=== PATIENT | male | born 1965 | race Caucasian/White ===

== ENCOUNTER 2020-05-19 15:27 | Emergency (ER) | payer OTHER, SELFPAY ==
[2020-05-19] VITALS (7 sets, daily range): BP systolic 128–150; BP diastolic 70–82; PULSE 92–100; RESP 16; TEMP 36.4–37; O2SAT 96–98; BMI 38.7
--- NOTE | 2020-05-19 16:37 | XR_ITS ---
EXAMINATION: XR HIP, LEFT CLINICAL INFORMATION: Fall, hip pain. COMPARISON: Lumbar spine radiographs 05/19/2020 TECHNIQUE: AP view pelvis is performed along with AP and frog-lateral projections left hip. FINDINGS: There is no fracture or dislocation. Left hip shows no focal joint narrowing or erosive change. There is small benign triangular calcification adjacent to superior aspect greater trochanter which may be related to calcific tendinosis at tendon insertion. The bony pelvis shows no fracture. The SI joints and pubis show no diastases. There are degenerative changes again noted lumbar spine. XR/XR hip LT min 2V IMPRESSION: 1. No fracture or dislocation. 2. Degenerative changes lumbar spine. 3. Probable calcific tendinosis adjacent to superior aspect greater trochanter.
--- NOTE | 2020-05-19 16:37 | XR_ITS ---
EXAMINATION: XR LUMBOSACRAL SPINE CLINICAL INFORMATION: Fall. Pain. COMPARISON: Lumbar spine 08/27/2009 TECHNIQUE: Three views of the lumbosacral spine. FINDINGS: Lumbar vertebrae have normal height and alignment. No fracture or bone destruction. Grade 1 anterolisthesis of L5 on S1 unchanged since prior study of 2009. There are large bridging osteophytes of the lower thoracic and lumbar spine.. Lumbar disc heights are normal. There is moderate facet joint arthrosis at the lumbosacral junction. The degenerative change of the spine have progressed significantly since prior exam of 08/27/2009. The bridging spurs have significantly enlarged since prior exam. Mild degenerative change of the inferior sacroiliac joints bilaterally. No bony ankylosis of the sacroiliac joints. There are vascular calcifications of the aorta and iliac arteries. Distal aorta measures 2.8 cm AP dimension. XR/XR lumbar spine 2-3V IMPRESSION: 1. No acute abnormality. 2. Degenerative spondylosis of lumbar spine. This has progressed since prior study of 2009.
--- NOTE | 2020-05-19 16:37 | ECG_ITS ---
Test Reason : ABD Blood Pressure : / mmHG Vent. Rate : 089 BPM Atrial Rate : 089 BPM P-R Int : 184 ms QRS Dur : 090 ms QT Int : 352 ms P-R-T Axes : 071 076 120 degrees QTc Int : 428 ms Normal sinus rhythm Nonspecific T wave abnormality Abnormal ECG When compared with ECG of 18-NOV-2019 14:34, Nonspecific T wave abnormality, worse in Lateral leads Referred By: Samaria Og Electronically Signed By:Rogerio Simmons
--- NOTE | 2020-05-19 16:38 | CT_ITS ---
EXAMINATION: CT HEAD WITHOUT CONTRAST CLINICAL INFORMATION: Positive loss of consciousness. On Coumadin COMPARISON: None TECHNIQUE: Contiguous axial imaging was performed from the skull base to vertex without intravenous administration of contrast. This CT examination was performed using dose optimization techniques as appropriate, variously including the following: *Automated exposure control *Adjustment of mA and/or kV according to patient size (this includes techniques or standardized protocols for targeted exams where dose is matched to indication/reason for exam; i.e. extremities or head) *Use of iterative reconstruction technique DLP: 847 mGy-cm FINDINGS: No intracranial hemorrhage. No mass effect or midline shift. Singer-white differentiation is maintained without evidence of acute large vessel territory ischemia. Patchy periventricular and subcortical white matter hypodensity is seen. There is more focal low density in the left centrum semiovale with CSF density low density in the left nathan radiata. Ventricles and sulci are symmetric and concordant in size consistent with age-appropriate diffuse parenchymal volume loss. No evidence of acute hydrocephalus. Globes and orbits are normal. No acute sinusitis. Skull intact. CT/CT head/brain wo con IMPRESSION: No acute intracranial hemorrhage. Age-indeterminate but likely subacute to remote ischemic changes involving the left centrum semiovale and nathan radiata. Consider MRI if there is clinical concern for acute ischemia.
--- NOTE | 2020-05-19 16:39 | ED.GENADULT ---
HPI - General Adult General Chief complaint: General Medical Stated complaint: Back pain/fall Time Seen by Provider: 05/19/20 16:21 Source: patient Mode of arrival: ambulatory Limitations: no limitations History of Present Illness HPI narrative: Patient comes emergency room complaining of lumbar pain and left hip pain. Patient states 2 days ago he passed out and fell. Patient states 2 days ago he had a dental procedure, he is on Coumadin, states he had significant bleeding from the gums. When patient got home after the dental procedure, he tried getting out of bed and passed out. Patient does not know how long he was on the floor, he was able to get up by himself. Next day, patient states that he was complaining of lumbar and left hip pain. Patient had 1 more episode of dizziness. Patient states he got up from his bed, walking to his bathroom, started feeling very dizzy, he was able to sit in the bathroom, stayed there for about an hour recovering. Patient denies any chest pain or shortness of breath. Patient came today mainly complaining of the back pain, no further dizziness. MD complaint: Syncope, fall, back pain Related Data Home Medications Medication Instructions Recorded Confirmed insulin glargine 100 unit/mL (3 10 unit SUBCUT QPM 04/12/20 mL) subcutaneous pen losartan 25 mg tablet 25 mg PO DAILY 04/12/20 pantoprazole 40 mg tablet,delayed 40 mg PO DAILY 04/12/20 release rosuvastatin 20 mg tablet 20 mg PO DAILY 04/12/20 tamsulosin 0.4 mg capsule 0.4 mg PO DAILY 04/12/20 Previous Rx's Medication Instructions Recorded furosemide 40 mg tablet 40 mg PO DAILY #90 tab 02/12/20 dulaglutide 1.5 mg/0.5 mL 1.5 mg SUBCUT QWEEK 90 Days #6.5 ml 04/12/20 subcutaneous pen injector glipizide 10 mg tablet 10 mg PO DAILY 90 Days #90 tab 04/12/20 metformin 1,000 mg tablet 1,000 mg PO BID 90 Days #180 tab 04/12/20 metoprolol tartrate 50 mg tablet 50 mg PO BID 90 Days #180 tab 04/12/20 montelukast 10 mg tablet 10 mg PO DAILY 90 Days #90 tab 04/12/20 warfarin 2 mg tablet 2 mg PO .COMPLEX #270 tab 04/13/20 tramadol 50 mg PO BID PRN #14 tab 05/19/20 Allergies Allergy/AdvReac Type Severity Reaction Status Date / Time No Known Allergies Allergy Unverified 01/08/20 17:28 [No Known Allergies*] atorvastatin AdvReac Unknown Verified 11/18/19 00:00 Review of Systems Review of Systems: Constitutional : No Weight loss, No Fever, No Chills, No Night Sweats, No Fatigue, No Malaise ENT/Mouth : No Hearing loss, No Ear Pain, No Nasal Congestion, No Sinus Pain, No Hoarseness, No sore throat, No Rhinorrhea, No Swallowing Difficulty, recovering from dental surgery, several teeth extraction Eyes: No Eye Pain, No Swelling, No Redness, No Foreign Body, No Discharge, No Vision Changes Cardiovascular : No Chest Pain, No SOB, No Dyspnea on Exertion, No Orthopnea, No Edema, No Palpitations Respiratory : No Cough, No Sputum, No Wheezing, No Smoke Exposure, No Dyspnea Gastrointestinal : No Nausea, No Vomiting, No Diarrhea, No Constipation, No abdominal Pain, No Hematochezia, No Melena Genitourinary : no irregular bleeding, No Dysuria, No Urinary Frequency, No Hematuria, No Urinary Incontinence, No Urgency, No Flank Pain, No Urinary Flow Changes, No Hesitancy Musculoskeletal : No joint pain, No Myalgias, No Joint Swelling, complaining of left hip pain Skin : No Skin Lesions, No rash Neuro : No Weakness, No Numbness, No Paresthesias, No Loss of Consciousness, No Dizziness, No Headache Psych : No Anxiety/Panic, No Depression, No SI/HI/AH/VH, No Social Issues, Heme/Lymph: No Bruising, No Bleeding,No Lymphadenopathy Endocrine : No Polyuria, No Polydipsia, No Temperature Intolerance [facility] Past Medical History Medical History (Updated 05/19/20 @ 19:06 by Samaria Og MD) Asthma Diabetes High cholesterol HTN (hypertension) Sleep apnea Surgical History (Updated 05/19/20 @ 16:28 by Meg Constantino) Mechanical heart valve present Social History Social History Smoked in Last 30 Days: No Use of substances other than those prescribed or required for medical reasons: No Advance Directives: No Advance Directives Information Provided: Yes Physical Exam Vital Signs: Vital Signs: Last Vital Signs Temp 97.5 F 05/19/20 17:33 Pulse 100 05/19/20 17:33 Resp 16 05/19/20 17:33 BP 128/74 05/19/20 17:33 Pulse Ox 96 05/19/20 17:33 Body Mass Index 38.7 Course Course Course Narrative: I discussed with the patient that his head CT showed a possible old CVA. Patient states he did have an NC in 2017 when he had a heart attack. I discussed with the patient his troponin was slightly elevated, we should go ahead and repeated in 3 hours from the time it was drawn. Patient states that he does not want to wait. Patient's orthostatics were negative, x-rays negative for fracture. I discussed with the patient that he would be leaving AMA, patient agrees, I discussed with the patient the risks of leaving against AMA, including , patient verbally understands and agrees leave AMA Medical Decision Making Lab Data Result diagrams: 05/19/20 17:40 05/19/20 17:40 Labs: Lab Results 05/19/20 05/19/20 05/19/20 Range/Units 17:40 17:40 17:40 WBC 9.5 (4.8-10.8) X10*3/uL RBC 4.46 L (4.60-5.80) X10*6/uL Hgb 11.9 L (14.0-18.0) g/dl Hct 38.1 L (42-52) % MCV 85.4 (80-98) fL MCH 26.7 L (27.0-33.0) pg MCHC 31.2 (31.0-36.0) g/dl RDW 13.9 (11.0-16.0) % Plt Count 249 (160-400) X10*3/uL MPV 11.2 (9.4-12.4) fL Immature Gran % (Auto) 0.4 (0.0-0.4) % Neut % (Auto) 55.7 (45-73) % Lymph % (Auto) 33.2 (20-40) % Burt % (Auto) 8.8 (2-11) % Eos % (Auto) 1.6 (0-4) % Baso % (Auto) 0.3 (0-2) % Lymph # (Auto) 3.1 (1.2-4.9) X10*3/uL Burt # (Auto) 0.8 (0.1-1.2) X10*3/uL Eos # (Auto) 0.2 (0.0-0.4) X10*3/uL Baso # (Auto) 0.0 (0.0-0.2) X10*3/uL Abs Immat Gran (auto) 0.04 H (0.00-0.03) X10*3/uL Absolute Neuts (auto) 5.3 (2.0-8.3) X10*3/uL Absolute Nucleated RBC 0.000 (0.0-0.012) X10*3/uL Nucleated RBC % (auto) 0.0 (0.0-0.2) /100WBC PT (10.8-13.0) SEC INR (0.9-1.1) Sodium 141 (135-145) mmol/L Potassium 4.1 (3.3-5.1) mmol/l Chloride 106 (96-108) mmol/L Carbon Dioxide 25 (22-29) mmol/L Anion Gap 14 (12-20) BUN 21 H (9-16) mg/dL Creatinine 0.78 (0.5-1.4) mg/dL Estim Creat Clear Calc 122.3 Estimated GFR > 60 Random Glucose 108 (60-115) mg/dL Calcium 9.1 (8.4-10.2) mg/dL Troponin I High Sens 6.7 (<3.5-35.0) ng/L 05/19/20 Range/Units 17:41 WBC (4.8-10.8) X10*3/uL RBC (4.60-5.80) X10*6/uL Hgb (14.0-18.0) g/dl Hct (42-52) % MCV (80-98) fL MCH (27.0-33.0) pg MCHC (31.0-36.0) g/dl RDW (11.0-16.0) % Plt Count (160-400) X10*3/uL MPV (9.4-12.4) fL Immature Gran % (Auto) (0.0-0.4) % Neut % (Auto) (45-73) % Lymph % (Auto) (20-40) % Burt % (Auto) (2-11) % Eos % (Auto) (0-4) % Baso % (Auto) (0-2) % Lymph # (Auto) (1.2-4.9) X10*3/uL Burt # (Auto) (0.1-1.2) X10*3/uL Eos # (Auto) (0.0-0.4) X10*3/uL Baso # (Auto) (0.0-0.2) X10*3/uL Abs Immat Gran (auto) (0.00-0.03) X10*3/uL Absolute Neuts (auto) (2.0-8.3) X10*3/uL Absolute Nucleated RBC (0.0-0.012) X10*3/uL Nucleated RBC % (auto) (0.0-0.2) /100WBC PT 39.0 H (10.8-13.0) SEC INR 3.2 H (0.9-1.1) Sodium (135-145) mmol/L Potassium (3.3-5.1) mmol/l Chloride (96-108) mmol/L Carbon Dioxide (22-29) mmol/L Anion Gap (12-20) BUN (9-16) mg/dL Creatinine (0.5-1.4) mg/dL Estim Creat Clear Calc Estimated GFR Random Glucose (60-115) mg/dL Calcium (8.4-10.2) mg/dL Troponin I High Sens (<3.5-35.0) ng/L Imaging Data Head CT: Radiologist's impression: No intracranial hemorrhage. No mass effect or midline shift. Singer-white differentiation is maintained without evidence of acute large vessel territory ischemia. Patchy periventricular and subcortical white matter hypodensity is seen. There is more focal low density in the left centrum semiovale with CSF density low density in the left nathan radiata. Ventricles and sulci are symmetric and concordant in size consistent with age-appropriate diffuse parenchymal volume loss. No evidence of acute hydrocephalus. Globes and orbits are normal. No acute sinusitis. Skull intact. CT/CT head/brain wo con IMPRESSION: No acute intracranial hemorrhage. Age-indeterminate but likely subacute to remote ischemic changes involving the left centrum semiovale and nathan radiata. Consider MRI if there is clinical concern for acute ischemia. Lumbar x-ray: Radiologist's impression: Lumbar vertebrae have normal height and alignment. No fracture or bone destruction. Grade 1 anterolisthesis of L5 on S1 unchanged since prior study of 2009. There are large bridging osteophytes of the lower thoracic and lumbar spine.. Lumbar disc heights are normal. There is moderate facet joint arthrosis at the lumbosacral junction. The degenerative change of the spine have progressed significantly since prior exam of 08/27/2009. The bridging spurs have significantly enlarged since prior exam. Mild degenerative change of the inferior sacroiliac joints bilaterally. No bony ankylosis of the sacroiliac joints. There are vascular calcifications of the aorta and iliac arteries. Distal aorta measures 2.8 cm AP dimension. XR/XR lumbar spine 2-3V IMPRESSION: 1. No acute abnormality. 2. Degenerative spondylosis of lumbar spine. This has progressed since prior study of 2009. Hip x-ray: Radiologist's impression: There is no fracture or dislocation. Left hip shows no focal joint narrowing or erosive change. There is small benign triangular calcification adjacent to superior aspect greater trochanter which may be related to calcific tendinosis at tendon insertion. The bony pelvis shows no fracture. The SI joints and pubis show no diastases. There are degenerative changes again noted lumbar spine. XR/XR hip LT min 2V IMPRESSION: 1. No fracture or dislocation. 2. Degenerative changes lumbar spine. 3. Probable calcific tendinosis adjacent to superior aspect greater trochanter. Discharge Plan Discharge Clinical Impression: Elevated troponin Back pain Qualifiers: Back pain location: low back pain Chronicity: acute Back pain laterality: unspecified Sciatica presence: without sciatica Qualified Code(s): M54.5 - Low back pain Acute hip pain Qualifiers: Laterality: unspecified laterality Qualified Code(s): M25.559 - Pain in unspecified hip Patient Disposition: Left Against Medical Advice Instructions: Acute Low Back Pain (ED) Prescriptions: New tramadol 50 mg tablet 50 mg PO BID PRN (Reason: pain) Qty: 14 RF: 0 No Action furosemide 40 mg tablet 40 mg PO DAILY Qty: 90 RF: 2 tamsulosin 0.4 mg capsule 0.4 mg PO DAILY RF: 0 pantoprazole 40 mg tablet,delayed release (DR/EC) 40 mg PO DAILY RF: 0 Basaglar ToddPen U-100 Insulin 100 unit/mL (3 mL) insulin pen 10 unit subcut QPM RF: 0 losartan 25 mg tablet 25 mg PO DAILY RF: 0 rosuvastatin 20 mg tablet 20 mg PO DAILY RF: 0 glipizide 10 mg tablet 10 mg PO DAILY 90 Days Qty: 90 RF: 1 metformin 1,000 mg tablet 1,000 mg PO BID 90 Days Qty: 180 RF: 1 Trulicity 1.5 mg/0.5 mL pen injector 1.5 mg subcut QWEEK 90 Days Qty: 6.5 RF: 1 metoprolol tartrate 50 mg tablet 50 mg PO BID 90 Days Qty: 180 RF: 1 montelukast [Singulair] 10 mg tablet 10 mg PO DAILY 90 Days Qty: 90 RF: 1 warfarin 2 mg tablet 2 mg PO .COMPLEX Qty: 270 RF: 0
--- NOTE | 2020-05-19 17:05 | PC.NURSE ---
report to shawn, rn and pt moved to ed bed [address] scan
[2020-05-19 17:46] LABS: MANUAL DIFF FLAG NO
[2020-05-19 17:55] LABS: Basophils Percent Auto 0.3 % (0-2); Eosinophils Absolute Auto 0.2 X10*3/uL (0.0-0.4); Eosinophils Percent Auto 1.6 % (0-4); Hematocrit 38.1 % (42-52); Hemoglobin 11.9 g/dl (14.0-18.0); Imm Gran Abs Auto 0.04 X10*3/uL (0.00-0.03); Imm Gran Pct Auto 0.4 % (0.0-0.4); Lymphocytes Absolute Auto 3.1 X10*3/uL (1.2-4.9); Lymphocytes Percent Auto 33.2 % (20-40); Mean Corpuscular HGB Conc 31.2 g/dl (31.0-36.0); Mean Corpuscular Hemoglobin 26.7 pg (27.0-33.0); Mean Corpuscular Volume 85.4 fL (80-98); Mean Platelet Volume 11.2 fL (9.4-12.4); Monocytes Absolute Auto 0.8 X10*3/uL (0.1-1.2); Monocytes Percent Auto 8.8 % (2-11); Neutrophils Absolute Auto 5.3 X10*3/uL (2.0-8.3); Neutrophils Percent Auto 55.7 % (45-73); Platelet Count 249 X10*3/uL (160-400); Red Blood Count 4.46 X10*6/uL (4.60-5.80); Red Cell Distribution Width 13.9 % (11.0-16.0); White Blood Count 9.5 X10*3/uL (4.8-10.8)
[2020-05-19 18:03] LABS: INTERNATIONAL NORM RATIO 3.2 (0.9-1.1)
[2020-05-19 18:15] LABS: Anion Gap 14 (12-20); Blood Urea Nitrogen 21 mg/dL (9-16); Calcium 9.1 mg/dL (8.4-10.2); Carbon Dioxide 25 mmol/L (22-29); Chloride 106 mmol/L (96-108); Creatinine Clr Calc Pharmacy 122.3; Estimated Glomerular Filt Rate > 60; Glucose Random 108 mg/dL (60-115); Potassium 4.1 mmol/l (3.3-5.1); Sodium 141 mmol/L (135-145)
[2020-05-19 18:19] LABS: Troponin-I High Sensitivity 6.7 ng/L (<3.5-35.0)
--- NOTE | 2020-05-19 19:19 | PC.NURSE ---
PT AGREEABLE TO WAITING FOR 2ND TROP & RESULTS VS. LEAVING AMA AWARE
[2020-05-19 21:14] LABS: Troponin-I High Sensitivity 7.8 ng/L (<3.5-35.0)
== END 2020-05-19 21:54 | disposition home or self-care (01) ==
PROVIDERS: Emergency Provider Emergency Medicine
DX: R55 Syncope and collapse (principal); M54.5 Low back pain; M25.552 Pain in left hip; M25.551 Pain in right hip; R79.89 Other specified abnormal findings of blood chemistry; Z79.899 Other long term (current) drug therapy
CPT/HCPCS: 36415; 70450; 72100; 73502; 80048; 84484; 85025; 85610; 93005; 99284

== ENCOUNTER 2020-06-28 05:59 | Outpatient (REF) | payer OTHER, SELFPAY ==
[2020-06-28 07:14] LABS: Hematocrit 36.7 % (42-52); Hemoglobin 10.7 g/dl (14.0-18.0); Mean Corpuscular HGB Conc 29.2 g/dl (31.0-36.0); Mean Corpuscular Hemoglobin 23.6 pg (27.0-33.0); Mean Corpuscular Volume 80.8 fL (80-98); Platelet Count 361 X10*3/uL (160-400); Red Blood Count 4.54 X10*6/uL (4.60-5.80); Red Cell Distribution Width 14.6 % (11.0-16.0); White Blood Count 7.8 X10*3/uL (4.8-10.8)
[2020-06-28 07:34] LABS: Alanine Aminotransferase 21 U/L (0-40); Albumin Level 4.5 g/dL (3.5-5.0); Alkaline Phosphatase 84 U/L (39-117); Aspartate Amino Transferase 19 U/L (5-37); Bilirubin Total 0.4 mg/dL (0.0-1.0); Blood Urea Nitrogen 18 mg/dL (9-16); Cholesterol 136 mg/dL; Estimated Glomerular Filt Rate > 60; Glucose Fasting 135 mg/dL (60-99); HDL Cholesterol 38 mg/dL; LDL Cholesterol Calculated 77 mg/dl; Triglycerides 105 mg/dL
[2020-06-28 07:42] LABS: Anion Gap 13 (12-20); Carbon Dioxide 27 mmol/L (22-29); Chloride 106 mmol/L (96-108); Potassium 4.4 mmol/L (3.3-5.1); Sodium 142 mmol/L (135-145)
[2020-06-28 07:47] LABS: Estimated Average Glucose 131 mg/dL; Hemoglobin A1c % 6.2 %
[2020-06-28 07:52] LABS: Prostate Specific Antigen Scr 0.96 ng/mL (<0.05-4.0); TSH reflex Free T4 0.77 uIU/mL (0.32-4.0)
[2020-06-28 08:12] LABS: Creatinine Urine 295.16 mg/dL; Microalbum/Creatinine Ratio Ur 59.2 ug/mg cr
== END 2020-06-28 06:00 | disposition home or self-care (01) ==
LOC: HO.LAB 05:59
PROVIDERS: PCP Physician Assistant; Visit Provider Physician Assistant
DX: I10 Essential (primary) hypertension (principal); E11.9 Type 2 diabetes mellitus without complications; Z12.5 Encounter for screening for malignant neoplasm of prostate
CPT/HCPCS: 36415; 80053; 80061; 82043; 83036; 84153; 84443; 85027

== ENCOUNTER 2020-07-15 07:32 | Outpatient (REF) | payer OTHER, SELFPAY | END 2020-07-15 07:33 | disposition home or self-care (01) | LOC: HO.LAB 07:32 | PROVIDERS: Visit Provider Internal Medicine | DX: Z20.822 Contact with and (suspected) exposure to COVID-19 (principal) | CPT/HCPCS: 36415; C9803; U0003; U0005 ==

== ENCOUNTER → 2020-09-02 16:00 | Outpatient (BNVA) | payer OTHER, SELFPAY | PROVIDERS: Referring Provider Physician Assistant; Visit Provider Nurse Practitioner Family ==

== ENCOUNTER 2020-12-28 06:35 | Day surgery (SDC) | payer OTHER, SELFPAY ==
[2020-12-21 14:20] VITALS: BMI 39.2
--- NOTE | 2020-12-24 10:44 | HO.ANESPROP2 ---
Documented by User: Maria Victoria Camejo NP 12/24/20 11:55 HPI - Anesthesia Eval Consult details Narrative: 55yo M for Colonoscopy Cardiac cleared Coumadin s/p AVR - to Lovenox bridge per cardiac note PMFSH Active Problems Active Problems: All Active Problems (Updated 12/21/20 @ 14:17 by Kely Ricketts RN) CAD (coronary artery disease) (Acute) DMII (diabetes mellitus, type 2) (Acute) Asthma (Acute) HLD (hyperlipidemia) (Acute) Obese (Acute) Tubular adenoma of colon (Acute) Past Medical History Medical History (Updated 12/21/20 @ 14:17 by Kely Ricketts RN) Arrhythmia Asthma BPH (benign prostatic hyperplasia) Chronic renal insufficiency Coagulopathy CVA (cerebral vascular accident) Diabetes High cholesterol History of COVID-19 HTN (hypertension) Sleep apnea Surgical History Surgical History (Updated 12/21/20 @ 14:17 by Kely Ricketts RN) H/O colonoscopy H/O tooth extraction Mechanical heart valve present Social History Social History Alcohol intake: never Patient Tobacco Use Status: Former Tobacco user Use of substances other than those prescribed or required for medical reasons: No Have you been hit, kicked, punched, or otherwise hurt by someone within the past year? If so, by whom?: No Are you DNR?: No Advance Directives Information Provided: No Meds Allergies Allergy/AdvReac Type Severity Reaction Status Date / Time atorvastatin AdvReac Unknown Unknown Verified 09/02/20 16:18 Home Medications Medication Instructions Recorded Confirmed Last Taken Type insulin glargine 100 unit/mL (3 10 unit SUBCUT QPM 04/12/20 12/21/20 Unknown History mL) subcutaneous pen (Basaglar KwikPen U-100 Insulin) warfarin 3 mg tablet mg PO 07/05/20 07/05/20 Unknown History Exam Exam Date and Time: December 24, 2020 1044 Height,Weight and Vital Signs: Height 5 ft 6.5 in Weight 112.037 kg Pertinent Lab Results Pertinent Lab Results: Laboratory Tests 06/28/20 06/28/20 06:10 06:10 WBC 7.8 Hgb 10.7 L Hct 36.7 L Plt Count 361 D Sodium 142 Potassium 4.4 Chloride 106 Carbon Dioxide 27 BUN 18 H Creatinine 0.77 Narrative Narrative: EKG 09/2020 NSR No changes from 04/2020 ECHO 06/2018 (next scheduled on 01/04/21) LV size is normal. Mod to severe conc LVH. LV systolic function is normal. LVEF 55-60%. No obvious WMA. LV filling pressures are indeterminate. LA is severely dilated. Lipomatous hypertrophy of interatrial septum Mechanical valve in aortic position. Gradient is normal for this valve type. No significant aortic regurg Mild MAC. Mitral valve appears mildly calcified. MV opening is normal. Trivial mitral regurg Assessment and Plan Assessment Anesthesia Assessment: Chart Reviewed Documented by User: Casey Calvo MD 12/28/20 07:07 [facility] Past Medical History Medical History (Updated 12/21/20 @ 14:17 by Kely Ricketts RN) Arrhythmia Asthma BPH (benign prostatic hyperplasia) Chronic renal insufficiency Coagulopathy CVA (cerebral vascular accident) Diabetes High cholesterol History of COVID-19 HTN (hypertension) Sleep apnea Surgical History Surgical History (Updated 12/21/20 @ 14:17 by Kely Ricketts RN) H/O colonoscopy H/O tooth extraction Mechanical heart valve present Social History Social History Alcohol intake: never Patient Tobacco Use Status: Former Tobacco user Use of substances other than those prescribed or required for medical reasons: No Have you been hit, kicked, punched, or otherwise hurt by someone within the past year? If so, by whom?: No Are you DNR?: No Advance Directives Information Provided: No Meds Allergies Allergy/AdvReac Type Severity Reaction Status Date / Time atorvastatin AdvReac Unknown Unknown Verified 09/02/20 16:18 Home Medications Medication Instructions Recorded Confirmed Last Taken Type insulin glargine 100 unit/mL (3 10 unit SUBCUT QPM 04/12/20 12/21/20 Unknown History mL) subcutaneous pen (Basaglar KwikPen U-100 Insulin) warfarin 3 mg tablet mg PO 07/05/20 07/05/20 Unknown History Exam Airway Mallampati Class: III TM Dist: >3cm Neck ROM: Full Partial: Lower
[2020-12-28 06:45] LABS: Glucose, Whole Blood 89 mg/dL (60-115)
[2020-12-28 06:54] VITALS: BP 133/85; PULSE 72; RESP 18; TEMP 36.1; O2SAT 97
[2020-12-28 07:11] VITALS: BMI 38.1
[2020-12-28] MEDS: Lactated Ringers 1,000 ML 50 ML IVCONT (07:12)
--- NOTE | 2020-12-28 07:19 | MHC.SHP ---
Pre-Procedural Eval Section A Date of Service: 12/28/20 The patient is an INPATIENT: No The History & Physical has been completed within 30 days and I have reviewed it.: No Section B Chief Complaint: Screening Details of Present Illness: Colon Cancer screening, history of colon polyps Relevant Family History (Specify if Yes): No Relevant Social History: Tobacco Use (Former smoker) Present Medications: see Short Stay Collaborative assessment Medical History: Significant History (Asthma Diabetes High cholesterol HTN (hypertension) Sleep apnea) History of Previous Operations: Relevant previous surgery/procedure and date(s) (H/O tooth extraction Mechanical heart valve present) Allergies: Allergies Allergy/AdvReac Type Severity Reaction Status Date / Time atorvastatin AdvReac Unknown Unknown Verified 09/02/20 16:18 Review of Systems Sugical H&P ROS: Negative: Constitution, Cardiovascular, Respiratory and Gastrointestinal Exam Surgical H&P Exam: Normal: Heart, Normal: Lungs, Normal: Extremities and Normal: Abdomen Plan Diagnosis/Plan: Unchanged I have reviewed the history and physical and performed a pertinent physical examination on my patient. No changes have occurred unless specified.
[2020-12-28 07:20] LABS: INTERNATIONAL NORM RATIO 1.3 (0.9-1.1); Prothrombin Time 14.7 SEC (9.9-13.0)
--- NOTE | 2020-12-28 07:44 | P.OP_ITS ---
Operative Note Operative Note Date of Service: 12/28/20 Narrative: Pre-op diagnosis:?Colon cancer screening, history of colon polyps Post-op diagnosis:?other (Colon polyps, diverticulosis, hemorrhoids) Procedure:? COLONOSCOPY TILL CECUM WITH SNARE POLYPECTOMY Consent: Indications for the procedure and potential complications of bleeding, perforation, reaction to medications and missed diagnosis were discussed with the patient and informed consent was obtained. Instrument: Olympus PCF H 190 L variable stiffness pediatric colonoscope Monitoring: Vital signs and clinical assessment, intermittent blood pressure monitoring, continuous EKG monitoring, Pulse oximetry and Carbon Dioxide monitoring were done throughout the procedure. Colon withdrawl time was 23 minutes. Procedure: The patient was placed in the left lateral decubitis position and pre-procedure medications were administered. After a digital rectal examination of the ano-rectum, the video colonoscope was inserted into the rectum and advanced through the colon to the cecum. The colonoscope was slowly withdrawn in a retrograde panoramic fashion and the colon mucosa was carefully examined including a retroflexed view of the rectum. Findings and interventions are described below. Procedure Difficulty: Without difficulty Findings: Terminal Ileum: Not evaluated Cecum:? Normal Ascending Colon:? Scattered diverticulosis throughout the colon. Transverse Colon:? A 9-10 mm sessile polyp removed with a cold snare Descending Colon:? Scattered moderate diverticulosis Sigmoid Colon:? Five 8-12 mm sessile polyps removed with cold snare. Moderate diverticulosis Rectum:? Normal Ano-rectum:? Moderate internal hemorrhoids Colon preparation:? Good after some irrigation Impression and Post Procedure Diagnosis: Colonoscopy Findings: Six small to medium sized polyps removed Scattered moderate diverticulosis throughout the colon. Moderate hemorrhoids on retroflexed exam. Plan: Await pathology results Patient has an appointment on 01/11/21 in the [facility] with Shaye Noe FNP- [facility]. Repeat Colonoscopy interval based on path results - in 3 years if polyps are adenomatous and 5 years if polyps are hyperplastic due to a hx of colon polyps. Above findings were reviewed with the patient and colon polyps and diverticulosis? handouts were given in the discharge area Surgeon:?Drew Capellan MD Anesthesia:?MAC (Carmen Matthews CRNA) Was an Drafter Electronic used for this Procedure?:?Yes Drafter Electronic:?Carrol Pat Estimated blood loss (mL):?0 Pathology:?other ( A. transverse colon polyp? B. sigmoid colon polyps) Condition:?stable Disposition:?PACU
[2020-12-28 08:26] VITALS: BP 106/59; PULSE 69; RESP 16; TEMP 36.7; O2SAT 98
[2020-12-28 08:41] VITALS: BP 103/58; PULSE 70; RESP 16; TEMP 36.7; O2SAT 95
== END 2020-12-28 09:29 | disposition home or self-care (01) ==
PROVIDERS: Nurse Practitioner; PCP Physician Assistant; Visit Provider Internal Medicine Gastroenterology
PROC: 0DJD8ZZ Inspection of Lower Intestinal Tract, Via Natural or Artificial Opening Endoscopic (ICD-10-PCS; CPT 45378; principal; 2020-12-28 07:30)
DX: Z12.11 Encounter for screening for malignant neoplasm of colon (principal); D12.3 Benign neoplasm of transverse colon; D12.5 Benign neoplasm of sigmoid colon; K57.30 Diverticulosis of large intestine without perforation or abscess without bleeding; K64.8 Other hemorrhoids; Z86.010 Personal history of colon polyps; E11.9 Type 2 diabetes mellitus without complications; I10 Essential (primary) hypertension
CPT/HCPCS: 45385; 36415; 82947; 85610; 88305; J2370

== ENCOUNTER 2021-01-06 06:05 | Outpatient (REF) | payer OTHER, SELFPAY ==
[2021-01-06 11:23] LABS: Hematocrit 34.8 % (42-52); Hemoglobin 9.8 g/dl (14.0-18.0); Mean Corpuscular HGB Conc 28.2 g/dl (31.0-36.0); Mean Corpuscular Hemoglobin 20.3 pg (27.0-33.0); Mean Platelet Volume 11.3 fL (9.4-12.4); Platelet Count 288 X10*3/uL (160-400); Red Blood Count 4.83 X10*6/uL (4.60-5.80); Red Cell Distribution Width 19.2 % (11.0-16.0); White Blood Count 6.8 X10*3/uL (4.8-10.8)
[2021-01-06 11:38] LABS: Estimated Average Glucose 137 mg/dL; Hemoglobin A1c % 6.4 %
[2021-01-06 11:54] LABS: Alanine Aminotransferase 34 U/L (0-40); Alkaline Phosphatase 73 U/L (39-117); Anion Gap 13 (12-20); Aspartate Amino Transferase 23 U/L (5-37); Bilirubin Total 0.5 mg/dL (0.0-1.0); Blood Urea Nitrogen 11 mg/dL (9-16); Calcium 8.4 mg/dL (8.4-10.2); Carbon Dioxide 26 mmol/L (22-29); Chloride 107 mmol/L (96-108); Cholesterol 126 mg/dL; Estimated Glomerular Filt Rate > 60; Glucose Fasting 123 mg/dL (60-99); HDL Cholesterol 41 mg/dL; LDL Cholesterol Calculated 66 mg/dl; Potassium 4.5 mmol/L (3.3-5.1); Sodium 141 mmol/L (135-145); Total Protein 6.3 g/dL (6.5-8.0); Triglycerides 95 mg/dL
[2021-01-06 12:04] LABS: TSH reflex Free T4 1.31 uIU/mL (0.32-4.0)
== END 2021-01-06 06:06 | disposition home or self-care (01) ==
LOC: HO.HMGCLDS 06:05
PROVIDERS: PCP Physician Assistant; Visit Provider Physician Assistant
DX: I10 Essential (primary) hypertension (principal); E78.2 Mixed hyperlipidemia; E11.9 Type 2 diabetes mellitus without complications; Z79.4 Long term (current) use of insulin
CPT/HCPCS: 36415; 80053; 80061; 83036; 84443; 85027

== ENCOUNTER 2021-08-15 05:59 | Outpatient (REF) | payer OTHER, SELFPAY ==
[2021-08-15 12:00] LABS: Estimated Average Glucose 157 mg/dL; Hemoglobin A1c % 7.1 %
[2021-08-15 12:05] LABS: Hematocrit 40.3 % (42.0-52.0); Hemoglobin 11.2 g/dl (14.0-18.0); Mean Corpuscular HGB Conc 27.8 g/dl (31.0-36.0); Mean Corpuscular Hemoglobin 19.8 pg (27.0-33.0); Mean Corpuscular Volume 71.3 fL (80.0-98.0); Mean Platelet Volume 11.1 fL (9.4-12.4); Platelet Count 278 X10*3/uL (160-400); Red Blood Count 5.65 X10*6/uL (4.60-5.80); Red Cell Distribution Width 18.6 % (11.0-16.0); White Blood Count 6.9 X10*3/uL (4.8-10.8)
[2021-08-15 12:30] LABS: Alanine Aminotransferase 21 U/L (0-40); Albumin Level 4.4 g/dL (3.5-5.0); Alkaline Phosphatase 80 U/L (39-117); Anion Gap 11 (12-20); Aspartate Amino Transferase 22 U/L (5-37); Bilirubin Total 0.6 mg/dL (0.0-1.0); Blood Urea Nitrogen 14 mg/dL (9-16); Calcium 9.1 mg/dL (8.4-10.2); Carbon Dioxide 29 mmol/L (22-29); Chloride 104 mmol/L (96-108); Cholesterol 136 mg/dL; Estimated Glomerular Filt Rate > 60; Glucose Fasting 130 mg/dL (60-99); HDL Cholesterol 39 mg/dL; LDL Cholesterol Calculated 81 mg/dl; Potassium 4.3 mmol/L (3.3-5.1); Sodium 140 mmol/L (135-145); Total Protein 7.2 g/dL (6.5-8.0); Triglycerides 81 mg/dL
[2021-08-15 12:33] LABS: TSH reflex Free T4 1.01 uIU/mL (0.32-4.0)
[2021-08-15 12:37] LABS: Creatinine Urine 202.05 mg/dL; Microalbum/Creatinine Ratio Ur 50.4 ug/mg cr
== END 2021-08-15 06:00 | disposition home or self-care (01) ==
LOC: HO.HMGCLDS 05:59
PROVIDERS: Visit Provider Physician Assistant
DX: I25.10 Atherosclerotic heart disease of native coronary artery without angina pectoris (principal); E11.9 Type 2 diabetes mellitus without complications; E78.2 Mixed hyperlipidemia; E66.09 Other obesity due to excess calories; Z68.39 Body mass index [BMI] 39.0-39.9, adult; Z79.4 Long term (current) use of insulin
CPT/HCPCS: 36415; 80053; 80061; 82043; 83036; 84443; 85027

== ENCOUNTER → 2021-09-14 20:31 | Outpatient (REF) | payer OTHER, SELFPAY | LOC: HO.SL 20:31 | PROVIDERS: PCP Physician Assistant; Visit Provider Physician Assistant | DX: G47.33 Obstructive sleep apnea (adult) (pediatric) (principal) | CPT/HCPCS: 95810 ==

== ENCOUNTER → 2021-09-27 20:02 | Outpatient (REF) | payer OTHER, SELFPAY | LOC: HO.SL 20:02 | PROVIDERS: Visit Provider Physician Assistant | DX: G47.33 Obstructive sleep apnea (adult) (pediatric) (principal) | CPT/HCPCS: 95811 ==

== ENCOUNTER 2022-02-19 13:25 | Emergency (ER) | payer OTHER, SELFPAY ==
--- NOTE | ~2022-02-19 | XR_ITS ---
EXAMINATION: XR ELBOW, RIGHT CLINICAL INFORMATION: Right elbow swelling, redness COMPARISON: None TECHNIQUE: AP, lateral, and oblique views of the right elbow. FINDINGS: Osseous alignment is anatomic. No acute fracture is seen. There is prominent olecranon spurring with overlying dorsal soft tissue swelling. Mild spurring noted at the coronoid process of the ulna. No significant elbow effusion. XR/XR elbow RT 2V IMPRESSION: Prominent olecranon spurring with overlying soft tissue swelling, suspicious for olecranon bursitis.
[2022-02-19 13:44] VITALS: BP 136/70; PULSE 85; RESP 16; TEMP 36.6; O2SAT 97; BMI 39.5
--- NOTE | 2022-02-19 16:57 | ED.EXTPRO ---
HPI - Extremity Problem General Chief complaint: Extremity Problem Stated complaint: R elbow pain, swollen Time Seen by Provider: 02/19/22 16:53 Source: patient Mode of arrival: ambulatory Limitations: no limitations History of Present Illness HPI Narrative: Patient is a 56 year male who presents emergency department for evaluation of right elbow swelling. He states that he woke this morning and found it suddenly swollen, red, and painful. Denies any trauma or injury to the elbow. Denies fevers, chills, has full range of motion to the elbow, no numbness or tingling to the extremity. He does report history of diabetes. Related Data Home Medications Medication Instructions Recorded Confirmed warfarin 3 mg tablet mg PO 07/05/20 08/17/21 Previous Rx's Medication Instructions Recorded Advair Diskus 250 mcg-50 mcg/dose 1 inh inhalation BID #180 ea 02/02/21 powder for inhalation (fluticasone propion-salmeterol) miscellaneous medical supply #1 ea 08/17/21 (Blood Pressure Cuff) furosemide 40 mg tablet 40 mg PO DAILY #90 tabs 09/12/21 losartan 25 mg tablet 25 mg PO DAILY #90 tabs 09/12/21 pantoprazole 40 mg tablet,delayed 40 mg PO DAILY #90 tabs 09/12/21 release pen needle, diabetic 29 gauge x 1 ea miscellaneous DAILY #90 caps 09/12/21 1/2 (BD Ultra-Fine Original Pen Needle) tamsulosin 0.4 mg capsule 0.4 mg PO DAILY #90 caps 09/12/21 insulin glargine 100 unit/mL (3 35 unit (0.35 mL) subcut BEDTIME 09/20/21 mL) subcutaneous pen (Basaglar #45 mL KwikPen U-100 Insulin) albuterol sulfate 90 mcg/actuation 2 puff inhalation Q4-6H PRN 09/27/21 aerosol inhaler (ProAir HFA) shortness of breath or wheezing 90 days #3 ea CPAP #1 ea 09/29/21 sildenafil 100 mg tablet 100 mg PO DAILY 30 days #30 tabs 09/29/21 aspirin 81 mg chewable tablet 1 tab PO DAILY #90 tabs 11/02/21 dulaglutide 1.5 mg/0.5 mL 1.5 mg (0.5 mL) subcut QWEEK 90 11/02/21 subcutaneous pen injector days #6.5 mL (Trulicity) metformin 1,000 mg tablet 1,000 mg PO BID 90 days #180 tabs 12/12/21 metoprolol tartrate 50 mg tablet 50 mg PO BID #180 tabs 12/12/21 rosuvastatin 20 mg tablet 20 mg PO DAILY #90 tabs 12/12/21 cephalexin 500 mg capsule 500 mg PO QID 7 days #28 caps 02/19/22 Allergies Allergy/AdvReac Type Severity Reaction Status Date / Time atorvastatin AdvReac Unknown Unknown Verified 10/13/21 16:59 Review of Systems Review of Systems: Musculoskeletal: Right elbow redness, swelling, warmth Yes all other systems are reviewed and are negative PMFSH Past Medical History Attestation statement: The following information was validated with the patient. Source: old records reviewed Medical History Arrhythmia Asthma BPH (benign prostatic hyperplasia) Chronic renal insufficiency Coagulopathy CVA (cerebral vascular accident) Diabetes High cholesterol History of COVID-19 HTN (hypertension) Sleep apnea Surgical History H/O colonoscopy H/O tooth extraction Mechanical heart valve present Social History Social History Housing: House Alcohol intake: never Patient Tobacco Use Status: Former Tobacco user e-Cigarette/Vaping Use: Never Used Second Hand Smoke Exposure: No Advance Directives: No Advance Directives Information Provided: No service: No Current occupational status: employed Cognitive needs: No Hearing needs: No Vision needs: Yes Physical Exam Vital Signs: Vital Signs: Last Vital Signs Temp 97.8 F 02/19/22 13:44 Pulse 85 02/19/22 13:44 Resp 16 02/19/22 13:44 BP 136/70 02/19/22 13:44 Pulse Ox 97 02/19/22 13:44 O2 Del Method 02/19/22 13:44 BMI result Body Mass Index 39.5 Appearance: Alert.?Oriented to person, place and time. No acute distress.?Normal affect. Neck: Normal inspection.? Neck supple.?? CVS: Heart sounds normal. Normal heart rate and rhythm.? Pulses normal.?? Respiratory: No respiratory distress.? Lung sounds clear to auscultation bilaterally?? Abdomen: Soft and non-tender. Normoactive bowel sounds. Skin: Skin warm and dry.? Normal skin color.? Extremities: No lower extremity edema.? Right elbow olecranon bursitis, erythema, warmth Neuro: Moves all extremities spontaneously. Sensation intact bilaterally. . No focal neuro deficits. Ambulates with normal steady gait. Course Course Course Narrative: Patient is a 56-year-old male with a past medical history of atrial fibrillation on Coumadin, BPH, CVA, diabetes, hyperlipidemia, hypertension, sleep apnea. Patient presents emergency department for reported non-traumatic olecranon bursitis, XR reveals no acute fracture dislocation. It is mildly erythematous, feels warm to the touch but no warmer than the rest of the arm. Vital signs are normal afebrile without tachycardia. Neurovascularly intact distally. Full range of motion to the right elbow. Patient is on Coumadin, would defer joint aspiration at this time so as to prevent hematoma. Will cover course of oral antibiotics, Dino bandage for compression, outpatient follow-up with PCP/Orthopedics. Reviewed worrisome signs and symptoms to return back to the emergency department for. All questions were answered, patient was discharged home in stable condition. Discharge Plan Discharge Clinical Impression: Olecranon bursitis of right elbow Patient Disposition: Home, Self-Care Instructions: Elbow Bursitis (ED) Additional Instructions: As we discussed, avoid usage of [id number] NSAIDs as these put to at greater risk for bleeding when taken in combination with your Coumadin. You have been given a course of antibiotics, please complete this entire course. Be sure to rest, avoid prolonged pressure on the elbow, apply ice for 10-15 minutes 3-4 times daily, Dino bandage for compression, elevate your arm when possible above the level of your chest. Please contact your primary care provider and arrange for a follow-up visit within the next week, additionally may follow-up with Orthopedics for persistent pain or swelling. Return to emergency department with any new or worsening symptoms or concerns. If you develop fever, increasing redness, swelling, decreased range of motion to elbow you should have this re-evaluated. Prescriptions: New cephalexin 500 mg capsule 500 mg PO QID 7 Days Qty: 28 0RF No Action fluticasone propion-salmeterol [Advair Diskus] 250-50 mcg/dose blister with device 1 inh inhalation BID Qty: 180 3RF pen needle, diabetic [BD Ultra-Fine Orig Pen Needle] 29 gauge x 1/2 needle 1 ea miscellaneous DAILY Qty: 90 3RF furosemide 40 mg tablet 40 mg PO DAILY Qty: 90 2RF losartan 25 mg tablet 25 mg PO DAILY Qty: 90 2RF tamsulosin 0.4 mg capsule 0.4 mg PO DAILY Qty: 90 2RF pantoprazole 40 mg tablet,delayed release (DR/EC) 40 mg PO DAILY Qty: 90 2RF Basaglar KwikPen U-100 Insulin 100 unit/mL (3 mL) insulin pen 35 unit subcut BEDTIME Qty: 45 3RF albuterol sulfate [ProAir HFA] 90 mcg/actuation HFA aerosol inhaler 2 puff inhalation Q4-6H PRN (Reason: shortness of breath or wheezing) 90 Days Qty: 3 3RF sildenafil 100 mg tablet 100 mg PO DAILY 30 Days Qty: 30 1RF (DME) CPAP Device See Rx Instructions .Route Qty: 1 0RF Rx Instructions: As directed aspirin 81 mg tablet,chewable 1 tab PO DAILY Qty: 90 2RF Trulicity 1.5 mg/0.5 mL pen injector 1.5 mg subcut QWEEK 90 Days Qty: 6.5 2RF metoprolol tartrate 50 mg tablet 50 mg PO BID Qty: 180 2RF metformin 1,000 mg tablet 1,000 mg PO BID 90 Days Qty: 180 2RF rosuvastatin 20 mg tablet 20 mg PO DAILY Qty: 90 2RF warfarin 3 mg tablet PO (DME) Blood Pressure Cuff Misc See Rx Instructions .ROUTE .MEDSUPPLY Qty: 1 0RF Rx Instructions: As directed Referrals: Ayaz Sewell PA-C [Primary Care Provider] - Mc Olsen PA-C [Physician [employer]] -
== END 2022-02-19 18:33 | disposition home or self-care (01) ==
PROVIDERS: Emergency Provider Emergency Medicine; PCP Physician Assistant
DX: M70.21 Olecranon bursitis, right elbow (principal); Y93.9 Activity, unspecified; E11.9 Type 2 diabetes mellitus without complications; I10 Essential (primary) hypertension; E78.00 Pure hypercholesterolemia, unspecified; I48.91 Unspecified atrial fibrillation; Z79.01 Long term (current) use of anticoagulants; Z79.899 Other long term (current) drug therapy; Z79.02 Long term (current) use of antithrombotics/antiplatelets; Z79.84 Long term (current) use of oral hypoglycemic drugs
CPT/HCPCS: 73070; 99282; 99284

== ENCOUNTER 2022-03-13 06:05 | Outpatient (REF) | payer OTHER, SELFPAY ==
[2022-03-13 11:52] LABS: Hematocrit 41.8 % (42.0-52.0); Hemoglobin 11.7 g/dl (14.0-18.0); Mean Corpuscular Hemoglobin 20.5 pg (27.0-33.0); Mean Corpuscular Volume 73.2 fL (80.0-98.0); Mean Platelet Volume 12.7 fL (9.4-12.4); Platelet Count 300 X10*3/uL (160-400); Red Blood Count 5.71 X10*6/uL (4.60-5.80); Red Cell Distribution Width 18.6 % (11.0-16.0); White Blood Count 9.9 X10*3/uL (4.8-10.8)
[2022-03-13 12:28] LABS: Estimated Average Glucose 258 mg/dL; Hemoglobin A1c % 10.6 %
[2022-03-13 12:37] LABS: Alanine Aminotransferase 44 U/L (0-40); Albumin Level 4.3 g/dL (3.5-5.0); Alkaline Phosphatase 118 U/L (39-117); Anion Gap 17 (12-20); Aspartate Amino Transferase 21 U/L (5-37); Bilirubin Total 0.3 mg/dL (0.0-1.0); Blood Urea Nitrogen 15 mg/dL (9-16); Carbon Dioxide 25 mmol/L (22-29); Chloride 100 mmol/L (96-108); Cholesterol 180 mg/dL; Estimated Glomerular Filt Rate > 60; HDL Cholesterol 43 mg/dL; LDL Cholesterol Calculated 84 mg/dl; Potassium 5.2 mmol/L (3.3-5.1); Prostate Specific Antigen Scr 0.92 ng/mL (<0.05-4.0); Sodium 137 mmol/L (135-145); TSH reflex Free T4 0.54 uIU/mL (0.32-4.0); Total Protein 7.3 g/dL (6.5-8.0); Triglycerides 268 mg/dL
[2022-03-13 13:23] LABS: Glucose Fasting 373 mg/dL (60-99)
== END 2022-03-13 06:06 | disposition home or self-care (01) ==
LOC: HO.HMGCLDS 06:05
PROVIDERS: PCP Physician Assistant; Visit Provider Physician Assistant
DX: Z12.5 Encounter for screening for malignant neoplasm of prostate (principal); I25.10 Atherosclerotic heart disease of native coronary artery without angina pectoris; E11.9 Type 2 diabetes mellitus without complications; Z79.4 Long term (current) use of insulin
CPT/HCPCS: 36415; 80053; 80061; 83036; 84153; 84443; 85027

== ENCOUNTER 2022-08-09 14:21 | Emergency (ER) | payer OTHER, SELFPAY ==
--- NOTE | ~2022-08-09 | CT_ITS ---
EXAMINATION: CT HEAD WITHOUT CONTRAST CLINICAL INFORMATION: Dizziness for weeks, rule out intracranial abnormality. COMPARISON: 05/19/[address] scan. TECHNIQUE: Contiguous axial imaging was performed from the skull base to vertex without intravenous administration of contrast. Coronal and sagittal reformatted images were obtained. This CT examination was performed using dose optimization techniques as appropriate, variously including the following: *Automated exposure control *Adjustment of mA and/or kV according to patient size (this includes techniques or standardized protocols for targeted exams where dose is matched to indication/reason for exam; i.e. extremities or head) *Use of iterative reconstruction technique DLP: 804 mGy-cm FINDINGS: There is mild widening of the cortical sulci and associated ventriculomegaly. Mild periventricular microvascular changes. The lateral ventricles are symmetrical. The third and fourth ventricles are in their normal midline position. The basilar and prepontine cisterns are unremarkable. There is no acute intra or extracerebral abnormality. There is no mass effect or midline shift. Sections through the bony calvarium are unremarkable. The orbits are intact. The paranasal sinuses are clear. The mastoid air cells are clear. CT/CT head/brain wo IV con IMPRESSION: No acute intracranial pathology.
--- NOTE | ~2022-08-09 | XR_ITS ---
EXAMINATION: XR CHEST CLINICAL INFORMATION: Dizziness COMPARISON: None available. TECHNIQUE: 2 views of the chest were obtained. FINDINGS: Lungs are well expanded. Minimal linear opacity of scar or discoid atelectasis at the left lateral base. No lung mass, consolidation or pleural effusion. Cardiac silhouette is normal in size. Sternotomy wires and sternal plates are intact. Annuloplasty of aortic valve. Pulmonary vascular pattern is normal. No acute osseous abnormality. XR/XR chest 2V IMPRESSION: No acute pulmonary disease.
[2022-08-09 14:33] VITALS: BP 139/76; PULSE 79; RESP 18; TEMP 36.9; O2SAT 97; BMI 38.7
--- NOTE | 2022-08-09 14:51 | ED_ITS ---
HPI - General Adult General Chief complaint: General Medical Stated complaint: not feeling well? Related Data Previous Rx's Medication Instructions Recorded miscellaneous medical supply #1 ea 08/17/21 (Blood Pressure Cuff) CPAP #1 ea 09/29/21 sildenafil 100 mg tablet 100 mg PO DAILY 30 days #30 tabs 09/29/21 dulaglutide 1.5 mg/0.5 mL 1.5 mg (0.5 mL) subcut QWEEK 90 11/02/21 subcutaneous pen injector days #6.5 mL (Trulicity) metformin 1,000 mg tablet 1,000 mg PO BID 90 days #180 tabs 12/12/21 rosuvastatin 20 mg tablet 20 mg PO DAILY #90 tabs 12/12/21 fluticasone propionate 115 2 puff inhalation BID 90 days #3 02/23/22 mcg-salmeterol 21 mcg/actuation multiple units HFA inhaler (Advair HFA) prednisone 20 mg tablet 20 mg PO DAILY 5 days #5 tabs 03/04/22 pen needle, diabetic 29 gauge x 1 ea miscellaneous DAILY #90 caps 03/07/22 1/2 (BD Ultra-Fine Original Pen Needle) albuterol sulfate 90 mcg/actuation 2 puff inhalation Q4-6H PRN 03/13/22 aerosol inhaler (ProAir HFA) shortness of breath or wheezing 90 days #3 ea insulin glargine 100 unit/mL (3 35 unit (0.35 mL) subcut BEDTIME 03/29/22 mL) subcutaneous pen (Basaglar #45 mL KwikPen U-100 Insulin) metoprolol tartrate 50 mg tablet 50 mg PO BID #180 tabs 03/29/22 warfarin 2 mg tablet 2 mg PO DAILY 90 days #90 tabs 04/03/22 warfarin 3 mg tablet 3 mg PO DAILY 90 days #90 tabs 04/03/22 aspirin 81 mg chewable tablet 1 tab PO DAILY #90 tabs 04/29/22 cephalexin 500 mg capsule 500 mg PO QID 7 days #28 caps 05/01/22 losartan 25 mg tablet 25 mg PO DAILY #90 tabs 05/24/22 pantoprazole 40 mg tablet,delayed 40 mg PO DAILY #90 tabs 05/24/22 release tamsulosin 0.4 mg capsule 0.4 mg PO DAILY #90 caps 05/24/22 furosemide 40 mg tablet 40 mg PO DAILY #90 tabs 06/16/22 tramadol 50 mg tablet 50 mg PO BID PRN pain 4 days #8 07/13/22 tabs Allergies Allergy/AdvReac Type Severity Reaction Status Date / Time atorvastatin AdvReac Unknown Unknown Verified 08/09/22 14:36 [facility] Past Medical History Medical History Arrhythmia Asthma BPH (benign prostatic hyperplasia) Chronic renal insufficiency Coagulopathy CVA (cerebral vascular accident) Diabetes High cholesterol History of COVID-19 HTN (hypertension) Sleep apnea Surgical History H/O colonoscopy H/O tooth extraction Mechanical heart valve present Social History Social History Housing: House Alcohol intake: never Patient Tobacco Use Status: Former Tobacco user e-Cigarette/Vaping Use: Never Used Second Hand Smoke Exposure: No service: No Current occupational status: employed Cognitive needs: No Hearing needs: No Vision needs: Yes Physical Exam ED Vital Signs: Vital Signs - 24 hr 08/09/22 14:33 Temperature 98.5 F Pulse Rate 79 Respiratory Rate 18 Blood Pressure 139/76 Pulse Oximetry 97 Oxygen Delivery Method Room Air BMI result Body Mass Index 38.7 Course Course Course Narrative: This is a rapid medical exam. Defer additional HPI, ROS, PE to prior provider. This is a 57-year-old male with history of chronic renal insufficiency, CVA, diabetes, high cholesterol, hypertension, sleep apnea, BPH, asthma, aortic valve replacement on Coumadin who presents to the ER with thing lightheaded, dizzy, off balance for the last 3-4 weeks. Will need labs, EKG, CT head VSS Discharge Plan Discharge Prescriptions: No Action sildenafil 100 mg tablet 100 mg PO DAILY 30 Days Qty: 30 1RF (DME) CPAP Device See Rx Instructions .Route Qty: 1 0RF Rx Instructions: As directed Trulicity 1.5 mg/0.5 mL pen injector 1.5 mg subcut QWEEK 90 Days Qty: 6.5 2RF metformin 1,000 mg tablet 1,000 mg PO BID 90 Days Qty: 180 2RF rosuvastatin 20 mg tablet 20 mg PO DAILY Qty: 90 2RF prednisone 20 mg tablet 20 mg PO DAILY 5 Days Qty: 5 0RF pen needle, diabetic [BD Ultra-Fine Orig Pen Needle] 29 gauge x 1/2 needle 1 ea miscellaneous DAILY Qty: 90 3RF albuterol sulfate [ProAir HFA] 90 mcg/actuation HFA aerosol inhaler 2 puff inhalation Q4-6H PRN (Reason: shortness of breath or wheezing) 90 Days Qty: 3 3RF metoprolol tartrate 50 mg tablet 50 mg PO BID Qty: 180 2RF insulin glargine [Basaglar KwikPen U-100 Insulin] 100 unit/mL (3 mL) insulin pen 35 unit subcut BEDTIME Qty: 45 6RF warfarin 3 mg tablet 3 mg PO DAILY 90 Days Qty: 90 3RF warfarin 2 mg tablet 2 mg PO DAILY 90 Days Qty: 90 3RF aspirin 81 mg tablet,chewable 1 tab PO DAILY Qty: 90 2RF cephalexin 500 mg capsule 500 mg PO QID 7 Days Qty: 28 0RF losartan 25 mg tablet 25 mg PO DAILY Qty: 90 0RF pantoprazole 40 mg tablet,delayed release (DR/EC) 40 mg PO DAILY Qty: 90 0RF tamsulosin 0.4 mg capsule 0.4 mg PO DAILY Qty: 90 0RF furosemide 40 mg tablet 40 mg PO DAILY Qty: 90 2RF tramadol 50 mg tablet 50 mg PO BID PRN (Reason: pain) 4 Days Qty: 8 0RF (DME) Blood Pressure Cuff Misc See Rx Instructions .ROUTE .MEDSUPPLY Qty: 1 0RF Rx Instructions: As directed Advair HFA 115-21 mcg/actuation HFA aerosol inhaler 2 puff inhalation BID 90 Days Qty: 3 2RF
--- NOTE | 2022-08-09 14:52 | ECG_ITS ---
Test Reason : DIZZY Blood Pressure : / mmHG Vent. Rate : 079 BPM Atrial Rate : 079 BPM P-R Int : 150 ms QRS Dur : 080 ms QT Int : 384 ms P-R-T Axes : 040 074 065 degrees QTc Int : 441 ms Artifact in tracing Normal sinus rhythm Low voltage QRS Septal infarct , age undetermined Abnormal ECG When compared with ECG of 19-MAY-2020 17:23, No significant changes seen Referred By: Leela Austin Electronically Signed By:GALEN BRYAN
[2022-08-09 15:19] LABS: MANUAL DIFF FLAG NO
[2022-08-09 15:22] LABS: Basophils Percent Auto 0.4 % (0-2); Eosinophils Absolute Auto 0.1 X10*3/uL (0.0-0.4); Eosinophils Percent Auto 1.2 % (0-4); Hemoglobin 11.2 g/dl (14.0-18.0); Imm Gran Abs Auto 0.02 X10*3/uL (0.00-0.03); Imm Gran Pct Auto 0.3 % (0.0-0.4); Lymphocytes Absolute Auto 2.1 X10*3/uL (1.2-4.9); Lymphocytes Percent Auto 30.8 % (20-40); Mean Corpuscular HGB Conc 28.7 g/dl (31.0-36.0); Mean Corpuscular Hemoglobin 20.3 pg (27.0-33.0); Mean Corpuscular Volume 70.5 fL (80.0-98.0); Mean Platelet Volume 10.7 fL (9.4-12.4); Monocytes Absolute Auto 0.4 X10*3/uL (0.1-1.2); Monocytes Percent Auto 6.1 % (2-11); Neutrophils Absolute Auto 4.2 x10*3/uL (2.0-8.3); Neutrophils Percent Auto 61.2 % (45-73); Platelet Count 291 X10*3/uL (160-400); Red Blood Count 5.53 X10*6/uL (4.60-5.80); Red Cell Distribution Width 17.8 % (11.0-16.0); White Blood Count 6.9 X10*3/uL (4.8-10.8)
[2022-08-09 15:26] LABS: INTERNATIONAL NORM RATIO 2.4 (0.9-1.1); Prothrombin Time 28.7 SEC (10.0-13.1)
[2022-08-09 15:33] VITALS: BP 146/77; PULSE 76
[2022-08-09 15:34] VITALS: BP 126/69; PULSE 84
[2022-08-09 15:35] VITALS: BP 126/69; PULSE 86
[2022-08-09 15:38] LABS: COVID-19 Test Negative (Negative); IDNOW Serial# 08D9AD1C
[2022-08-09 15:41] LABS: Alanine Aminotransferase 36 U/L (0-40); Albumin Level 4.5 g/dL (3.5-5.0); Alkaline Phosphatase 70 U/L (39-117); Anion Gap 15 (12-20); Aspartate Amino Transferase 20 U/L (5-37); Bilirubin Direct 0.1 mg/dL (0.0-0.5); Bilirubin Total 0.4 mg/dL (0.0-1.0); Blood Urea Nitrogen 16 mg/dL (9-16); Calcium 9.1 mg/dL (8.4-10.2); Carbon Dioxide 25 mmol/L (22-29); Chloride 105 mmol/L (96-108); Creatinine Clr Calc Pharmacy 95.8; Estimated Glomerular Filt Rate > 60; Glucose Random 228 mg/dL (60-115); Magnesium 1.7 mg/dL (1.6-2.6); Potassium 4.1 mmol/L (3.3-5.1); Sodium 141 mmol/L (135-145)
[2022-08-09 15:42] LABS: Troponin-I High Sensitivity 3.2 ng/L (<3.5-35.0)
[2022-08-09 16:39] VITALS: BP 117/68; PULSE 75; RESP 16; O2SAT 94
[2022-08-09 16:47] LABS: Appearance Urine Clear; Color Urine Yellow; Glucose Urine UA >=1000 mg/dL (Negative); Leukocyte Esterase Urine Trace (Negative); Nitrite Urine Negative (Negative); Specific Gravity - Urine 1.025 (1.005-1.025); UMIC TRIGGER UACC YES; Urine Blood Negative (Negative); Urine Ketones Trace mg/dL (Negative); Urine Protein 100 (2+) mg/dL (Neg-Trace)
[2022-08-09 16:50] LABS: Bacteria Urine None Seen (None Seen); Hyaline Casts Urine 0-2 /LPF (0-2); RBC Urine 0-2 /HPF (0-2); WBC Urine 0-5 /HPF (0-5)
--- NOTE | 2022-08-09 17:36 | ED.GENADULT ---
HPI - General Adult General Chief complaint: General Medical Stated complaint: not feeling well? Time Seen by Provider: 08/09/22 15:29 History of Present Illness HPI narrative: Patient is a 57-year-old male presents today with having some dizziness. The dizziness is a lightheadedness. It has been ongoing for approximately 2 and half weeks. Patient denies any chest pain. There is no diaphoresis. There was no specific triggers. No coughing or congestion or upper respiratory symptoms. No diaphoresis no chest pain. He does have a history diabetes. History of high blood pressure high cholesterol. Status post aortic valve replacement. History of abdominal aortic aneurysm. Patient denies any focal weakness. Denies any bloody stool. Denies any nausea. Symptoms not made worse with specific movement. No spinning sensation. Patient claims that when he walks he is not quite right. Patient denies any chest pain. Patient denies any new medication. Been compliant with his Coumadin. He denies any near syncope or syncope. Did not notice any blood in the stool. Related Data Previous Rx's Medication Instructions Recorded miscellaneous medical supply #1 ea 08/17/21 (Blood Pressure Cuff) CPAP #1 ea 09/29/21 sildenafil 100 mg tablet 100 mg PO DAILY 30 days #30 tabs 09/29/21 dulaglutide 1.5 mg/0.5 mL 1.5 mg (0.5 mL) subcut QWEEK 90 11/02/21 subcutaneous pen injector days #6.5 mL (Trulicity) metformin 1,000 mg tablet 1,000 mg PO BID 90 days #180 tabs 12/12/21 rosuvastatin 20 mg tablet 20 mg PO DAILY #90 tabs 12/12/21 fluticasone propionate 115 2 puff inhalation BID 90 days #3 02/23/22 mcg-salmeterol 21 mcg/actuation multiple units HFA inhaler (Advair HFA) prednisone 20 mg tablet 20 mg PO DAILY 5 days #5 tabs 03/04/22 pen needle, diabetic 29 gauge x 1 ea miscellaneous DAILY #90 caps 03/07/22 1/2 (BD Ultra-Fine Original Pen Needle) albuterol sulfate 90 mcg/actuation 2 puff inhalation Q4-6H PRN 03/13/22 aerosol inhaler (ProAir HFA) shortness of breath or wheezing 90 days #3 ea insulin glargine 100 unit/mL (3 35 unit (0.35 mL) subcut BEDTIME 03/29/22 mL) subcutaneous pen (Basaglar #45 mL KwikPen U-100 Insulin) metoprolol tartrate 50 mg tablet 50 mg PO BID #180 tabs 03/29/22 warfarin 2 mg tablet 2 mg PO DAILY 90 days #90 tabs 04/03/22 warfarin 3 mg tablet 3 mg PO DAILY 90 days #90 tabs 04/03/22 aspirin 81 mg chewable tablet 1 tab PO DAILY #90 tabs 04/29/22 cephalexin 500 mg capsule 500 mg PO QID 7 days #28 caps 05/01/22 losartan 25 mg tablet 25 mg PO DAILY #90 tabs 05/24/22 pantoprazole 40 mg tablet,delayed 40 mg PO DAILY #90 tabs 05/24/22 release tamsulosin 0.4 mg capsule 0.4 mg PO DAILY #90 caps 05/24/22 furosemide 40 mg tablet 40 mg PO DAILY #90 tabs 06/16/22 tramadol 50 mg tablet 50 mg PO BID PRN pain 4 days #8 07/13/22 tabs Allergies Allergy/AdvReac Type Severity Reaction Status Date / Time atorvastatin AdvReac Unknown Unknown Verified 08/09/22 14:36 Review of Systems Review of Systems: Positive dizziness Yes all other systems are reviewed and are negative PMFSH Past Medical History Attestation statement: The following information was validated with the patient. Medical History Arrhythmia Asthma BPH (benign prostatic hyperplasia) Chronic renal insufficiency Coagulopathy CVA (cerebral vascular accident) Diabetes High cholesterol History of COVID-19 HTN (hypertension) Sleep apnea Surgical History H/O colonoscopy H/O tooth extraction Mechanical heart valve present Social History Social History Housing: House Alcohol intake: never Patient Tobacco Use Status: Former Tobacco user e-Cigarette/Vaping Use: Never Used Second Hand Smoke Exposure: No Advance Directives: No Advance Directives Information Provided: No service: No Current occupational status: employed Cognitive needs: No Hearing needs: No Vision needs: Yes Physical Exam ED Vital Signs: Vital Signs - 24 hr 08/09/22 14:33 08/09/22 15:33 08/09/22 15:34 Temperature 98.5 F Pulse Rate 79 76 84 Respiratory Rate 18 Blood Pressure 139/76 146/77 H 126/69 Pulse Oximetry 97 Oxygen Delivery Method Room Air 08/09/22 15:35 08/09/22 16:39 Temperature Pulse Rate 86 75 Respiratory Rate 16 Blood Pressure 126/69 117/68 Pulse Oximetry 94 Oxygen Delivery Method Room Air BMI result Body Mass Index 38.7 Medical Decision Making Medical Decision Making [facility] Narrative: Patient well appearing no acute distress. Neurologically intact. Interpretation patient's EKG was grossly negative for any acute evidence of bleed. No mass. No fracture. Patient's INR is 2.4 almost therapeutic given patient has mechanical valve. Patient's hemoglobin is baseline. Kidney functions normal my interpretation of patient's EKG showed a sinus rhythm heart rate is 70 NE QRS QT within normal limits is nonspecific T-wave flattening noted diffusely. Patient in no distress. Ambulated well. Symptoms been ongoing for 2 and half weeks. The patient's CT scan of the head was grossly negative. Will have patient follow-up on an outpatient basis. Differential Diagnosis Differential Diagnoses: The differential diagnosis associated with the presentation includes CVA, intracranial bleed, mass lb, electrolyte disturbance, arrhythmia, anemia, hyperglycemia Admission/Observation Consideration of admission/observation: Escalation of care including admission/observation considered Lab Data [facility] Lab Attestation statement: I reviewed the patient's lab results. 08/09/22 15:14 08/09/22 15:14 Labs: Lab Results 08/09/22 08/09/22 08/09/22 Range/Units 15:14 15:14 15:14 WBC 6.9 (4.8-10.8) X10*3/uL RBC 5.53 (4.60-5.80) X10*6/uL Hgb 11.2 L (14.0-18.0) g/dl Hct 39.0 L (42.0-52.0) % MCV 70.5 L (80.0-98.0) fL MCH 20.3 L (27.0-33.0) pg MCHC 28.7 L (31.0-36.0) g/dl RDW 17.8 H (11.0-16.0) % Plt Count 291 (160-400) X10*3/uL MPV 10.7 (9.4-12.4) fL Immature Gran % (Auto) 0.3 (0.0-0.4) % Neut % (Auto) 61.2 (45-73) % Lymph % (Auto) 30.8 (20-40) % [place] % (Auto) 6.1 (2-11) % Eos % (Auto) 1.2 (0-4) % Baso % (Auto) 0.4 (0-2) % Lymph # (Auto) 2.1 (1.2-4.9) X10*3/uL [place] # (Auto) 0.4 (0.1-1.2) X10*3/uL Eos # (Auto) 0.1 (0.0-0.4) X10*3/uL Baso # (Auto) 0.0 (0.0-0.2) X10*3/uL Abs Immat Gran (auto) 0.02 (0.00-0.03) X10*3/uL Absolute Neuts (auto) 4.2 (2.0-8.3) x10*3/uL Absolute Nucleated RBC 0.000 (0.0-0.012) X10*3/uL Nucleated RBC % (auto) 0.0 (0.0-0.2) /100WBC PT (10.0-13.1) SEC INR (0.9-1.1) Sodium 141 (135-145) mmol/L Potassium 4.1 D (3.3-5.1) mmol/L Chloride 105 (96-108) mmol/L Carbon Dioxide 25 (22-29) mmol/L Anion Gap 15 (12-20) BUN 16 (9-16) mg/dL Creatinine 0.96 (0.5-1.4) mg/dL Estim Creat Clear Calc 95.8 Estimated GFR > 60 Random Glucose 228 H (60-115) mg/dL Calcium 9.1 D (8.4-10.2) mg/dL Magnesium 1.7 (1.6-2.6) mg/dL Total Bilirubin 0.4 (0.0-1.0) mg/dL Direct Bilirubin 0.1 (0.0-0.5) mg/dL AST 20 (5-37) U/L ALT 36 (0-40) U/L Alkaline Phosphatase 70 (39-117) U/L Troponin I High Sens 3.2 (<3.5-35.0) ng/L Total Protein 7.0 (6.5-8.0) g/dL Albumin 4.5 (3.5-5.0) g/dL Urine Color Urine Appearance Urine pH (5.0-9.0) Ur Specific Sparks (1.005-1.025) Urine Protein (Neg-Trace) mg/dL Urine Glucose (UA) (Negative) mg/dL Urine Ketones (Negative) mg/dL Urine Blood (Negative) Urine Nitrite (Negative) Ur Leukocyte Esterase (Negative) Urine RBC (0-2) /HPF Urine WBC (0-5) /HPF Ur Squamous Epith Cells (0-2) /HPF Urine Bacteria (None Seen) Hyaline Casts (0-2) /LPF COVID-19 ([facility]) (Negative) COVID-19 Clin Com 08/09/22 08/09/22 08/09/22 Range/Units 15:14 15:14 16:27 WBC (4.8-10.8) X10*3/uL RBC (4.60-5.80) X10*6/uL Hgb (14.0-18.0) g/dl Hct (42.0-52.0) % MCV (80.0-98.0) fL MCH (27.0-33.0) pg MCHC (31.0-36.0) g/dl RDW (11.0-16.0) % Plt Count (160-400) X10*3/uL MPV (9.4-12.4) fL Immature Gran % (Auto) (0.0-0.4) % Neut % (Auto) (45-73) % Lymph % (Auto) (20-40) % [place] % (Auto) (2-11) % Eos % (Auto) (0-4) % Baso % (Auto) (0-2) % Lymph # (Auto) (1.2-4.9) X10*3/uL [place] # (Auto) (0.1-1.2) X10*3/uL Eos # (Auto) (0.0-0.4) X10*3/uL Baso # (Auto) (0.0-0.2) X10*3/uL Abs Immat Gran (auto) (0.00-0.03) X10*3/uL Absolute Neuts (auto) (2.0-8.3) x10*3/uL Absolute Nucleated RBC (0.0-0.012) X10*3/uL Nucleated RBC % (auto) (0.0-0.2) /100WBC PT 28.7 H (10.0-13.1) SEC INR 2.4 H (0.9-1.1) Sodium (135-145) mmol/L Potassium (3.3-5.1) mmol/L Chloride (96-108) mmol/L Carbon Dioxide (22-29) mmol/L Anion Gap (12-20) BUN (9-16) mg/dL Creatinine (0.5-1.4) mg/dL Estim Creat Clear Calc Estimated GFR Random Glucose (60-115) mg/dL Calcium (8.4-10.2) mg/dL Magnesium (1.6-2.6) mg/dL Total Bilirubin (0.0-1.0) mg/dL Direct Bilirubin (0.0-0.5) mg/dL AST (5-37) U/L ALT (0-40) U/L Alkaline Phosphatase (39-117) U/L Troponin I High Sens (<3.5-35.0) ng/L Total Protein (6.5-8.0) g/dL Albumin (3.5-5.0) g/dL Urine Color Yellow Urine Appearance Clear Urine pH 5.0 (5.0-9.0) Ur Specific Sparks 1.025 (1.005-1.025) Urine Protein 100 (2+) H (Neg-Trace) mg/dL Urine Glucose (UA) >=1000 H (Negative) mg/dL Urine Ketones Trace (Negative) mg/dL Urine Blood Negative (Negative) Urine Nitrite Negative (Negative) Ur Leukocyte Esterase Trace H (Negative) Urine RBC 0-2 (0-2) /HPF Urine WBC 0-5 (0-5) /HPF Ur Squamous Epith Cells 6-10 (0-2) /HPF Urine Bacteria None Seen (None Seen) Hyaline Casts 0-2 (0-2) /LPF COVID-19 ([facility]) Negative (Negative) COVID-19 Clin Com See Note Independent Interpretation I performed an independent interpretation of an: EKG Interpretation: For interpretation patient's EKG showed a sinus pattern heart rate is 80 NE QRS QT within normal limits nonspecific diffuse T-wave flattening noted. It is not changed from previous. Radiology Impression Discussion of test interpretation with radiology: I have reviewed the radiologist's reading. External Record Review External record reviewed: Inpatient record Chronic Conditions Patient?s care impacted by: Diabetes and Hypertension Discharge Plan Discharge Clinical Impression: Dizziness Patient Disposition: Home, Self-Care Instructions: Dizziness (ED) Prescriptions: No Action sildenafil 100 mg tablet 100 mg PO DAILY 30 Days Qty: 30 1RF (DME) CPAP Device See Rx Instructions .Route Qty: 1 0RF Rx Instructions: As directed Trulicity 1.5 mg/0.5 mL pen injector 1.5 mg subcut QWEEK 90 Days Qty: 6.5 2RF metformin 1,000 mg tablet 1,000 mg PO BID 90 Days Qty: 180 2RF rosuvastatin 20 mg tablet 20 mg PO DAILY Qty: 90 2RF prednisone 20 mg tablet 20 mg PO DAILY 5 Days Qty: 5 0RF pen needle, diabetic [BD Ultra-Fine Orig Pen Needle] 29 gauge x 1/2 needle 1 ea miscellaneous DAILY Qty: 90 3RF albuterol sulfate [ProAir HFA] 90 mcg/actuation HFA aerosol inhaler 2 puff inhalation Q4-6H PRN (Reason: shortness of breath or wheezing) 90 Days Qty: 3 3RF metoprolol tartrate 50 mg tablet 50 mg PO BID Qty: 180 2RF insulin glargine [Basaglar KwikPen U-100 Insulin] 100 unit/mL (3 mL) insulin pen 35 unit subcut BEDTIME Qty: 45 6RF warfarin 3 mg tablet 3 mg PO DAILY 90 Days Qty: 90 3RF warfarin 2 mg tablet 2 mg PO DAILY 90 Days Qty: 90 3RF aspirin 81 mg tablet,chewable 1 tab PO DAILY Qty: 90 2RF cephalexin 500 mg capsule 500 mg PO QID 7 Days Qty: 28 0RF losartan 25 mg tablet 25 mg PO DAILY Qty: 90 0RF pantoprazole 40 mg tablet,delayed release (DR/EC) 40 mg PO DAILY Qty: 90 0RF tamsulosin 0.4 mg capsule 0.4 mg PO DAILY Qty: 90 0RF furosemide 40 mg tablet 40 mg PO DAILY Qty: 90 2RF tramadol 50 mg tablet 50 mg PO BID PRN (Reason: pain) 4 Days Qty: 8 0RF (DME) Blood Pressure Cuff Misc See Rx Instructions .ROUTE .MEDSUPPLY Qty: 1 0RF Rx Instructions: As directed Advair HFA 115-21 mcg/actuation HFA aerosol inhaler 2 puff inhalation BID 90 Days Qty: 3 2RF Referrals: Ayaz Sewell PA-C [Primary Care Provider] -
== END 2022-08-09 18:27 | disposition home or self-care (01) ==
PROVIDERS: Nurse Practitioner Family; Emergency Provider Emergency Medicine Emergency Medical Services; PCP Physician Assistant
DX: R42 Dizziness and giddiness (principal); R51.9 Headache, unspecified; R94.31 Abnormal electrocardiogram [ECG] [EKG]; Z20.822 Contact with and (suspected) exposure to COVID-19; Z20.828 Contact with and (suspected) exposure to other viral communicable diseases; Z79.01 Long term (current) use of anticoagulants; Z87.891 Personal history of nicotine dependence; Z79.899 Other long term (current) drug therapy
CPT/HCPCS: 36415; 70450; 71046; 80048; 80076; 81001; 83735; 84484; 85025; 85610; 87635; 93005; 99284

== ENCOUNTER 2022-09-02 08:26 | Outpatient (REF) | payer OTHER, SELFPAY ==
[2022-09-02 10:33] LABS: Hematocrit 38.6 % (42.0-52.0); Hemoglobin 10.8 g/dl (14.0-18.0); Mean Corpuscular Hemoglobin 20.5 pg (27.0-33.0); Mean Corpuscular Volume 73.1 fL (80.0-98.0); Mean Platelet Volume 11.2 fL (9.4-12.4); NRBC Pct Auto 0.2 /100WBC (0.0-0.2); Platelet Count 292 X10*3/uL (160-400); Red Blood Count 5.28 X10*6/uL (4.60-5.80); Red Cell Distribution Width 19.6 % (11.0-16.0); White Blood Count 9.3 X10*3/uL (4.8-10.8)
[2022-09-02 10:40] LABS: Appearance Urine Clear; Color Urine Yellow; Glucose Urine UA >=1000 mg/dL (Negative); Leukocyte Esterase Urine Negative (Negative); Nitrite Urine Negative (Negative); Specific Gravity - Urine >= 1.030 (1.005-1.025); UMIC TRIGGER UACC YES; Urine Blood Negative (Negative); Urine Ketones Trace mg/dL (Negative); Urine Protein 100 (2+) mg/dL (Neg-Trace)
[2022-09-02 11:09] LABS: Bacteria Urine None Seen (None Seen); Hyaline Casts Urine 0-2 /LPF (0-2); RBC Urine 0-2 /HPF (0-2); WBC Urine 0-5 /HPF (0-5)
[2022-09-02 11:31] LABS: Alanine Aminotransferase 34 U/L (0-40); Alkaline Phosphatase 97 U/L (39-117); Anion Gap 12 (12-20); Aspartate Amino Transferase 19 U/L (5-37); Bilirubin Total 0.3 mg/dL (0.0-1.0); Blood Urea Nitrogen 11 mg/dL (9-16); Calcium 9.3 mg/dL (8.4-10.2); Carbon Dioxide 28 mmol/L (22-29); Chloride 105 mmol/L (96-108); Cholesterol 125 mg/dL; Estimated Glomerular Filt Rate > 60; Glucose Fasting 328 mg/dL (60-99); HDL Cholesterol 32 mg/dL; Iron 29 mcg/dL (45-160); LDL Cholesterol Calculated 53 mg/dl; Percent Iron Saturation 8 % (15-50); Potassium 4.4 mmol/L (3.3-5.1); Sodium 141 mmol/L (135-145); Total Iron Binding Capacity 365 mcg/dL (228-428); Total Protein 6.4 g/dL (6.5-8.0); Triglycerides 201 mg/dL; Unsaturated Iron Binding 336 ug/dL
[2022-09-02 11:38] LABS: TSH reflex Free T4 0.91 uIU/mL (0.32-4.0)
== END 2022-09-02 08:27 | disposition home or self-care (01) ==
LOC: HO.LAB 08:26
PROVIDERS: PCP Physician Assistant; Visit Provider Physician Assistant
DX: E66.09 Other obesity due to excess calories (principal); Z68.39 Body mass index [BMI] 39.0-39.9, adult; D50.9 Iron deficiency anemia, unspecified; I10 Essential (primary) hypertension
CPT/HCPCS: 36415; 80053; 80061; 81001; 83540; 84443; 85027

== ENCOUNTER 2022-09-04 18:00 | Emergency (ER) | payer OTHER, SELFPAY ==
--- NOTE | ~2022-09-04 | XR_ITS ---
EXAMINATION: XR SHOULDER, LEFT CLINICAL INFORMATION: Injury and pain COMPARISON: None available. TECHNIQUE: 5 views of the left shoulder. FINDINGS: Humeral head is well-seated within the glenoid fossa. Degenerative changes are seen with mild osteophyte formation. Hypertrophic degenerative changes in the acromioclavicular joint. I do not appreciate any acute fracture or dislocation. No bony destructive lesions or periosteal reaction. Visualized left ribs and left upper chest grossly unremarkable. Patient status post sternotomy XR/XR shoulder LT min 2V IMPRESSION: Degenerative changes but I do not appreciate any acute fracture or dislocation
--- NOTE | 2022-09-04 18:13 | ED.GENADULT ---
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 Denies numbness and tingling. No previous issues with left shoulder. No blunt trauma. Related Data Previous Rx's Medication Instructions Recorded CPAP #1 ea 09/29/21 sildenafil 100 mg tablet 100 mg PO DAILY 30 days #30 tabs 09/29/21 rosuvastatin 20 mg tablet 20 mg PO DAILY #90 tabs 12/12/21 fluticasone propionate 115 2 puff inhalation BID 90 days #3 02/23/22 mcg-salmeterol 21 mcg/actuation multiple units HFA inhaler (Advair HFA) pen needle, diabetic 29 gauge x 1 ea miscellaneous DAILY #90 caps 03/07/22 1/2 (BD Ultra-Fine Original Pen Needle) albuterol sulfate 90 mcg/actuation 2 puff inhalation Q4-6H PRN 03/13/22 aerosol inhaler (ProAir HFA) shortness of breath or wheezing 90 days #3 ea metoprolol tartrate 50 mg tablet 50 mg PO BID #180 tabs 03/29/22 warfarin 2 mg tablet 2 mg PO DAILY 90 days #90 tabs 04/03/22 warfarin 3 mg tablet 3 mg PO DAILY 90 days #90 tabs 04/03/22 furosemide 40 mg tablet 40 mg PO DAILY #90 tabs 06/16/22 tramadol 50 mg tablet 50 mg PO BID PRN pain 4 days #8 07/13/22 tabs dulaglutide 1.5 mg/0.5 mL 1.5 mg (0.5 mL) subcut QWEEK 90 08/21/22 subcutaneous pen injector days #6.5 mL (Trulicity) aspirin 81 mg chewable tablet 1 tab PO DAILY #90 tabs 08/22/22 losartan 25 mg tablet 25 mg PO DAILY #90 tabs 08/22/22 metformin 1,000 mg tablet 1,000 mg PO BID 90 days #180 tabs 08/22/22 pantoprazole 40 mg tablet,delayed 40 mg PO DAILY #90 tabs 08/22/22 release tamsulosin 0.4 mg capsule 0.4 mg PO DAILY #90 caps 08/22/22 insulin glargine 100 unit/mL (3 40 unit (0.4 mL) subcut BEDTIME 90 08/23/22 mL) subcutaneous pen (agl days #45 mL KwikPen U-100 Insulin) bupropion HCl 150 mg 24 hr tablet, 150 mg PO QAM 90 days #90 tabs 08/24/22 extended release (Wellbutrin XL) ferrous sulfate 325 mg (65 mg 325 mg PO BID 90 days #180 tabs 08/24/22 iron) tablet betamethasone dipropionate 0.05 % 1 appl topical DAILY 30 days #45 08/29/22 topical cream grams acetaminophen 325 mg capsule 650 mg PO Q6H PRN pain #20 caps 09/04/22 (Tylenol) Allergies Allergy/AdvReac Type Severity Reaction Status Date / Time atorvastatin AdvReac Unknown Unknown Verified 09/04/22 18:13 Review of Systems Review of Systems: Constitutional : No Weight loss, No Fever, No Chills, No Fatigue, No Malaise ENT/Mouth : No sore throat, No Rhinorrhea Eyes: No Eye Pain, No Swelling, No Redness Cardiovascular : No Chest Pain, No SOB, No Dyspnea on Exertion, No Orthopnea, No Edema, No Palpitations Respiratory : No Cough, No Sputum, No Wheezing Gastrointestinal : No Nausea, No Vomiting, No Diarrhea, No Constipation, No abdominal Pain, No Hematochezia, No Melena Genitourinary : No Dysuria, No Urinary Frequency, No Hematuria, Musculoskeletal : + joint pain, No Myalgias, No Joint Swelling Skin : No Skin Lesions, No rash Neuro : No Weakness, No Numbness, No Dizziness, No Headache Psych : No Anxiety/Panic, No Depression All other systems reviewed and are negative Yes all other systems are reviewed and are negative [facility] Past Medical History Attestation statement: The following information was validated with the patient. Source: old records reviewed and nursing notes reviewed Medical History Arrhythmia Asthma BPH (benign prostatic hyperplasia) Chronic renal insufficiency Coagulopathy CVA (cerebral vascular accident) Diabetes High cholesterol History of COVID-19 HTN (hypertension) Sleep apnea Surgical History H/O colonoscopy H/O tooth extraction Mechanical heart valve present Social History Social History Housing: House Alcohol intake: never Patient Tobacco Use Status: Former Tobacco user e-Cigarette/Vaping Use: Never Used Second Hand Smoke Exposure: No service: No Current occupational status: employed Cognitive needs: No Hearing needs: No Vision needs: Yes Physical Exam ED Vital Signs: Vital Signs - 24 hr 09/04/22 18:14 Temperature 98.1 F Pulse Rate 78 Respiratory Rate 16 Blood Pressure 144/81 H Pulse Oximetry 96 Oxygen Delivery Method Room Air BMI result Body Mass Index 37.3 vss Appearance: Alert.? Oriented X3.? No acute distress.? Head: Normocephalic, atraumatic, no step-offs or deformities Eyes: Pupils equal, round and reactive to light.? CVS: Normal heart rate and rhythm.? Pulses normal.? Respiratory: No respiratory distress.? Breath sounds normal.? Abdomen: Soft and nontender.? Skin: Skin warm and dry.? Normal skin color.? Normal skin turgor.? Extremities: 5/5 strength to bilateral upper and lower extremities 2+ radial pulses equal bilateral, normal capillary refill less than 2 seconds to bilateral upper extremity digits, patient has full range of motion to right shoulder, left shoulder with limited range of motion secondary to pain, patient unable to do overhead range of motion. No wrist drop. Normal sensation to bilateral upper extremities distally. Neuro: Oriented X 3.? No motor deficit.? No sensory deficit. CN 2-12 intact Course Course Course Narrative: This is a rapid medical exam. Deferred additional HPI, ROS, PE to primary provider. 57 yo male with history of TAVR on coumadin, anemia, asthma, HTN, HLD, DM, GERD, right hand dominant here with complaints of left shoulder pain which occurred at work today while plugging a fork lift in (felt a pop). Will check x-rays. VSS Reevaluation(s) Reevaluation #1: X-ray with degenerative changes of left shoulder no fractures or dislocations. Will discharge home on Tylenol place patient in a sling. Educated on proper use of sling. Will give him ortho follow-up. As well as the were connection is this was a work related injury. Educated patient on diagnosis and treatment plan, answered all question, patient verbalizes understanding. At this time patient will be discharged home, advised to return with new or worsening symptoms. Educated on worrisome signs and symptoms and when to return. At this time I feel comfortable discharge home. Time: 19:17 Medical Decision Making Medical Decision Making MDM Narrative: 57-year-old male presents with atraumatic left shoulder pain, he tells me this happened after plugging in a forklift at work. Physical exam significant for 5/5 strength to bilateral upper and lower extremities 2+ radial pulses equal bilateral, normal capillary refill less than 2 seconds to bilateral upper extremity digits, patient has full range of motion to right shoulder, left shoulder with limited range of motion secondary to pain, patient unable to do overhead range of motion. No wrist drop. Normal sensation to bilateral upper extremities distally. Possible dislocation that went back into place. Also concern for ligament or tendon injury such as rotator cuff injury. Unlikely fracture, threatened limb, no signs of neurovascular compromise. Plan imaging Differential Diagnosis Differential Diagnoses: The differential diagnosis associated with the presentation includes Possible dislocation that went back into place. Also concern for ligament or tendon injury such as rotator cuff injury. Unlikely fracture, threatened limb, no signs of neurovascular compromise. Admission/Observation Consideration of admission/observation: Escalation of care including admission/observation considered Independent Interpretation I performed an independent interpretation of an: Plain X-Ray (XR/XR shoulder LT min 2V IMPRESSION: Degenerative changes but I do not appreciate any acute fracture or dislocation) Radiology Impression Discussion of test interpretation with radiology: I have reviewed the radiologist's reading. Core Measures AMI core measures followed: Yes Measure exclusions: not indicated Critical Care Time Critical Care Time Critical Care Time: No Discharge Plan Discharge Clinical Impression: Acute pain of left shoulder, Work related injury Patient Disposition: Home, Self-Care Instructions: Shoulder Pain (ED) Additional Instructions: Take your medications as prescribed. If you were prescribed antibiotics today, it is important that you take your medication to their entirety, do not skip any doses, do not finish them early. Follow-up with your primary care provider this week. Follow-up with orthopedics and the work connection. Return to the emergency department with new or worsening symptoms. Such as fevers, chills, chest pain, shortness of breath, nausea, vomiting, dizziness, headache, vision changes, lethargy, numbness and tingling In case of emergency call 911 XR/XR shoulder LT min 2V IMPRESSION: Degenerative changes but I do not appreciate any acute fracture or dislocation Prescriptions: New acetaminophen [Tylenol] 325 mg capsule 650 mg PO Q6H PRN (Reason: pain) Qty: 20 0RF No Action sildenafil 100 mg tablet 100 mg PO DAILY 30 Days Qty: 30 1RF (DME) CPAP Device See Rx Instructions .Route Qty: 1 0RF Rx Instructions: As directed rosuvastatin 20 mg tablet 20 mg PO DAILY Qty: 90 2RF pen needle, diabetic [BD Ultra-Fine Orig Pen Needle] 29 gauge x 1/2 needle 1 ea miscellaneous DAILY Qty: 90 3RF albuterol sulfate [ProAir HFA] 90 mcg/actuation HFA aerosol inhaler 2 puff inhalation Q4-6H PRN (Reason: shortness of breath or wheezing) 90 Days Qty: 3 3RF metoprolol tartrate 50 mg tablet 50 mg PO BID Qty: 180 2RF warfarin 3 mg tablet 3 mg PO DAILY 90 Days Qty: 90 3RF warfarin 2 mg tablet 2 mg PO DAILY 90 Days Qty: 90 3RF furosemide 40 mg tablet 40 mg PO DAILY Qty: 90 2RF tramadol 50 mg tablet 50 mg PO BID PRN (Reason: pain) 4 Days Qty: 8 0RF Trulicity 1.5 mg/0.5 mL pen injector 1.5 mg subcut QWEEK 90 Days Qty: 6.5 2RF aspirin 81 mg tablet,chewable 1 tab PO DAILY Qty: 90 2RF losartan 25 mg tablet 25 mg PO DAILY Qty: 90 2RF metformin 1,000 mg tablet 1,000 mg PO BID 90 Days Qty: 180 2RF pantoprazole 40 mg tablet,delayed release (DR/EC) 40 mg PO DAILY Qty: 90 2RF tamsulosin 0.4 mg capsule 0.4 mg PO DAILY Qty: 90 3RF ferrous sulfate 325 mg (65 mg iron) tablet 325 mg PO BID 90 Days Qty: 180 1RF bupropion HCl [Wellbutrin XL] 150 mg tablet extended release 24 hr 150 mg PO QAM 90 Days Qty: 90 1RF betamethasone dipropionate 0.05 % cream 1 appl topical DAILY 30 Days Qty: 45 0RF Advair HFA 115-21 mcg/actuation HFA aerosol inhaler 2 puff inhalation BID 90 Days Qty: 3 2RF insulin glargine [Basaglar KwikPen U-100 Insulin] 100 unit/mL (3 mL) insulin pen 40 unit subcut BEDTIME 90 Days Qty: 45 2RF Referrals: [facility] [place] [facility] [Provider Group] - 1 week Ayaz Sewell PA-C [Primary Care Provider] - 2 days Stand Alone Forms: Work/School Release
[2022-09-04 18:14] VITALS: BP 144/81; PULSE 78; RESP 16; TEMP 36.7; O2SAT 96; BMI 37.3
[2022-09-04] MEDS: Acetaminophen 325 MG TABLET 975 MG PO (19:32)
== END 2022-09-04 19:41 | disposition home or self-care (01) ==
PROVIDERS: Emergency Provider Emergency Medicine; PCP Physician Assistant
DX: S49.92XA Unspecified injury of left shoulder and upper arm, initial encounter (principal); M25.512 Pain in left shoulder; Y33.XXXA Other specified events, undetermined intent, initial encounter; Y93.9 Activity, unspecified; Y92.9 Unspecified place or not applicable; Y99.0 Civilian activity done for income or pay; Z79.899 Other long term (current) drug therapy; Z87.891 Personal history of nicotine dependence
CPT/HCPCS: 73030; 99283; 99284

== ENCOUNTER → 2022-09-06 09:35 | Outpatient (BNVA) | payer OTHER, SELFPAY | PROVIDERS: PCP Physician Assistant; Visit Provider Physician Assistant | DX: S46.912A Strain of unspecified muscle, fascia and tendon at shoulder and upper arm level, left arm, initial encounter (principal); X50.9XXA Other and unspecified overexertion or strenuous movements or postures, initial encounter | CPT/HCPCS: 99202 ==

== ENCOUNTER → 2022-09-28 12:15 | Outpatient (BNVA) | payer OTHER, SELFPAY | PROVIDERS: PCP Physician Assistant; Visit Provider Physician Assistant | DX: M19.012 Primary osteoarthritis, left shoulder (principal); M75.82 Other shoulder lesions, left shoulder | CPT/HCPCS: 99202 ==

== ENCOUNTER 2022-12-12 15:07 | Outpatient (AMB) | payer OTHER, SELFPAY ==
--- NOTE | 2022-12-12 15:19 | MHC.OFFVIS ---
Intake Intake Visit Reasons: OV - Left Shoulder Intake Note: Alejandro is a 57 year old right hand dominant male who presents today for an WC evaluation of left shoulder pain. Patient reports still having ongoing aching pain with occasional throbbing. Patient describes his pain as sharp in nature. He did injure his left shoulder several months ago while working. He felt a ?pop? 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 He has done physical therapy which aggravated his pain. He has also had injections in the past which gave him minimal relief. He has tried Tylenol and anti-inflammatory medicines which gave him no relief. The patient reports weakness when lifting his left hand above shoulder height. Allergies atorvastatin Adverse Reaction (Unknown, Verified 12/12/22 15:19) Unknown Medication List - Last Reconciled 12/13/22 by Yousif Florez MD acetaminophen (Tylenol) 650 mg (2 x 325 mg) PO Q6H PRN albuterol sulfate 90 mcg/actuation (ProAir HFA) 2 puffs inhalation Q4-6H PRN 90 days aspirin 1 tab PO DAILY betamethasone dipropionate 0.05% 1 appl topical DAILY 30 days bupropion HCl (Wellbutrin XL) 150 mg PO QAM 90 days CPAP As directed dulaglutide (Trulicity) 1.5 mg (0.5 mL) subcut QWEEK 90 days ferrous sulfate 325 mg PO BID 90 days fluticasone propion-salmeterol 115-21 mcg/actuation (Advair HFA) 2 puffs inhalation BID 90 days furosemide 40 mg PO DAILY insulin aspart U-100 (Novolog PenFill U-100 Insulin aspart) 3 units (0.03 mL) subcut TID 30 days insulin aspart U-100 (Novolog FlexPen U-100 Insulin aspart) subcut insulin glargine (Basaglar KwikPen U-100 Insulin) 40 units (0.4 mL) subcut BEDTIME 90 days losartan 25 mg PO DAILY metformin 1,000 mg PO BID 90 days metoprolol tartrate 50 mg PO BID pantoprazole 40 mg PO DAILY pen needle, diabetic (BD Ultra-Fine Original Pen Needle) 1 ea miscellaneous DAILY pen needle, diabetic (BD Ultra-Fine Kassandra Pen Needle) As directed rosuvastatin 20 mg PO DAILY sildenafil 100 mg PO DAILY 30 days tamsulosin 0.4 mg PO DAILY warfarin 2 mg PO DAILY 90 days warfarin 3 mg PO DAILY 90 days COUNT INCLUDES THE [facility] Medical History Arrhythmia Asthma BPH (benign prostatic hyperplasia) Chronic renal insufficiency Coagulopathy CVA (cerebral vascular accident) Diabetes High cholesterol History of COVID-19 HTN (hypertension) Sleep apnea Surgical History H/O colonoscopy H/O tooth extraction Mechanical heart valve present Social History Housing: House Alcohol intake: never Patient Tobacco Use Status: Former Tobacco user e-Cigarette/Vaping Use: Never Used Second Hand Smoke Exposure: No service: No Current occupational status: employed Cognitive needs: No Hearing needs: No Vision needs: Yes Physical Exam Const Other: Well-nourished well-developed very friendly male awake alert and oriented x3 in no acute distress Extrem Other: Bilateral upper extremity examination shows good capillary refill, no skin lesions noted, normal sensation light touch Left shoulder examination shows decreased active motion almost full passive range of motion when compared to his right shoulder, 4/5 strength with supraspinatus testing, positive impingement signs, tenderness over his acromioclavicular joint, no instability Results Reviewed Results Reviewed: X-rays of the patient's left shoulder show severe acromioclavicular joint narrowing plica type 2 acromion, no acute bony abnormalities Assessment & Plan Assessment & Plan (1) Rotator cuff insufficiency of left shoulder: Code(s): M25.312 - Other instability, left shoulder Plan Mr. Hilario presents with progressively worsening left shoulder pain and weakness is most likely due to a full-thickness rotator cuff tear. Thus, I will send the patient for an MRI of his left shoulder for further evaluation. I will see him back once the MRI is completed to discuss the findings and treatment options. He will contact me prior to that time should his symptoms worsen in any way. Feel free to call me at any time should questions regarding his orthopedic management arise. Thank you very much for asking me to see this very friendly gentleman. I spent 22 minutes in reviewing the patient's records and imaging studies, seeing the patient and documenting in the medical record. Orders: Orders MR shoulder LT wo con Today M25.312 - Other instability, left shoulder Coding Level of Care Code New Pt Level 2 (65206) Diagnoses Rotator cuff insufficiency of left shoulder M25.312
== END 2022-12-12 15:31 | disposition home or self-care (01) ==
PROVIDERS: PCP Physician Assistant; Visit Provider Orthopaedic Surgery
DX: M25.312 Other instability, left shoulder (principal)
CPT/HCPCS: 99202

== ENCOUNTER → 2022-12-12 15:07 | Outpatient (BNVA) | payer OTHER, SELFPAY | PROVIDERS: PCP Physician Assistant; Visit Provider Orthopaedic Surgery | DX: M25.312 Other instability, left shoulder (principal) | CPT/HCPCS: 99202 ==

== ENCOUNTER 2022-12-22 06:06 | Outpatient (REF) | payer OTHER, SELFPAY ==
[2022-12-22 12:08] LABS: Anion Gap 17 (12-20); Blood Urea Nitrogen 16 mg/dL (9-16); Calcium 10.1 mg/dL (8.4-10.2); Carbon Dioxide 25 mmol/L (22-29); Chloride 103 mmol/L (96-108); Estimated Glomerular Filt Rate > 60; Glucose Random 221 mg/dL (60-115); Potassium 4.4 mmol/L (3.3-5.1); Sodium 141 mmol/L (135-145)
== END 2022-12-22 06:07 | disposition home or self-care (01) ==
LOC: HO.HMGCLDS 06:06
PROVIDERS: PCP Physician Assistant; Visit Provider Internal Medicine
DX: I72.3 Aneurysm of iliac artery (principal)
CPT/HCPCS: 36415; 80048

== ENCOUNTER 2023-01-09 07:47 | Outpatient (REF) | payer OTHER, SELFPAY ==
--- NOTE | ~2023-01-09 | MR_ITS ---
EXAMINATION: MRI SHOULDER WITHOUT CONTRAST, LEFT CLINICAL INFORMATION: Instability left shoulder. Decreased range of motion, pain. Decreased strength. COMPARISON: None available. TECHNIQUE: MRI of the left shoulder was performed on a high-field 1.5 Johanne MRI scanner. FINDINGS: ROTATOR CUFF: Supraspinatus and infraspinatus: There is a large complete insertional full-thickness tear of both tendons. The tear is retracted back to level of the glenoid resulting in a tendon gap measuring up to 5 cm transverse and 4 cm AP. There is [id number] atrophy and fatty infiltration of the supraspinatus and severe atrophy and fatty infiltration of the infraspinatus muscle. Teres minor: Intact. Subscapularis: There is a full-thickness near-complete tear of the subscapularis tendon. The upper two-thirds portion of the tendons are torn and retracted back to level of the glenoid resulting in a tendon gap measuring 3.2 cm transverse. The caudal most fibers are intact inserting below the level of lesser tuberosity. No atrophy or fatty infiltration of the muscle. BICEPS TENDON: There is medial subluxation of the biceps tendon compatible with a tear of the transverse humeral ligament and subscapularis tendon. There is heterogeneous increased signal within the biceps tendon just proximal to the level of the bicipital groove compatible with tendinosis and/or intrasubstance partial tearing. No transverse defect or tendon retraction. CORACOACROMIAL ARCH: Mild concavity of the undersurface the acromion with a small subacromial spur. There is moderate to severe hypertrophic osteoarthritis of acromioclavicular joint. BURSA: Increased fluid in subacromial subdeltoid bursa consistent with full-thickness rotator cuff tear. LABRUM/CAPSULE: There is a 5 mm paralabral cyst abutting the posterior superior labrum. No definitive tear visualized. Remaining portions of the labrum intact. GLENOHUMERAL JOINT: There are small marginal osteophytes along the inferior aspect of the joint. There is cartilage thinning along the medial inferior aspect of the humeral head. There is some cartilage loss along the superior lateral apex of the humeral head. Overall at least mild arthrosis of the glenohumeral joint. There is a joint effusion and synovitis. There are no loose bodies. MR/MR shoulder LT wo con IMPRESSION: Large complete insertional tear of the supraspinatus and infraspinatus tendons with associated [id number] atrophy and fatty infiltration of the supraspinatus and severe atrophy and fatty infiltration of the infraspinatus muscle. Full-thickness and near complete tear of the subscapularis tendon. No atrophy or fatty infiltration of the muscle. Medial subluxation of the biceps tendon compatible with a tear of the transverse humeral ligament and subscapularis tendon. Tendinosis and/or partial tearing of the biceps tendon. 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 Mild arthrosis of the glenohumeral joint with joint effusion and synovitis. Paralabral cyst abutting the posterior superior labrum. Findings suspicious for an MRI occult nondisplaced labral tear.
== END 2023-01-09 07:48 | disposition home or self-care (01) ==
LOC: HO.MRI 07:47
PROVIDERS: PCP Physician Assistant; Visit Provider Orthopaedic Surgery
DX: M25.312 Other instability, left shoulder (principal)
CPT/HCPCS: 73221

== ENCOUNTER 2023-01-25 14:57 | Outpatient (AMB) | payer OTHER, SELFPAY ==
--- NOTE | 2023-01-25 15:02 | MHC.OFFVIS ---
Intake Vital Signs 01/25/23 15:08 Height 5 ft 7 in Weight 238 lb BMI 37.3 Intake Visit Reasons: OV-Left shoulder injection Intake Note: Alejandro is a 57 year old right hand dominant male who presents with complaints of left shoulder pain and weakness. The patient describes his pain as sharp in nature. He did injure his left shoulder several months ago while working. He felt a ?pop? 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 He has done physical therapy which aggravated his pain. He has not had a cortisone injection. He has tried Tylenol and anti-inflammatory medicines which gave him no relief. The patient reports weakness when lifting his left hand above shoulder height. Allergies atorvastatin Adverse Reaction (Unknown, Verified 01/25/23 15:04) Unknown Medication List - Last Reconciled 01/25/23 by Yousif Florez MD acetaminophen (Tylenol) 650 mg (2 x 325 mg) PO Q6H PRN albuterol sulfate 90 mcg/actuation (ProAir HFA) 2 puffs inhalation Q4-6H PRN 90 days aspirin 1 tab PO DAILY betamethasone dipropionate 0.05% 1 appl topical DAILY 30 days bupropion HCl (Wellbutrin XL) 150 mg PO QAM 90 days CPAP As directed dulaglutide (Trulicity) 1.5 mg (0.5 mL) subcut QWEEK 90 days ferrous sulfate 325 mg PO BID 90 days fluticasone propion-salmeterol 115-21 mcg/actuation (Advair HFA) 2 puffs inhalation BID 90 days furosemide 40 mg PO DAILY insulin aspart U-100 (Novolog PenFill U-100 Insulin aspart) 3 units (0.03 mL) subcut TID 30 days insulin aspart U-100 (Novolog FlexPen U-100 Insulin aspart) subcut insulin glargine (Basaglar KwikPen U-100 Insulin) 40 units (0.4 mL) subcut BEDTIME 90 days losartan 25 mg PO DAILY metformin 1,000 mg PO BID 90 days metoprolol tartrate 50 mg PO BID pantoprazole 40 mg PO DAILY pen needle, diabetic (BD Ultra-Fine Original Pen Needle) 1 ea miscellaneous DAILY pen needle, diabetic (BD Ultra-Fine [place] Pen Needle) As directed rosuvastatin 20 mg PO DAILY sildenafil 100 mg PO DAILY 30 days tamsulosin 0.4 mg PO DAILY warfarin 2 mg PO DAILY 90 days warfarin 3 mg PO DAILY 90 days [facility] Medical History Arrhythmia Asthma BPH (benign prostatic hyperplasia) Chronic renal insufficiency Coagulopathy CVA (cerebral vascular accident) Diabetes High cholesterol History of COVID-19 HTN (hypertension) Sleep apnea Surgical History H/O colonoscopy H/O tooth extraction Mechanical heart valve present Social History Housing: House Alcohol intake: never Patient Tobacco Use Status: Former Tobacco user e-Cigarette/Vaping Use: Never Used Second Hand Smoke Exposure: No service: No Current occupational status: employed Cognitive needs: No Hearing needs: No Vision needs: Yes Physical Exam Vital Signs: BMI result Body Mass Index 37.3 Const Other: Well-nourished well-developed very friendly male awake alert and oriented x3 in no acute distress Extrem Other: Bilateral upper extremity examination shows good capillary refill, no skin lesions noted, normal sensation light touch Left shoulder examination shows full passive range of motion but slightly decreased active range of motion when compared to his right shoulder, 3/5 strength with supraspinatus testing, positive impingement signs, no instability Office Procedures Joint Injection/Drain Joint Injection/Drain Primary Site: left shoulder Prep: site was prepped using aseptic technique Injected: 40 mg of, Kenalog and 1% plain lidocaine Procedure: The patient tolerated the procedure well Coding 02772 - Large joint Procedure code (CPT) selection complete Results Reviewed Results Reviewed: 01/25/23 15:01 Lidocaine HCl 2 % MPF [Xylocaine 2 % MPF] 5 ml .ROUTE .STK-MED ONE Triamcinolone Acetonide [Kenalog-40] 40 mg .ROUTE .STK-MED ONE MRI of the patient's left shoulder shows a large rotator cuff tear with retraction just lateral to the glenoid edge Assessment & Plan Assessment & Plan (1) Rotator cuff insufficiency of left shoulder: Code(s): M25.312 - Other instability, left shoulder Plan: Mr. Hilario presents with left shoulder pain and weakness due to a large rotator cuff tear. I had a lengthy discussion with the patient regarding the treatment options. Based on the size and retraction of his tear I am not sure that the tear is reparable at this point. The patient may need a reverse total shoulder arthroplasty if he fails continued non operative treatments. The risks and benefits of a left shoulder cortisone injection were discussed at length with the patient. The patient wished to proceed. He tolerated the injection well. He will continue with his range of motion exercises to prevent stiffness. He will contact me prior to his follow-up appointment in 3 months should his symptoms worsen in any way. Feel free to call me at any time should questions regarding her management arise. I spent 22 minutes in reviewing the patient's records and imaging studies, seeing the patient and documenting in the medical record. Orders: Orders AMB Joint Injection/Aspiration Today M25.312 - Other instability, left shoulder Coding Level of Care Code Est Pt Level 2 (68304) Diagnoses Rotator cuff insufficiency of left shoulder M25.312 CPT Codes Coding - 79316 Large joint: 19149 - Large joint ([id number])
[2023-01-25 15:08] VITALS: BMI 37.3
== END 2023-01-25 15:15 | disposition home or self-care (01) ==
PROVIDERS: PCP Physician Assistant; Visit Provider Orthopaedic Surgery
DX: M25.312 Other instability, left shoulder (principal)
CPT/HCPCS: 20610; 99213

== ENCOUNTER → 2023-01-25 14:57 | Outpatient (BNVA) | payer OTHER, SELFPAY | PROVIDERS: PCP Physician Assistant; Visit Provider Orthopaedic Surgery | DX: M25.312 Other instability, left shoulder (principal) | CPT/HCPCS: 20610; 99212; J3301 ==

== ENCOUNTER 2023-02-17 06:36 | Outpatient (REF) | payer OTHER, SELFPAY ==
[2023-02-17 11:18] LABS: Hematocrit 45.7 % (42.0-52.0); Hemoglobin 14.7 g/dl (14.0-18.0); Mean Corpuscular HGB Conc 32.2 g/dl (31.0-36.0); Mean Corpuscular Volume 90.1 fL (80.0-98.0); Mean Platelet Volume 11.4 fL (9.4-12.4); Platelet Count 223 X10*3/uL (160-400); Red Blood Count 5.07 X10*6/uL (4.60-5.80); Red Cell Distribution Width 13.7 % (11.0-16.0)
[2023-02-17 11:36] LABS: Alanine Aminotransferase 25 U/L (0-40); Albumin Level 4.2 g/dL (3.5-5.0); Alkaline Phosphatase 78 U/L (39-117); Anion Gap 14 (12-20); Aspartate Amino Transferase 19 U/L (5-37); Bilirubin Total 0.4 mg/dL (0.0-1.0); Blood Urea Nitrogen 16 mg/dL (9-16); Carbon Dioxide 27 mmol/L (22-29); Chloride 105 mmol/L (96-108); Cholesterol 143 mg/dL (<200); Estimated Glomerular Filt Rate > 60; Glucose Fasting 163 mg/dL (60-99); HDL Cholesterol 39 mg/dL (>40); LDL Cholesterol Calculated 81 mg/dL (<100); Potassium 4.3 mmol/L (3.3-5.1); Sodium 142 mmol/L (135-145); Total Protein 7.2 g/dL (6.5-8.0); Triglycerides 118 mg/dL (<150)
[2023-02-17 11:50] LABS: Prostate Specific Antigen Scr 0.78 ng/mL (<0.05-4.0)
[2023-02-17 11:51] LABS: Creatinine Urine 207.07 mg/dL
[2023-02-17 12:02] LABS: Microalbum/Creatinine Ratio Ur 294.1 ug/mg cr (<30)
== END 2023-02-17 06:37 | disposition home or self-care (01) ==
LOC: HO.HMGCLDS 06:36
PROVIDERS: PCP Physician Assistant; Visit Provider Physician Assistant
DX: Z12.5 Encounter for screening for malignant neoplasm of prostate (principal); I25.10 Atherosclerotic heart disease of native coronary artery without angina pectoris; I10 Essential (primary) hypertension
CPT/HCPCS: 36415; 80053; 80061; 82043; 82570; 84153; 85027

== ENCOUNTER 2023-02-27 15:21 | Outpatient (AMB) | payer OTHER, SELFPAY ==
[2023-02-27 15:55] VITALS: BP 160/84; PULSE 68; O2SAT 97; BMI 36.2
--- NOTE | 2023-02-27 15:55 | A.OFFPC_ITS ---
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 Required: No Accompanied by: Self / Same As Patient Allergies atorvastatin Adverse Reaction (Unknown, Verified 02/27/23 16:23) Unknown Medication List - Last Reconciled 02/27/23 by Ayaz Sewell PA-C acetaminophen (Tylenol) 650 mg (2 x 325 mg) PO Q6H PRN albuterol sulfate 90 mcg/actuation (ProAir HFA) 2 puffs inhalation Q4-6H PRN 90 days aspirin 1 tab PO DAILY betamethasone dipropionate 0.05% 1 appl topical DAILY 30 days bupropion HCl (Wellbutrin XL) 150 mg PO QAM 90 days CPAP As directed dulaglutide (Trulicity) 1.5 mg (0.5 mL) subcut QWEEK 90 days ferrous sulfate 325 mg PO BID 90 days fluticasone propion-salmeterol 115-21 mcg/actuation (Advair HFA) 2 puffs inhalation BID 90 days furosemide 40 mg PO DAILY insulin aspart U-100 (Novolog PenFill U-100 Insulin aspart) 3 units (0.03 mL) subcut TID 30 days insulin aspart U-100 (Novolog FlexPen U-100 Insulin aspart) subcut insulin glargine (Basaglar KwikPen U-100 Insulin) 40 units (0.4 mL) subcut BEDTIME 90 days losartan 25 mg PO DAILY metformin 1,000 mg PO BID 90 days metoprolol tartrate 50 mg PO BID pantoprazole 40 mg PO DAILY pen needle, diabetic (BD Ultra-Fine Original Pen Needle) 1 ea miscellaneous DAILY pen needle, diabetic (BD Ultra-Fine [place]andra Pen Needle) As directed rosuvastatin 20 mg PO DAILY sildenafil 100 mg PO DAILY 30 days tamsulosin 0.4 mg PO DAILY warfarin 2 mg PO DAILY 90 days warfarin 3 mg PO DAILY 90 days Tobacco use date assessed: 08/23/22 Dental Screening Dental Screen Date: 02/27/23 Did you have a dental visit in the last 12 months?: Yes Did you have a dental problem in the last 6 months where you did not have access to dental care?: No Was dental information given to patient?: Patient has dentist HPI PE HPI Details PAteint is a 57 y/o M here today for a routine annual physical.? Patient has a past medical history of CVA, aortic valve replacement,h/o aortic dissection, diabetes, obesity, coronary artery disease, hypertension. .. Major depressive disorder: Has been suffering with more depression as of late due to family issues. He reports his daughter has left his house to live back in [place] without him noting. He has no contact with his granddaughter this is causing him more depression. Has been started on Wellbutrin which originally was helpful for his depression though due to this new event caused him more depression. He is now being set up with a mental health therapist. He is applying for [place] for a 12 week continue his sleeve due to his mental health. Left shoulder rotator cuff tear: Recent MRI shoulder showing--> Large complete insertional tear of the supraspinatus and infraspinatus tendons with associated [id number] atrophy and fatty infiltration of the supraspinatus and severe atrophy and fatty infiltration of the infraspinatus muscle. Full-thickness and near complete tear of the subscapularis tendon. No atrophy or fatty infiltration of the muscle He is anticipating surgery in April of 2023. Microcytic anemia: Has been started on iron supplementation in CBC has improved. ? .. ? CAD: Is followed by cardiology at [facility] (PV cards) , denies any chest pains palpitations or shortness of breath. Most recent lipid panel showing excellent control of his total cholesterol and LDL. .. ..HTN: Blood pressure elevated today in office , does not check at home.? He is otherwise asymptomatic. Recent microalbumin very elevated likely due to uncontrolled hypertension. PLAN: Will increase his dose of losartan ? . ? Aortic valve replacement: Is currently on Coumadin with therapeutic INRs between 2.5 and 3.5.? Denies any overt signs of bleeding. ? .. ? DMII:? He reports he has not been monitoring his blood sugars at home. A1c much improved at 7.5 today. He does report some polyuria as of late.. Most recent fasting blood sugar elevated, urine showing glucosuria ? He has not been following a diabetic diet.? He denies any changes in his diet. Has lost weight since last office visit. PLAN: Will increase his Lantus to 45 units. ? ? Colonoscopy done in 2020, tubular adenomas polyps found repeat 3-5 years Vaccines: Up-to-date with COVID vaccine, need Tdap , up-to-date with pneumonia vaccine, needs flu. [facility] Medical History Coagulopathy Arrhythmia BPH (benign prostatic hyperplasia) Chronic renal insufficiency CVA (cerebral vascular accident) History of COVID-19 Sleep apnea Asthma Diabetes High cholesterol HTN (hypertension) Surgical History H/O colonoscopy H/O tooth extraction Mechanical heart valve present Social History Housing: House Alcohol intake: never Patient Tobacco Use Status: Former Tobacco user e-Cigarette/Vaping Use: Never Used Second Hand Smoke Exposure: No service: No Current occupational status: employed Cognitive needs: No Hearing needs: No Vision needs: Yes Questionnaire PHQ-9 Over the last 2 weeks, how often have you been bothered by any of the following problems? 1. Little interest or pleasure in doing things: nearly every day 2. Feeling down, depressed, or hopeless: nearly every day 3. Trouble falling or staying asleep, or sleeping too much: nearly every day 4. Feeling tired or having little energy: nearly every day 5. Poor appetite or overeating: several days 6. Feeling bad about yourself - or that you are a failure or have let yourself or your family down: nearly every day 7. Trouble concentrating on things, such as reading the newspaper or watching television: more than half the days 8. Moving or speaking so slowly that other people could have noticed. Or the opposite - being so fidgety or restless that you have been moving around a lot more than usual: nearly every day 9. Thoughts that you would be better off or of hurting yourself in some way: nearly every day Total score: 24 Depression Screening Interpretation: Positive Depression Screening Follow-up: Existing condition and In treatment Depression Screening Done: Yes 51744 - PHQ-9 Billing: Yes Source: Developed by DrsTonia Damon Kurt Kroenke and colleagues, with an educational sultana from [employer]. Thrive Questionnaire Date Thrive assessed: 08/23/22 LAINA-7 AMB Questionnaire LAINA-7 Date LAINA - 7 assessed: 02/27/23 Feeling nervous, anxious, or on edge: 3 = Nearly every day Not being able to stop or control worryin = Nearly every day Worrying too much about different things: 3 = Nearly every day Trouble relaxin = Nearly every day Being so restless that it is hard to sit still: 2 = More than half the days Becoming easily annoyed or irritable: 3 = Nearly every day Feeling afraid as if something awful might happen: 3 = Nearly every day Total LAINA-7 score (0-4 normal; 5-9 mild; 10-14 moderate; 15-21 severe): 20 Source: Developed by Drs. Jg Mims, Tonia Zapata, Colt Calero and colleagues, with an educational sultana from [employer]. LAINA-7 Assessment Billing LAINA-7 Assessment Tool: LAINA-7 Assessment 42294 Review of Systems Const Denies body aches, Denies chills, Denies excessive sweating, Denies fatigue, Denies fever(s) and Denies headache(s) Eyes Denies blurry vision ENT Denies dysphagia, Denies vertigo, Denies dizziness, Denies headache(s), Denies hearing loss and Denies tinnitus Card Denies chest pain, Denies chest pain with activity, Denies syncope, Denies irregular heart rhythm and Denies dyspnea Resp Denies chest congestion, Denies cough, Denies hemoptysis, Denies dyspnea and Denies wheezing GI Denies abdominal pain, Denies melena, Denies hematochezia, Denies coffee ground emesis, Denies dysphagia, Denies diarrhea, Denies nausea and Denies vomiting Denies difficulty urinating, Denies dysuria, Denies urinary frequency, Denies urinary hesitancy and Denies urinary urgency Musc Denies arthralgias, Denies limited range of motion, Denies muscle cramps and Denies muscle weakness Skin/Breast Denies rash and Denies skin ulcer Neuro Denies Abnormal speech present, Denies confusion, Denies vertigo, Denies dizziness, Denies syncope, Denies headache(s), Denies memory loss and Denies seizure-like activity Psych Reports anxiety, Denies confusion, Reports depression, Reports irritability, Reports anhedonia, Denies memory loss, Denies panic attacks and Denies paranoia Endo Denies excessive sweating, Denies fatigue, Denies flushing, Denies polydipsia and Denies polyuria Aller/Immun Denies wheezing Physical exam (Primary Care) Vital Signs: Last Vital Signs Pulse 68 02/27/23 15:55 BP 160/84 H 02/27/23 15:55 Pulse Ox 97 02/27/23 15:55 Oxygen Delivery Method Room Air 02/27/23 15:55 BMI result Body Mass Index 36.2 BMI Assessment/Plan discussion: High Tobacco/Smoking Status: Tobacco use Status Tobacco use date assessed 08/23/22 02/27/23 16:02 Patient Tobacco Use Status Former Tobacco user 02/27/23 16:02 e-Cigarette/Vaping Use Never Used 02/27/23 16:02 PHQ-9: PHQ-9 Score PHQ-9: Total score 24 02/27/23 16:17 Depression Screening Interpretation: Positive Depression Screening Follow-up: Existing condition and In treatment Thrive Assessment: Date of Thrive Assessment Date Thrive assessed 08/23/22 02/27/23 16:02 Const Other: Obese General: cooperative, comfortable, no acute distress, alert and awake; No confusion Orientation/consciousness: oriented to person, oriented to place, patient oriented x3 and No confusion HENMT Head: Yes normocephalic Ears: external ears normal and TM's normal bilaterally Face and sinus: No sinus tenderness Mouth: Normal oral and palatal mucosa present and tongue normal Teeth and gingiva: dentition normal and gingiva normal Throat: Yes posterior oropharynx normal, Yes tonsils normal and Yes uvula midline Eyes Conjunctivae: conjunctivae normal Sclerae: sclerae normal Pupils: Equal, round and reactive pupils present EOM: EOMs intact bilaterally Direct Ophthalmoscopy: No no photophobia Neck Neck: Yes no lymphadenopathy, No tender and Yes no JVD Thyroid: Thyroid normal Carotids: no bruits Chest Chest palpation & inspection: no tenderness Resp Effort & Inspection: normal respiratory effort, no audible wheezes, not labored and no stridor Auscultation: no crackles, no rales, no rhonchi and no wheezes Cardio Jugular venous distension: no JVD Rate: regular rate, not bradycardic and not tachycardic Rhythm: regular rhythm Bruits: no carotid bruits Peripheral pulses: Peripheral pulses 2+ throughout GI Inspection: Yes normal to inspection, No abdominal wall ecchymosis and No visible herniation Palpation (GI): Soft to palpation, nontender, no guarding, not rigid and No hepatosplenomegaly present Auscultation: normoactive bowel sounds General: Yes no CVA tenderness Back/Spine/Pelvis Back: no CVA tenderness and No back tenderness Cervical Spine: cervical ROM normal Thoracic/Lumbar Spine: thoracic and lumbar spine normal to inspection, straight leg raise negative bilaterally, No thoraco-lumbar ROM limited and No lumbar spinal tenderness Skin Lesions: no lesions Rashes: no rashes Wounds: no wounds Neuro General: oriented to person, oriented to place, patient oriented x3, CN's II-XI intact bilaterally and No confusion Cranial nerves: Yes Equal, round and reactive pupils present and Yes Normal accommodation reflex present Cognition (Neuro): normal cognition Speech: No Abnormal speech present Gait exam (Neuro): Normal gait present Motor exam (neuro): 5/5 motor strength present throughout Extrem Right upper extremity: full ROM; no cyanosis Left upper extremity: full ROM; no cyanosis Right lower extremity: no edema Left lower extremity: no edema Psych Appearance: grossly normal Mental Status: mental status grossly normal Affect: normal affect Attitude: cooperative Thought process: Normal thought process present Assessment and Plan Assessment & Plan (1) Annual physical exam: Code(s): Z00.00 - Encounter for general adult medical examination without abnormal findings (2) CAD (coronary artery disease): Code(s): I25.10 - Atherosclerotic heart disease of [place] coronary artery without angina pectoris Qualifiers: Associated angina: without angina Coronary Disease-Associated Artery/Lesion type: [place] artery [place] vs. transplanted heart: [place] heart Qualified Code(s): I25.10 - Atherosclerotic heart disease of [place] coronary artery without angina pectoris Plan: Patient continues to follow cardiology, most recent lipid panel acceptable. He will continue statin therapy and anti-platelet therapy as per sql report writer. Goal LDL to be optimally below 70 (3) GERD (gastroesophageal reflux disease): Code(s): K21.9 - Gastro-esophageal reflux disease without esophagitis Qualifiers: Esophagitis presence: without esophagitis Qualified Code(s): K21.9 - Gastro-esophageal reflux disease without esophagitis (4) HTN (hypertension): Code(s): I10 - Essential (primary) hypertension Qualifiers: Hypertension type: primary hypertension Qualified Code(s): I10 - Essential (primary) hypertension Plan: Patient's blood pressure elevated today in office. Reports he is somewhat upset about his family issues and this is the reason his blood pressure is elevated. Does not monitors blood pressure at home. Will increase his losartan dose to 50 mg. Will continue his current dose of antihypertensive medication with goal blood pressure to be below 140/90 (5) DMII (diabetes mellitus, type 2): Code(s): E11.9 - Type 2 diabetes mellitus without complications Qualifiers: Diabetes mellitus complication status: without complication Diabetes mellitus detention insulin use: with supervisor intermediates use Qualified Code(s): E11.9 - Type 2 diabetes mellitus without complications; Z79.4 - MCFP (current) use of insulin Plan: Patient's type 2 diabetes suboptimally controlled with A1c today is 7.5 from 9.1. Will increase his insulin dose to 45 units. Advised on diabetic diet. Goal A1c to be below 7.0. (6) MDD (major depressive disorder), recurrent episode, moderate: Code(s): F33.1 - Major depressive disorder, recurrent, moderate Plan: Patient's PHQ-9 score positive for moderate-severe depression , has been started on Wellbutrin was has been helpful though recent events in his personal life caused him to be more depressed. He is establishing care with a mental health therapist this week. He is taking a 12 week continues leave on [facility] from work to help home with his mental health. (7) Anemia: Code(s): D64.9 - Anemia, unspecified Qualifiers: Anemia type: iron deficiency Iron deficiency anemia type: unspecified iron deficiency Qualified Code(s): D50.9 - Iron deficiency anemia, unspecified Plan: has resolved since starting iron supplementation. (8) S/P AVR (aortic valve replacement): Code(s): Z95.2 - Presence of prosthetic heart valve Plan: Continues to follow cardiology, continues on anticoagulation without any overt signs of bleeding. INRs have been stable between 2.5 and 3.5 (9) Obese: Comment: Patient has been grossly obese he is on weight reduction program, and he claims that he has lost significant weight in the last few months. Code(s): E66.9 - Obesity, unspecified Qualifiers: Obesity type: due to excess calories Obesity classification: adult class 2 (BMI 35 - 39.9) Serious obesity comorbidity presence: without serious comorbidity Body mass index: BMI 39.0-39.9 Qualified Code(s): E66.09 - Other obesity due to excess calories; Z68.39 - Body mass index [BMI] 39.0-39.9, adult Plan: Patient does understand his BMI remains above 30. Has lost weight since last office visit due to better eating habits. He will continue to work on being more physically active and adapt to better eating habits to reduce his weight. Orders: Orders TDaP Immunization 02/27/23 Z23 - Encounter for immunization Comprehensive [place]. 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 Complete Blood Count no Diff 6 Months E78.2 - Mixed hyperlipidemia Microalbumin, Random (w Creat) 6 Months I10 - Essential (primary) hypertension Lipid Panel 6 Months E78.2 - Mixed hyperlipidemia Medications: New Boostrix Tdap (diphth,pertus(acell),tetanus) 0.5 mL IM ONCE 0.5 mL 0RF NS Z23 - Encounter for immunization Changed From insulin aspart U-100 (Novolog PenFill U-100 Insulin aspart) 3 units (0.03 mL) subcut TID 30 days 15 mL 1RF E11.9 - Type 2 diabetes mellitus without complications, 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 To insulin aspart U-100 (Novolog PenFill U-100 Insulin aspart) 6 units (0.06 mL) subcut TID 30 days 15 mL 1RF E11.9 - Type 2 diabetes mellitus without complications, 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 transplanted heart: [place] heart Gastroesophageal reflux disease without esophagitis K21.9 Esophagitis presence: without esophagitis Primary hypertension I10 Hypertension type: primary hypertension Type 2 diabetes mellitus without complication, with long-term current use of insulin E11.9; Z79.4 Diabetes mellitus complication status: without complication Diabetes mellitus detention insulin use: with detention use MDD (major depressive disorder), recurrent episode, moderate F33.1 Iron deficiency anemia, unspecified iron deficiency anemia type D50.9 Anemia type: iron deficiency Iron deficiency anemia type: unspecified iron deficiency S/P AVR (aortic valve replacement) Z95.2 Class 2 obesity due to excess calories without serious comorbidity with body mass index (BMI) of 39.0 to 39.9 in adult E66.09; Z68.39 Obesity type: due to excess calories Obesity classification: adult class 2 (BMI 35 - 39.9) Serious obesity comorbidity presence: without serious comorbidity Body mass index: BMI 39.0-39.9 Additional Codes LAINA-7 Assessment Billing - LAINA-7 Assessment Tool: LAINA-7 Assessment [id number] ([id number])
== END 2023-02-27 17:04 | disposition home or self-care (01) ==
PROVIDERS: Visit Provider Physician Assistant
DX: Z00.00 Encounter for general adult medical examination without abnormal findings (principal); E11.9 Type 2 diabetes mellitus without complications; Z79.4 Long term (current) use of insulin; F33.1 Major depressive disorder, recurrent, moderate; Z23 Encounter for immunization; I25.10 Atherosclerotic heart disease of native coronary artery without angina pectoris; K21.9 Gastro-esophageal reflux disease without esophagitis; I10 Essential (primary) hypertension; D50.9 Iron deficiency anemia, unspecified; Z95.2 Presence of prosthetic heart valve; E66.09 Other obesity due to excess calories; Z68.39 Body mass index [BMI] 39.0-39.9, adult
CPT/HCPCS: 90471; 90472; 90686; 90715; 96127; 99396

== ENCOUNTER 2023-05-02 11:29 | Outpatient (AMB) | payer OTHER, SELFPAY ==
--- NOTE | 2023-05-02 11:31 | MHC.OFFVIS ---
Intake Vital Signs 05/02/23 11:32 Height 5 ft 7 in Weight 231 lb BMI 36.2 Intake Visit Reasons: OV-Left shoulder last injection 01/25/23 Intake Note: Alejandro is a 57 year old make who presents for a follow up Left shoulder injection 01/25/2023. Patient reports that the injection helped. His left shoulder pain has returned. He has done physical therapy exercises which aggravated his pain. He has also tried Tylenol and anti-inflammatory medicines which gave him minimal relief. He wishes to hold off on left shoulder surgery for long as possible. Allergies atorvastatin Adverse Reaction (Unknown, Verified 05/02/23 11:37) Unknown Medication List - Last Reconciled 05/02/23 by Yousif Florez MD acetaminophen (Tylenol) 650 mg (2 x 325 mg) PO Q6H PRN albuterol sulfate 90 mcg/actuation (ProAir HFA) 2 puffs inhalation Q4-6H PRN 90 days aspirin 1 tab PO DAILY betamethasone dipropionate 0.05% 1 appl topical DAILY 30 days bupropion HCl (Wellbutrin XL) 150 mg PO QAM 90 days CPAP As directed dulaglutide (Trulicity) 1.5 mg (0.5 mL) subcut QWEEK 90 days ferrous sulfate 325 mg PO BID 90 days fluticasone propion-salmeterol 115-21 mcg/actuation (Advair HFA) 2 puffs inhalation BID 90 days furosemide 40 mg PO DAILY insulin aspart U-100 (Novolog PenFill U-100 Insulin aspart) 6 units (0.06 mL) subcut TID 30 days insulin aspart U-100 (Novolog FlexPen U-100 Insulin aspart) subcut insulin glargine (Basaglar KwikPen U-100 Insulin) 40 units (0.4 mL) subcut BEDTIME 90 days losartan 50 mg (2 x 25 mg) PO DAILY metformin 1,000 mg PO BID 90 days metoprolol tartrate 50 mg PO BID pantoprazole 40 mg PO DAILY pen needle, diabetic (BD Ultra-Fine Original Pen Needle) 1 ea miscellaneous DAILY pen needle, diabetic (BD Ultra-Fine Kassandra Pen Needle) As directed rosuvastatin 20 mg PO DAILY sildenafil 100 mg PO DAILY 30 days tamsulosin 0.4 mg PO DAILY warfarin 2 mg PO DAILY 90 days warfarin 3 mg PO DAILY 90 days [facility] Medical History Coagulopathy Arrhythmia BPH (benign prostatic hyperplasia) Chronic renal insufficiency CVA (cerebral vascular accident) History of COVID-19 Sleep apnea Asthma Diabetes High cholesterol HTN (hypertension) Surgical History H/O colonoscopy H/O tooth extraction Mechanical heart valve present Social History Housing: House Alcohol intake: never Patient Tobacco Use Status: Former Tobacco user e-Cigarette/Vaping Use: Never Used Second Hand Smoke Exposure: No service: No Current occupational status: employed Cognitive needs: No Hearing needs: No Vision needs: Yes Physical Exam Vital Signs: BMI result Body Mass Index 36.2 Const Other: Well-nourished well-developed very friendly male awake alert and oriented x3 in no acute distress Extrem Other: Bilateral upper extremity examination shows good capillary refill, no skin lesions noted, normal sensation light touch Left shoulder examination shows slightly decreased range of motion when compared to his right shoulder, 3/5 strength with supraspinatus testing, positive impingement signs, no instability Office Procedures Joint Injection/Drain Joint Injection/Drain Primary Site: left shoulder Prep: site was prepped using aseptic technique Injected: 40 mg of, DepoMedrol and 1% plain lidocaine Procedure: The patient tolerated the procedure well Coding 23071 - Large joint Procedure code (CPT) selection complete Assessment & Plan Assessment & Plan (1) Rotator cuff insufficiency of left shoulder: Code(s): M25.312 - Other instability, left shoulder Plan Mr. Hilario presents with left shoulder pain and weakness due to a large chronic rotator cuff tear as well as impingement syndrome. I had a lengthy discussion with the patient regarding the treatment options. He wishes to hold off on surgery for as long as possible. I agree with this plan. The risks and benefits of a left shoulder cortisone injection were discussed at length with the patient. Patient wished to proceed. He tolerated the injection well. He will continue with his activity modifications. He will follow up with me on an as-needed basis should his symptoms not plateau at an unacceptable level over the next few months. Feel free to call me at any time should questions regarding his orthopedic management arise. I spent 22 minutes in reviewing the patient's records and imaging studies, seeing the patient and documenting in the medical record. Orders: Orders AMB Joint Injection/Aspiration Today M25.312 - Other instability, left shoulder Coding Level of Care Code Est Pt Level 2 (06851) Diagnoses Rotator cuff insufficiency of left shoulder M25.312 CPT Codes Coding - 56644 Large joint: 87889 - Large joint ([id number])
[2023-05-02 11:32] VITALS: BMI 36.2
== END 2023-05-02 11:54 | disposition home or self-care (01) ==
PROVIDERS: PCP Physician Assistant; Visit Provider Orthopaedic Surgery
DX: M25.312 Other instability, left shoulder (principal); Z04.2 Encounter for examination and observation following work accident
CPT/HCPCS: 20610

== ENCOUNTER → 2023-05-02 11:29 | Outpatient (BNVA) | payer OTHER, SELFPAY | PROVIDERS: PCP Physician Assistant; Visit Provider Orthopaedic Surgery | DX: M25.312 Other instability, left shoulder (principal) | CPT/HCPCS: 20610; J1020 ==

== ENCOUNTER 2023-05-20 13:24 | Emergency (ER) | payer OTHER, SELFPAY ==
--- NOTE | ~2023-05-20 | CT_ITS ---
EXAMINATION: CT HEAD WITHOUT CONTRAST CLINICAL INFORMATION: Dizziness and hypertension. COMPARISON: CT brain dated 08/09/2022. TECHNIQUE: Contiguous axial imaging was performed from the skull base to vertex without intravenous administration of contrast. This CT examination was performed using dose optimization techniques as appropriate, variously including the following: *Automated exposure control *Adjustment of mA and/or kV according to patient size (this includes techniques or standardized protocols for targeted exams where dose is matched to indication/reason for exam; i.e. extremities or head) *Use of iterative reconstruction technique DLP: 940 mGy-cm FINDINGS: There is no acute intracranial hemorrhage. In the right parietal region, there is interim low attenuation change, with an obscured rick-white matter junction. There is mild adjacent sulcal widening, supporting an element of chronicity. No mass effect or midline shift is seen. There is moderately severe patchy low attenuation change in the periventricular white matter spaces. The ventricles are normal in size. No extra-axial fluid collections are identified. The calvarium and scalp soft tissues are normal. The middle ear cavity and mastoid air cells are clear. The visualized paranasal sinuses are clear. CT/CT head/brain wo IV con IMPRESSION: 1. There is interim appearance of an infarction, likely subacute to chronic, in the right parieto-occipital region. This could be more fully evaluated with MRI, if clinically indicated. 2. There is moderately severe patchy low attenuation change in the periventricular white matter spaces, commonly associated with chronic microangiopathy.
[2023-05-20 13:26] VITALS: BP 204/89; PULSE 63; RESP 20; TEMP 35.9; O2SAT 97; BMI 36.8
--- NOTE | 2023-05-20 13:29 | ECG_ITS ---
Test Reason : DIZZINESS Blood Pressure : / mmHG Vent. Rate : 064 BPM Atrial Rate : 064 BPM P-R Int : 172 ms QRS Dur : 092 ms QT Int : 416 ms P-R-T Axes : 000 049 051 degrees QTc Int : 429 ms Normal sinus rhythm Normal ECG When compared with ECG of 09-AUG-2022 15:08, QT has shortened Referred By: Sonny Rosales Electronically Signed By:LYLY HENDERSON MD
--- NOTE | 2023-05-20 13:30 | ED_ITS ---
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 No change in medications. Not related to position changes, this is present all the time. He tried to go back to work after being out due to depression but he couldn't work. He does note his symptoms started after COVID booster complaint: dizziness/fog Onset (ago): month(s) (3) Location: head Radiation: non-radiation Severity: moderate Relieving factors: none Exacerbating factors: none Associated symptoms: other (brain fog) Treatments prior to arrival: none Related Data Home Medications Medication Instructions Recorded Confirmed insulin aspart U-100 100 unit/mL subcut 09/28/22 05/02/23 (3 mL) subcutaneous pen (Novolog FlexPen U-100 Insulin aspart) Previous Rx's Medication Instructions Recorded CPAP #1 ea 09/29/21 sildenafil 100 mg tablet 100 mg PO DAILY 30 days #30 tabs 09/29/21 pen needle, diabetic 29 gauge x 1 ea miscellaneous DAILY #90 caps 03/07/22 1/2 (BD Ultra-Fine Original Pen Needle) albuterol sulfate 90 mcg/actuation 2 puff inhalation Q4-6H PRN 03/13/22 aerosol inhaler (ProAir HFA) shortness of breath or wheezing 90 days #3 ea furosemide 40 mg tablet 40 mg PO DAILY #90 tabs 06/16/22 dulaglutide 1.5 mg/0.5 mL 1.5 mg (0.5 mL) subcut QWEEK 90 08/21/22 subcutaneous pen injector days #6.5 mL (Trulicity) aspirin 81 mg chewable tablet 1 tab PO DAILY #90 tabs 08/22/22 metformin 1,000 mg tablet 1,000 mg PO BID 90 days #180 tabs 08/22/22 pantoprazole 40 mg tablet,delayed 40 mg PO DAILY #90 tabs 08/22/22 release tamsulosin 0.4 mg capsule 0.4 mg PO DAILY #90 caps 08/22/22 insulin glargine 100 unit/mL (3 40 unit (0.4 mL) subcut BEDTIME 90 08/23/22 mL) subcutaneous pen (Basaglar days #45 mL KwikPen U-100 Insulin) bupropion HCl 150 mg 24 hr tablet, 150 mg PO QAM 90 days #90 tabs 08/24/22 extended release (Wellbutrin XL) betamethasone dipropionate 0.05 % 1 appl topical DAILY 30 days #45 08/29/22 topical cream grams acetaminophen 325 mg capsule 650 mg (2 x 325 mg) PO Q6H PRN 09/04/22 (Tylenol) pain #20 caps pen needle, diabetic 32 gauge x #50 ea 09/05/22 (BD Ultra-Fine Kassandra Pen Needle) fluticasone propionate 115 2 puff inhalation BID 90 days #3 09/27/22 mcg-salmeterol 21 mcg/actuation multiple units HFA inhaler (Advair HFA) metoprolol tartrate 50 mg tablet 50 mg PO BID #180 tabs 11/10/22 rosuvastatin 20 mg tablet 20 mg PO DAILY #90 tabs 11/21/22 warfarin 2 mg tablet 2 mg PO DAILY 90 days #90 tabs 01/26/23 warfarin 3 mg tablet 3 mg PO DAILY 90 days #90 tabs 01/26/23 insulin aspart U-100 100 unit/mL 6 unit (0.06 mL) subcut TID 30 02/27/23 subcutaneous cartridge (Novolog #15 mL PenFill U-100 Insulin aspart) losartan 25 mg tablet 50 mg (2 x 25 mg) PO DAILY #90 tabs 02/27/23 ferrous sulfate 325 mg (65 mg 325 mg PO BID 90 days #180 tabs 02/28/23 iron) tablet rosuvastatin 40 mg tablet 40 mg PO DAILY #30 tabs 05/20/23 Allergies Allergy/AdvReac Type Severity Reaction Status Date / Time atorvastatin AdvReac Unknown Unknown Verified 05/20/23 13:29 Review of Systems 2 Review of Systems: Constitutional : No Fever, No Chills, No Fatigue ENT/Mouth : No sore throat, No Rhinorrhea Eyes: No Eye Pain, No Swelling, No Redness Cardiovascular : No Chest Pain, No SOB, No Dyspnea on Exertion Respiratory : No Cough, No Sputum Gastrointestinal : No Nausea, No Vomiting, No Diarrhea, No abdominal Pain Genitourinary : No Dysuria, No Urinary Frequency, No Hematuria, Musculoskeletal : No joint pain, No Myalgias, No Joint Swelling Skin : No Skin Lesions, No rash Neuro : No Weakness, No Numbness, pos Dizziness, no Headache Psych : No Anxiety/Panic, No Depression Heme/Lymph: No Bruising, No Bleeding,No Lymphadenopathy Endocrine : No Polyuria, No Polydipsia All other systems reviewed and are negative [facility] Past Medical History Attestation statement: The following information was validated with the patient. Source: old records reviewed Medical History Coagulopathy Arrhythmia BPH (benign prostatic hyperplasia) Chronic renal insufficiency CVA (cerebral vascular accident) History of COVID-19 Sleep apnea Asthma Diabetes High cholesterol HTN (hypertension) Surgical History H/O colonoscopy H/O tooth extraction Mechanical heart valve present Social History Social History Housing: House Alcohol intake: never Patient Tobacco Use Status: Former Tobacco user Smoked in Last 30 Days: No e-Cigarette/Vaping Use: Never Used Second Hand Smoke Exposure: No Use of substances other than those prescribed or required for medical reasons: No Advance Directives: No Advance Directives Information Provided: No service: No Current occupational status: employed Cognitive needs: No Hearing needs: No Vision needs: Yes Physical Exam ED Vital Signs: Vital Signs - 24 hr 05/20/23 13:26 05/20/23 14:00 05/20/23 16:15 Temperature 96.6 F L 97.5 F Pulse Rate 63 65 Respiratory Rate 20 16 16 Blood Pressure 204/89 H 172/63 H Pulse Oximetry 97 Oxygen Delivery Method Room Air Room Air BMI result Body Mass Index 36.8 Appearance: Alert. Oriented X3. No acute distress. Eyes: Pupils equal, round and reactive to light. ENT: Pharynx normal. TMs normal bilaterally Neck: Normal inspection. Neck supple. CVS: Normal heart rate and rhythm. Pulses normal. Respiratory: No respiratory distress. Breath sounds normal. Abdomen: Soft and nontender. Skin: Skin warm and dry. Normal skin color. Normal skin turgor. Extremities: No lower extremity edema. No calf ttp Neuro: Oriented X 3. No motor deficit. No sensory deficit. CN212 intact no drift no ataxia Course Course Course Narrative: RME: 57 yold male with pmh of DM and HTN presents to the ED for dizziness for the past 4 months. Feels like he is swaying. no head trauma or stroke symptoms. Neuro exam intact. NIH 0. labs ordered, EkG, and head CT ordered. Reevaluation(s) Reevaluation #1: notified emergency response coordinator they will follow up in AM Medical Decision Making Medical Decision Making MDM Narrative: 57 yo male with PMH of GERD, anemia, MDD, asthma, HTN, s/p mechanical AVR on coumadin, HERNÁN, prior stroke during AVR repair with residual difficulty writing, HLD, DM here with 3 months of dizziness but has normal neuro exam at this time. Will obtain basic labs, EKG, CT head given possible stroke and 3 months of symptoms, he also notes brain fog. He is already on coumadin - at this time it is has been 3 months and he is anticoagulated so he could follow up with Neurology as outpatient pending workup Differential Diagnosis Differential Diagnoses: The differential diagnosis associated with the presentation includes stroke, anemia, dehydration Admission/Observation Consideration of admission/observation: Escalation of care including admission/observation considered 3+ months of symptoms can see PCP and Neurology therapeutic INR and already on aspirin, no concern for falls here up and out of bed without issue will increase statin to 40mg daily message sent to our emergency response coordinator PCP can follow up no acute interventions 3+ months of symptoms. Lab Data [facility] Lab Attestation statement: I reviewed the patient's lab results. 05/20/23 14:34 05/20/23 14:34 Labs: Lab Results 05/20/23 Range/Units 14:34 WBC 7.1 (4.8-10.8) X10*3/uL RBC 5.47 (4.60-5.80) X10*6/uL Hgb 15.4 (14.0-18.0) g/dl Hct 46.6 (42.0-52.0) % MCV 85.2 (80.0-98.0) fL MCH 28.2 (27.0-33.0) pg MCHC 33.0 (31.0-36.0) g/dl RDW 12.8 (11.0-16.0) % Plt Count 172 (160-400) X10*3/uL MPV 11.6 (9.4-12.4) fL Immature Gran % (Auto) 0.4 (0.0-0.4) % Neut % (Auto) 60.9 (45-73) % Lymph % (Auto) 28.3 (20-40) % [place] % (Auto) 8.3 (2-11) % Eos % (Auto) 1.8 (0-4) % Baso % (Auto) 0.3 (0-2) % Lymph # (Auto) 2.0 (1.2-4.9) X10*3/uL [place] # (Auto) 0.6 (0.1-1.2) X10*3/uL Eos # (Auto) 0.1 (0.0-0.4) X10*3/uL Baso # (Auto) 0.0 (0.0-0.2) X10*3/uL Abs Immat Gran (auto) 0.03 (0.00-0.03) X10*3/uL Absolute Neuts (auto) 4.4 (2.0-8.3) x10*3/uL Absolute Nucleated RBC 0.000 (0.0-0.012) X10*3/uL Nucleated RBC % (auto) 0.0 (0.0-0.2) /100WBC PT 32.5 H (11.1-13.3) SEC INR 2.7 H (0.9-1.1) APTT 46.1 H (26.0-36.4) SEC Sodium 139 (135-145) mmol/L Potassium 4.8 (3.3-5.1) mmol/L Chloride 103 (96-108) mmol/L Carbon Dioxide 26 (22-29) mmol/L Anion Gap 15 (12-20) BUN 13 (9-16) mg/dL Creatinine 1.09 (0.5-1.4) mg/dL Estim Creat Clear Calc 84.9 Estimated GFR > 60 Random Glucose 292 H (60-115) mg/dL Calcium 9.7 (8.4-10.2) mg/dL Total Bilirubin 0.4 (0.0-1.0) mg/dL AST 22 (5-37) U/L ALT 36 (0-40) U/L Alkaline Phosphatase 99 (39-117) U/L Troponin I High Sens 5.4 D (<3.5-35.0) ng/L Total Protein 7.5 (6.5-8.0) g/dL Albumin 4.3 (3.5-5.0) g/dL Independent Interpretation I performed an independent interpretation of an: EKG and CT Scan (stroke not acute - consistent with his symptoms) Interpretation: Rate: 64 Rhythm: NSR [place]: normal Normal P waves. Normal CODY. Normal QRS complex. ST T wave : normal no ARIES qTC: 429 prior studies: no acute ischemia The study has been interpreted contemporaneously by me. . Radiology Impression Discussion of test interpretation with radiology: I have reviewed the radiologist's reading. External Record Review External record reviewed: Inpatient record Chronic Conditions Patient?s care impacted by: Other Discharge Plan Discharge Clinical Impression: Dizziness CVA (cerebrovascular accident) Qualifiers: CVA mechanism: unspecified Qualified Code(s): I63.9 - Cerebral infarction, unspecified Patient Disposition: Home, Self-Care Instructions: Dizziness (ED), Stroke (DC) Additional Instructions: continue your aspirin and coumadin as well as BP medications. your CT scan did confirm that you had a stroke and this is likely the cause of your symptoms please follow up with your [place] to make them aware our emergency response coordinator team will follow up with you in the AM to help with things like PT and OT I am going to increase your rosuvastatin to 40mg daily stop taking the 20mg Prescriptions: New rosuvastatin 40 mg tablet 40 mg PO DAILY Qty: 30 0RF No Action sildenafil 100 mg tablet 100 mg PO DAILY 30 Days Qty: 30 1RF (DME) CPAP Device See Rx Instructions .Route Qty: 1 0RF Rx Instructions: As directed pen needle, diabetic [BD Ultra-Fine Orig Pen Needle] 29 gauge x 1/2 needle 1 ea miscellaneous DAILY Qty: 90 3RF albuterol sulfate [ProAir HFA] 90 mcg/actuation HFA aerosol inhaler 2 puff inhalation Q4-6H PRN (Reason: shortness of breath or wheezing) 90 Days Qty: 3 3RF furosemide 40 mg tablet 40 mg PO DAILY Qty: 90 2RF Trulicity 1.5 mg/0.5 mL pen injector 1.5 mg subcut QWEEK 90 Days Qty: 6.5 2RF aspirin 81 mg tablet,chewable 1 tab PO DAILY Qty: 90 2RF metformin 1,000 mg tablet 1,000 mg PO BID 90 Days Qty: 180 2RF pantoprazole 40 mg tablet,delayed release (DR/EC) 40 mg PO DAILY Qty: 90 2RF tamsulosin 0.4 mg capsule 0.4 mg PO DAILY Qty: 90 3RF bupropion HCl [Wellbutrin XL] 150 mg tablet extended release 24 hr 150 mg PO QAM 90 Days Qty: 90 1RF betamethasone dipropionate 0.05 % cream 1 appl topical DAILY 30 Days Qty: 45 0RF (DME) pen needle, diabetic [BD Ultra-Fine Kassandra Pen Needle] 32 gauge x 5/32 needle See Rx Instructions .ROUTE .MEDSUPPLY Qty: 50 3RF Rx Instructions: As directed Advair HFA 115-21 mcg/actuation HFA aerosol inhaler 2 puff inhalation BID 90 Days Qty: 3 2RF metoprolol tartrate 50 mg tablet 50 mg PO BID Qty: 180 2RF rosuvastatin 20 mg tablet 20 mg PO DAILY Qty: 90 2RF warfarin 2 mg tablet 2 mg PO DAILY 90 Days Qty: 90 3RF warfarin 3 mg tablet 3 mg PO DAILY 90 Days Qty: 90 3RF ferrous sulfate 325 mg (65 mg iron) tablet 325 mg PO BID 90 Days Qty: 180 1RF acetaminophen [Tylenol] 325 mg capsule 650 mg PO Q6H PRN (Reason: pain) Qty: 20 0RF insulin glargine [Basaglar KwikPen U-100 Insulin] 100 unit/mL (3 mL) insulin pen 40 unit subcut BEDTIME 90 Days Qty: 45 2RF losartan 25 mg tablet 50 mg PO DAILY Qty: 90 2RF insulin aspart U-100 [Novolog PenFill U-100 Insulin] 100 unit/mL cartridge 6 unit subcut TID 30 Days Qty: 15 1RF insulin aspart U-100 [Novolog FlexPen U-100 Insulin] 100 unit/mL (3 mL) insulin pen subcut
[2023-05-20 14:00] VITALS: RESP 16
[2023-05-20 14:38] LABS: MANUAL DIFF FLAG NO
[2023-05-20 14:40] LABS: Basophils Percent Auto 0.3 % (0-2); Eosinophils Absolute Auto 0.1 X10*3/uL (0.0-0.4); Eosinophils Percent Auto 1.8 % (0-4); Hematocrit 46.6 % (42.0-52.0); Hemoglobin 15.4 g/dl (14.0-18.0); Imm Gran Abs Auto 0.03 X10*3/uL (0.00-0.03); Imm Gran Pct Auto 0.4 % (0.0-0.4); Lymphocytes Percent Auto 28.3 % (20-40); Mean Corpuscular Hemoglobin 28.2 pg (27.0-33.0); Mean Corpuscular Volume 85.2 fL (80.0-98.0); Mean Platelet Volume 11.6 fL (9.4-12.4); Monocytes Absolute Auto 0.6 X10*3/uL (0.1-1.2); Monocytes Percent Auto 8.3 % (2-11); Neutrophils Absolute Auto 4.4 x10*3/uL (2.0-8.3); Neutrophils Percent Auto 60.9 % (45-73); Platelet Count 172 X10*3/uL (160-400); Red Blood Count 5.47 X10*6/uL (4.60-5.80); Red Cell Distribution Width 12.8 % (11.0-16.0); White Blood Count 7.1 X10*3/uL (4.8-10.8)
[2023-05-20 14:44] LABS: INTERNATIONAL NORM RATIO 2.7 (0.9-1.1); Prothrombin Time 32.5 SEC (11.1-13.3)
[2023-05-20 14:47] LABS: Partial Thromboplastin Time 46.1 SEC (26.0-36.4)
[2023-05-20 14:52] LABS: Alanine Aminotransferase 36 U/L (0-40); Albumin Level 4.3 g/dL (3.5-5.0); Alkaline Phosphatase 99 U/L (39-117); Anion Gap 15 (12-20); Aspartate Amino Transferase 22 U/L (5-37); Bilirubin Total 0.4 mg/dL (0.0-1.0); Blood Urea Nitrogen 13 mg/dL (9-16); Calcium 9.7 mg/dL (8.4-10.2); Carbon Dioxide 26 mmol/L (22-29); Chloride 103 mmol/L (96-108); Creatinine Clr Calc Pharmacy 84.9; Estimated Glomerular Filt Rate > 60; Glucose Random 292 mg/dL (60-115); Potassium 4.8 mmol/L (3.3-5.1); Sodium 139 mmol/L (135-145); Total Protein 7.5 g/dL (6.5-8.0)
[2023-05-20 14:59] LABS: Troponin-I High Sensitivity 5.4 ng/L (<3.5-35.0)
[2023-05-20 16:15] VITALS: BP 172/63; PULSE 65; RESP 16; TEMP 36.4
== END 2023-05-20 17:06 | disposition home or self-care (01) ==
PROVIDERS: Physician Assistant; Emergency Provider Emergency Medicine; PCP Physician Assistant
DX: I63.9 Cerebral infarction, unspecified (principal); R42 Dizziness and giddiness; Z79.01 Long term (current) use of anticoagulants; Z79.4 Long term (current) use of insulin; Z87.891 Personal history of nicotine dependence; Z79.899 Other long term (current) drug therapy
CPT/HCPCS: 36415; 70450; 80053; 84484; 85025; 85610; 85730; 93005; 99284

== ENCOUNTER → 2023-05-20 13:29 | Outpatient (BNV) | payer OTHER, SELFPAY | PROVIDERS: Emergency Provider Emergency Medicine; PCP Physician Assistant; Visit Provider Internal Medicine Cardiovascular Disease | DX: R42 Dizziness and giddiness (principal) | CPT/HCPCS: 93010 ==

== ENCOUNTER 2023-06-05 13:29 | Outpatient (RCR) | payer OTHER, SELFPAY ==
--- NOTE | 2023-06-07 15:37 | MHC.PT.EP ---
[facility] [place] [facility] [place] [facility] [place] [facility] [address] Kristopher Chow [address] [phone] F: [phone] F: [phone] F: [phone] F: [phone] Physical Therapy Plan of Care Date of Evaluation: 06/06/23 Date of Surgery: n/a Diagnosis: Dizziness, CVA Assessment: Pt is a very pleasant 58yo M who presents to PT with diagnosis of CVA and dizziness. Pt reports onset of dizziness that is mostly constant unless he is laying flat. He denies any spinning sensation. He denies any acute visual changes. Upon assessment, LE coordination and sensation are equal and intact. He presents to PT with current impairments in dizziness, decreased LE strength (no unilateral weakness noted), decreased balance, and impaired gait. He is limited functionally by standing, walking, and stair navigation. He is a good candidate for skilled PT in order to address current impairments to maximize functional mobility to decrease risk of falls. He is recommended to be seen 2x/week for 4 weeks and will be reassessed at that time Frequency and Duration: The patient will be seen 2x/week for 4 weeks Short Term Goals: Pt will be I with HEP to promote self management of symptoms Pt will increase standing knee extension strength to at least 4+/5 B to assist with standing and walking Door [employer]anger Goals: Pt will improve B LE strength all planes to WFL to assist with standing and walking Pt will ascend/descend 1 flight of stairs with reciprocal pattern independently and safely Treatment Plan: Modalities to reduce pain, spasms and effusion. Manual therapy to restore motion and function. Therapeutic exercise to improve strength and flexibility. Neuromuscular re-education for posture and balance. Therapeutic activities to return to functional activities of daily living. Electronically signed by: Marleen Stevens, PT, DPT Please sign and return to therapist. Thank you for your referral.
--- NOTE | 2023-06-18 11:53 | MHC.PT.DC ---
[facility] [place] Office [place] Office [place] [facility] [address] Kristopher Chow [address] [phone] F: [phone] F: [phone] F: [phone] F: [phone] Physical Therapy Discharge Report Diagnosis: Dizziness, CVA Date of Surgery: n/a Date of Evaluation: 06/06/23 Date of Discharge: 06/18/23 Treatments to Date: 1 Cancellations to Date: No Shows to Date: Discharge Status: Patient Elected to Stop Discharge Summary: Pt attended initial PT evaluation on 06/06/23. He called today, 06/18/23, and requested to cancel his remaining appointments. Pt is being D/C from skilled PT per his request. Pt current level of function unknown at this time Electronically signed by: Marleen Stevens, PT, DPT Please sign and return to therapist. Thank you for your referral.
== END 2023-06-18 11:53 | disposition home or self-care (01) ==
LOC: HO.PT 13:29
PROVIDERS: PCP Physician Assistant; Visit Provider Psychiatry & Neurology Neurology
DX: Z86.73 Personal history of transient ischemic attack (TIA), and cerebral infarction without residual deficits (principal)
CPT/HCPCS: 97162; 97163

== ENCOUNTER 2023-06-13 07:48 | Outpatient (AMB) | payer OTHER, SELFPAY ==
[2023-06-13 08:01] VITALS: BP 142/82; PULSE 78; O2SAT 98; BMI 36.6
--- NOTE | 2023-06-13 08:01 | A.OFFPC_ITS ---
Vital Signs 06/13/23 08:01 06/13/23 14:25 Height 5 ft 7 in Weight 106.141 kg BMI 36.6 BP 142/82 H 138/74 Blood Pressure Location Lt brachial Position Sitting Pulse 78 Pulse Source Pulse Oximeter Pulse Oximetry (%) 98 Oxygen Delivery Method Room Air Intake Visit Reasons: Stroke Allergies atorvastatin Adverse Reaction (Unknown, Verified 06/13/23 08:01) Unknown Medication List - Last Reconciled 06/15/23 by DANAY Contreras acetaminophen (Tylenol) 650 mg (2 x 325 mg) PO Q6H PRN albuterol sulfate 90 mcg/actuation (ProAir HFA) 2 puffs inhalation Q4-6H PRN 90 days aspirin 1 tab PO DAILY betamethasone dipropionate 0.05% 1 appl topical DAILY 30 days blood sugar diagnostic (FreeStyle Lite Strips) As directed blood-glucose meter (FreeStyle Mathews Lite kit) As directed CPAP As directed dulaglutide (Trulicity) 1.5 mg (0.5 mL) subcut QWEEK 90 days ferrous sulfate 325 mg PO BID 90 days fluticasone propion-salmeterol 115-21 mcg/actuation (Advair HFA) 2 puffs inhalation BID 90 days furosemide 40 mg PO DAILY insulin aspart U-100 (Novolog FlexPen U-100 Insulin aspart) subcut insulin aspart U-100 (Novolog PenFill U-100 Insulin aspart) 6 units (0.06 mL) subcut TID 30 days insulin glargine (Basaglar KwikPen U-100 Insulin) 40 units (0.4 mL) subcut BEDTIME 90 days lancets (FreeStyle Lancets) As directed losartan 50 mg (2 x 25 mg) PO DAILY metformin 1,000 mg PO BID 90 days metoprolol tartrate 50 mg PO BID pantoprazole 40 mg PO DAILY pen needle, diabetic (BD Ultra-Fine Original Pen Needle) 1 ea miscellaneous DAILY pen needle, diabetic (BD Ultra-Fine Kassandra Pen Needle) As directed rosuvastatin 40 mg PO DAILY rosuvastatin 20 mg PO DAILY sertraline 50 mg PO DAILY sildenafil 100 mg PO DAILY 30 days tamsulosin 0.4 mg PO DAILY warfarin 2 mg PO DAILY 90 days warfarin 3 mg PO DAILY 90 days Tobacco use date assessed: 06/13/23 Dental Screening Dental Screen Date: 06/13/23 Did you have a dental visit in the last 12 months?: Yes Did you have a dental problem in the last 6 months where you did not have access to dental care?: No Was dental information given to patient?: Patient has dentist HPI HPI Comments History of Present Illness Details 58 year old male with history of gerd, a nemia, mdd, asthma, htn, s/p mechanical valve avr on coumadin, deshawn, prior cva presents to the office for ER follow up. He presented to [facility] ED on 05/20 for evaluation of fogginess ongoing for 3 months. He states he feels spacey, forgetful, and is not performing well in areas he previously did not have any issue such as work. He works in [employer] and states he has not been able to safely/effectively perform his job. He does endorse feeling depressed and was started on wellbutrin sabout 3 months ago. Does not feel this has helped symptoms and is waking multiple times nightly. He is compliant with cpap. He is also following with a counselor. No si/hi. CT head in the ED showed interim appearance of an infarction, likely subacute to chronic in the right parieto-occipital region as well as evidence of chronic microangiopathy. Given duration since symptom onset, he was not recommended for admission and was advised to follow up with neurology for mri. He states he has met with Dr. Escoto and has mri brain scheduled for next week. He is compliant with his couamdin and last INR was 2.5. He is not complaint with diabetes regimen, particulary insulin and reports eating a lot of vegetables and pasta. Hgb A1c in the office today is 12.0. He would be interested in community navigation. He does not have diabetes testing supplies. [facility] Medical History Coagulopathy Arrhythmia BPH (benign prostatic hyperplasia) Chronic renal insufficiency CVA (cerebral vascular accident) History of COVID-19 Sleep apnea Asthma Diabetes High cholesterol HTN (hypertension) Surgical History H/O colonoscopy H/O tooth extraction Mechanical heart valve present Social History Housing: House Alcohol intake: never Patient Tobacco Use Status: Former Tobacco user Tobacco use type: Cigarette e-Cigarette/Vaping Use: Never Used Second Hand Smoke Exposure: No service: No Current occupational status: employed Cognitive needs: No Hearing needs: No Vision needs: Yes Questionnaire PHQ-9 Over the last 2 weeks, how often have you been bothered by any of the following problems? 1. Little interest or pleasure in doing things: nearly every day 2. Feeling down, depressed, or hopeless: nearly every day 3. Trouble falling or staying asleep, or sleeping too much: nearly every day 4. Feeling tired or having little energy: nearly every day 5. Poor appetite or overeating: several days 6. Feeling bad about yourself - or that you are a failure or have let yourself or your family down: nearly every day 7. Trouble concentrating on things, such as reading the newspaper or watching television: more than half the days 8. Moving or speaking so slowly that other people could have noticed. Or the opposite - being so fidgety or restless that you have been moving around a lot more than usual: nearly every day 9. Thoughts that you would be better off or of hurting yourself in some way: nearly every day Total score: 24 Depression Screening Interpretation: Positive Depression Screening Follow-up: Existing condition and In treatment Depression Screening Done: Yes 03224 - PHQ-9 Billing: Yes Source: Developed by Drs. Jg Mims, Tonia Zapata, Colt Calero and colleagues, with an educational sultana from [employer] Thrive Questionnaire Date Thrive assessed: 06/13/23 I am a: Patient What is your living situation today?: I have a steady place to live Within the past 12 months, did the food you bought not last and you didn't have the money to get more?: Never true Within the past 12 months, did you worry whether your food would run out before you got money to buy more?: Never true Do you have trouble paying for medicines?: No Do you have trouble getting transportation to medical appointments?: No Do you have trouble paying your heating and electricity bill?: No Do you have trouble taking care of your child, family member or friend?: No Do you have trouble with day-to-day activities such as bathing, preparing meals, shopping, managing finances, etc.?: No Are you currently unemployed and looking for a job?: No Are you interested in more education?: No Currently or been in a relationship where the following occur: no concerns reported THRIVE Score: 0 AUDIT C Alcohol Use Questionnaire (AUDIT-C) 1. How often do you have a drink containing alcohol?: Never Total Score: 0 LAINA-7 AMB Questionnaire LAINA-7 Date LAINA - 7 assessed: 06/13/23 Feeling nervous, anxious, or on edge: 3 = Nearly every day Not being able to stop or control worryin = Nearly every day Worrying too much about different things: 3 = Nearly every day Trouble relaxin = Nearly every day Being so restless that it is hard to sit still: 2 = More than half the days Becoming easily annoyed or irritable: 3 = Nearly every day Feeling afraid as if something awful might happen: 3 = Nearly every day Total LAINA-7 score (0-4 normal; 5-9 mild; 10-14 moderate; 15-21 severe): 20 Source: Developed by Drs. Jg Mims, Tonia Zapata, Colt Calero and colleagues, with an educational sultana from [employer] LAINA-7 Assessment Billing LAINA-7 Assessment Tool: LAINA-7 Assessment 87169 Review of Systems Const All systems reviewed & are unremarkable except as noted in HPI and below Physical exam (Primary Care) Vital Signs: Last Vital Signs Pulse 78 06/13/23 08:01 BP 142/82 H 06/13/23 08:01 Pulse Ox 98 06/13/23 08:01 Oxygen Delivery Method Room Air 06/13/23 08:01 BMI result Body Mass Index 36.6 Tobacco/Smoking Status: Tobacco use Status Tobacco use date assessed 06/13/23 06/13/23 08:03 Patient Tobacco Use Status Former Tobacco user 06/13/23 08:03 Tobacco use type Cigarette 06/13/23 08:03 e-Cigarette/Vaping Use Never Used 06/13/23 08:03 PHQ-9: PHQ-9 Score PHQ-9: Total score 24 06/13/23 08:37 Depression Screening Interpretation: Positive Depression Screening Follow-up: Existing condition and In treatment Thrive Assessment: Date of Thrive Assessment Date Thrive assessed 02/21/24 02/21/24 08:03 Currently or been in a relationship where the following occur: no concerns reported Const Other: Constitutional - Awake and Alert, No apparent distress Eyes - PERRLA, EOMI Cardiovascular - S1S2, RRR, No edema Respiratory - Normal lung expansion, Normal respiratory effort, No respiratory distress, CTA bilaterally Extremities - no calf tenderness bilaterally, no swelling Skin - Warm/Dry Neurological - Alert & oriented x3, CN II-XII in tact, 5/5 strength BUE and BLE Psychological - Appropriate affect Results AMB Hemoglobin A1c AMB Hemoglobin A1c 12.0 % Last Edit by Emma Love CMA on 06/13/23 08:25 Results Reviewed Results Reviewed: Laboratory Last Values Hgb A1c (Clinic) 12.0 % (4.0-6.0) H 06/13/23 08:21 Assessment and Plan Assessment & Plan (1) MDD (major depressive disorder), recurrent episode, moderate: Code(s): F33.1 - Major depressive disorder, recurrent, moderate Plan: Uncontrolled. Wellbutrin has not improved brain fog and patient is experiencing significant difficulty sleeping. Discontinue wellbutrin. Initiate sertaline 50mg daily- take 25mg daily x 1 week, then increase to 50mg daily. Educated on side effects and dosing. Continue following with counselor. Will also check vitamin d level and tsh (2) Brain fog: Code(s): R41.89 - Other symptoms and signs involving cognitive functions and awareness Plan: Etiology unclear. Question r/t CVA vs depression. Complete MRI brain as ordered this week and follow up with neurology. Continue baby aspirin, coumadin, statin. Continue following with counselor for depression management. Medication adjustments as above. CHeck vitamin b12 level (3) Uncontrolled type 2 diabetes mellitus with hyperglycemia: Code(s): E11.65 - Type 2 diabetes mellitus with hyperglycemia Plan: Uncontrolled with hgb a1c 12.0 in office, increased risk of CVA. Has been noncompliant with insulin at home. Advised to resume 40unit basaglar nightly, novolog 6 units with meals. Continue metformin 1000mg bid. Educated on diabetic diet but is also referred to community navigation for further assistance with diabetes management. Glucometer and test supplies sent to [facility]. Advised to check fasting glucose daily, goal 90-130. Orders: Orders AMB Hemoglobin A1c 06/13/23 Z13.9 - Encounter for screening, unspecified Vitamin B12 06/13/23 F33.1 - Major depressive disorder, recurrent, moderate, R41.89 - Other symptoms and signs involving cognitive functions and awareness Vitamin D 1,25 dihydroxy 06/13/23 F33.1 - Major depressive disorder, recurrent, moderate, R41.89 - Other symptoms and signs involving cognitive functions and awareness TSH reflex Free T4 06/13/23 F33.1 - Major depressive disorder, recurrent, moderate, R41.89 - Other symptoms and signs involving cognitive functions and awareness Referrals Nurse Navigator Referral E11.65 - Type 2 diabetes mellitus with hyperglycemia Medications: New sertraline Take 1/2 tab daily x 1 week , then increase to 1 tab daily 50 mg PO DAILY 90 tabs 0RF blood-glucose meter (FreeStyle Mathews Lite kit) As directed 1 ea 0RF blood sugar diagnostic (FreeStyle Lite Strips) As directed 100 ea 3RF lancets (FreeStyle Lancets) As directed 100 ea 3RF Discontinued bupropion HCl (Wellbutrin XL) Discontinued Reason: Doctor's Order 150 mg PO QAM 90 days 90 tabs 2RF E11.9 - Type 2 diabetes mellitus without complications, F33.1 - Major depressive disorder, recurrent, moderate, Z79.4 - MCC (current) use of insulin Coding Level of Care Code Est Pt Level 4 (04179) Diagnoses MDD (major depressive disorder), recurrent episode, moderate F33.1 Brain fog R41.89 Uncontrolled type 2 diabetes mellitus with hyperglycemia E11.65 Additional Codes LAINA-7 Assessment Billing - LAINA-7 Assessment Tool: LAINA-7 Assessment 02837 ([id number])
[2023-06-13 14:25] VITALS: BP 138/74
== END 2023-06-13 08:41 | disposition home or self-care (01) ==
PROVIDERS: PCP Physician Assistant; Visit Provider Physician Assistant
DX: E11.65 Type 2 diabetes mellitus with hyperglycemia (principal); F33.1 Major depressive disorder, recurrent, moderate; R41.89 Other symptoms and signs involving cognitive functions and awareness
CPT/HCPCS: 83036; 99214

== ENCOUNTER 2023-06-13 08:51 | Outpatient (REF) | payer OTHER, SELFPAY ==
[2023-06-13 10:15] LABS: TSH reflex Free T4 1.12 uIU/mL (0.32-4.0)
[2023-06-13 10:24] LABS: Vitamin B12 371 pg/mL (200-900)
[2023-06-16 16:43] LABS: VITAMIN D (1,25 OH) D3 32 pg/mL; Vit D (1,25-Dihydroxy) Total 32 pg/mL (18-72); Vitamin D (1,25 OH) D2 <8 pg/mL
== END 2023-06-13 08:52 | disposition home or self-care (01) ==
LOC: HO.LAB 08:51
PROVIDERS: PCP Physician Assistant; Visit Provider Physician Assistant
DX: F33.1 Major depressive disorder, recurrent, moderate (principal); R41.89 Other symptoms and signs involving cognitive functions and awareness
CPT/HCPCS: 36415; 82607; 82652; 84443

== ENCOUNTER 2023-06-20 09:15 | Outpatient (REF) | payer OTHER, SELFPAY ==
--- NOTE | ~2023-06-20 | MR_ITS ---
EXAMINATION: MR BRAIN WITHOUT AND WITH CONTRAST CLINICAL INFORMATION: Brain lesion evaluate. COMPARISON: CT dated 05/20/2023. TECHNIQUE: Multiplanar, multisequence imaging of the brain was performed before and after the intravenous administration of 10 mL of Gadavist. FINDINGS: No diffusion abnormalities are identified to suggest an acute infarct. No mass effect or midline shift is seen. There are patchy areas of T2 hyperintense signal change in the right frontoparietal lobes with a watershed distribution appearance superior to the lateral ventricles. There is a chronic infarct in the left middle frontal gyrus along the high convexity. Small chronic infarcts also visible in the nathan radiata bilaterally with chronic ischemic microangiopathy. There is ex vacuo dilatation of the frontal horn of the right lateral ventricle. Chronic infarct noted in the high right parietal lobe posteriorly with minimal hemosiderin staining. There is moderate diffuse brain parenchymal volume loss with commensurate ex vacuo dilatation of the ventricles. The brainstem is normal. There is a small chronic infarct in the medial left cerebellar hemisphere. Chronic infarcts involving the basal ganglia bilaterally. No extra-axial fluid collections are seen. There is no abnormal parenchymal or leptomeningeal enhancement. The craniovertebral junction, marrow signal, and midline structures are normal. There are [id number] degenerative changes in the temporomandibular joints bilaterally. The orbits and pituitary axis structures appear normal. Chronic microhemorrhage visible in the ventral right thalamus. The major intracranial flow voids at the level of the [place] are preserved. The dural venous sinus flow voids are maintained. The mastoid air cells and paranasal sinuses are well aerated. MR/MR head/brain wo/w con IMPRESSION: No acute intracranial process. Moderate diffuse brain parenchymal volume loss with scattered chronic infarcts and microangiopathy as described. No abnormal enhancement. Chronic watershed ischemic changes as well in the high right frontoparietal lobes near the vertex.
[2023-06-20] MEDS: gadobutroL 10 ML VIAL IVPUSH (10:13)
== END 2023-06-20 09:16 | disposition home or self-care (01) ==
LOC: HO.MRI 09:15
PROVIDERS: PCP Physician Assistant; Visit Provider Psychiatry & Neurology Neurology
DX: G93.9 Disorder of brain, unspecified (principal)
CPT/HCPCS: 70553; A9585

== ENCOUNTER 2023-06-21 07:17 | Outpatient (REF) | payer OTHER, SELFPAY ==
[2023-06-21 10:38] LABS: Hematocrit 51.1 % (42.0-52.0); Hemoglobin 16.8 g/dl (14.0-18.0); Mean Corpuscular HGB Conc 32.9 g/dl (31.0-36.0); Mean Corpuscular Hemoglobin 28.2 pg (27.0-33.0); Mean Corpuscular Volume 85.9 fL (80.0-98.0); Mean Platelet Volume 12.3 fL (9.4-12.4); Platelet Count 230 X10*3/uL (160-400); Red Blood Count 5.95 X10*6/uL (4.60-5.80); Red Cell Distribution Width 13.2 % (11.0-16.0); White Blood Count 7.1 X10*3/uL (4.8-10.8)
[2023-06-21 10:57] LABS: Alanine Aminotransferase 33 U/L (0-40); Albumin Level 4.5 g/dL (3.5-5.0); Alkaline Phosphatase 111 U/L (39-117); Anion Gap 17 (12-20); Aspartate Amino Transferase 22 U/L (5-37); Bilirubin Total 0.6 mg/dL (0.0-1.0); Blood Urea Nitrogen 16 mg/dL (9-16); Carbon Dioxide 27 mmol/L (22-29); Chloride 100 mmol/L (96-108); Cholesterol 188 mg/dL (<200); Estimated Glomerular Filt Rate > 60; Glucose Fasting 312 mg/dL (60-99); HDL Cholesterol 37 mg/dL (>40); Iron 124 mcg/dL (45-160); LDL Cholesterol Calculated 106 mg/dL (<100); Percent Iron Saturation 32 % (15-50); Potassium 4.3 mmol/L (3.3-5.1); Sodium 140 mmol/L (135-145); Total Iron Binding Capacity 388 mcg/dL (228-428); Total Protein 8.2 g/dL (6.5-8.0); Triglycerides 225 mg/dL (<150); Unsaturated Iron Binding 264 ug/dL
[2023-06-21 11:10] LABS: Prostate Specific Antigen Scr 0.83 ng/mL (<0.05-4.0)
[2023-06-21 11:22] LABS: Creatinine Urine 185.31 mg/dL
[2023-06-21 11:36] LABS: Microalbum/Creatinine Ratio Ur 659.4 ug/mg cr (<30)
== END 2023-06-21 07:18 | disposition home or self-care (01) ==
LOC: HO.HMGCLDS 07:17
PROVIDERS: PCP Physician Assistant; Visit Provider Physician Assistant
DX: Z12.5 Encounter for screening for malignant neoplasm of prostate (principal); E78.2 Mixed hyperlipidemia; D50.9 Iron deficiency anemia, unspecified; E11.65 Type 2 diabetes mellitus with hyperglycemia; I10 Essential (primary) hypertension
CPT/HCPCS: 36415; 80053; 80061; 82043; 82570; 83540; 84153; 85027

== ENCOUNTER 2023-06-25 10:43 | Outpatient (AMB) | payer OTHER, SELFPAY ==
--- NOTE | 2023-06-25 10:59 | A.OFFPC_ITS ---
Vital Signs 06/25/23 11:00 Height 5 ft 7 in Weight 229 lb BMI 35.9 BP 158/92 H Blood Pressure Location Lt brachial Position Sitting Respiration 17 Pulse 60 Pulse Source Pulse Oximeter Pulse Oximetry (%) 96 Oxygen Delivery Method Room Air Intake Visit Reasons: referral to neurologist/ depression Ecotherapist Required: No Accompanied by: Self / Same As Patient Allergies atorvastatin Adverse Reaction (Unknown, Verified 06/25/23 11:08) Unknown Medication List - Last Reconciled 06/25/23 by Ayaz Sewell PA-C acetaminophen (Tylenol) 650 mg (2 x 325 mg) PO Q6H PRN albuterol sulfate 90 mcg/actuation (ProAir HFA) 2 puffs inhalation Q4-6H PRN 90 days aspirin 1 tab PO DAILY betamethasone dipropionate 0.05% 1 appl topical DAILY 30 days blood sugar diagnostic (FreeStyle Lite Strips) As directed blood-glucose meter (FreeStyle [place] Lite kit) As directed CPAP As directed dulaglutide (Trulicity) 3 mg (0.5 mL) subcut QWEEK 90 days ferrous sulfate 325 mg PO BID 90 days fluticasone propion-salmeterol 250-50 mcg/dose (Wixela Inhub) 1 inh inhalation BID 90 days furosemide 40 mg PO DAILY insulin aspart (niacinamide) 100 unit/mL (3 mL) (Fiasp FlexTouch U-100 Insulin) 6 units subcut TID 90 days insulin glargine (Basaglar KwikPen U-100 Insulin) 40 units (0.4 mL) subcut BEDTIME 90 days lancets (FreeStyle Lancets) As directed losartan 50 mg (2 x 25 mg) PO DAILY metformin 1,000 mg PO BID 90 days metoprolol tartrate 50 mg PO BID pantoprazole 40 mg PO DAILY pen needle, diabetic (BD Ultra-Fine [place] Pen Needle) As directed pen needle, diabetic (BD Ultra-Fine Original Pen Needle) 1 ea miscellaneous DAILY rosuvastatin 40 mg PO DAILY rosuvastatin 20 mg PO DAILY sertraline 50 mg PO DAILY sildenafil 100 mg PO DAILY 30 days tamsulosin 0.4 mg PO DAILY warfarin 2 mg PO DAILY 90 days warfarin 3 mg PO DAILY 90 days Tobacco use date assessed: 06/13/23 HPI referral to neurologist/ depression HPI Details pateint is a 58 y/o M here today for a routine annual physical.? Patient has a past medical history of CVA, aortic valve replacement,h/o aortic dissection, diabetes, obesity, coronary artery disease, hypertension. Concern--> has been experiencing vertigo associated with body position and head movements. He reports that this has been the case for many years though has gotten worse over the last few months. Has use meclizine which has been helpful. He did get an MRI of brain recently due to a recent stroke which did show cerebral volume loss and chronic ischemic changes. PLAN: Will plan to establish him with vestibular therapy for BPPV and start a regimen meclizine. .. Major depressive disorder: Has been suffering with more depression as of late due to family issues. He reports his daughter has left his house to live back in [place] without him noting. He has no contact with his granddaughter this is causing him more depression. He was originally started on Wellbutrin though felt this was causing him side effect. Now on sertraline 50 mg. He does speak with a mental health therapist and reports he needs to call for another appointment. DUE TO HIS DEPRESSION HE HAS NOT BEEN TAKING VERY GOOD CARE OF HIMSELF, HE HAS STOPPED HIS DIABETIC DIET AND EATING WHATEVER HE PLEASES. HE DOES UNDERSTAND THAT THIS IS AFFECTING HIS PHYSICAL HEALTH. He is applying for [facility] for a 12 week continue his sleeve due to his mental health. Microcytic anemia: Has been started on iron supplementation in CBC has improved. ? .. ? CAD: Is followed by cardiology at [facility] ([facility]) , denies any chest pains palpitations or shortness of breath. Most recent lipid panel showing excellent control of his total cholesterol and LDL. .. ..HTN: Blood pressure elevated today in office , does not check at home.? He is otherwise asymptomatic. Recent microalbumin very elevated likely due to uncontrolled hypertension. PLAN: Will increase his dose of losartan ? . ? Aortic valve replacement: Is currently on Coumadin with therapeutic INRs between 2.5 and 3.5.? Denies any overt signs of bleeding. ? .. ? DMII:? He reports he has not been monitoring his blood sugars at home. His diabetes has not been well controlled. Most recent fasting blood sugar over 300 and A1c over 12. He does admit dietary indiscretion due to his depression. He does report some polyuria as of late.. Most recent fasting blood sugar elevated, urine showing glucosuria PLAN: Return back to his regimented diabetic diet as it was effective for him in the past keeping his A1c down to 7. [facility] Medical History Coagulopathy Arrhythmia BPH (benign prostatic hyperplasia) Chronic renal insufficiency CVA (cerebral vascular accident) History of COVID-19 Sleep apnea Asthma Diabetes High cholesterol HTN (hypertension) Surgical History H/O colonoscopy H/O tooth extraction Mechanical heart valve present Social History Housing: House Alcohol intake: never Patient Tobacco Use Status: Former Tobacco user Tobacco use type: Cigarette e-Cigarette/Vaping Use: Never Used Second Hand Smoke Exposure: No service: No Current occupational status: employed Cognitive needs: No Hearing needs: No Vision needs: Yes Questionnaire Thrive Questionnaire Date Thrive assessed: 06/13/23 LAINA-7 AMB Questionnaire LAINA-7 Date LAINA - 7 assessed: 06/13/23 Source: Developed by Drs. Jg Mims, Tonia Zapata, Colt Calero and colleagues, with an educational sultana from [employer]. Review of Systems Const Denies headache(s) Eyes Denies loss of vision ENT Reports vertigo, Reports dizziness, Denies headache(s) and Denies sore throat Card Denies chest pain, Denies leg edema and Denies lightheadedness Resp Denies cough, Denies hemoptysis and Denies wheezing GI Denies abdominal pain, Denies melena, Denies constipation, Denies diarrhea and Denies vomiting Denies dysuria, Denies urinary frequency and Denies urinary urgency Musc Denies arthralgias, Denies joint swelling, Denies numbness and Denies tingling Neuro Denies Abnormal speech present, Denies behavioral changes, Reports vertigo, Reports dizziness, Denies headache(s), Denies loss of vision, Denies memory loss, Denies numbness and Denies tingling Psych Denies anxiety, Denies behavioral changes, Reports change in appetite, Reports depression, Reports irritability, Reports anhedonia, Denies memory loss and Denies panic attacks Maximiliano/Lymph Denies easy bleeding and Denies easy bruising Aller/Immun Denies wheezing Physical exam (Primary Care) Vital Signs: Last Vital Signs Pulse 60 06/25/23 11:00 Resp 17 06/25/23 11:00 BP 158/92 H 06/25/23 11:00 Pulse Ox 96 06/25/23 11:00 Oxygen Delivery Method Room Air 06/25/23 11:00 BMI result Body Mass Index 35.9 Tobacco/Smoking Status: Tobacco use Status Tobacco use date assessed 06/13/23 06/25/23 11:00 Patient Tobacco Use Status Former Tobacco user 06/25/23 11:00 Tobacco use type Cigarette 06/25/23 11:00 e-Cigarette/Vaping Use Never Used 06/25/23 11:00 Thrive Assessment: Date of Thrive Assessment Date Thrive assessed 06/13/23 06/25/23 11:00 Const General: healthy appearing, no acute distress, alert and awake Nutritional Appearance: well nourished Orientation/consciousness: oriented to person, oriented to place and oriented to time HENMT Ears: TM's normal bilaterally General nose exam: Normal nasal mucous membranes and turbinates present Eyes Conjunctivae: conjunctivae normal Sclerae: sclerae normal Pupils: Equal, round and reactive pupils present Neck Neck: Yes no lymphadenopathy and Yes no JVD Thyroid: Thyroid normal Carotids: no bruits Resp Effort & Inspection: normal respiratory effort and not tachypneic Auscultation: no crackles, no rales, no rhonchi and no wheezes Cardio Rate: regular rate Rhythm: regular rhythm Heart sounds: no murmurs and normal S1 and S2 GI Palpation (GI): Soft to palpation, nontender, no hepatomegaly and no splenomegaly Auscultation: normal bowel sounds Skin General skin exam: no rashes or lesions noted and dry skin Neuro General: oriented to person, oriented to place and oriented to time Cranial nerves: Yes Equal, round and reactive pupils present Speech: No Abnormal speech present Gait exam (Neuro): Normal gait present Motor exam (neuro): no tremor noted Extrem Right upper extremity: full ROM Left upper extremity: full ROM Right lower extremity: full ROM; no edema Left lower extremity: full ROM; no edema Psych Mental Status: mental status grossly normal Speech and movement: Normal speech and movement present Affect: normal affect Attitude: cooperative Thought process: Normal thought process present Assessment and Plan Assessment & Plan (1) BPPV (benign paroxysmal positional vertigo): Code(s): H81.10 - Benign paroxysmal vertigo, unspecified ear Qualifiers: Laterality: bilateral Qualified Code(s): H81.13 - Benign paroxysmal vertigo, bilateral Plan: Patient has signs symptoms benign paroxysmal positional vertigo. Will likely benefit from formal vestibular therapy. Unclear if his MRI brain findings have any thing to do with his dizziness. He has followed up with Neurology. Did advise him on Jayson maneuvers that can be done at home. Will start him on a regime of meclizine which has been effective for him recently. (2) CAD (coronary artery disease): Code(s): I25.10 - Atherosclerotic heart disease of [place] coronary artery without angina pectoris Qualifiers: Associated angina: without angina Coronary Disease-Associated [place] ry/Lesion type: [place] artery [place] vs. transplanted heart: [place] heart Qualified Code(s): I25.10 - Atherosclerotic heart disease of [place] coronary artery without angina pectoris Plan: Patient continues to follow cardiology, most recent lipid panel showing elevated LDL. He reports dietary indiscretion due to his depression. His atorvastatin was increased to 40 mg . He will continue statin therapy and anti-platelet therapy as per arch support maker. Goal LDL to be optimally below 70 (3) GERD (gastroesophageal reflux disease): Code(s): K21.9 - Gastro-esophageal reflux disease without esophagitis Qualifiers: Esophagitis presence: without esophagitis Qualified Code(s): K21.9 - Gastro-esophageal reflux disease without esophagitis (4) HTN (hypertension): Code(s): I10 - Essential (primary) hypertension Qualifiers: Hypertension type: primary hypertension Qualified Code(s): I10 - Essential (primary) hypertension Plan: Patient's blood pressure elevated today in office. Reports he is somewhat upset about his family issues and this is the reason his blood pressure is elevated. Does not monitors blood pressure at home. Will increase his losartan dose to 50 mg. Will continue his current dose of antihypertensive medication with goal blood pressure to be below 140/90 (5) DMII (diabetes mellitus, type 2): Code(s): E11.9 - Type 2 diabetes mellitus without complications Qualifiers: Diabetes mellitus complication status: without complication Diabetes mellitus assisted insulin use: with terminal make up operator use Qualified Code(s): E11.9 - Type 2 diabetes mellitus without complications; Z79.4 - rodent exterminator (current) use of insulin Plan: Patient's type 2 diabetes suboptimally controlled with A1c today above 12. AGAIN HE REPORTS HIS DIET HAS BEEN POOR DUE TO HIS DEPRESSION. Advised on diabetic diet. Goal A1c to be below 7.0. (6) MDD (major depressive disorder), recurrent episode, moderate: Code(s): F33.1 - Major depressive disorder, recurrent, moderate Plan: Patient's PHQ-9 score positive for moderate-severe depression , has been started on Wellbutrin was has been helpful though recent events in his personal life caused him to be more depressed. He does have a mental health therapist. He recently started sertraline and got off Wellbutrin. He currently is not working due to his depression and his dizziness. (7) S/P AVR (aortic valve replacement): Code(s): Z95.2 - Presence of prosthetic heart valve Plan: Continues to follow cardiology, continues on anticoagulation without any overt signs of bleeding. INRs have been stable between 2.5 and 3.5 (8) Obese: Comment: Patient has been grossly obese he is on weight reduction program, and he claims that he has lost significant weight in the last few months. Code(s): E66.9 - Obesity, unspecified Qualifiers: Body mass index: BMI 39.0-39.9 Obesity classification: adult class 2 (BMI 35 - 39.9) Obesity type: due to excess calories Serious obesity comorbidity presence: without serious comorbidity Qualified Code(s): E66.09 - Other obesity due to excess calories; Z68.39 - Body mass index [BMI] 39.0-39.9, adult Plan: Patient does understand his BMI remains above 30. Has lost weight since last office visit due to better eating habits. He will continue to work on being more physically active and adapt to better eating habits to reduce his weight. Orders: Orders PT Evaluation and Treatment 06/25/23 H81.13 - Benign paroxysmal vertigo, bilateral Medications: New meclizine 25 mg PO TID 90 days 270 tabs 1RF H81.13 - Benign paroxysmal vertigo, bilateral Changed From rosuvastatin 40 mg PO DAILY 30 tabs 0RF I25.10 - Atherosclerotic heart disease of [place] coronary artery without angina pectoris To rosuvastatin 40 mg PO DAILY 90 days 90 tabs 1RF I25.10 - Atherosclerotic heart disease of [place] coronary artery without angina pectoris From blood sugar diagnostic (FreeStyle Lite Strips) As directed 100 ea 3RF E11.9 - Type 2 diabetes mellitus without complications, Z79.4 - rodent exterminator (current) use of insulin To blood sugar diagnostic (FreeStyle Lite Strips) Check sugar twice a day /PRN 100 ea 3RF E11.9 - Type 2 diabetes mellitus without complications, Z79.4 - group home (current) use of insulin Refilled metoprolol tartrate 50 mg PO BID 180 tabs 2RF I25.10 - Atherosclerotic heart disease of [place] coronary artery without angina pectoris Discontinued rosuvastatin Discontinued Reason: Doctor's Order 20 mg PO DAILY 90 tabs 2RF Coding Level of Care Code Est Pt Level 4 (89989) Diagnoses Benign paroxysmal positional vertigo due to bilateral vestibular disorder H81.13 Laterality: bilateral Coronary artery disease involving [place] coronary artery of [place] heart without angina pectoris I25.10 Associated angina: without angina Coronary Disease-Associated Artery/Lesion type: [place] artery [place] vs. transplanted heart: [place] heart Gastroesophageal reflux disease without esophagitis K21.9 Esophagitis presence: without esophagitis Primary hypertension I10 Hypertension type: primary hypertension Type 2 diabetes mellitus without complication, with long-term current use of insulin E11.9; Z79.4 Diabetes mellitus complication status: without complication Diabetes mellitus assisted insulin use: with terminal make up operator use MDD (major depressive disorder), recurrent episode, moderate F33.1 S/P AVR (aortic valve replacement) Z95.2 Class 2 obesity due to excess calories without serious comorbidity with body mass index (BMI) of 39.0 to 39.9 in adult E66.09; Z68.39 Body mass index: BMI 39.0-39.9 Obesity classification: adult class 2 (BMI 35 - 39.9) Obesity type: due to excess calories Serious obesity comorbidity presence: without serious comorbidity
[2023-06-25 11:00] VITALS: BP 158/92; PULSE 60; RESP 17; O2SAT 96; BMI 35.9
== END 2023-06-25 11:50 | disposition home or self-care (01) ==
PROVIDERS: PCP Physician Assistant; Visit Provider Physician Assistant
DX: H81.13 Benign paroxysmal vertigo, bilateral (principal); E11.9 Type 2 diabetes mellitus without complications; Z79.4 Long term (current) use of insulin; F33.1 Major depressive disorder, recurrent, moderate; I25.10 Atherosclerotic heart disease of native coronary artery without angina pectoris; K21.9 Gastro-esophageal reflux disease without esophagitis; I10 Essential (primary) hypertension; Z95.2 Presence of prosthetic heart valve; E66.09 Other obesity due to excess calories; Z68.39 Body mass index [BMI] 39.0-39.9, adult
CPT/HCPCS: 99214

== ENCOUNTER 2023-07-31 07:00 | Outpatient (RCR) | payer OTHER, SELFPAY ==
[2023-07-02 13:12] VITALS: BP 154/82
== END 2023-09-24 13:09 | disposition home or self-care (01) ==
LOC: HO.PT 07:00
PROVIDERS: PCP Physician Assistant; Visit Provider Physician Assistant
DX: H81.13 Benign paroxysmal vertigo, bilateral (principal)
CPT/HCPCS: 95992; 97112; 97162

== ENCOUNTER 2023-08-09 14:01 | Outpatient (AMB) | payer OTHER, SELFPAY ==
--- NOTE | 2023-08-09 14:16 | A.OFFPC_ITS ---
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 Patient has a past medical history of CVA, aortic valve replacement,h/o aortic dissection, diabetes, obesity, coronary artery disease, iliac artery aneurysm, hypertension. Recently was admitted to [facility] for a left common iliac artery aneurysm repair. Concern--> has been experiencing vertigo associated with body position and head movements. He reports that this has been the case for many years though has gotten worse over the last few months. Has use meclizine which has been helpful. He did get an MRI of brain recently due to a recent stroke which did show cerebral volume loss and chronic ischemic changes. He has been in vestibular therapy which is able to precipitate his vertigo during maneuvers. He has followed up with Neurology to review his MRI. He does not feel he is able to work due to his frequency and unpredictable nature of his vertigo symptoms PLAN: At this time will continue his meclizine .. Major depressive disorder: Has been started on new depression medication which has been helpful for his mood. Microcytic anemia: Has been started on iron supplementation in CBC has improved. ? .. ? CAD: Is followed by cardiology at [facility] ([facility]) , denies any chest pains palpitations or shortness of breath. Most recent lipid panel showing excellent control of his total cholesterol and LDL. .. ..HTN: Blood pressure elevated today in office , does not check at home.? He is otherwise asymptomatic. Recent microalbumin very elevated likely due to uncontrolled hypertension. PLAN: Will increase his dose of losartan ? . ? Aortic valve replacement: Is currently on Coumadin with therapeutic INRs between 2.5 and 3.5.? Denies any overt signs of bleeding. ? .. ? DMII: He has been more compliant with his diabetes medications and blood sugars have been a bit better.? He monitors his blood pressure at home and does report having some higher readings at times.. His diabetes has not been well controlled. He does admit dietary indiscretion due to his depression. Most recent fasting blood sugar elevated, urine showing glucosuria PFSH Medical History Coagulopathy Arrhythmia BPH (benign prostatic hyperplasia) Chronic renal insufficiency CVA (cerebral vascular accident) History of COVID-19 Sleep apnea Asthma Diabetes High cholesterol HTN (hypertension) Surgical History H/O colonoscopy H/O tooth extraction Mechanical heart valve present Social History Housing: House Alcohol intake: never Patient Tobacco Use Status: Former Tobacco user Tobacco use type: Cigarette e-Cigarette/Vaping Use: Never Used Second Hand Smoke Exposure: No service: No Current occupational status: employed Cognitive needs: No Hearing needs: No Vision needs: Yes Questionnaire Thrive Questionnaire Date Thrive assessed: 06/13/23 LAINA-7 AMB Questionnaire LAINA-7 Date LAINA - 7 assessed: 06/13/23 Source: Developed by Drs. Jg Mims, Tonia Zapata, Colt Calero and colleagues, with an educational sultana from [employer]. Review of Systems Const Denies headache(s) Eyes Denies loss of vision ENT Denies vertigo, Denies dizziness, Denies headache(s) and Denies sore throat Card Denies chest pain, Denies leg edema and Denies lightheadedness Resp Denies cough, Denies hemoptysis and Denies wheezing GI Denies abdominal pain, Denies melena, Denies constipation, Denies diarrhea and Denies vomiting Denies dysuria, Denies urinary frequency and Denies urinary urgency Musc Denies arthralgias, Denies joint swelling, Denies numbness and Denies tingling Neuro Denies Abnormal speech present, Denies behavioral changes, Denies vertigo, Denies dizziness, Denies headache(s), Denies loss of vision, Denies memory loss, Denies numbness and Denies tingling Psych Denies anxiety, Denies behavioral changes, Denies depression, Denies memory loss and Denies panic attacks Maximiliano/Lymph Denies easy bleeding and Denies easy bruising Aller/Immun Denies wheezing Physical exam (Primary Care) Vital Signs: Last Vital Signs Pulse 78 08/09/23 14:17 BP 140/80 H 08/09/23 14:17 Pulse Ox 95 08/09/23 14:17 Oxygen Delivery Method Room Air 08/09/23 14:17 BMI result Body Mass Index 35.9 Tobacco/Smoking Status: Tobacco use Status Tobacco use date assessed 06/13/23 08/09/23 14:17 Patient Tobacco Use Status Former Tobacco user 08/09/23 14:17 Tobacco use type Cigarette 08/09/23 14:17 e-Cigarette/Vaping Use Never Used 08/09/23 14:17 Thrive Assessment: Date of Thrive Assessment Date Thrive assessed 06/13/23 08/09/23 14:17 Const General: healthy appearing, no acute distress, alert and awake Nutritional Appearance: well nourished Orientation/consciousness: oriented to person, oriented to place and oriented to time HENMT Ears: TM's normal bilaterally General nose exam: Normal nasal mucous membranes and turbinates present Eyes Conjunctivae: conjunctivae normal Sclerae: sclerae normal Pupils: Equal, round and reactive pupils present Neck Neck: Yes no lymphadenopathy and Yes no JVD Thyroid: Thyroid normal Carotids: no bruits Resp Effort & Inspection: normal respiratory effort and not tachypneic Auscultation: no crackles, no rales, no rhonchi and no wheezes Cardio Rate: regular rate Rhythm: regular rhythm Heart sounds: no murmurs and normal S1 and S2 GI Palpation (GI): Soft to palpation, nontender, no hepatomegaly and no splenomegaly Auscultation: normal bowel sounds Male genitals images: 2 1. TWO RAISED WARTY LIKE LESIONS OVER THE GLANS PENIS 2. HEALING SURGICAL INCISION WITHOUT ANY DRAINAGE OR SURROUNDING ERYTHEMA Skin General skin exam: no rashes or lesions noted and dry skin Neuro General: oriented to person, oriented to place and oriented to time Cranial nerves: Yes Equal, round and reactive pupils present Speech: No Abnormal speech present Gait exam (Neuro): Normal gait present Motor exam (neuro): no tremor noted Extrem Right upper extremity: full ROM Left upper extremity: full ROM Right lower extremity: full ROM; no edema Left lower extremity: full ROM; no edema Psych Mental Status: mental status grossly normal Speech and movement: Normal speech and movement present Affect: normal affect Attitude: cooperative Thought process: Normal thought process present Assessment and Plan Assessment & Plan (1) BPPV (benign paroxysmal positional vertigo): Code(s): H81.10 - Benign paroxysmal vertigo, unspecified ear Qualifiers: Laterality: bilateral Qualified Code(s): H81.13 - Benign paroxysmal vertigo, bilateral Plan: Patient has signs symptoms benign paroxysmal positional vertigo. HE REPORTS HE IS NOT ABLE TO RETURN BACK TO WORK HIS VERTIGO IS UNPREDICTABLE AND FREQUENT AND NOT ABLE TO PERFORM HIS JOB DUTIES. Unclear if his MRI cerebellar/ brain findings have any thing to do with his dizziness. He has followed up with Neurology. Did advise him on Jayson maneuvers that can be done at home. He does report meclizine is helpful, he has been vestibular therapy which are able to reproduce his symptoms of vertigo. (2) Genital warts: Code(s): A63.0 - Anogenital (venereal) warts (3) CAD (coronary artery disease): Code(s): I25.10 - Atherosclerotic heart disease of [place] coronary artery without angina pectoris Qualifiers: Associated angina: without angina Coronary Disease-Associated Artery/Lesion type: [place] artery [place] vs. transplanted heart: [place] heart Qualified Code(s): I25.10 - Atherosclerotic heart disease of [place] coronary artery without angina pectoris Plan: Patient continues to follow cardiology, most recent lipid panel showing elevated LDL. He reports dietary indiscretion due to his depression. His atorvastatin was increased to 40 mg . 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 Goal LDL to be optimally below 70 (4) GERD (gastroesophageal reflux disease): Code(s): K21.9 - Gastro-esophageal reflux disease without esophagitis Qualifiers: Esophagitis presence: without esophagitis Qualified Code(s): K21.9 - Gastro-esophageal reflux disease without esophagitis (5) HTN (hypertension): Code(s): I10 - Essential (primary) hypertension Qualifiers: Hypertension type: primary hypertension Qualified Code(s): I10 - Essential (primary) hypertension Plan: Patient's blood pressure elevated today in office. Reports he is somewhat upset about his family issues and this is the reason his blood pressure is elevated. Does not monitors blood pressure at home. Will increase his losartan dose to 50 mg. 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 AGAIN HE REPORTS HIS DIET HAS BEEN POOR DUE TO HIS DEPRESSION. Advised on diabetic diet. Goal A1c to be below 7.0. (7) MDD (major depressive disorder), recurrent episode, moderate: Code(s): F33.1 - Major depressive disorder, recurrent, moderate Plan: Is depression has been better since changing his depression medication to sertraline 50 mg. He currently is not working due to his depression and his dizziness. (8) S/P AVR (aortic valve replacement): Code(s): Z95.2 - Presence of prosthetic heart valve Plan: Continues to follow cardiology, continues on anticoagulation without any overt signs of bleeding. INRs have been stable between 2.5 and 3.5 (9) Obese: Comment: Patient has been grossly obese he is on weight reduction program, and he claims that he has lost significant weight in the last few months. Code(s): E66.9 - Obesity, unspecified Qualifiers: Body mass index: BMI 39.0-39.9 Obesity classification: adult class 2 (BMI 35 - 39.9) Obesity type: due to excess calories Serious obesity comorbidity presence: without serious comorbidity Qualified Code(s): E66.09 - Other obesity due to excess calories; Z68.39 - Body mass index [BMI] 39.0-39.9, adult Plan: Patient does understand his BMI remains above 30. Has lost weight since last office visit due to better eating habits. He will continue to work on being more physically active and adapt to better eating habits to reduce his weight. (10) Abdominal aortic aneurysm: Code(s): I71.4 - Abdominal aortic aneurysm, without rupture Qualifiers: Presence of rupture: without rupture Qualified Code(s): I71.4 - Abdominal aortic aneurysm, without rupture Plan: Recently underwent left iliac aortic aneurysm repair. Orders: Referrals 2 General Surgery Referral A63.0 - Anogenital (venereal) warts Medications: Discontinued 2 amoxicillin-pot clavulanate 875-125 mg Discontinued Reason: Doctor's Order 1 tab PO BID 7 days 14 tabs 0RF M70.20 - Olecranon bursitis, unspecified elbow Patient Instructions: Goals: Maintain blood pressure under 140/90, A1c under 7.0 Barriers: Compliance with medication Coding Level of Care Code Est Pt Level 4 (77913) Diagnoses Benign paroxysmal positional vertigo due to bilateral vestibular disorder H81.13 Laterality: bilateral Genital warts A63.0 Coronary artery disease involving [place] coronary artery of [place] heart without angina pectoris I25.10 Associated angina: without angina Coronary Disease-Associated Artery/Lesion type: [place] artery [place] vs. 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
[2023-08-09 14:17] VITALS: BP 140/80; PULSE 78; O2SAT 95; BMI 35.9
== END 2023-08-09 14:58 | disposition home or self-care (01) ==
PROVIDERS: PCP Physician Assistant; Visit Provider Physician Assistant
DX: E11.9 Type 2 diabetes mellitus without complications (principal); I71.40 Abdominal aortic aneurysm, without rupture, unspecified; Z79.4 Long term (current) use of insulin; F33.1 Major depressive disorder, recurrent, moderate; H81.13 Benign paroxysmal vertigo, bilateral; A63.0 Anogenital (venereal) warts; I25.10 Atherosclerotic heart disease of native coronary artery without angina pectoris; K21.9 Gastro-esophageal reflux disease without esophagitis; I10 Essential (primary) hypertension; Z95.2 Presence of prosthetic heart valve; E66.09 Other obesity due to excess calories; Z68.39 Body mass index [BMI] 39.0-39.9, adult
CPT/HCPCS: 99214

== ENCOUNTER 2023-09-10 13:53 | Outpatient (AMB) | payer OTHER, SELFPAY ==
[2023-09-10 14:02] VITALS: BMI 36.5
--- NOTE | 2023-09-10 14:02 | A.OFFVIS_ITS ---
Vital Signs 09/10/23 14:02 Height 5 ft 7 in Weight 233 lb BMI 36.5 Intake Visit Reasons: anogenital warts Intake Note: This patient presents for an assessment for anogenital warts. Patient c/o; reports no rectal bleeding or pain. 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: No Accompanied by: Self / Same As Patient Allergies atorvastatin Adverse Reaction (Unknown, Verified 09/10/23 14:15) Unknown Medication List - Last Reconciled 09/10/23 by Bora Desai MD acetaminophen (Tylenol) 650 mg (2 x 325 mg) PO Q6H PRN albuterol sulfate 90 mcg/actuation (ProAir HFA) 2 puffs inhalation Q4-6H PRN 90 days aspirin 1 tab PO DAILY betamethasone dipropionate 0.05% 1 appl topical DAILY 30 days blood sugar diagnostic (FreeStyle Lite Strips) Check sugar twice a day /PRN blood-glucose meter (FreeStyle [place] Lite kit) As directed CPAP As directed dulaglutide (Trulicity) 3 mg (0.5 mL) subcut QWEEK 90 days ferrous sulfate 325 mg PO BID 90 days fluticasone propion-salmeterol 250-50 mcg/dose (Wixela Inhub) 1 inh inhalation BID 90 days furosemide 40 mg PO DAILY insulin aspart (niacinamide) 100 unit/mL (3 mL) (Fiasp FlexTouch U-100 Insulin) 6 units subcut TID 90 days insulin glargine (Basaglar KwikPen U-100 Insulin) 40 units (0.4 mL) subcut BEDTIME 90 days lancets (FreeStyle Lancets) As directed losartan 50 mg (2 x 25 mg) PO DAILY meclizine 25 mg PO TID 90 days metformin 1,000 mg PO BID 90 days metoprolol tartrate 50 mg PO BID pantoprazole 40 mg PO DAILY pen needle, diabetic (BD Ultra-Fine Kassandra Pen Needle) As directed pen needle, diabetic (BD Ultra-Fine Original Pen Needle) 1 ea miscellaneous DAILY rosuvastatin 40 mg PO DAILY 90 days scopolamine base 1 patch transdermal Q3D PRN sertraline 50 mg PO DAILY sildenafil 100 mg PO DAILY 30 days tamsulosin 0.4 mg PO DAILY warfarin 2 mg PO DAILY 90 days warfarin 3 mg PO DAILY 90 days HPI HPI anogenital warts: Details: 58-year-old male referred for penile itching. He says that he has had this problem for a few months. He says that he has a lot of itching on the inside of his for skin. He was seen by his primary care physician and referred to me for a question of wart He denies any elevated lesion in the area. He does mentioned that he seems that this has been improving since he started to wash the insight of his foreskin more. [facility] Medical History Coagulopathy Arrhythmia BPH (benign prostatic hyperplasia) Chronic renal insufficiency CVA (cerebral vascular accident) History of COVID-19 Sleep apnea Asthma Diabetes High cholesterol HTN (hypertension) Surgical History H/O colonoscopy H/O tooth extraction Mechanical heart valve present Social History Housing: House Alcohol intake: never Patient Tobacco Use Status: Former Tobacco user Tobacco use type: Cigarette e-Cigarette/Vaping Use: Never Used Second Hand Smoke Exposure: No service: No Current occupational status: employed Cognitive needs: No Hearing needs: No Vision needs: Yes Review of Systems Const Denies chills and Denies fever(s) Card Denies chest pain, Denies dyspnea and Denies dyspnea on exertion Resp Denies cough, Denies dyspnea and Denies dyspnea on exertion GI Denies hematochezia and Denies change in bowel habits Denies hematuria and Denies difficulty urinating Musc Denies back pain and Denies limited range of motion Neuro Denies focal weakness and Denies convulsions Psych Denies depression and Denies mood swings Physical Exam Vital Signs: BMI result Body Mass Index 36.5 Const General: comfortable and no acute distress Orientation/consciousness: patient oriented x3 Neck Neck: Yes no lymphadenopathy Resp Auscultation: clear to auscultation bilaterally Cardio Rhythm: regular rhythm GI Palpation (GI): Soft to palpation, nontender and no guarding Other: The foreskin was retracted and on the inner surface of the foreskin was note of some areas with redness in superficial breakdown without any obvious elevated lesion Neuro General: patient oriented x3 Assessment & Plan Assessment & Plan (1) Penile lesion: Code(s): N48.9 - Disorder of penis, unspecified Category: Medical Plan: On the inside of his prepuce is note of some areas of skin breakdown and redness. He describes itching with this although this has improved the past few months after he had been doing more intensive hygiene. This may be more of a dermatitic condition as I do not see any obvious wart. He wants to be referred to a urologist. I will arrange for him to be seen by urology office. He is comfortable with the plan. Orders: Referrals Urology Referral N48.9 - Disorder of penis, unspecified Coding Level of Care Code New Pt Level 2 (37585) Diagnoses Penile lesion N48.9
== END 2023-09-10 15:28 | disposition home or self-care (01) ==
PROVIDERS: PCP Physician Assistant; Visit Provider Surgery
DX: N48.9 Disorder of penis, unspecified (principal)
CPT/HCPCS: 99202

== ENCOUNTER → 2023-09-10 13:53 | Outpatient (BNVA) | payer OTHER, SELFPAY | PROVIDERS: PCP Physician Assistant; Visit Provider Surgery ==

== ENCOUNTER 2023-09-13 08:31 | Outpatient (AMB) | payer OTHER, SELFPAY ==
[2023-09-13 08:38] VITALS: BMI 36.5
--- NOTE | 2023-09-13 08:38 | A.OFFVIS_ITS ---
Vital Signs 09/13/23 08:38 Height 5 ft 7 in Weight 233 lb BMI 36.5 Intake Visit Reasons: OV-Left shoulder last injection 01/25/23 Intake Note: Alejandro is a 58 year old male who presents for a follow up of Left shoulder pain. Patient reports he had a Left shoulder cortisone injection on 05/02/2023 that gave him a little relief. He states he would like to repeat his Left shoulder injection. Because the last injection gave him only temporary relief he is thinking about undergoing total shoulder replacement surgery at some point in the future. He has done physical therapy exercises which aggravated his pain. He has also tried Tylenol and anti-inflammatory medicines which gave him minimal relief. Allergies atorvastatin Adverse Reaction (Unknown, Verified 09/13/23 08:41) Unknown Medication List - Last Reconciled 09/13/23 by Yousif Florez MD acetaminophen (Tylenol) 650 mg (2 x 325 mg) PO Q6H PRN albuterol sulfate 90 mcg/actuation (ProAir HFA) 2 puffs inhalation Q4-6H PRN 90 days aspirin 1 tab PO DAILY betamethasone dipropionate 0.05% 1 appl topical DAILY 30 days blood sugar diagnostic (FreeStyle Lite Strips) Check sugar twice a day /PRN blood-glucose meter (FreeStyle [place] Lite kit) As directed CPAP As directed dulaglutide (Trulicity) 3 mg (0.5 mL) subcut QWEEK 90 days ferrous sulfate 325 mg PO BID 90 days fluticasone propion-salmeterol 250-50 mcg/dose (Wixela Inhub) 1 inh inhalation BID 90 days furosemide 40 mg PO DAILY insulin aspart (niacinamide) 100 unit/mL (3 mL) (Fiasp FlexTouch U-100 Insulin) 6 units subcut TID 90 days insulin glargine (Basaglar KwikPen U-100 Insulin) 40 units (0.4 mL) subcut BEDTIME 90 days lancets (FreeStyle Lancets) As directed losartan 50 mg (2 x 25 mg) PO DAILY meclizine 25 mg PO TID 90 days metformin 1,000 mg PO BID 90 days metoprolol tartrate 50 mg PO BID pantoprazole 40 mg PO DAILY pen needle, diabetic (BD Ultra-Fine Original Pen Needle) 1 ea miscellaneous DAILY pen needle, diabetic (BD Ultra-Fine Kassandra Pen Needle) As directed rosuvastatin 40 mg PO DAILY 90 days scopolamine base 1 patch transdermal Q3D PRN sertraline 50 mg PO DAILY sildenafil 100 mg PO DAILY 30 days tamsulosin 0.4 mg PO DAILY warfarin 2 mg PO DAILY 90 days warfarin 3 mg PO DAILY 90 days [facility] Medical History Coagulopathy Arrhythmia BPH (benign prostatic hyperplasia) Chronic renal insufficiency CVA (cerebral vascular accident) History of COVID-19 Sleep apnea Asthma Diabetes High cholesterol HTN (hypertension) Surgical History H/O colonoscopy H/O tooth extraction Mechanical heart valve present Social History Housing: House Alcohol intake: never Patient Tobacco Use Status: Former Tobacco user Tobacco use type: Cigarette e-Cigarette/Vaping Use: Never Used Second Hand Smoke Exposure: No service: No Current occupational status: employed Cognitive needs: No Hearing needs: No Vision needs: Yes Physical Exam Vital Signs: BMI result Body Mass Index 36.5 Const Other: Well-nourished well-developed very friendly male awake alert and oriented x3 in no acute distress Extrem Other: Bilateral upper extremity examination shows good capillary refill, no skin lesions noted, normal sensation light touch Left shoulder examination shows slightly decreased range of motion when compared to his right shoulder, 3/5 strength with supraspinatus testing, mild crepitus with range of motion, no instability Results Reviewed Results Reviewed: MRI of the patient's left shoulder shows a large chronic rotator cuff tear as well as degenerative changes within the glenohumeral joint Assessment & Plan Assessment & Plan (1) Osteoarthritis of left shoulder: Code(s): M19.012 - Primary osteoarthritis, left shoulder Category: Medical Plan Mr. Hilario presents with left shoulder pain and weakness due to chronic rotator cuff tearing as well as early rotator cuff tear arthropathy. I had a lengthy discussion with the patient regarding the treatment options. The risks and benefits of a cortisone injection were discussed at length with the patient. The patient wished to proceed. He tolerated the injection well. He will continue with his home stretching program to prevent stiffness. I will also arrange for the patient to have a consultation with Dr. Hughes to further discuss the risks and benefits of reverse total shoulder replacement surgery. Feel free to call me at any time should questions regarding his orthopedic management arise. I spent 21 minutes in reviewing the patient's records and imaging studies, seeing the patient and documenting in the medical record. Orders: Orders AMB Joint Injection/Aspiration Today M19.012 - Primary osteoarthritis, left shoulder Coding Level of Care Code Est Pt Level 3 (82614) Diagnoses Osteoarthritis of left shoulder M19.012
== END 2023-09-13 09:06 | disposition home or self-care (01) ==
PROVIDERS: PCP Physician Assistant; Visit Provider Orthopaedic Surgery
DX: M19.012 Primary osteoarthritis, left shoulder (principal)
CPT/HCPCS: 20610; 99213

== ENCOUNTER → 2023-09-13 08:31 | Outpatient (BNVA) | payer OTHER, SELFPAY | PROVIDERS: PCP Physician Assistant; Visit Provider Orthopaedic Surgery | DX: M19.012 Primary osteoarthritis, left shoulder (principal) | CPT/HCPCS: 20610; 99212; J1010 ==

== ENCOUNTER 2023-09-26 07:26 | Outpatient (REF) | payer OTHER, SELFPAY ==
[2023-09-26 10:44] LABS: Hemoglobin 15.5 g/dl (14.0-18.0); Mean Corpuscular HGB Conc 32.3 g/dl (31.0-36.0); Mean Corpuscular Hemoglobin 28.6 pg (27.0-33.0); Mean Corpuscular Volume 88.6 fL (80.0-98.0); Mean Platelet Volume 11.8 fL (9.4-12.4); Platelet Count 197 X10*3/uL (160-400); Red Blood Count 5.42 X10*6/uL (4.60-5.80); Red Cell Distribution Width 13.2 % (11.0-16.0); White Blood Count 7.9 X10*3/uL (4.8-10.8)
[2023-09-26 10:58] LABS: Alanine Aminotransferase 31 U/L (0-40); Albumin Level 4.2 g/dL (3.5-5.0); Alkaline Phosphatase 91 U/L (39-117); Anion Gap 14 (12-20); Aspartate Amino Transferase 20 U/L (5-37); Bilirubin Total 0.4 mg/dL (0.0-1.0); Blood Urea Nitrogen 17 mg/dL (9-16); Calcium 9.8 mg/dL (8.4-10.2); Carbon Dioxide 28 mmol/L (22-29); Chloride 104 mmol/L (96-108); Cholesterol 174 mg/dL (<200); Estimated Glomerular Filt Rate > 60; Glucose Fasting 264 mg/dL (60-99); HDL Cholesterol 47 mg/dL (>40); LDL Cholesterol Calculated 98 mg/dL (<100); Potassium 4.6 mmol/L (3.3-5.1); Sodium 141 mmol/L (135-145); Total Protein 7.4 g/dL (6.5-8.0); Triglycerides 149 mg/dL (<150)
[2023-09-26 11:39] LABS: Creatinine Urine 126.15 mg/dL
[2023-09-26 11:58] LABS: Microalbum/Creatinine Ratio Ur 583.4 ug/mg cr (<30)
== END 2023-09-26 07:27 | disposition home or self-care (01) ==
LOC: HO.HMGCLDS 07:26
PROVIDERS: PCP Physician Assistant; Visit Provider Physician Assistant
DX: E11.9 Type 2 diabetes mellitus without complications (principal); Z79.4 Long term (current) use of insulin; I10 Essential (primary) hypertension; E78.2 Mixed hyperlipidemia
CPT/HCPCS: 36415; 80053; 80061; 82043; 82570; 85027

== ENCOUNTER 2023-09-27 08:13 | Outpatient (AMB) | payer OTHER, SELFPAY ==
[2023-09-27 08:24] VITALS: BP 142/86; PULSE 70; O2SAT 96; BMI 36.4
--- NOTE | 2023-09-27 08:24 | A.OFFPC_ITS ---
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: No Accompanied by: Self / Same As Patient Allergies atorvastatin Adverse Reaction (Unknown, Verified 09/27/23 08:52) Unknown Medication List - Last Reconciled 09/27/23 by Ayaz Sewell PA-C acetaminophen (Tylenol) 650 mg (2 x 325 mg) PO Q6H PRN albuterol sulfate 90 mcg/actuation (ProAir HFA) 2 puffs inhalation Q4-6H PRN 90 days aspirin 1 tab PO DAILY betamethasone dipropionate 0.05% 1 appl topical DAILY 30 days blood sugar diagnostic (FreeStyle Lite Strips) Check sugar twice a day /PRN blood-glucose meter (FreeStyle Leon Lite kit) As directed CPAP As directed dulaglutide (Trulicity) 3 mg (0.5 mL) subcut QWEEK 90 days ferrous sulfate 325 mg PO BID 90 days fluticasone propion-salmeterol 250-50 mcg/dose (Wixela Inhub) 1 inh inhalation BID 90 days furosemide 40 mg PO DAILY insulin aspart (niacinamide) 100 unit/mL (3 mL) (Fiasp FlexTouch U-100 Insulin) 6 units subcut TID 90 days insulin glargine (Basaglar KwikPen U-100 Insulin) 40 units (0.4 mL) subcut BEDTIME 90 days lancets (FreeStyle Lancets) As directed losartan 50 mg (2 x 25 mg) PO DAILY meclizine 25 mg PO TID 90 days metformin 1,000 mg PO BID 90 days metoprolol tartrate 50 mg PO BID pantoprazole 40 mg PO DAILY pen needle, diabetic (BD Ultra-Fine Original Pen Needle) 1 ea miscellaneous DAILY pen needle, diabetic (BD Ultra-Fine Kassandra Pen Needle) As directed rosuvastatin 40 mg PO DAILY 90 days scopolamine base 1 patch transdermal Q3D PRN sertraline 50 mg PO DAILY sildenafil 100 mg PO DAILY 30 days tamsulosin 0.4 mg PO DAILY warfarin 2 mg PO DAILY 90 days warfarin 3 mg PO DAILY 90 days Tobacco use date assessed: 06/13/23 Dental Screening Dental Screen Date: 06/13/23 HPI 3 Month F/U HPI Details pateint is a 58 y/o M here today for a a follow-up visit.? Patient has a past medical history of CVA, aortic valve replacement,h/o aortic dissection, diabetes, obesity, coronary artery disease, iliac artery aneurysm, hypertension. Concern--> VERTIGO: has been experiencing vertigo associated with body position and head movements. He reports that this has been the case for many years though has gotten worse over the last few months. Has use meclizine which has been helpful. He did get an MRI of brain recently due to a recent stroke which did show cerebral volume loss and chronic ischemic changes. He has been in vestibular therapy which is able to precipitate his vertigo during maneuvers. He has followed up with Neurology to review his MRI. Has not been able to work due to his continued vertigo. He does report he has some good days without much dizziness. He continues on meclizine 25 mg t.i.d.. He is to restart vestibular therapy in hopes that this will completely dissipate his vertigo. .. Major depressive disorder: Has been started on new depression medication which has been helpful for his mood. Microcytic anemia: Has been started on iron supplementation in CBC has improved. ? .. ? CAD: Is followed by cardiology at [facility] (PV cards) , denies any chest pains palpitations or shortness of breath. Most recent lipid panel showing excellent control of his total cholesterol and LDL. .. ..HTN: Blood pressure slightly elevated today in office , does not check at home.? He is otherwise asymptomatic. Recent microalbumin very elevated likely due to uncontrolled hypertension and type 2 diabetes. ? . ? Aortic valve replacement: Is currently on Coumadin with therapeutic INRs between 2.5 and 3.5.? Denies any overt signs of bleeding. ? .. ? DMII: He has been more compliant with his diabetes medications and blood sugars have been a bit better.? He monitors his blood pressure at home and does report having some higher readings at times.. His diabetes has not been well controlled. He does admit dietary indiscretion due to his depression. Most recent fasting blood sugar elevated, urine showing glucosuria [facility] Medical History Coagulopathy Arrhythmia BPH (benign prostatic hyperplasia) Chronic renal insufficiency CVA (cerebral vascular accident) History of COVID-19 Sleep apnea Asthma Diabetes High cholesterol HTN (hypertension) Surgical History H/O colonoscopy H/O tooth extraction Mechanical heart valve present Social History Housing: House Alcohol intake: never Patient Tobacco Use Status: Former Tobacco user Tobacco use type: Cigarette e-Cigarette/Vaping Use: Never Used Second Hand Smoke Exposure: No service: No Current occupational status: employed Cognitive needs: No Hearing needs: No Vision needs: Yes Questionnaire Thrive Questionnaire Date Thrive assessed: 06/13/23 LAINA-7 AMB Questionnaire LAINA-7 Date LAINA - 7 assessed: 06/13/23 Source: Developed by Drs. Jg Mims, Tonia Zapata, Colt Calero and colleagues, with an educational sultana from [employer]. Review of Systems Const Denies headache(s) Eyes Denies loss of vision ENT Reports vertigo, Reports dizziness, Denies headache(s) and Denies sore throat Card Denies chest pain, Denies leg edema and Denies lightheadedness Resp Denies cough, Denies hemoptysis and Denies wheezing GI Denies abdominal pain, Denies melena, Denies constipation, Denies diarrhea and Denies vomiting Denies dysuria, Denies urinary frequency and Denies urinary urgency Musc Denies arthralgias, Denies joint swelling, Denies numbness and Denies tingling Neuro Denies Abnormal speech present, Denies behavioral changes, Reports vertigo, Reports dizziness, Denies headache(s), Denies loss of vision, Denies memory loss, Denies numbness and Denies tingling Psych Denies anxiety, Denies behavioral changes, Denies depression, Denies memory loss and Denies panic attacks Maximiliano/Lymph Denies easy bleeding and Denies easy bruising Aller/Immun Denies wheezing Physical exam (Primary Care) Vital Signs: Last Vital Signs Pulse 70 09/27/23 08:24 BP 142/86 H 09/27/23 08:24 Pulse Ox 96 09/27/23 08:24 Oxygen Delivery Method Room Air 09/27/23 08:24 BMI result Body Mass Index 36.4 Tobacco/Smoking Status: Tobacco use Status Tobacco use date assessed 06/13/23 09/27/23 08:31 Patient Tobacco Use Status Former Tobacco user 09/27/23 08:31 Tobacco use type Cigarette 09/27/23 08:31 e-Cigarette/Vaping Use Never Used 09/27/23 08:31 Thrive Assessment: Date of Thrive Assessment Date Thrive assessed 06/13/23 09/27/23 08:31 Const General: healthy appearing, no acute distress, alert and awake Nutritional Appearance: well nourished Orientation/consciousness: oriented to person, oriented to place and oriented to time HENMT Ears: TM's normal bilaterally General nose exam: Normal nasal mucous membranes and turbinates present Eyes Conjunctivae: conjunctivae normal Sclerae: sclerae normal Pupils: Equal, round and reactive pupils present Neck Neck: Yes no lymphadenopathy and Yes no JVD Thyroid: Thyroid normal Carotids: no bruits Resp Effort & Inspection: normal respiratory effort and not tachypneic Auscultation: no crackles, no rales, no rhonchi and no wheezes Cardio Rate: regular rate Rhythm: regular rhythm Heart sounds: no murmurs and normal S1 and S2 GI Palpation (GI): Soft to palpation, nontender, no hepatomegaly and no splenomegaly Auscultation: normal bowel sounds Skin General skin exam: no rashes or lesions noted and dry skin Neuro General: oriented to person, oriented to place and oriented to time Cranial nerves: Yes Equal, round and reactive pupils present Speech: No Abnormal speech present Gait exam (Neuro): Normal gait present Motor exam (neuro): no tremor noted Extrem Right upper extremity: full ROM Left upper extremity: full ROM Right lower extremity: full ROM; no edema Left lower extremity: full ROM; no edema Psych Mental Status: mental status grossly normal Speech and movement: Normal speech and movement present Affect: normal affect Attitude: cooperative Thought process: Normal thought process present Assessment and Plan Assessment & Plan (1) DMII (diabetes mellitus, type 2): Code(s): E11.9 - Type 2 diabetes mellitus without complications Qualifiers: Diabetes mellitus half-way insulin use: with bond manager use Diabetes mellitus complication status: without complication Qualified Code(s): E11.9 - Type 2 diabetes mellitus without complications; 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 Most recent fasting blood sugars have been better. Continues to have pretty significant microalbuminuria Advised on diabetic diet. Goal A1c to be below 7.0. (2) BPPV (benign paroxysmal positional vertigo): Code(s): H81.10 - Benign paroxysmal vertigo, unspecified ear Qualifiers: Laterality: bilateral Qualified Code(s): H81.13 - Benign paroxysmal vertigo, bilateral Plan: Patient has signs symptoms benign paroxysmal positional vertigo. HE REPORTS HE IS NOT ABLE TO RETURN BACK TO WORK HIS VERTIGO IS UNPREDICTABLE AND FREQUENT AND NOT ABLE TO PERFORM HIS JOB DUTIES. Unclear if his MRI cerebellar/ brain findings have any thing to do with his dizziness. He has followed up with Neurology. Did advise him on Jayson maneuvers that can be done at home. He does report meclizine is helpful, he has will be starting vestibular therapy again (3) CAD (coronary artery disease): Code(s): I25.10 - Atherosclerotic heart disease of [place] coronary artery without angina pectoris Qualifiers: Coronary Disease-Associated Artery/Lesion type: [place] artery [place] vs. transplanted heart: [place] heart Associated angina: without angina Qualified Code(s): I25.10 - Atherosclerotic heart disease of [place] coronary artery without angina pectoris Plan: Patient continues to follow cardiology, most recent lipid panel showing elevated LDL. He reports dietary indiscretion due to his depression. His atorvastatin was increased to 40 mg . He will continue statin therapy and anti-platelet therapy as per manifest/order organizer print orders. Goal LDL to be optimally below 70 (4) HTN (hypertension): Code(s): I10 - Essential (primary) hypertension Qualifiers: Hypertension type: primary hypertension Qualified Code(s): I10 - Essential (primary) hypertension Plan: Patient's blood pressure elevated today in office. Reports he is somewhat upset about his family issues and this is the reason his blood pressure is elevated. Does not monitors blood pressure at home.. Will continue his current dose of antihypertensive medication with goal blood pressure to be below 140/90 (5) MDD (major depressive disorder), recurrent episode, moderate: Code(s): F33.1 - Major depressive disorder, recurrent, moderate Plan: Is depression has been better since changing his depression medication to sertraline 50 mg. He currently is not working due to his depression and his dizziness. (6) S/P AVR (aortic valve replacement): Code(s): Z95.2 - Presence of prosthetic heart valve Plan: Continues to follow cardiology, continues on anticoagulation without any overt signs of bleeding. INRs have been stable between 2.5 and 3.5 (7) Obese: Comment: Patient has been grossly obese he is on weight reduction program, and he claims that he has lost significant weight in the last few months. Code(s): E66.9 - Obesity, unspecified Qualifiers: Obesity type: due to excess calories Obesity classification: adult class 2 (BMI 35 - 39.9) Serious obesity comorbidity presence: without serious comorbidity Body mass index: BMI 39.0-39.9 Qualified Code(s): E66.09 - Other obesity due to excess calories; Z68.39 - Body mass index [BMI] 39.0-39.9, adult Plan: Patient does understand his BMI remains above 30. Has lost weight since last office visit due to better eating habits. He will continue to work on being more physically active and adapt to better eating habits to reduce his weight. Orders: Orders Comprehensive Novice. Panel Fast 4 Months E11.65 - Type 2 diabetes mellitus with hyperglycemia Microalbumin, Random (w Creat) 4 Months E11.65 - Type 2 diabetes mellitus with hyperglycemia Complete Blood Count no Diff 4 Months I10 - Essential (primary) hypertension Lipid Panel 4 Months I25.10 - Atherosclerotic heart disease of [place] coronary artery without angina pectoris Hemoglobin A1c 4 Months E11.65 - Type 2 diabetes mellitus with hyperglycemia Medications: Discontinued scopolamine base Discontinued Reason: Doctor's Order 1 patch transdermal Q3D PRN 4 ea 0RF nausea and vomiting H81.13 - Benign paroxysmal vertigo, bilateral Patient Instructions: Goal: A1c to be below 7.0, blood pressure to be below 140/90 Barriers: Vertigo, adherence to physical activity and healthy eating habits Coding Level of Care Code Est Pt Level 4 (79003) Complex EM visit Add On G2211 Diagnoses Type 2 diabetes mellitus without complication, with long-term current use of insulin E11.9; Z79.4 Diabetes mellitus bond manager insulin use: with bond manager use Diabetes mellitus complication status: without complication Benign paroxysmal positional vertigo due to bilateral vestibular disorder H81.13 Laterality: bilateral Coronary artery disease involving [place] coronary artery of [place] heart without angina pectoris I25.10 Coronary Disease-Associated Artery/Lesion type: [place] artery [place] vs. transplanted heart: [place] heart Associated angina: without angina Primary hypertension I10 Hypertension type: primary hypertension MDD (major depressive disorder), recurrent episode, moderate F33.1 S/P AVR (aortic valve replacement) Z95.2 Class 2 obesity due to excess calories without serious comorbidity with body mass index (BMI) of 39.0 to 39.9 in adult E66.09; Z68.39 Obesity type: due to excess calories Obesity classification: adult class 2 (BMI 35 - 39.9) Serious obesity comorbidity presence: without serious comorbidity Body mass index: BMI 39.0-39.9
== END 2023-09-27 09:09 | disposition home or self-care (01) ==
PROVIDERS: PCP Physician Assistant; Visit Provider Physician Assistant
DX: E11.9 Type 2 diabetes mellitus without complications (principal); Z79.4 Long term (current) use of insulin; F33.1 Major depressive disorder, recurrent, moderate; H81.13 Benign paroxysmal vertigo, bilateral; I25.10 Atherosclerotic heart disease of native coronary artery without angina pectoris; I10 Essential (primary) hypertension; Z95.2 Presence of prosthetic heart valve; E66.09 Other obesity due to excess calories; Z68.39 Body mass index [BMI] 39.0-39.9, adult
CPT/HCPCS: 99214; G2211

== ENCOUNTER 2023-10-04 08:53 | Outpatient (AMB) | payer OTHER, SELFPAY ==
--- NOTE | 2023-10-04 09:05 | A.OFFVIS_ITS ---
Vital Signs 10/04/23 09:09 Height 5 ft 7 in Weight 232 lb BMI 36.3 Intake Visit Reasons: OV-Possible left shoulder replacement Intake Note: Alejandro is a 58 year old right hand dominant male who presents today for a follow up of his left shoulder, he was referred by Dr. Florez to discuss possible Reverse TSA. Injection was administered on 09/13/23. Allergies atorvastatin Adverse Reaction (Unknown, Verified 10/04/23 09:07) Unknown HPI HPI OV-Possible left shoulder replacement: Details: Aayush is a 58-year-old gentleman with a long history of left shoulder pain. He is gotten periodic injections with Dr. Florez on his left shoulder and was re ferred here for discussion regarding total shoulder arthroplasty. He states his discomfort is minimal currently as he recently got an injection but at times it is difficult for him to engage in daily activities especially activities that require lifting. He states that he is ambidextrous. [facility] Medical History Coagulopathy Arrhythmia BPH (benign prostatic hyperplasia) Chronic renal insufficiency CVA (cerebral vascular accident) History of COVID-19 Sleep apnea Asthma Diabetes High cholesterol HTN (hypertension) Surgical History H/O colonoscopy H/O tooth extraction Mechanical heart valve present Social History Housing: House Alcohol intake: never Patient Tobacco Use Status: Former Tobacco user Tobacco use type: Cigarette e-Cigarette/Vaping Use: Never Used Second Hand Smoke Exposure: No service: No Current occupational status: employed Cognitive needs: No Hearing needs: No Vision needs: Yes Physical Exam Vital Signs: BMI result Body Mass Index 36.3 Extrem Other: scapular recruitment required for left shoulder abduction but able to do so comfortably 4-/5 EC ER to 45 + lift off Results Reviewed Results Reviewed: I personally reviewed the MR images. RTC arthropathy with retraction and atrophy Assessment & Plan Assessment & Plan (1) Rotator cuff arthropathy of left shoulder: Code(s): M12.812 - Other specific arthropathies, not elsewhere classified, left shoulder Category: Medical Plan: This is a 58-year-old gentleman with left rotator cuff arthropathy. His range of motion is good and his pain is minimal at the current time. He states he recently had injections. On exam he is very weak on the left but scapular recruitment is allowing him to move his shoulder pretty comfortably. We discussed treatment options 1 of which is a reverse total shoulder arthroplasty. He has some ongoing medical issues 1 of which is balance and dizziness and he has some other medical conditions that he is not specific about but states he has got a lot going on?. I do not think he is ready for a shoulder replacement at this time. He is dealing with other medical issues and lives alone. I think if his health issues improve and he feels that the shoulder is his primary problem and that it is preventing him from engaging in daily activities without pain it would be reasonable to consider arthroplasty. In the meantime he can return for periodic injections should he so desire. Coding Level of Care Code Est Pt Level 4 (88724) Diagnoses Rotator cuff arthropathy of left shoulder M12.812
[2023-10-04 09:09] VITALS: BMI 36.3
== END 2023-10-04 09:22 | disposition home or self-care (01) ==
PROVIDERS: PCP Physician Assistant; Visit Provider Orthopaedic Surgery
DX: M12.812 Other specific arthropathies, not elsewhere classified, left shoulder (principal)
CPT/HCPCS: 99213

== ENCOUNTER → 2023-10-04 08:53 | Outpatient (BNVA) | payer OTHER, SELFPAY | PROVIDERS: PCP Physician Assistant; Visit Provider Orthopaedic Surgery | DX: M12.812 Other specific arthropathies, not elsewhere classified, left shoulder (principal) | CPT/HCPCS: 99212 ==

== ENCOUNTER 2023-11-09 12:00 | Outpatient (RCR) | payer OTHER, SELFPAY ==
[2023-09-28 10:07] VITALS: BP 144/82
--- NOTE | 2023-10-03 13:58 | MHC.PT.EP ---
[facility] [place] [facility] [place] [facility] [place] [facility] [address] Kristopher Chow [address] [phone] F: [phone] F: [phone] F: [phone] F: [phone] Physical Therapy Plan of Care Date of Evaluation: 09/28/23 Date of Surgery: Diagnosis: BPPV Assessment: Pt is a 58yo male who was [place] [facility] [place] and reduce dizziness/risk for falls. Skilled PT indicated to improve his VOR, ability to utilize compensatory techniques such as gaze stabilization, improve his functional mobility with head turns and balance reactions. Pt in agreement with POC and is motivated to participate. Frequency and Duration: The patient will be seen 2x/week, x 4 weeks Short Term Goals: 1. In 2 weeks, patient will be able to complete standing VOR exercises on busy background without rest break x 1 minute vertical and horizontal, slow motion to control onset of dizziness. 2. In 2 weeks, patient will utilize gaze stabilization when completing transitional movements in and out of bed to reduce onset of dizziness. 3. Re-test of BPPV negative in 2 weeks. Manager Water Goals: 1. In 4 weeks, patient will report reduced motion sensitivity and less dizziness impacting functional mobility as demonstrated by 20 point score improvement on DHI. 2. In 4 weeks, patient will be able to walk with head turns with abrupt stops and starts without LOB. Treatment Plan: Modalities to reduce pain, spasms and effusion. Manual therapy to restore motion and function. Therapeutic exercise to improve strength and flexibility. Neuromuscular re-education for posture and balance. Therapeutic activities to return to functional activities of daily living. Electronically signed by: Jesica Aguirre PT, DPT Please sign and return to therapist. Thank you for your referral.
--- NOTE | 2024-02-14 11:35 | MHC.PT.DC ---
[facility] [place] [facility] [place] [facility] [place] Office [address] Kristopher Cohw [address] [phone] F: [phone] F: [phone] F: [phone] F: [phone] Physical Therapy Discharge Report Diagnosis: BPPV Date of Surgery: Date of Evaluation: 09/28/23 Date of Discharge: 12/10/23 Treatments to Date: 4 Cancellations to Date: No Shows to Date: Discharge Status: Achieved Goals Improved Function Independent with HEP Discharge Summary: Pt is a 58yo male who was [place] back [place] [facility] [place] rehab and reduce dizziness/risk for falls. Skilled PT indicated to improve his VOR, ability to utilize compensatory techniques such as gaze stabilization, improve his functional mobility with head turns and balance reactions. Pt in agreement with POC and is motivated to participate. Pt tested negative for BPPV, treatment focused on balance reactions with functional mobility to improve safety. Pt participated in 4 treatment session and reported reduced feelings of dizziness at time of D/C. Thank you for this referral. Electronically signed by: Jesica Aguirre PT, DPT Please sign and return to therapist. Thank you for your referral.
== END 2024-02-14 11:36 | disposition home or self-care (01) ==
LOC: HO.PT 12:00
PROVIDERS: PCP Physician Assistant; Visit Provider Physician Assistant
DX: H81.13 Benign paroxysmal vertigo, bilateral (principal)
CPT/HCPCS: 95992; 97110; 97112; 97162

== ENCOUNTER 2023-12-13 09:13 | Outpatient (AMB) | payer OTHER, SELFPAY ==
--- NOTE | 2023-12-13 09:18 | MHC.OFFVIS ---
Intake Visit Reasons: OV-Left shoulder OA s/p inj on 09/13/23 Intake Note: Alejandro is a 58 year old male who presents today for a follow up for his left shoulder OA, Last Lt Shdr Injection on 09/13/23. Patient reports that he had good relief with the last injection and he would like to repeat. Allergies atorvastatin Adverse Reaction (Unknown, Verified 12/13/23 09:24) Unknown HPI HPI OV-Left shoulder OA s/p inj on 09/13/23: Details: Alejandro is a 58 year old male who presents today for a follow up for his left shoulder OA, Last Lt Shdr Injection on 09/13/23. Patient reports that he had good relief with the last injection and he would like to repeat. [facility] Medical History Coagulopathy Arrhythmia BPH (benign prostatic hyperplasia) Chronic renal insufficiency CVA (cerebral vascular accident) History of COVID-19 Sleep apnea Asthma Diabetes High cholesterol HTN (hypertension) Surgical History H/O colonoscopy H/O tooth extraction Mechanical heart valve present Social History Housing: House Alcohol intake: never Patient Tobacco Use Status: Former Tobacco user Tobacco use type: Cigarette e-Cigarette/Vaping Use: Never Used Second Hand Smoke Exposure: No service: No Current occupational status: employed Cognitive needs: No Hearing needs: No Vision needs: Yes Physical Exam Extrem Other: scapular recruitment required for left shoulder abduction but able to do so comfortably 4-/5 EC ER to 45 + lift off Office Procedures Joint Injection/Aspiration Joint Injection/Aspiration Details: Injected 1 mL of Decadron and 3 mL 1% lidocaine and 3 mL of 0.25% Marcaine. Site was prepped using aseptic technique. Patient tolerated the procedure well. Primary Site: left shoulder Approach Used: posterolateral Coding 92082 - Large joint Procedure code (CPT) selection complete Assessment & Plan Assessment & Plan (1) Rotator cuff arthropathy of left shoulder: Code(s): M12.812 - Other specific arthropathies, not elsewhere classified, left shoulder Category: Medical Plan: I injected his left shoulder. I advised him to abstain from overhead lifting. 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
== END 2023-12-13 09:50 | disposition home or self-care (01) ==
PROVIDERS: PCP Physician Assistant; Visit Provider Orthopaedic Surgery
DX: M12.812 Other specific arthropathies, not elsewhere classified, left shoulder (principal); E11.9 Type 2 diabetes mellitus without complications; Z79.4 Long term (current) use of insulin
CPT/HCPCS: 20610; 99214

== ENCOUNTER → 2023-12-13 09:13 | Outpatient (BNVA) | payer OTHER, SELFPAY | PROVIDERS: PCP Physician Assistant; Visit Provider Orthopaedic Surgery | DX: M19.012 Primary osteoarthritis, left shoulder (principal); E11.9 Type 2 diabetes mellitus without complications; Z79.4 Long term (current) use of insulin | CPT/HCPCS: 20610; 99212; J0665; J1100 ==

== ENCOUNTER 2024-02-13 10:15 | Outpatient (AMB) | payer OTHER, SELFPAY ==
[2024-02-13 10:49] VITALS: BP 144/72; PULSE 89; O2SAT 96; BMI 36.7
--- NOTE | 2024-02-13 10:49 | MHC.PC.OV ---
Vital Signs 02/13/24 10:49 Height 5 ft 7 in Weight 234 lb 2 oz BMI 36.7 BP 144/72 H Blood Pressure Location Lt brachial Position Sitting Pulse 89 Pulse Source Pulse Oximeter Pulse Oximetry (%) 96 Oxygen Delivery Method Room Air Intake Visit Reasons: Vertigo 4 moth f/u rescheduled 01/23 Allergies atorvastatin Adverse Reaction (Unknown, Verified 02/13/24 11:05) Unknown Medication List - Last Reconciled 02/13/24 by Ayaz Sewell PA-C acetaminophen (Tylenol) 650 mg (2 x 325 mg) PO Q6H PRN albuterol sulfate 90 mcg/actuation (ProAir HFA) 2 puffs inhalation Q4-6H PRN 90 days aspirin 1 tab PO DAILY betamethasone dipropionate 0.05% 1 appl topical DAILY 30 days blood sugar diagnostic (FreeStyle Lite Strips) Check sugar twice a day /PRN blood-glucose meter (FreeStyle [place] Lite kit) As directed CPAP As directed dulaglutide (Trulicity) 3 mg (0.5 mL) subcut QWEEK 90 days ferrous sulfate 325 mg PO BID 90 days fluticasone propion-salmeterol 250-50 mcg/dose (Wixela Inhub) 1 inh inhalation BID 90 days furosemide 40 mg PO DAILY insulin aspart (niacinamide) 100 unit/mL (3 mL) (Fiasp FlexTouch U-100 Insulin) 6 units subcut TID 90 days insulin glargine (Basaglar KwikPen U-100 Insulin) 40 units (0.4 mL) subcut BEDTIME 90 days lancets (FreeStyle Lancets) As directed losartan 50 mg (2 x 25 mg) PO DAILY meclizine 25 mg PO TID 90 days metformin 1,000 mg PO BID 90 days metoprolol tartrate 50 mg PO BID pantoprazole 40 mg PO DAILY pen needle, diabetic (BD Ultra-Fine Original Pen Needle) 1 ea miscellaneous DAILY pen needle, diabetic (BD Ultra-Fine [place] Pen Needle) As directed rosuvastatin 40 mg PO DAILY 90 days sertraline 50 mg PO DAILY sildenafil 100 mg PO DAILY 30 days tamsulosin 0.4 mg PO DAILY warfarin 2 mg PO DAILY 90 days warfarin 3 mg PO DAILY 90 days Tobacco use date assessed: 06/13/23 Dental Screening Dental Screen Date: 06/13/23 HPI Vertigo 4 moth f/u rescheduled 01/23 HPI Details pateint is a 58 y/o M here today for a a follow-up visit.? Patient has a past medical history of CVA, aortic valve replacement,h/o aortic dissection, diabetes, obesity, coronary artery disease, iliac artery aneurysm, hypertension. VERTIGO: has been experiencing vertigo associated with body position and head movements. He reports that this has been the case for many years though has gotten worse over the last few months. Has use meclizine which has been helpful. He did get an MRI of brain recently due to a recent stroke which did show cerebral volume loss and chronic ischemic changes. He has been in vestibular therapy which is able to precipitate his vertigo during maneuvers. He has followed up with Neurology to review his MRI. Has not been able to work due to his continued vertigo. He does report he has some good days without much dizziness. He continues on meclizine 25 mg t.i.d.. He is to restart vestibular therapy in hopes that this will completely dissipate his vertigo. .. Major depressive disorder: Patient continues on sertraline with only decent affect. Does have personal home issues that were followed in his daughter that causes his mood to be low. He has stopped seeing his mental health therapist as he has not been able to get an appointment. He is willing to get a new referral to cognitive behavioral therapy. Microcytic anemia: Has been started on iron supplementation in CBC has improved. ? .. ? CAD: Is followed by cardiology at [facility] (PV [facility]) , denies any chest pains palpitations or shortness of breath. Most recent lipid panel showing excellent control of his total cholesterol and LDL. .. ..HTN: Blood pressure slightly elevated today in office , does not check at home.? He is otherwise asymptomatic. Recent microalbumin very elevated likely due to uncontrolled hypertension and type 2 diabetes. ? . ? Aortic valve replacement: Is currently on Coumadin with therapeutic INRs between 2.5 and 3.5.? Denies any overt signs of bleeding. ? .. ? DMII: He reports he has been compliant to the use all of his diabetic medications. Unfortunately sugars seem to continue to be high. Today's A1c of 14. He denies any changes in his diet though does report a sedentary lifestyle due to his fatigue. ? He monitors his blood pressure at home and does report having some higher readings .. His diabetes has not been well controlled. He does admit dietary indiscretion due to his depression. Most recent fasting blood sugar elevated, urine showing glucosuria PLAN: Will increase his long-acting insulin to 50 units daily and tightened up his preprandial insulin. Will refer to Endocrinology for evaluation and help controlling patient's type 2 diabetes. [facility] Medical History Coagulopathy Arrhythmia BPH (benign prostatic hyperplasia) Chronic renal insufficiency CVA (cerebral vascular accident) History of COVID-19 Sleep apnea Asthma Diabetes High cholesterol HTN (hypertension) Surgical History H/O colonoscopy H/O tooth extraction Mechanical heart valve present Social History Housing: House Alcohol intake: never Patient Tobacco Use Status: Former Tobacco user Tobacco use type: Cigarette e-Cigarette/Vaping Use: Never Used Second Hand Smoke Exposure: No service: No Current occupational status: employed Cognitive needs: No Hearing needs: No Vision needs: Yes Questionnaire Thrive Questionnaire Date Thrive assessed: 06/13/23 LAINA-7 AMB Questionnaire LAINA-7 Date LAINA - 7 assessed: 06/13/23 Source: Developed by Drs. Jg Mims, Tonia Zapata, Colt Calero and colleagues, with an educational sultana from [employer]. Review of Systems Const Reports fatigue and Denies headache(s) Eyes Denies loss of vision ENT Reports vertigo, Reports dizziness, Denies headache(s) and Denies sore throat Card Denies chest pain, Denies leg edema and Denies lightheadedness Resp Denies cough, Denies hemoptysis and Denies wheezing GI Denies abdominal pain, Denies melena, Denies constipation, Denies diarrhea and Denies vomiting Denies dysuria, Denies urinary frequency and Denies urinary urgency Musc Denies arthralgias, Denies joint swelling, Denies numbness and Denies tingling Neuro Denies Abnormal speech present, Denies behavioral changes, Reports vertigo, Reports dizziness, Denies headache(s), Denies loss of vision, Denies memory loss, Denies numbness and Denies tingling Psych Denies anxiety, Denies behavioral changes, Denies depression, Denies memory loss and Denies panic attacks Endo Reports fatigue Maximiliano/Lymph Denies easy bleeding and Denies easy bruising Aller/Immun Denies wheezing Physical exam (Primary Care) Vital Signs: Last Vital Signs Pulse 89 02/13/24 10:49 BP 144/72 H 02/13/24 10:49 Pulse Ox 96 02/13/24 10:49 Oxygen Delivery Method Room Air 02/13/24 10:49 BMI result Body Mass Index 36.7 BMI Assessment/Plan discussion: High BMI High, discussed plan: lifestyle, weight reduction, dietary and physical activity Tobacco/Smoking Status: Tobacco use Status Tobacco use date assessed 06/13/23 02/13/24 10:49 Patient Tobacco Use Status Former Tobacco user 02/13/24 10:49 Tobacco use type Cigarette 02/13/24 10:49 e-Cigarette/Vaping Use Never Used 02/13/24 10:49 Thrive Assessment: Date of Thrive Assessment Date Thrive assessed 06/13/23 02/13/24 10:49 Const General: healthy appearing, no acute distress, alert and awake Nutritional Appearance: well nourished Orientation/consciousness: oriented to person, oriented to place and oriented to time HENMT Ears: TM's normal bilaterally General nose exam: Normal nasal mucous membranes and turbinates present Eyes Conjunctivae: conjunctivae normal Sclerae: sclerae normal Pupils: Equal, round and reactive pupils present Neck Neck: Yes no lymphadenopathy and Yes no JVD Thyroid: Thyroid normal Carotids: no bruits Resp Effort & Inspection: normal respiratory effort and not tachypneic Auscultation: no crackles, no rales, no rhonchi and no wheezes Cardio Rate: regular rate Rhythm: regular rhythm Heart sounds: no murmurs and normal S1 and S2 GI Palpation (GI): Soft to palpation, nontender, no hepatomegaly and no splenomegaly Auscultation: normal bowel sounds Skin General skin exam: no rashes or lesions noted and dry skin Neuro General: oriented to person, oriented to place and oriented to time Cranial nerves: Yes Equal, round and reactive pupils present Speech: No Abnormal speech present Gait exam (Neuro): Normal gait present Motor exam (neuro): no tremor noted Extrem Right upper extremity: full ROM Left upper extremity: full ROM Right lower extremity: full ROM; no edema Left lower extremity: full ROM; no edema Psych Mental Status: mental status grossly normal Speech and movement: Normal speech and movement present Affect: normal affect Attitude: cooperative Thought process: Normal thought process present Office Procedures Flu Questionnaire Does the patient have a severe egg allergy?: No Does the patient have severe life threatening allergies?: No Does the patient have a fever or illness today?: No Has the patient ever had Guillain-Gadsden Syndrome?: No Has the patient ever had any past reaction to a flu shot?: No Results AMB Hemoglobin A1c AMB Hemoglobin A1c 14.0 % Last Edit by REBECA Rice on 02/13/24 10:54 Immunizations Fluarix Triv [id number] (PF) 45 mcg (15 mcg x 3)/0.5 mL IM syringe Performing Provider: Ayaz Sewell PA-C [place] [facility] [place] [facility] Administered by: REBECA Rice on 02/13/24 10:51 Dose Route Admin Location Dispensed Lot Number Expiration Date NDC Pie Icer Machine 0.5 mL IM Right Deltoid 0.5 mL [id number] 10/20/24 [id number] [employer] VIS Given Date VIS Provided VIS Publication Date 02/13/24 Single Vaccine 20 Eligibility Eligibility Date Funding Source Not [facility] Eligible 02/13/24 Private Results Reviewed Results Reviewed: Laboratory Last Values Hgb A1c (Clinic) 14.0 % H* 02/13/24 10:50 Coding Level of Care Code Est Pt Level 4 (79159) Diagnoses Type 2 diabetes mellitus without complication, with long-term current use of insulin E11.9; Z79.4 Diabetes mellitus complication status: without complication Diabetes mellitus mcfp insulin use: with mcfp use Mixed hyperlipidemia E78.2 Hyperlipidemia type: mixed hyperlipidemia Coronary artery disease involving [place] coronary artery of [place] heart without angina pectoris I25.10 Associated angina: without angina Coronary Disease-Associated Artery/Lesion type: [place] artery [place] vs. 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 Today's A1c at 14. He denies any dietary indiscretion. Does report polyuria and polydipsia. He does report a sedentary lifestyle due to his fatigue and dizziness. Will increase his long-acting insulin to 50 units. Will tightened up his preprandial insulin dosing. Will refer to endocrinology to help with glycemic control. (2) HLD (hyperlipidemia): Code(s): E78.5 - Hyperlipidemia, unspecified Category: Medical Qualifiers: Hyperlipidemia type: mixed hyperlipidemia Qualified Code(s): E78.2 - Mixed hyperlipidemia Plan: Most recent lipid panel showing good control of his total cholesterol and and decent control of his LDL. Goal LDL is to be below 70 (3) CAD (coronary artery disease): Code(s): I25.10 - Atherosclerotic heart disease of [place] coronary artery without angina pectoris Category: Medical Qualifiers: Associated angina: without angina Coronary Disease-Associated Artery/Lesion type: [place] artery [place] vs. transplanted heart: [place] heart Qualified Code(s): I25.10 - Atherosclerotic heart disease of [place] coronary artery without angina pectoris Plan: Patient's blood pressure slightly elevated. Most recent lipid panel decent control of his LDL. (4) CVA (cerebral vascular accident): Comment: post aortic valve replacement Code(s): I63.9 - Cerebral infarction, unspecified Category: Medical Qualifiers: CVA mechanism: occlusion Laterality of affected vessel: right Precerebral and cerebral artery: middle cerebral artery Qualified Code(s): I63.511 - Cerebral infarction due to unspecified occlusion or stenosis of right middle cerebral artery Plan: Patient continues on aspirin ,high dose statin therapy and beta-colton. 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
== END 2024-02-13 11:25 | disposition home or self-care (01) ==
PROVIDERS: PCP Physician Assistant; Visit Provider Physician Assistant
DX: E11.69 Type 2 diabetes mellitus with other specified complication (principal); Z79.4 Long term (current) use of insulin; I63.511 Cerebral infarction due to unspecified occlusion or stenosis of right middle cerebral artery; E78.2 Mixed hyperlipidemia; I25.10 Atherosclerotic heart disease of native coronary artery without angina pectoris

== ENCOUNTER → 2024-02-13 10:15 | Outpatient (BNVA) | payer OTHER, SELFPAY | PROVIDERS: PCP Physician Assistant; Visit Provider Physician Assistant | DX: E11.9 Type 2 diabetes mellitus without complications (principal); E78.2 Mixed hyperlipidemia; I25.10 Atherosclerotic heart disease of native coronary artery without angina pectoris; Z86.73 Personal history of transient ischemic attack (TIA), and cerebral infarction without residual deficits; Z95.2 Presence of prosthetic heart valve; Z79.4 Long term (current) use of insulin; Z79.82 Long term (current) use of aspirin; Z79.899 Other long term (current) drug therapy; Z23 Encounter for immunization | CPT/HCPCS: 83036; 90471; 90656; 99212 ==

== ENCOUNTER 2024-02-22 10:36 | Outpatient (AMB) | payer OTHER, SELFPAY ==
[2024-02-22 10:57] VITALS: BP 136/68; PULSE 64; O2SAT 94; BMI 37.7
--- NOTE | 2024-02-22 10:57 | A.OFFVIS_ITS ---
Vital Signs 02/22/24 10:57 Height 5 ft 7 in Weight 240 lb 11.916 oz BMI 37.7 BP 136/68 Blood Pressure Location Rt brachial Position Sitting Pulse 64 Pulse Source Pulse Oximeter Pulse Oximetry (%) 94 Oxygen Delivery Method Room Air Intake Visit Reasons: Prev est. [place] scrn w/ cardio concerns Intake Note: Relevant Flags or Indicators ? Requires Scientific Database Curator? N Alejandro presents in office today for a scheduled initial assessment / colo consult. Pt has cardiovascular hx (CVA) within the last ~ 1 year. This is a recall colo q3 years. CC; No recent labs, diagnostics, or med orders placed. ? Relevant GI Sx as reported per pt? Hx of any recent surgeries? September 2023 - Aneurysm. ? Pertinent FMHx? Pt was adopted. Unsure. Scientific Database Curator Required: No Allergies atorvastatin Adverse Reaction (Unknown, Verified 02/22/24 10:58) Unknown HPI HPI Prev est. [place] scrn w/ cardio concerns: Details: LAST VISIT: Tubular adenoma of colon Plan Diagnosed with tubular adenoma on last colonoscopy in December of 2014. Patient denies any melena, blood in his stools, unintentional weight loss or ribbon like stools. Screen for colon cancer Plan Patient is here for pre colonoscopy screening. Last colonoscopy in 2014 showed tubular adenoma. Patient denies any symptoms of bleeding or change in his bowels. Denies GI, cardiac or respiratory symptoms, however patient has a history of MO in 2017 status post atrial valve replacement. Sees food and beverage outlets manager Dr. Ring at [facility]. I will send him for risk stratification before the procedure. Patient is agreeable to this. Patient denies any infectious diseases in the past or present. He has a history of sleep apnea for last several years and has been using CPAP machine without any difficulties every night. Denies any ill effects from anesthesia in the past. On warfarin for coagulation. Discussed at length the pre-procedure, prep, diet & medications as well as what to expect prior, during and after the procedure. Stressed the importance of good bowel prep. I will give him additional Colace and he can take that every night week before the procedure. He is agreeable to this plan Patient verbalizes understanding and agrees to plan of care. He was given the opportunity to ask questions and all questions answered. We will see him after the procedure. ? Thank you for allowing me to participate in his care Medications New: bisacodyl (Dulcolax (bisacodyl)) take 2 tabs at noon the day before your colonoscopy 10 mg (2 x 5 mg) PO ONCE 1 day 2 tabs 0RF polyethylene glycol 3350 (Miralax) As directed by gastroenterology department at [facility] 238 grams PO ONCE 238 grams 0RF COLONOSCOPY Findings: Terminal Ileum: Not evaluated Cecum:? Normal Ascending Colon:? Scattered diverticulosis throughout the colon. Transverse Colon:? A 9-10 mm sessile polyp removed with a cold snare Descending Colon:? Scattered moderate diverticulosis Sigmoid Colon:? Five 8-12 mm sessile polyps removed with cold snare. Moderate diverticulosis Rectum:? Normal Ano-rectum:? Moderate internal hemorrhoids Colon preparation:? Good after some irrigation Impression and Post Procedure Diagnosis: Colonoscopy Findings: Six small to medium sized polyps removed Scattered moderate diverticulosis throughout the colon. Moderate hemorrhoids on retroflexed exam. Plan: Await pathology results Patient has an appointment on 01/11/21 in the GI Clinic with Shaye Noe FNP- BC. Repeat Colonoscopy interval based on path results - in 3 years if polyps are adenomatous and 5 years if polyps are hyperplastic due to a hx of colon polyps. Above findings were reviewed with the patient and colon polyps and diverticulosis? handouts were given in the discharge area PATHOLOGY Diagnosis A. Colon, transverse, polypectomy: Fragments of tubular adenoma; no high-grade dysplasia or carcinoma seen. B. Colon, sigmoid, polypectomies: Fragments of tubular adenomas; no high-grade dysplasia or carcinoma seen TODAY'S VISIT: Patient is here today to discuss going for colonoscopy. Last colonoscopy in 2020 showed tubular adenoma 2 polyps without high-grade dysplasia or carcinoma. Recommendation was made for 3 year follow-up. In April of 2023 patient came to ER with symptoms of dizziness that have been going on for about months or so. CT scan showed possible stroke. He is not having any other neurological symptoms. His NIH score was 0. Patient had no trouble with anesthesia in the past. Last time he was under anesthesia was in September. Patient is on Coumadin. Follows with Dr. Ring in [facility]. Patient denies melena, hematochezia, unintentional weight loss or ribbon like stools. Patient denies any dyspepsia, dysphagia or odynophagia. Patient denies any cardiac or respiratory symptoms. [facility] Medical History Coagulopathy Arrhythmia BPH (benign prostatic hyperplasia) Chronic renal insufficiency CVA (cerebral vascular accident) History of COVID-19 Sleep apnea Asthma Diabetes High cholesterol HTN (hypertension) Surgical History H/O colonoscopy H/O tooth extraction Mechanical heart valve present Social History Housing: House Alcohol intake: never Patient Tobacco Use Status: Former Tobacco user Tobacco use type: Cigarette e-Cigarette/Vaping Use: Never Used Second Hand Smoke Exposure: No service: No Current occupational status: employed Cognitive needs: No Hearing needs: No Vision needs: Yes Review of Systems Const Denies weight gain and Denies weight loss ENT Reports no additional complaints, Denies dysphagia and Denies odynophagia Card Reports no additional complaints Resp Reports no additional complaints GI Denies abdominal pain, Denies belching, Denies melena, Denies bloating, Denies change in bowel habits, Denies dysphagia, Denies excessive flatus, Denies dyspepsia, Denies heartburn, Denies diarrhea, Denies loose stools, Denies nausea, Denies odynophagia and Denies vomiting Reports no additional complaints Musc Reports no additional complaints Neuro Reports no additional complaints Psych Reports no additional complaints Endo Reports no additional complaints Physical Exam Vital Signs: Last Vital Signs Pulse 64 02/22/24 10:57 BP 136/68 02/22/24 10:57 Pulse Ox 94 02/22/24 10:57 Oxygen Delivery Method Room Air 02/22/24 10:57 BMI result Body Mass Index 37.7 Const General: healthy appearing and no acute distress Nutritional Appearance: obese Orientation/consciousness: patient oriented x3 Resp Effort & Inspection: normal respiratory effort, able to speak in complete sentences, no tracheal deviation and symmetric chest movement Auscultation: clear to auscultation bilaterally Cardio Rate: regular rate GI Inspection: Yes normal to inspection and No distended Palpation (GI): Soft to palpation, not firm, nontender and No hepatosplenomegaly present Auscultation: normal bowel sounds General: Yes no CVA tenderness Back/Spine/Pelvis Back: no CVA tenderness Skin General skin exam: elasticity normal, turgor normal and dry skin Neuro General: patient oriented x3 Psych Appearance: grossly normal Mental Status: mental status grossly normal Assessment & Plan Assessment & Plan (1) Tubular adenoma of colon: Code(s): D12.6 - Benign neoplasm of colon, unspecified Category: Medical (2) Screen for colon cancer: Code(s): Z12.11 - Encounter for screening for malignant neoplasm of colon Plan No issues with anesthesia in the past. Patient was under anesthesia in September and did well. However we should check with Dr. Ring in [facility] Cardiology to make sure that patient can be cleared and directions on warfarin. Patient is also on low-dose aspirin. He takes Trulicity as well as short-acting insulin and long-acting insulin every night. Patient should hold the short- acting insulin day before procedure as he will not be eating anything except having clear liquids and take half of the long acting insulin 2 nights and now 1 9 before the procedure. Message sent to surgical schedulers to book procedure for him. I will see him after the procedure, sooner on as needed basis. He is agreeable to this plan and verbalizes understanding of instructions. He was given the opportunity to ask questions and all questions answered. Thank you for allowing me to participate in his care Medications: New bisacodyl (Dulcolax (bisacodyl)) take 4 tabs at noon the day before your colonoscopy 20 mg (4 x 5 mg) PO ONCE 4 tabs 0RF 1 day Z12.11 - Encounter for screening for malignant neoplasm of colon polyethylene glycol 3350 (Miralax) As directed by gastroenterology department at [facility] 238 grams PO ONCE 238 grams 0RF Z12.11 - Encounter for screening for malignant neoplasm of colon Coding Level of Care Code New Pt Level 3 (97565) Diagnoses Tubular adenoma of colon D12.6 Screen for colon cancer Z12.11 Time Spent (min) 40 Comment 30 minutes spent with patient and additional 10 minutes spent reviewing his records
== END 2024-02-22 11:58 | disposition home or self-care (01) ==
LOC: HO.HGI 10:37
PROVIDERS: PCP Physician Assistant; Visit Provider Nurse Practitioner Family
DX: D12.6 Benign neoplasm of colon, unspecified (principal); Z12.11 Encounter for screening for malignant neoplasm of colon
CPT/HCPCS: 99203

== ENCOUNTER → 2024-02-22 10:36 | Outpatient (BNVA) | payer OTHER, SELFPAY | PROVIDERS: PCP Physician Assistant; Visit Provider Nurse Practitioner Family ==

== ENCOUNTER 2024-03-13 12:40 | Outpatient (AMB) | payer OTHER, SELFPAY ==
--- NOTE | 2024-03-13 12:44 | MHC.OFFVIS ---
Vital Signs 03/13/24 12:49 Height 5 ft 7 in Weight 238 lb 1.588 oz BMI 37.3 BP 138/82 Blood Pressure Location Rt brachial Position Sitting Pulse 74 Pulse Source Pulse Oximeter Intake Visit Reasons: T2DM/LVM Intake Note: Patient presents today to establish treatment for Type 2 Diabetes Mellitus: Last Diabetic eye exam was on: DUE Last Podiatry exam was on: Does not see a Bilingual Call Center Representative Most recent HbA1c: 14.0%, 02/13/2024 Random Glucose- 258 mg/dL, Today Email Marketing Manager Required: No Accompanied by: Self / Same As Patient Allergies atorvastatin Adverse Reaction (Unknown, Verified 03/13/24 12:54) Unknown Medication List - Last Reconciled 03/13/24 by Sherice Castellano MD acetaminophen (Tylenol) 650 mg (2 x 325 mg) PO Q6H PRN albuterol sulfate 90 mcg/actuation 2 puffs inhalation Q4-6H PRN 90 days aspirin 1 tab PO DAILY betamethasone dipropionate 0.05% 1 appl topical DAILY 30 days bisacodyl (Dulcolax (bisacodyl)) 20 mg (4 x 5 mg) PO ONCE 1 day blood sugar diagnostic (FreeStyle Lite Strips) Check sugar twice a day /PRN blood-glucose meter (FreeStyle [place] Lite kit) As directed CPAP As directed dulaglutide (Trulicity) 3 mg (0.5 mL) subcut QWEEK 90 days ferrous sulfate 325 mg PO BID 90 days fluticasone propion-salmeterol 250-50 mcg/dose (Wixela Inhub) 1 inh inhalation BID 90 days furosemide 40 mg PO DAILY insulin aspart (niacinamide) 100 unit/mL (3 mL) (Fiasp FlexTouch U-100 Insulin) 8 units subcut TID insulin glargine (Basaglar KwikPen U-100 Insulin) 50 units (0.5 mL) subcut BEDTIME 90 days lancets (FreeStyle Lancets) As directed losartan 50 mg (2 x 25 mg) PO DAILY meclizine 25 mg PO TID 90 days metformin 1,000 mg PO BID 90 days metoprolol tartrate 50 mg PO BID pantoprazole 40 mg PO DAILY pen needle, diabetic (BD Ultra-Fine [place] Pen Needle) As directed polyethylene glycol 3350 (Miralax) 238 grams PO ONCE rosuvastatin 40 mg PO DAILY 90 days sertraline 50 mg PO DAILY sildenafil 100 mg PO DAILY 30 days tamsulosin 0.4 mg PO DAILY warfarin 2 mg PO DAILY 90 days warfarin 3 mg PO DAILY 90 days HPI Comments Details: 58 y/o male presenting for diabetes consultation Patient has a past medical history of CVA, aortic valve replacement,h/o aortic dissection, diabetes, obesity, coronary artery disease, iliac artery aneurysm, hypertension. Diagnosed in 30s Current medications: Last A1C 01/2024 14% At that time Basaglar was increased to 50 units nightly, fiasp 8 three times daily, metformin 1000mg daily. Fasting blood glucose has been lower 200s. He did not bring his meter today Adopted On ARB/statin Micro/macrovascular complications: ED Hasnt had nutrition or diabetic education ROS CONSTITUTIONAL: Denies weight loss, fever and chills. HEENT: Denies changes in vision and hearing. RESPIRATORY: Denies SOB and cough. CV: Denies palpitations and CP GI: Denies abdominal pain, nausea, vomiting and diarrhea. : Denies dysuria and urinary frequency. MSK: Denies new myalgia and joint pain. SKIN: Denies rash and pruritus. NEUROLOGICAL: Denies headache PSYCHIATRIC: Denies recent changes in mood. PHYSICAL EXAM: GENERAL: Alert and oriented x 3. NAD EYES: EOMI. Anicteric. HENT: Moist mucous membranes. No scleral icterus. No cervical lymphadenopathy. LUNGS: Clear to auscultation bilaterally. CARDIOVASCULAR: Regular rate and rhythm. No murmur. No JVD. ABDOMEN: Soft, non-tender +bs EXTREMITIES: No edema. Non-tender. SKIN: No rashes or lesions. Warm. NEUROLOGIC: No focal neurological deficits. CN II-XII grossly intact PSYCHIATRIC: Cooperative. Appropriate mood and affect [facility] Medical History Coagulopathy Arrhythmia BPH (benign prostatic hyperplasia) Chronic renal insufficiency CVA (cerebral vascular accident) History of COVID-19 Sleep apnea Asthma Diabetes High cholesterol HTN (hypertension) Surgical History H/O colonoscopy H/O tooth extraction Mechanical heart valve present Social History Housing: House Alcohol intake: never Patient Tobacco Use Status: Former Tobacco user Tobacco use type: Cigarette e-Cigarette/Vaping Use: Never Used Second Hand Smoke Exposure: No service: No Current occupational status: employed Cognitive needs: No Hearing needs: No Vision needs: Yes Physical Exam Vital Signs: Last Vital Signs Pulse 74 03/13/24 12:49 BP 138/82 03/13/24 12:49 BMI result Body Mass Index 37.3 Results Reviewed Results Reviewed: Laboratory Last Values Glucose (Clinic) 258 mg/dL (60-115) H 03/13/24 12:57 Assessment & Plan Assessment & Plan (1) DMII (diabetes mellitus, type 2): Code(s): E11.9 - Type 2 diabetes mellitus without complications Category: Medical Qualifiers: Diabetes mellitus jail insulin use: with joint terminal attack controller use Diabetes mellitus complication status: without complication Qualified Code(s): E11.9 - Type 2 diabetes mellitus without complications; Z79.4 - [facility] (current) use of insulin Plan: Poorly controlled Increase basaglar to 56 units Start actos 30mg daily continue current short acting dosing, metformin 1000mg daily Follow up in one month. 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 insulin Medical Nutrition Therapy Referral E11.65 - Type 2 diabetes mellitus with hyperglycemia, E11.9 - Type 2 diabetes mellitus without complications, Z79.4 - [facility] (current) use of insulin Medications: New FreeStyle Nabeel 3 [place] (blood-glucose meter,continuous) As directed 1 ea 0RF NS E11.65 - Type 2 diabetes mellitus with hyperglycemia insulin aspart (niacinamide) 100 unit/mL (3 mL) (Fiasp FlexTouch U-100 Insulin) 8 units subcut TID 15 mL 0RF E11.9 - Type 2 diabetes mellitus without complications, Z79.4 - [facility] (current) use of insulin dulaglutide (Trulicity) 3 mg subcut QWEEK pioglitazone 30 mg PO DAILY 90 tabs 3RF FreeStyle Nabeel 3 Sensor (blood-glucose sensor) every 14 days 6 ea 3RF NS E11.65 - Type 2 diabetes mellitus with hyperglycemia, E11.9 - Type 2 diabetes mellitus without complications, Z79.4 - [facility] (current) use of insulin Changed From metformin 1,000 mg PO BID 90 days 180 tabs 2RF E11.9 - Type 2 diabetes mellitus without complications To metformin 1,000 mg PO DAILY 90 days 90 tabs 3RF E11.9 - Type 2 diabetes mellitus without complications From insulin glargine (Basaglar KwikPen U-100 Insulin) increase dose to 50 U 50 units (0.5 mL) subcut BEDTIME 90 days 45 mL 3RF E11.9 - Type 2 diabetes mellitus without complications, Z79.4 - 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
[2024-03-13 12:49] VITALS: BP 138/82; PULSE 74; BMI 37.3
[2024-03-13 13:04] LABS: Glucose, Whole Blood 258 mg/dL (60-115)
== END 2024-03-13 13:49 | disposition home or self-care (01) ==
PROVIDERS: PCP Physician Assistant; Visit Provider Internal Medicine
DX: E11.9 Type 2 diabetes mellitus without complications (principal); Z79.4 Long term (current) use of insulin

== ENCOUNTER → 2024-03-13 12:40 | Outpatient (BNVA) | payer OTHER, SELFPAY | PROVIDERS: PCP Physician Assistant; Visit Provider Internal Medicine | DX: E11.9 Type 2 diabetes mellitus without complications (principal); Z79.4 Long term (current) use of insulin | CPT/HCPCS: 82947; 99212 ==

== ENCOUNTER 2024-03-17 13:47 | Outpatient (AMB) | payer OTHER, SELFPAY ==
[2024-03-17 14:25] VITALS: BMI 37.3
--- NOTE | 2024-03-17 14:25 | A.OFFVIS_ITS ---
Vital Signs 03/17/24 14:25 Height 5 ft 7 in Weight 238 lb BMI 37.3 Intake Visit Reasons: OV-Left shoulder OA s/p inj on 12/13/23 Intake Note: Alejandro is a 58 year old male who presents today for a follow up of his left shoulder OA. HX of DM. Left shoulder injected on 12/13/23. Patient reports that he has good relief with the injections and he hopes to repeat injection today. He notes some mild weakness of the left arm. Allergies atorvastatin Adverse Reaction (Unknown, Verified 03/17/24 14:29) Unknown HPI HPI OV-Left shoulder OA s/p inj on 12/13/23: Details: Alejandro is a 58 year old male who presents today for a follow up of his left shoul preston OA. HX of DM. Left shoulder injected on 12/13/23. Patient reports that he has good relief with the injections and he hopes to repeat injection today. He notes some mild weakness of the left arm. [facility] Medical History Coagulopathy Arrhythmia BPH (benign prostatic hyperplasia) Chronic renal insufficiency CVA (cerebral vascular accident) History of COVID-19 Sleep apnea Asthma Diabetes High cholesterol HTN (hypertension) Surgical History H/O colonoscopy H/O tooth extraction Mechanical heart valve present Social History Housing: House Alcohol intake: never Patient Tobacco Use Status: Former Tobacco user Tobacco use type: Cigarette e-Cigarette/Vaping Use: Never Used Second Hand Smoke Exposure: No service: No Current occupational status: employed Cognitive needs: No Hearing needs: No Vision needs: Yes Physical Exam Vital Signs: BMI result Body Mass Index 37.3 Extrem Other: scapular recruitment required for left shoulder abduction but able to do so comfortably 4-/5 EC ER to 45 + lift off Office Procedures Joint Inj/Aspir; Non-Pain Clin Joint Injection/Drain Details: Injected 1 mL of Decadron and 3 mL 1% lidocaine and 3 mL of 0.25% Marcaine. Site was prepped using aseptic technique. Patient tolerated the procedure well. Shoulders, Hips, Knees, Shoulder Injection Large joint : Left Shoulder Coding Procedure code (CPT) selection complete Assessment & Plan Assessment & Plan (1) Rotator cuff arthropathy of left shoulder: Code(s): M12.812 - Other specific arthropathies, not elsewhere classified, left shoulder Category: Medical Plan: Rotator cuff arthropathy left shoulder. I injected the left shoulder. Not a good surgical candidate. May follow up in 3 months for repeat injections should he so desire. (2) Insulin use (long-term) in type 2 diabetes: Code(s): E11.9 - Type 2 diabetes mellitus without complications; Z79.4 - skilled nursing (current) use of insulin Category: Medical Plan: I explained the hyperglycemic effects of steroids. Coding Level of Care Code Est Pt Level 4 (98863) Diagnoses Rotator cuff arthropathy of left shoulder M12.812 Insulin use (long-term) in type 2 diabetes E11.9; Z79.4 CPT Codes Shoulders, Hips, Knees, - Shoulder Injection Large joint 38853: Left Shoulder ([id number])
== END 2024-03-17 14:52 | disposition home or self-care (01) ==
PROVIDERS: PCP Physician Assistant; Visit Provider Orthopaedic Surgery
DX: M12.812 Other specific arthropathies, not elsewhere classified, left shoulder (principal); E11.9 Type 2 diabetes mellitus without complications; Z79.4 Long term (current) use of insulin
CPT/HCPCS: 20610; 99213

== ENCOUNTER → 2024-03-17 13:47 | Outpatient (BNVA) | payer OTHER, SELFPAY | PROVIDERS: PCP Physician Assistant; Visit Provider Orthopaedic Surgery | DX: M12.812 Other specific arthropathies, not elsewhere classified, left shoulder (principal); E11.9 Type 2 diabetes mellitus without complications; Z79.4 Long term (current) use of insulin | CPT/HCPCS: 20610; 99212; J0665; J1100; J2003 ==

== ENCOUNTER 2024-04-03 09:35 | Outpatient (AMB) | payer OTHER, SELFPAY ==
--- NOTE | 2024-04-03 10:05 | A.OFFVIS_ITS ---
VS Expanded 04/03/24 10:07 Height 5 ft 7 in Weight 240 lb 8.389 oz BMI 37.7 Intake Visit Reasons: DM/Confirmed Allergies atorvastatin Adverse Reaction (Unknown, Verified 03/17/24 14:29) Unknown Nutrition Presentation Details: Pt presents for MNT for T2DM food frequency fruits 0-1/d vegetables: 2x/wk fish: not including dairy: 3-4 x/d starches> 20 serving/d fried foods 0-1/wk pastries and similar 1/d physical activity:daily life activities etoh/smoking -- BS Monitoring Most Recent Diabetes Results: No Data to Display FJU-Bkalfll-Cy.Jeor Equation Height: 5 ft 7 in Weight: 241 lb Resting Metabolic Rate: 1865.49 Calculated Activity Level: Sedentary Calories Needed to Maintain Weight: 2238.59 Diagnosis Nutrition problem #1: food nutri know defi As related to (etiology) #1: diagnosis As evidenced by (sign/symptom) #1: knowledge deficit of diet [facility] Medical History Coagulopathy Arrhythmia BPH (benign prostatic hyperplasia) Chronic renal insufficiency CVA (cerebral vascular accident) History of COVID-19 Sleep apnea Asthma Diabetes High cholesterol HTN (hypertension) Surgical History H/O colonoscopy H/O tooth extraction Mechanical heart valve present Social History Housing: House Alcohol intake: never Patient Tobacco Use Status: Former Tobacco user Tobacco use type: Cigarette e-Cigarette/Vaping Use: Never Used Second Hand Smoke Exposure: No service: No Current occupational status: employed Cognitive needs: No Hearing needs: No Vision needs: Yes Assessment & Plan Assessment & Plan (1) Uncontrolled type 2 diabetes mellitus with hyperglycemia: Code(s): E11.65 - Type 2 diabetes mellitus with hyperglycemia Category: Medical Plan: Wt: 109 Kg ( 04/07/24 ) Est kcal needs as per MSJ: 2200 (40% carb, 30% protein/fat) Est fluid needs as per 25-30 ml/d: 3300 Est prot per day as per 1 g/kg bw: 109 Recommend fiber intake : 8-10 g per day and gradually increase to 25-28 g per day for women and 35-38 g for men or as tolerated Recommend sodium intake per day : less than 1500 mg less than 2000 mg Educated patient on: ( R = reviewed V = verbalizes understanding N/R = needs review N/A = not applicable * Food sources of carbohydrate, adequate serving sizes and its role in various health conditions: R * Differences between complex carbohydrates a simple carbohydrates, role of fiber in diet: R * Lean protein sources of foods: R V NR * Differences between types of fats and role in diet (mono on saturated fat fatty acids, saturated fatty acids, trans fats): R V N/R * Food sources of sodium in salt and healthy modifications for heart health in kidney health: R V R/V * Vitamins and minerals: R V N/R * Healthy plate method concept: R V N/R * Physical activity: Benefits a precaution: R V N/R * Hypoglycemia protocol (rule of 15): R V N/R * Dietary prevention of Hyperglycemia: R Patient Instructions: Switch to whole grain foods (100 % whole grain breads, oats, brown rice/wild rice Have a fruit in place of pastries at least once a day Work on reducing sugars (pastries, sugar added to the foods) Coding Level of Care Code Nutr Indiv Intake (40180) Diagnoses Uncontrolled type 2 diabetes mellitus with hyperglycemia E11.65 Time Spent (min) 30
[2024-04-03 10:07] VITALS: BMI 37.7
[2024-04-07 13:09] VITALS: BMI 37.7
== END 2024-04-03 10:31 | disposition home or self-care (01) ==
PROVIDERS: PCP Physician Assistant; Visit Provider Dietitian, Registered
DX: E11.65 Type 2 diabetes mellitus with hyperglycemia (principal)

== ENCOUNTER → 2024-04-03 09:35 | Outpatient (BNVA) | payer OTHER, SELFPAY | PROVIDERS: PCP Physician Assistant; Visit Provider Dietitian, Registered | DX: E11.65 Type 2 diabetes mellitus with hyperglycemia (principal) | CPT/HCPCS: 97802 ==

== ENCOUNTER 2024-04-09 09:27 | Outpatient (AMB) | payer OTHER, SELFPAY ==
--- NOTE | 2024-04-09 09:49 | A.OFFVIS_ITS ---
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 Required: No Accompanied by: Self / Same As Patient Allergies atorvastatin Adverse Reaction (Unknown, Verified 03/17/24 14:29) Unknown HPI Comprehensive Diabetes Asmnt Most Recent Diabetes Results: Hemoglobin A1c 9.5 % 04/26/18 Microalb/Creat Ratio 583.4 ug/mg cr (<30) H 09/26/23 Cholesterol 174 mg/dL (<200) 09/26/23 HDL Cholesterol 47 mg/dL (>40) 09/26/23 Triglycerides 149 mg/dL (<150) 09/26/23 Creatinine 0.82 mg/dL (0.5-1.4) 09/26/23 Blood Urea Nitrogen 17 mg/dL (9-16) H 09/26/23 Sodium 141 mmol/L (135-145) 09/26/23 Potassium 4.6 mmol/L (3.3-5.1) 09/26/23 Chloride 104 mmol/L (96-108) 09/26/23 Carbon Dioxide 28 mmol/L (22-29) 09/26/23 Calcium 9.8 mg/dL (8.4-10.2) 09/26/23 AST 20 U/L (5-37) 09/26/23 ALT 31 U/L (0-40) 09/26/23 Total Protein 7.4 g/dL (6.5-8.0) 09/26/23 Albumin 4.2 g/dL (3.5-5.0) 09/26/23 PFSH Medical History Coagulopathy Arrhythmia BPH (benign prostatic hyperplasia) Chronic renal insufficiency CVA (cerebral vascular accident) History of COVID-19 Sleep apnea Asthma Diabetes High cholesterol HTN (hypertension) Surgical History H/O colonoscopy H/O tooth extraction Mechanical heart valve present Social History Housing: House Alcohol intake: never Patient Tobacco Use Status: Former Tobacco user Tobacco use type: Cigarette e-Cigarette/Vaping Use: Never Used Second Hand Smoke Exposure: No service: No Current occupational status: employed Cognitive needs: No Hearing needs: No Vision needs: Yes Assessment & Plan Assessment & Plan (1) Uncontrolled type 2 diabetes mellitus with hyperglycemia: Code(s): E11.65 - Type 2 diabetes mellitus with hyperglycemia Plan: Patient at visit to set up an insert Nabeel 3 with jayy Instructed patient sensors water proof you can shower, or swim do not submerge sensor in water for over 30 minutes Is sensor falls off cannot put back in you need to replace sensor, customer service number given to patient for sensor replacement Sensor placed on the back of Left Arm Patient left visit with sensor in warmup Reviewed how to interpret trend arrows Reminded patient that to check finger sticks if symptoms do not match sensor reading. Discussed lag time between finger stick and sensor data.? Instructed patient she should always keep blood glucometer for backup testing if needed Reviewed delay of CGM from fingersticks Reminded pt that if symptoms do not match sensor still needs to check fingersticks. Portions of this note were created using voice recognition software, please excuse any words or phrases that may have been misinterpreted. Patient Instructions: Patient instruction: CGM provides information on blood glucose control throughout the day, including hyperglycemia and hypoglycemia. ? Continue to monitor blood glucose as instructed. Follow nutrition guidelines provided. Repor t any discomfort promptly to health care provider. ?Stay well-hydrated. You can bathe ,shower, swim and exercise while wearing the glucose sensor. Do not submerge glucose sensor in water for more than 30 minutes. Coding Level of Care Code Est Pt Level 1 (60261) Diagnoses Uncontrolled type 2 diabetes mellitus with hyperglycemia E11.65
== END 2024-04-09 10:05 | disposition home or self-care (01) ==
PROVIDERS: PCP Physician Assistant; Visit Provider Registered Nurse Diabetes Educator
DX: E11.65 Type 2 diabetes mellitus with hyperglycemia (principal)

== ENCOUNTER → 2024-04-09 09:27 | Outpatient (BNVA) | payer OTHER, SELFPAY | PROVIDERS: PCP Physician Assistant; Visit Provider Registered Nurse Diabetes Educator | DX: E11.65 Type 2 diabetes mellitus with hyperglycemia (principal) | CPT/HCPCS: 99211 ==

== ENCOUNTER 2024-04-10 12:42 | Outpatient (AMB) | payer OTHER, SELFPAY ==
[2024-04-10 12:44] VITALS: BP 134/82; PULSE 74; BMI 37.3
--- NOTE | 2024-04-10 12:44 | A.OFFVIS_ITS ---
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 Required: No Accompanied by: Self / Same As Patient Allergies atorvastatin Adverse Reaction (Unknown, Verified 04/10/24 12:45) Unknown Medication List - Last Reconciled 04/10/24 by Jg Lindsey MD acetaminophen (Tylenol) 650 mg (2 x 325 mg) PO Q6H PRN albuterol sulfate 90 mcg/actuation 2 puffs inhalation Q4-6H PRN 90 days aspirin 1 tab PO DAILY betamethasone dipropionate 0.05% 1 appl topical DAILY 30 days bisacodyl (Dulcolax (bisacodyl)) 20 mg (4 x 5 mg) PO ONCE 1 day blood sugar diagnostic (FreeStyle Lite Strips) Check sugar twice a day /PRN blood-glucose meter (FreeStyle [place] Lite kit) As directed CPAP As directed dulaglutide (Trulicity) 3 mg (0.5 mL) subcut QWEEK 90 days dulaglutide (Trulicity) 3 mg subcut QWEEK ferrous sulfate 325 mg PO BID 90 days fluticasone propion-salmeterol 250-50 mcg/dose (Wixela Inhub) 1 inh inhalation BID 90 days FreeStyle Nabeel 3 [place] (blood-glucose meter,continuous) As directed NS FreeStyle Nabeel 3 Sensor (blood-glucose sensor) every 14 days NS furosemide 40 mg PO DAILY insulin aspart (niacinamide) 100 unit/mL (3 mL) (Fiasp FlexTouch U-100 Insulin) 8 units subcut TID insulin glargine (Basaglar KwikPen U-100 Insulin) 56 units (0.56 mL) subcut BEDTIME 90 days lancets (FreeStyle Lancets) As directed losartan 50 mg (2 x 25 mg) PO DAILY meclizine 25 mg PO TID 90 days metformin 1,000 mg PO DAILY 90 days metoprolol tartrate 50 mg PO BID pantoprazole 40 mg PO DAILY pen needle, diabetic (BD Ultra-Fine [place]assandra Pen Needle) As directed pioglitazone 30 mg PO DAILY polyethylene glycol 3350 (Miralax) 238 grams PO ONCE rosuvastatin 40 mg PO DAILY 90 days sertraline 50 mg PO DAILY sildenafil 100 mg PO DAILY 30 days tamsulosin 0.4 mg PO DAILY warfarin 2 mg PO DAILY 90 days warfarin 3 mg PO DAILY 90 days HPI Comments Details: 58 y/o male presenting for diabetes consultation. The patient previously saw Dr. Leyva on 03/13/2024 Patient has a past medical history of CVA, aortic valve replacement,h/o aortic dissection, diabetes, obesity, coronary artery disease, iliac artery aneurysm, hypertension. Diagnosed in 30s Current medications: At that time Basaglar was increased to 56 units nightly, fiasp 8 three times daily, metformin 1000mg BID. Trulicity 3 mg Qwkly .Actos 30 mg QD Nabeel download shows he is using the sensor 8% of the time. Average glucose is 173 with variability 17.4%. 61% range with 39% hyperglycemia and no hypoglycemia Adopted On ARB/statin Micro/macrovascular complications: ED Hasnt had nutrition or diabetic education Hypoglycemia: No Up-to-date with ophthalmology appointments: >1 yr - needs to make appt [facility] Medical History Coagulopathy Arrhythmia BPH (benign prostatic hyperplasia) Chronic renal insufficiency CVA (cerebral vascular accident) History of COVID-19 Sleep apnea Asthma Diabetes High cholesterol HTN (hypertension) Surgical History H/O colonoscopy H/O tooth extraction Mechanical heart valve present Social History Housing: House Alcohol intake: never Patient Tobacco Use Status: Former Tobacco user Tobacco use type: Cigarette e-Cigarette/Vaping Use: Never Used Second Hand Smoke Exposure: No service: No Current occupational status: employed Cognitive needs: No Hearing needs: No Vision needs: Yes Physical Exam Absence of Cushingoid features. Absence of acromegalic features. Neck exam reveals nl size thyroid about 15 gms. No thyroid nodules palpable. No carotid bruits present. Lungs CTA. Heart S1 S2, Reg R/R. No M/R/ G. Skin exam reveals absence of vitiligo or acanthosis nigricans. Abdominal exam reveals Soft NT/ND with NA BS. No organomegaly present. Neck Other: . Extrem Other: Visual exam of foot performed. No ulcerations or open lesions. No onchomycosis, no callouses.Pulses 2 + distally Sensation intact to monofilament exam. Vibratory sensation sensed is decreased with 128 Hz tuning fork Assessment & Plan Assessment & Plan (1) Uncontrolled type 2 diabetes mellitus with hyperglycemia: Code(s): E11.65 - Type 2 diabetes mellitus with hyperglycemia Category: Medical Plan: This is a 58-year-old white male with a history of type 2 diabetes being treated with metformin, Trulicity and basal-bolus insulin with fair but improving glycemic control with known macrovascular complications namely CAD and CVA. Plan is to start Jardiance 10 mg q.d. in light of the microalbuminuria and CAD. Will check basic metabolic panel in about 10 days' time. Went over side effects of Jardiance including but not limited to DKA and Merari's gangrene. Will have patient follow up with Dr. Lilian Leyva in 1 month. If control is not optimal could consider switching from Trulicity to Ozempic which has secondary cardiovascular protection as well as nephro protection I slightly greater weight loss Orders: Orders Basic Metabolic Panel 10 Days E11.65 - Type 2 diabetes mellitus with hyperglycemia Medications: New empagliflozin (Jardiance) 10 mg PO DAILY 30 tabs 3RF Discontinued furosemide Discontinued Reason: Doctor's Order 40 mg PO DAILY 90 tabs 2RF Coding Level of Care Code New Pt Level 4 (19098) Diagnoses Uncontrolled type 2 diabetes mellitus with hyperglycemia E11.65
[2024-04-10 12:55] LABS: Glucose, Whole Blood 127 mg/dL (60-115)
== END 2024-04-10 13:22 | disposition home or self-care (01) ==
PROVIDERS: PCP Physician Assistant; Visit Provider Internal Medicine Endocrinology, Diabetes & Metabolism
DX: E11.65 Type 2 diabetes mellitus with hyperglycemia (principal)
CPT/HCPCS: 99204

== ENCOUNTER → 2024-04-10 12:42 | Outpatient (BNVA) | payer OTHER, SELFPAY | PROVIDERS: PCP Physician Assistant; Visit Provider Internal Medicine Endocrinology, Diabetes & Metabolism | DX: E11.65 Type 2 diabetes mellitus with hyperglycemia (principal) | CPT/HCPCS: 82947; 99202 ==

== ENCOUNTER 2024-04-24 12:17 | Outpatient (AMB) | payer OTHER, SELFPAY ==
--- NOTE | 2024-04-24 12:44 | A.OFFVIS_ITS ---
Intake Intake Visit Reasons: DM Philosophy Specialist Required: No Accompanied by: Self / Same As Patient Allergies atorvastatin Adverse Reaction (Unknown, Verified 04/10/24 12:45) Unknown HPI Comprehensive Diabetes Asmnt Most Recent Diabetes Results: Hemoglobin A1c 9.5 % 04/26/18 Microalb/Creat Ratio 583.4 ug/mg cr (<30) H 09/26/23 Cholesterol 174 mg/dL (<200) 09/26/23 HDL Cholesterol 47 mg/dL (>40) 09/26/23 Triglycerides 149 mg/dL (<150) 09/26/23 Creatinine 0.82 mg/dL (0.5-1.4) 09/26/23 Blood Urea Nitrogen 17 mg/dL (9-16) H 09/26/23 Sodium 141 mmol/L (135-145) 09/26/23 Potassium 4.6 mmol/L (3.3-5.1) 09/26/23 Chloride 104 mmol/L (96-108) 09/26/23 Carbon Dioxide 28 mmol/L (22-29) 09/26/23 Calcium 9.8 mg/dL (8.4-10.2) 09/26/23 AST 20 U/L (5-37) 09/26/23 ALT 31 U/L (0-40) 09/26/23 Total Protein 7.4 g/dL (6.5-8.0) 09/26/23 Albumin 4.2 g/dL (3.5-5.0) 09/26/23 PFSH Medical History Coagulopathy Arrhythmia BPH (benign prostatic hyperplasia) Chronic renal insufficiency CVA (cerebral vascular accident) History of COVID-19 Sleep apnea Asthma Diabetes High cholesterol HTN (hypertension) Surgical History H/O colonoscopy H/O tooth extraction Mechanical heart valve present Social History Housing: House Alcohol intake: never Patient Tobacco Use Status: Former Tobacco user Tobacco use type: Cigarette e-Cigarette/Vaping Use: Never Used Second Hand Smoke Exposure: No service: No Current occupational status: employed Cognitive needs: No Hearing needs: No Vision needs: Yes Assessment & Plan Assessment & Plan (1) Insulin use (long-term) in type 2 diabetes: Code(s): E11.9 - Type 2 diabetes mellitus without complications; Z79.4 - toter (current) use of insulin Plan: Learning objectives: The patient was provided with verbal and written education on the following topics as outlined below. Patient seen on 04/10/[address] Lindsey's, at that visit patient was prescribed Jardiance 10 mg Patient continues with other diabetes medication as prescribed Patient using list Enigmediae 3 sensor with smart phone jayy Average glucose for the past 14 days 149 mg/dL Above target 21% At target 79% Below target 0% Patient did 80 mg/dL at today's visit with arrows pointing down, patient reported he taken Fiasp 8 units only ate tomatoes for lunch. Patient given 4 oz shady lisa, and Regan crackers with peanut butter after glucose returned to 81 mg/dL The patient met all learning objectives and was able to verbalize understanding and provide teach back of education topics discussed . The patient was provided with the opportunity to ask questions and all questions were answered. Topics covered in today?s session included: Medications (If applicable) * Name of medication? * Dosing/administration instructions? * Mechanism of action? * Potential side effects? * Potential adverse reaction and appropriate treatment? * Review onset, peak, duration Assess for concerns re: insurance coverage, cost, barriers to compliance Insulin/Injectables (If applicable) * Storage/care of insulin?? * Injection sites? * Site rotation? * Onset, peak, duration * Drawing up insulin? * Injecting insulin/other injectables? * Sharps disposal Continuous blood glucose monitoring (if applicable) Hypoglycemia and Hyperglycemia * Signs and symptoms? * Causes?? * Treatment? * Preventing hypoglycemia? * When to seek medical attention Target Goals: * Blood glucose targets and how you feel when your blood glucose is in and out of your target ranges. * Monitoring and knowing your A1C. * What can make blood glucose go up and down and preventing high and low blood glucose. * Review of blood sugar targets in expected goal range and outside of expected goal range. * Problem solving and preventing hyper/hypoglycemia. * Sick day management of diabetes. * Using blood sugar results in decision making process in managing diabetes. ?Patient was receptive to information provided and participated in the discussion. Asked?appropriate questions and demonstrated good understanding of the topics discussed.? ? Educational Materials: The patient was provided with the following written educational materials: Target Goal, Rule of 15s handouts Smart Goal:? Treat episodes of hypoglycemia with rule of 15s Patient Response to instructions: Comprehension of Instructions: Fair Readiness to make changes:? Action How confident they feel about making changes: Positive Portions of this note were created using voice recognition software, please excuse any words or phrases that may have been misinterpreted. Patient Instructions: Patient will follow-up on 05/08/2024 with provider for next A1c Follow-up with ict educator in 2 months Coding Level of Care Code Est Pt Level 1 (63333) Diagnoses Insulin use (long-term) in type 2 diabetes E11.9; Z79.4
== END 2024-04-24 12:59 | disposition home or self-care (01) ==
PROVIDERS: PCP Physician Assistant; Visit Provider Registered Nurse Diabetes Educator
DX: E11.9 Type 2 diabetes mellitus without complications (principal); Z79.4 Long term (current) use of insulin

== ENCOUNTER → 2024-04-24 12:17 | Outpatient (BNVA) | payer OTHER, SELFPAY | PROVIDERS: PCP Physician Assistant; Visit Provider Registered Nurse Diabetes Educator | DX: E11.9 Type 2 diabetes mellitus without complications (principal); Z79.4 Long term (current) use of insulin | CPT/HCPCS: 99211 ==

== ENCOUNTER 2024-04-29 09:06 | Outpatient (REF) | payer OTHER, SELFPAY ==
[2024-04-29 10:04] LABS: Hematocrit 48.8 % (42.0-52.0); Hemoglobin 15.4 g/dl (14.0-18.0); Mean Corpuscular HGB Conc 31.6 g/dl (31.0-36.0); Mean Corpuscular Hemoglobin 27.2 pg (27.0-33.0); Mean Corpuscular Volume 86.2 fL (80.0-98.0); Mean Platelet Volume 11.9 fL (9.4-12.4); Platelet Count 223 X10*3/uL (160-400); Red Blood Count 5.66 X10*6/uL (4.60-5.80); Red Cell Distribution Width 14.1 % (11.0-16.0); White Blood Count 8.8 X10*3/uL (4.8-10.8)
[2024-04-29 10:16] LABS: Estimated Average Glucose 197 mg/dL; Hemoglobin A1C 274.5074 umol/L; Hemoglobin A1c % 8.5 % (<6.0); Total Hemoglobin (HGBA1C) 3974.2274 umol/L
[2024-04-29 10:23] LABS: Creatinine Urine 86.58 mg/dL; Microalbum/Creatinine Ratio Ur 550.9 ug/mg cr (<30)
[2024-04-29 10:47] LABS: Prostate Specific Antigen Scr 1.07 ng/mL (<0.05-4.0)
[2024-04-29 13:28] LABS: Alanine Aminotransferase 34 U/L (0-40); Albumin Level 4.4 g/dL (3.5-5.0); Alkaline Phosphatase 82 U/L (39-117); Anion Gap 13 (12-20); Aspartate Amino Transferase 27 U/L (5-37); Bilirubin Total 0.4 mg/dL (0.0-1.0); Blood Urea Nitrogen 20 mg/dL (9-16); Calcium 9.9 mg/dL (8.4-10.2); Carbon Dioxide 29 mmol/L (22-29); Chloride 106 mmol/L (96-108); Cholesterol 136 mg/dL (<200); Estimated Glomerular Filt Rate > 60; Glucose Fasting 177 mg/dL (60-99); HDL Cholesterol 41 mg/dL (>40); LDL Cholesterol Calculated 73 mg/dL (<100); Potassium 4.5 mmol/L (3.3-5.1); Sodium 143 mmol/L (135-145); Total Protein 7.7 g/dL (6.5-8.0); Triglycerides 112 mg/dL (<150)
== END 2024-04-29 09:07 | disposition home or self-care (01) ==
LOC: HO.HMGCLDS 09:06
PROVIDERS: PCP Physician Assistant; Visit Provider Physician Assistant
DX: E11.9 Type 2 diabetes mellitus without complications (principal); Z79.4 Long term (current) use of insulin; Z12.5 Encounter for screening for malignant neoplasm of prostate; I63.511 Cerebral infarction due to unspecified occlusion or stenosis of right middle cerebral artery
CPT/HCPCS: 36415; 80053; 80061; 82043; 82570; 83036; 84153; 85027

== ENCOUNTER 2024-05-06 11:58 | Outpatient (AMB) | payer OTHER, SELFPAY ==
--- NOTE | 2024-05-06 12:38 | A.OFFVIS_ITS ---
VS Expanded 05/06/24 12:39 Height 5 ft 7 in Weight 240 lb 4.862 oz BMI 37.6 Intake Visit Reasons: T2DM Allergies atorvastatin Adverse Reaction (Unknown, Verified 04/10/24 12:45) Unknown Nutrition Presentation Details: Pt presents for MNT f/u for T2DM Pt reports working on diet modifications, including fiber rich foods:salads/veg /whole grains has protein shake as beverages has gym membership but not utilizing it Per BG download: 14 d bg average at 147 mg/dl, 81% within target, 17% above 180 and 2% above 250, NO hypoglycemia denies constipation/diarrhea BS Monitoring Most Recent Diabetes Results: Microalb/Creat Ratio 550.9 ug/mg cr (<30) H 04/29/24 Cholesterol 136 mg/dL (<200) 04/29/24 HDL Cholesterol 41 mg/dL (>40) 04/29/24 Triglycerides 112 mg/dL (<150) 04/29/24 Creatinine 0.84 mg/dL (0.5-1.4) 04/29/24 Blood Urea Nitrogen 20 mg/dL (9-16) H 04/29/24 Sodium 143 mmol/L (135-145) 04/29/24 Potassium 4.5 mmol/L (3.3-5.1) 04/29/24 Chloride 106 mmol/L (96-108) 04/29/24 Carbon Dioxide 29 mmol/L (22-29) 04/29/24 Calcium 9.9 mg/dL (8.4-10.2) 04/29/24 AST 27 U/L (5-37) 04/29/24 ALT 34 U/L (0-40) 04/29/24 Total Protein 7.7 g/dL (6.5-8.0) 04/29/24 Albumin 4.4 g/dL (3.5-5.0) 04[facility]29/[facility] Medical History Coagulopathy Arrhythmia BPH (benign prostatic hyperplasia) Chronic renal insufficiency CVA (cerebral vascular accident) History of COVID-19 Sleep apnea Asthma Diabetes High cholesterol HTN (hypertension) Surgical History H/O colonoscopy H/O tooth extraction Mechanical heart valve present Social History Housing: House Alcohol intake: never Patient Tobacco Use Status: Former Tobacco user Tobacco use type: Cigarette e-Cigarette/Vaping Use: Never Used Second Hand Smoke Exposure: No service: No Current occupational status: employed Cognitive needs: No Hearing needs: No Vision needs: Yes Assessment & Plan Assessment & Plan (1) Uncontrolled type 2 diabetes mellitus with hyperglycemia: Code(s): E11.65 - Type 2 diabetes mellitus with hyperglycemia Category: Medical Plan: Wt: 109 Kg ( 04/07/24 ), 04/2024 Est kcal needs as per MSJ: 2200 (40% carb, 30% protein/fat) Est fluid needs as per 25-30 ml/d: 3300 Est prot per day as per 1 g/kg bw: 109 Recommend fiber intake : 8-10 g per day and gradually increase to 25-28 g per day for women and 35-38 g for men or as tolerated Recommend sodium intake per day : less than 1500 mg less than 2000 mg Educated patient on: ( R = reviewed V = verbalizes understanding N/R = needs review N/A = not applicable * Food sources of carbohydrate, adequate serving sizes and its role in various health conditions: R * Differences between complex carbohydrates a simple carbohydrates, role of fiber in diet: R * Lean protein sources of foods: R V NR * Differences between types of fats and role in diet (mono on saturated fat fatty acids, saturated fatty acids, trans fats): R basic * Food sources of sodium in salt and healthy modifications for heart health in kidney health: R V R/V * Vitamins and minerals: R V N/R * Healthy plate method concept: R V N/R * Physical activity: Benefits a precaution: R * Hypoglycemia protocol (rule of 15): R V N/R * Dietary prevention of Hyperglycemia: R Patient Instructions: Engage in physical activity , 30 minute 3 times a week or as able continue choosing fiber rich foods: example nuts, bran cereals. oats , legumes Have a protein shake as a meal replacement, choose low sugar beverages (water, fruit/herb infused) Coding Level of Care Code Nutr Indiv Subseq (24109) Diagnoses Uncontrolled type 2 diabetes mellitus with hyperglycemia E11.65 Time Spent (min) 25
[2024-05-06 12:39] VITALS: BMI 37.6
== END 2024-05-06 13:04 | disposition home or self-care (01) ==
PROVIDERS: PCP Physician Assistant; Visit Provider Dietitian, Registered
DX: E11.65 Type 2 diabetes mellitus with hyperglycemia (principal)

== ENCOUNTER → 2024-05-06 11:58 | Outpatient (BNVA) | payer OTHER, SELFPAY | PROVIDERS: PCP Physician Assistant; Visit Provider Dietitian, Registered | DX: E11.65 Type 2 diabetes mellitus with hyperglycemia (principal); Z71.3 Dietary counseling and surveillance | CPT/HCPCS: 97803 ==

== ENCOUNTER 2024-05-08 09:45 | Outpatient (AMB) | payer OTHER, SELFPAY ==
--- NOTE | 2024-05-08 09:52 | MHC.PC.OV ---
Vital Signs 05/08/24 09:53 Height 5 ft 7 in Weight 239 lb 6 oz BMI 37.5 BP 142/88 H Blood Pressure Location Lt brachial Position Sitting Pulse 70 Pulse Source Pulse Oximeter Temp 96.9 F Temp Source Temporal Artery Scan Pulse Oximetry (%) 97 Oxygen Delivery Method Room Air Intake Visit Reasons: follow up Ophthalmic Technologist Required: No Accompanied by: Self / Same As Patient Allergies atorvastatin Adverse Reaction (Unknown, Verified 05/08/24 10:09) Unknown Medication List - Last Reconciled 05/08/24 by Ayaz Sewell PA-C acetaminophen (Tylenol) 650 mg (2 x 325 mg) PO Q6H PRN albuterol sulfate 90 mcg/actuation 2 puffs inhalation Q4-6H PRN 90 days aspirin 1 tab PO DAILY betamethasone dipropionate 0.05% 1 appl topical DAILY 30 days bisacodyl (Dulcolax (bisacodyl)) 20 mg (4 x 5 mg) PO ONCE 1 day blood sugar diagnostic (FreeStyle Lite Strips) Check sugar twice a day /PRN blood-glucose meter (FreeStyle [place] Lite kit) As directed CPAP As directed dulaglutide (Trulicity) 3 mg (0.5 mL) subcut QWEEK 90 days dulaglutide (Trulicity) 3 mg subcut QWEEK empagliflozin (Jardiance) 10 mg PO DAILY ferrous sulfate 325 mg PO BID 90 days fluticasone propion-salmeterol 250-50 mcg/dose (Wixela Inhub) 1 inh inhalation BID 90 days FreeStyle Nabeel 3 [place] (blood-glucose meter,continuous) As directed NS FreeStyle Nabeel 3 Sensor (blood-glucose sensor) every 14 days NS insulin aspart (niacinamide) 100 unit/mL (3 mL) (Fiasp FlexTouch U-100 Insulin) 8 units subcut TID insulin glargine (Basaglar KwikPen U-100 Insulin) 56 units (0.56 mL) subcut BEDTIME 90 days lancets (FreeStyle Lancets) As directed losartan 50 mg (2 x 25 mg) PO DAILY meclizine 25 mg PO TID 90 days metformin 1,000 mg PO DAILY 90 days metoprolol tartrate 50 mg PO BID pantoprazole 40 mg PO DAILY pen needle, diabetic (CareTouch Pen Needle) As directed daily with insulin pen pen needle, diabetic (Comfort Touch Pen Needle) As directed TID with insulin pen pioglitazone 30 mg PO DAILY polyethylene glycol 3350 (Miralax) 238 grams PO ONCE rosuvastatin 40 mg PO DAILY 90 days sertraline 50 mg PO DAILY sildenafil 100 mg PO DAILY 30 days tamsulosin 0.4 mg PO DAILY warfarin 2 mg PO DAILY 90 days warfarin 3 mg PO DAILY 90 days Tobacco use date assessed: 05/08/24 Dental Screening Dental Screen Date: 05/08/24 Did you have a dental visit in the last 12 months?: Yes Did you have a dental problem in the last 6 months where you did not have access to dental care?: No Was dental information given to patient?: Patient has dentist HPI follow up HPI Details pateint is a 58 y/o M here today for a a follow-up visit.? Patient has a past medical history of CVA, aortic valve replacement,h/o aortic dissection, diabetes, obesity, coronary artery disease, iliac artery aneurysm, hypertension. Major depressive disorder: Patient continues on sertraline with only decent affect. Does have personal home issues that were followed in his daughter that causes his mood to be low. He has stopped seeing his mental health therapist as he has not been able to get an appointment. He is willing to get a new referral to cognitive behavioral therapy. Microcytic anemia: Has been started on iron supplementation in CBC has improved. ? .. ? CAD: Is followed by cardiology at [facility] (PV cards) , denies any chest pains palpitations or shortness of breath. Most recent lipid panel showing excellent control of his total cholesterol and LDL. .. ..HTN: Blood pressure slightly elevated today in office , does not check at home.? He is otherwise asymptomatic. He does not monitor his blood pressures at home Continues on losartan 50 mg. We did discuss perhaps increasing his losartan to 100 mg for better blood pressure control. Recent microalbumin very elevated likely due to uncontrolled hypertension and type 2 diabetes. ? . ?Aortic valve replacement: Is currently on Coumadin with therapeutic INRs between 2.5 and 3.5.? Denies any overt signs of bleeding. Iliac artery aneurysm: Underwent repair in 2023. Followed by vascular surgery at [facility] Has upcoming CT abdomen for surveillance. ? .. ? DMII: Has establish care with [place] [facility]. Has been more consistent with taking his medication A1c much improved from 14-8.5. 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 He has also been started on Jardiance ? He monitors his blood pressure at home and does report having some higher readings .. His diabetes has not been well controlled. He does admit dietary indiscretion due to his depression. Most recent fasting blood sugar elevated, urine showing glucosuria . [facility] Medical History Coagulopathy Arrhythmia BPH (benign prostatic hyperplasia) Chronic renal insufficiency CVA (cerebral vascular accident) History of COVID-19 Sleep apnea Asthma Diabetes High cholesterol HTN (hypertension) Surgical History H/O colonoscopy H/O tooth extraction Mechanical heart valve present Social History Housing: House Alcohol intake: never Patient Tobacco Use Status: Former Tobacco user Tobacco use type: Cigarette e-Cigarette/Vaping Use: Never Used Second Hand Smoke Exposure: No service: No Current occupational status: employed Cognitive needs: No Hearing needs: No Vision needs: Yes Questionnaire PHQ-9 Over the last 2 weeks, how often have you been bothered by any of the following problems? 1. Little interest or pleasure in doing things: nearly every day 2. Feeling down, depressed, or hopeless: nearly every day 3. Trouble falling or staying asleep, or sleeping too much: nearly every day 4. Feeling tired or having little energy: nearly every day 5. Poor appetite or overeating: several days 6. Feeling bad about yourself - or that you are a failure or have let yourself or your family down: nearly every day 7. Trouble concentrating on things, such as reading the newspaper or watching television: more than half the days 8. Moving or speaking so slowly that other people could have noticed. Or the opposite - being so fidgety or restless that you have been moving around a lot more than usual: nearly every day 9. Thoughts that you would be better off or of hurting yourself in some way: nearly every day Total score: 24 Depression Screening Interpretation: Positive Depression Screening Follow-up: Existing condition and In treatment Depression Screening Done: Yes 66295 - PHQ-9 Billing: Yes Source: Developed by Drs. Jg Mims, Tonia Zapata, Colt Calero and colleagues, with an educational sultana from [employer]. Thrive Questionnaire Date Thrive assessed: 05/08/24 I am a: Patient What is your living situation today?: I have a steady place to live Within the past 12 months, did the food you bought not last and you didn't have the money to get more?: Never true Within the past 12 months, did you worry whether your food would run out before you got money to buy more?: Never true Do you have trouble paying for medicines?: No Do you have trouble getting transportation to medical appointments?: No Do you have trouble paying your heating and electricity bill?: No Do you have trouble taking care of your child, family member or friend?: No Do you have trouble with day-to-day activities such as bathing, preparing meals, shopping, managing finances, etc.?: No Are you currently unemployed and looking for a job?: No Are you interested in more education?: No Please select the resources that you would like help with: None Currently or been in a relationship where the following occur: No concerns reported THRIVE Score: 0 AUDIT C Alcohol Use Questionnaire (AUDIT-C) 1. How often do you have a drink containing alcohol?: Never 3. How often do you have six or more drinks on one occasion?: Never Total Score: 0 LAINA-7 AMB Questionnaire LAINA-7 Date LAINA - 7 assessed: 05/08/24 Feeling nervous, anxious, or on edge: 0 = Not at all Not being able to stop or control worryin = Not at all Worrying too much about different things: 0 = Not at all Trouble relaxin = Not at all Being so restless that it is hard to sit still: 0 = Not at all Becoming easily annoyed or irritable: 0 = Not at all Feeling afraid as if something awful might happen: 0 = Not at all Total LAINA-7 score (0-4 normal; 5-9 mild; 10-14 moderate; 15-21 severe): 0 Source: Developed by Tonia FlemingW. Benny, Colt Calero and colleagues, with an educational sultana from [employer]. LAINA-7 Assessment Billing LAINA-7 Assessment Tool: LAINA-7 Assessment 77280 Review of Systems Const Denies headache(s) Eyes Denies loss of vision ENT Denies vertigo, Denies dizziness, Denies headache(s) and Denies sore throat Card Denies chest pain, Denies leg edema and Denies lightheadedness Resp Denies cough, Denies hemoptysis and Denies wheezing GI Denies abdominal pain, Denies melena, Denies constipation, Denies diarrhea and Denies vomiting Denies dysuria, Denies urinary frequency and Denies urinary urgency Musc Denies arthralgias, Denies joint swelling, Denies numbness and Denies tingling Neuro Denies Abnormal speech present, Denies behavioral changes, Denies vertigo, Denies dizziness, Denies headache(s), Denies loss of vision, Denies memory loss, Denies numbness and Denies tingling Psych Denies anxiety, Denies behavioral changes, Denies depression, Denies memory loss and Denies panic attacks Maximiliano/Lymph Denies easy bleeding and Denies easy bruising Aller/Immun Denies wheezing Physical exam (Primary Care) Vital Signs: Last Vital Signs Temp 96.9 F 05/08/24 09:53 Pulse 70 05/08/24 09:53 BP 142/88 H 05/08/24 09:53 Pulse Ox 97 05/08/24 09:53 Oxygen Delivery Method Room Air 05/08/24 09:53 BMI result Body Mass Index 37.5 Tobacco/Smoking Status: Tobacco use Status Tobacco use date assessed 05/08/24 05/08/24 10:03 Patient Tobacco Use Status Former Tobacco user 05/08/24 09:55 Tobacco use type Cigarette 05/08/24 09:55 e-Cigarette/Vaping Use Never Used 05/08/24 09:55 PHQ-9: PHQ-9 Score PHQ-9: Total score 24 05/08/24 10:03 Depression Screening Interpretation: Positive Depression Screening Follow-up: Existing condition and In treatment Thrive Assessment: Date of Thrive Assessment Date Thrive assessed 05/08/24 05/08/24 10:03 Currently or been in a relationship where the following occur: No concerns reported Const General: healthy appearing, no acute distress, alert and awake Nutritional Appearance: well nourished Orientation/consciousness: oriented to person, oriented to place and oriented to time HENMT Ears: TM's normal bilaterally General nose exam: Normal nasal mucous membranes and turbinates present Eyes Conjunctivae: conjunctivae normal Sclerae: sclerae normal Pupils: Equal, round and reactive pupils present Neck Neck: Yes no lymphadenopathy and Yes no JVD Thyroid: Thyroid normal Carotids: no bruits Resp Effort & Inspection: normal respiratory effort and not tachypneic Auscultation: no crackles, no rales, no rhonchi and no wheezes Cardio Rate: regular rate Rhythm: regular rhythm Heart sounds: no murmurs and normal S1 and S2 GI Palpation (GI): Soft to palpation, nontender, no hepatomegaly and no splenomegaly Auscultation: normal bowel sounds Skin General skin exam: no rashes or lesions noted and dry skin Neuro General: oriented to person, oriented to place and oriented to time Cranial nerves: Yes Equal, round and reactive pupils present Speech: No Abnormal speech present Gait exam (Neuro): Normal gait present Motor exam (neuro): no tremor noted Extrem Right upper extremity: full ROM Left upper extremity: full ROM Right lower extremity: full ROM; no edema Left lower extremity: full ROM; no edema Psych Mental Status: mental status grossly normal Speech and movement: Normal speech and movement present Affect: normal affect Attitude: cooperative Thought process: Normal thought process present Coding Level of Care Code Est Pt Level 4 (28146) Diagnoses Type 2 diabetes mellitus with diabetic nephropathy, with long-term current use of insulin E11.21; Z79.4 Diabetes mellitus intermediate designer insulin use: with intermediate designer use Diabetes mellitus complication status: with kidney complications Diabetes mellitus complication detail: with nephropathy MDD (major depressive disorder), recurrent episode, moderate F33.1 Mild intermittent asthma without complication J45.20 Asthma severity: mild Asthma persistence: intermittent Asthma complication type: uncomplicated Primary hypertension I10 Hypertension type: primary hypertension Mixed hyperlipidemia E78.2 Hyperlipidemia type: mixed hyperlipidemia Cerebrovascular accident (CVA) due to occlusion of right middle cerebral artery I63.511 CVA mechanism: occlusion Precerebral and cerebral artery: middle cerebral artery Laterality of affected vessel: right Class 2 obesity E66.812 Additional Codes LAINA-7 Assessment Billing - LAINA-7 Assessment Tool: LAINA-7 Assessment 55011 ([id number]) PHQ-9 - 27189 - PHQ-9 Billing: Yes ([id number]) Assessment & Plan Assessment & Plan (1) DMII (diabetes mellitus, type 2): Code(s): E11.9 - Type 2 diabetes mellitus without complications Category: Medical Qualifiers: Diabetes mellitus retirement insulin use: with retirement use Diabetes mellitus complication status: with kidney complications Diabetes mellitus complication detail: with nephropathy Qualified Code(s): E11.21 - Type 2 diabetes mellitus with diabetic nephropathy; Z79.4 - long term (current) use of insulin Plan: Patient's type 2 diabetes has been much better controlled since being more his insulin and started Jardiance. 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 A1c now 8.5 from 14. (2) MDD (major depressive disorder), recurrent episode, moderate: Code(s): F33.1 - Major depressive disorder, recurrent, moderate Category: Medical Plan: Patient's PHQ-9 score positive for depression which has been existing condition for him. He does continue with sertraline 50 mg. Patient now seeing a mental health therapist. He feels his mental health is a bit better. (3) Asthma: Code(s): J45.909 - Unspecified asthma, uncomplicated Category: Medical Qualifiers: Asthma severity: mild Asthma persistence: intermittent Asthma complication type: uncomplicated Qualified Code(s): J45.20 - Mild intermittent asthma, uncomplicated Plan: Asthma is fairly well controlled with only p.r.n. use of his albuterol inhaler. No reports of recent asthma exacerbations (4) HTN (hypertension): Code(s): I10 - Essential (primary) hypertension Category: Medical Qualifiers: Hypertension type: primary hypertension Qualified Code(s): I10 - Essential (primary) hypertension Plan: Patient's blood pressure slightly elevated today in office. We did discuss perhaps her increasing his losartan to 100 mg. Does have microalbuminuria likely secondary to his uncontrolled type 2 diabetes. (5) HLD (hyperlipidemia): Code(s): E78.5 - Hyperlipidemia, unspecified Category: Medical Qualifiers: Hyperlipidemia type: mixed hyperlipidemia Qualified Code(s): E78.2 - Mixed hyperlipidemia Plan: Patient's most recent lipid panel showing excellent control of his total cholesterol and LDL. Goal LDL is to remain below 70 (6) CVA (cerebral vascular accident): Comment: post aortic valve replacement Code(s): I63.9 - Cerebral infarction, unspecified Category: Medical Qualifiers: CVA mechanism: occlusion Precerebral and cerebral artery: middle cerebral artery Laterality of affected vessel: right Qualified Code(s): I63.511 - Cerebral infarction due to unspecified occlusion or stenosis of right middle cerebral artery Plan: Patient has had a CVA after his aortic valve replacement years ago. Continues on medical management with aggressive cholesterol control. Continues on antiplatelet therapy as well. Goal LDL to remain optimally below 70 (7) Class 2 obesity: Code(s): E66.812 - Obesity, class 2 Category: Medical Plan: Patient does understand his BMI is over 35 and will work on trying to be more physically active and adapt to better eating habits to reduce his weight. Orders: Orders Complete Blood Count no Diff Today E11.65 - Type 2 diabetes mellitus with hyperglycemia Lipid Panel Today E78.2 - Mixed hyperlipidemia Comprehensive [place]. Panel Fast Today E11.65 - Type 2 diabetes mellitus with hyperglycemia
[2024-05-08 09:53] VITALS: BP 142/88; PULSE 70; TEMP 36.1; O2SAT 97; BMI 37.5
== END 2024-05-08 10:38 | disposition home or self-care (01) ==
PROVIDERS: PCP Physician Assistant; Visit Provider Physician Assistant
DX: E11.21 Type 2 diabetes mellitus with diabetic nephropathy (principal); Z79.4 Long term (current) use of insulin; F33.1 Major depressive disorder, recurrent, moderate; I63.511 Cerebral infarction due to unspecified occlusion or stenosis of right middle cerebral artery; E66.812 Obesity, class 2; Z68.37 Body mass index [BMI] 37.0-37.9, adult; J45.20 Mild intermittent asthma, uncomplicated; I10 Essential (primary) hypertension; E78.2 Mixed hyperlipidemia

== ENCOUNTER → 2024-05-08 09:45 | Outpatient (BNVA) | payer OTHER, SELFPAY | PROVIDERS: PCP Physician Assistant; Visit Provider Physician Assistant | DX: E11.65 Type 2 diabetes mellitus with hyperglycemia (principal); E11.21 Type 2 diabetes mellitus with diabetic nephropathy; F33.1 Major depressive disorder, recurrent, moderate; J45.20 Mild intermittent asthma, uncomplicated; E78.2 Mixed hyperlipidemia; I10 Essential (primary) hypertension; I63.511 Cerebral infarction due to unspecified occlusion or stenosis of right middle cerebral artery; E66.812 Obesity, class 2 | CPT/HCPCS: 82947; 96127; 99212 ==

== ENCOUNTER 2024-05-08 12:50 | Outpatient (AMB) | payer OTHER, SELFPAY ==
--- NOTE | 2024-05-08 13:07 | A.OFFVIS_ITS ---
Vital Signs 05/08/24 13:14 Height 5 ft 7 in Weight 240 lb 4.862 oz BMI 37.6 BP 128/68 Blood Pressure Location Rt brachial Position Sitting Pulse 82 Pulse Source Pulse Oximeter Intake Visit Reasons: f/u Type 2 DM Intake Note: Patient presents today for 7Type 2 Diabetes Mellitus: Last Diabetic eye exam was on: DUE Last Podiatry exam was on: Does not see a [employer]iler Most recent HbA1c: 8.5%, 04/29/2024 Random Glucose- 269 mg/dL, Today Recorder [employer] Required: No Accompanied by: Self / Same As Patient Allergies atorvastatin Adverse Reaction (Unknown, Verified 05/08/24 13:18) Unknown HPI Comments Details: 58 y/o male presenting for diabetes follow up Patient has a past medical history of CVA, aortic valve replacement,h/o aortic dissection, diabetes, obesity, coronary artery disease, iliac artery aneurysm, hypertension. Current medications: At that time Basaglar was increased to 56 units nightly, fiasp 8u three times daily, metformin 1000mg BID. Trulicity 3 mg Qwkly .Actos 30 mg QD Nabeel download shows he is using the sensor >90% of the time-TGT 91%, Avg 138 Adopted On ARB/statin Micro/macrovascular complications: ED Diagnosed in 30s Hasnt had nutrition or diabetic education Hypoglycemia: No Up-to-date with ophthalmology appointments: >1 yr - needs to make appt ROS CONSTITUTIONAL: Denies weight loss, fever and chills. HEENT: Denies changes in vision and hearing. RESPIRATORY: Denies SOB and cough. CV: Denies palpitations and CP GI: Denies abdominal pain, nausea, vomiting and diarrhea. : Denies dysuria and urinary frequency. MSK: Denies new myalgia and joint pain. SKIN: Denies rash and pruritus. NEUROLOGICAL: Denies headache PSYCHIATRIC: Denies recent changes in mood. PHYSICAL EXAM: GENERAL: Alert and oriented x 3. NAD EYES: EOMI. Anicteric. HENT: Moist mucous membranes. No scleral icterus. No cervical lymphadenopathy. LUNGS: Clear to auscultation bilaterally. CARDIOVASCULAR: Regular rate and rhythm. +murmur No JVD. ABDOMEN: Soft, non-tender +bs EXTREMITIES: No edema. Non-tender. SKIN: No rashes or lesions. Warm. NEUROLOGIC: No focal neurological deficits. CN II-XII grossly intact PSYCHIATRIC: Cooperative. Appropriate mood and affect [facility] Medical History Coagulopathy Arrhythmia BPH (benign prostatic hyperplasia) Chronic renal insufficiency CVA (cerebral vascular accident) History of COVID-19 Sleep apnea Asthma Diabetes High cholesterol HTN (hypertension) Surgical History H/O colonoscopy H/O tooth extraction Mechanical heart valve present Social History Housing: House Alcohol intake: never Patient Tobacco Use Status: Former Tobacco user Tobacco use type: Cigarette e-Cigarette/Vaping Use: Never Used Second Hand Smoke Exposure: No service: No Current occupational status: employed Cognitive needs: No Hearing needs: No Vision needs: Yes Physical Exam Vital Signs: Last Vital Signs Pulse 82 05/08/24 13:14 BP 128/68 05/08/24 13:14 BMI result Body Mass Index 37.6 Results Reviewed Results Reviewed: Laboratory Last Values Glucose (Clinic) 269 mg/dL (60-115) H 05/08/24 13:16 Assessment & Plan Assessment & Plan (1) Uncontrolled type 2 diabetes mellitus with hyperglycemia: Code(s): E11.65 - Type 2 diabetes mellitus with hyperglycemia Category: Medical Plan: Improving glycemic control Will switch trulicity to ozempic May need to go up slightly on basaglar but TBD after GLP switch. Return in 3 months or sooner as needed Medications: New Ozempic (semaglutide) 2 mg (0.75 mL) subcut QWEEK 9 mL 3RF NS Refilled empagliflozin (Jardiance) 10 mg PO DAILY 30 tabs 3RF empagliflozin (Jardiance) 10 mg PO DAILY 90 tabs 3RF Discontinued dulaglutide (Trulicity) Discontinued Reason: Doctor's Order 3 mg (0.5 mL) subcut QWEEK 90 days 6.5 mL 1RF E11.65 - Type 2 diabetes mellitus with hyperglycemia Coding Level of Care Code Est Pt Level 4 (84072) Diagnoses Uncontrolled type 2 diabetes mellitus with hyperglycemia E11.65
[2024-05-08 13:14] VITALS: BP 128/68; PULSE 82; BMI 37.6
[2024-05-08 13:22] LABS: Glucose, Whole Blood 269 mg/dL (60-115)
== END 2024-05-08 13:43 | disposition home or self-care (01) ==
PROVIDERS: PCP Physician Assistant; Visit Provider Internal Medicine
DX: E11.65 Type 2 diabetes mellitus with hyperglycemia (principal)

== ENCOUNTER 2024-05-28 13:53 | Emergency (ER) | payer OTHER, SELFPAY ==
--- NOTE | ~2024-05-28 | CT_ITS ---
EXAMINATION: CTA NECK WITH CONTRAST (STROKE) CTA BRAIN WITH CONTRAST (STROKE) CLINICAL INFORMATION: Suspect acute stroke. Assess for major vessel occlusion. Please call report. COMPARISON: None available. TECHNIQUE: CTA of the head and neck was performed in the axial plane from the mediastinum to the skull vertex using 85 mL Omnipaque 350 intravenous contrast. Additional reformatted multiplanar images including maximum intensity projection MIP images are generated on the CT workstation. This CT examination was performed using dose optimization techniques as appropriate, variously including the following: *Automated exposure control *Adjustment of mA and/or kV according to patient size (this includes techniques or standardized protocols for targeted exams where dose is matched to indication/reason for exam; i.e. extremities or head) *Use of iterative reconstruction technique. DLP: 1685 mGy/cm. FINDINGS: The degree of stenosis determined by criteria similar to NASCET. Brain: Postcontrast there is no abnormal enhancing mass, edema or midline shift. Dilated but symmetrical lateral ventricles are again noted. There is midline anterior falx dural calcification. No gross bony abnormality seen Chest CTA: There is a three-vessel branching of the aortic arch. The ascending, arch and the descending thoracic aorta are of normal caliber. Bilateral subclavian arteries are widely patent. The right brachiocephalic artery bifurcates normal in the subclavian and normal origin of right common carotid artery. Left common carotid artery origin is normal of the arch. The left subclavian artery is normal. Both vertebral artery origins are normal of the subclavian artery. Neck CTA: Bilateral common carotid arteries are widely patent. Mild atherosclerotic plaques are seen at the common carotid bulb with minimal thrombus in the right distal CCA/ bulb region. There is moderate stenosis distal right CCA likely greater than 50%. The left distal CCA, bulb and the proximal ICA are normal. Bilateral internal carotid arteries are widely patent in the neck. Both external carotid artery and the branches are widely patent. Brain CTA: Both vertebral arteries are codominant and merge to form the basilar artery. The basilar artery and its branches are widely patent. No evidence of aneurysm, atherosclerotic narrowing seen. Minimal calcified plaque left distal vertebral artery. Right internal carotid artery segments involving the petrous, cavernous and the infraclinoid segments are patent with mild calcified plaque. The supraclinoid ICA is widely patent with with moderate atherosclerotic calcified plaque it bifurcates normally into middle and anterior cerebral arteries without any aneurysm, dissection or thrombus. Left internal carotid artery petrous, cavernous and infraclinoid segments are patent with mild atherosclerotic calcified plaque but no stenosis or aneurysm. The supraclinoid ICAs patent and bifurcates into anterior and middle cerebral artery branches. No aneurysm or stenosis seen. Bilateral posterior communicating arteries are not visualized and likely absent. The anterior to indicating artery is barely visible but patent. The major intracerebral venous sinuses are patent. Neck non-CTA: There is moderate ventral spondylosis C4-5-2 T1-T2 disc level. There are median sternotomy plates and screws for an old interventional. CT/CT angio head neck STROKE IMPRESSION: Unremarkable limited CTA chest, CTA of the neck and CTA brain. Moderate ventral spondylosis C4-5, C5-6 and C6 testis 7 disc levels. There is moderate thrombus in the right distal CCA carotid bulb with at least greater than 50% stenosis. This can be evaluated with carotid ultrasound. This critical test result is communicated to:Nurse Leiva by phone in the ED at 3.11pm. Electronically signed by: Merrill Fernandes MD 05/28/2024 03:12 PM [facility]
--- NOTE | ~2024-05-28 | CT_ITS ---
EXAMINATION: CT HEAD WITHOUT CONTRAST (STROKE PROTOCOL) CLINICAL INFORMATION: Stroke protocol. Left facial droop . Patient on Coumadin COMPARISON: CT brain 05/20/2023 TECHNIQUE: Contiguous axial imaging was performed from the skull base to vertex without intravenous administration of contrast. This CT examination was performed using dose optimization techniques as appropriate, variously including the following: *Automated exposure control *Adjustment of mA and/or kV according to patient size (this includes techniques or standardized protocols for targeted exams where dose is matched to indication/reason for exam; i.e. extremities or head) *Use of iterative reconstruction technique DLP: 878 mGy/cm. FINDINGS: There is no acute intra-axial, extra-axial bleed, masses or or midline shift. There is no acute infarction in evolution. There is no edema. There is diffuse periventrical hypodensity in both cerebral hemispheres without mass effect or edema. There is hypodensity in the right parietal lobe slightly more prominent than previous study extending to the cortical surface. This is likely progression of chronic small vessel ischemic changes or subacute ischemia. There is no edema are. The lateral ventricles are enlarged and so are the cortical sulci. No abnormality seen in posterior fossa. Bone windows reveal no calvarial abnormality. No scalp soft tissue abnormality seen. Bilateral paranasal sinuses and mastoid air cells are well-aerated. CT/CT head for STROKE IMPRESSION: No acute intracranial bleed is. Diffuse chronic small vessel ischemic changes in the deep white matter both cerebral hemispheres. There is slight progression of hypodensity right parietal lobe compared to previous exam. This may represent subacute to acute ischemia or white matter changes. This critical result was discussed with ED Dr. Norton at 2:40 PM . It was ascertained that the content and urgency of the report was understood at the time of direct communication. Electronically signed by: Merrill Fernandes MD 05/28/2024 02:44 PM [facility]
[2024-05-28 13:56] VITALS: BP 156/84; PULSE 72; RESP 20; TEMP 36.4; O2SAT 94; BMI 39.6
--- NOTE | 2024-05-28 13:59 | ED_ITS ---
HPI - General Adult General Chief complaint: Neuro Symptoms/Deficit Stated complaint: problem speaking Time Seen by Provider: 05/28/24 14:13 History of Present Illness ED Provider: Errol FAUST narrative: The patient is a 58-year-old male who has a mechanical aortic valve. He had the surgery about 5 or 6 years ago. He says that he had a slight stroke at the time from which you made a good recovery. He describes having right-sided deficits. He is on warfarin and he says that he takes it consistently. He comes to the emergency room today because he has had 3 days of abnormal speech. He feels that his speech has been slightly thickened harder to understand for about 3 days. Today a friend convinced him to come to the emergency room. No significant headache. No sense of weakness in his arms or his legs. He does not feel that his face looks any different than usual. He has no visual symptoms. No fever, sweats, chills. Related Data Previous Rx's ?Medication ?Instructions ?Recorded CPAP #1 ea 09/29/21 sildenafil 100 mg tablet 100 mg PO DAILY 30 days #30 tabs 09/29/21 acetaminophen 325 mg capsule 650 mg (2 x 325 mg) PO Q6H PRN 09/04/22 (Tylenol) pain #20 caps blood-glucose meter (FreeStyle #1 ea 06/15/23 [place] Lite kit) blood sugar diagnostic (FreeStyle #100 ea 09/13/23 Lite Strips) ferrous sulfate 325 mg (65 mg 325 mg PO BID 90 days #180 tabs 09/13/23 iron) tablet fluticasone 250 mcg-salmeterol 50 1 inh inhalation BID 90 days #3 09/13/23 mcg/dose blistr powdr for inhalers inhalation (Wixela Inhub) meclizine 25 mg tablet 25 mg PO TID 90 days #270 tabs 09/13/23 metoprolol tartrate 50 mg tablet 50 mg PO BID #180 tabs 09/13/23 pantoprazole 40 mg tablet,delayed 40 mg PO DAILY #90 tabs 09/13/23 release sertraline 50 mg tablet 50 mg PO DAILY #90 tabs 09/13/23 warfarin 2 mg tablet 2 mg PO DAILY 90 days #90 tabs 09/13/23 warfarin 3 mg tablet 3 mg PO DAILY 90 days #90 tabs 09/13/23 bisacodyl 5 mg tablet,delayed 20 mg (4 x 5 mg) PO ONCE 1 day #4 02/22/24 release (Dulcolax (bisacodyl)) tabs polyethylene glycol 3350 17 238 g PO ONCE #238 grams 02/22/24 gram/dose oral powder (Miralax) albuterol sulfate 90 mcg/actuation 2 puff inhalation Q4-6H PRN 03/07/24 aerosol inhaler shortness of breath or wheezing 90 days #3 ea FreeStyle Nabeel 3 Filley #1 ea 03/13/24 (blood-glucose meter,continuous) insulin aspart 8 unit subcut TID #15 mL 03/13/24 (niacinamide)(U-100) 100 unit/mL(3 mL) subcutaneous pen (Fiasp FlexTouch U-100 Insulin) metformin 1,000 mg tablet 1,000 mg PO DAILY 90 days #90 tabs 03/13/24 aspirin 81 mg chewable tablet 1 tab PO DAILY #90 tabs 03/28/24 lancets 28 gauge (FreeStyle #100 ea 03/28/24 Lancets) betamethasone dipropionate 0.05 % 1 appl topical DAILY 30 days #45 04/03/24 topical cream grams pen needle, diabetic 29 gauge x #100 ea 04/17/24 1/2 (CareTouch Pen Needle) pen needle, diabetic 31 gauge x #100 ea 04/17/24 3/16 (Comfort Touch Pen Needle) tamsulosin 0.4 mg capsule 0.4 mg PO DAILY #90 caps 04/29/24 Ozempic 2 mg/dose (8 mg/3 mL) 2 mg (0.75 mL) subcut QWEEK #9 mL 05/14/24 subcutaneous pen injector (semaglutide) empagliflozin 10 mg tablet 10 mg PO DAILY #90 tabs 05/14/24 (Jardiance) losartan 25 mg tablet 50 mg (2 x 25 mg) PO DAILY #90 tabs 05/14/24 rosuvastatin 40 mg tablet 40 mg PO DAILY 90 days #90 tabs 05/14/24 FreeStyle Nabeel 3 Sensor #6 ea 05/15/24 (blood-glucose sensor) insulin glargine 100 unit/mL (3 56 unit (0.56 mL) subcut BEDTIME 05/15/24 mL) subcutaneous pen (Basaglar 90 days #50.4 mL KwikPen U-100 Insulin) pioglitazone 30 mg tablet 30 mg PO DAILY #90 tabs 05/15/24 Allergies Allergy/AdvReac Type Severity Reaction Status Date / Time atorvastatin AdvReac Unknown Unknown Verified 05/28/24 14:00 Review of Systems 2 Review of Systems: Yes all other systems are reviewed and are negative [facility] Past Medical History Medical History Coagulopathy Arrhythmia BPH (benign prostatic hyperplasia) Chronic renal insufficiency CVA (cerebral vascular accident) History of COVID-19 Sleep apnea Asthma Diabetes High cholesterol HTN (hypertension) Surgical History H/O colonoscopy H/O tooth extraction Mechanical heart valve present Social History Social History Housing: House Alcohol intake: never Patient Tobacco Use Status: Former Tobacco user Tobacco use type: Cigarette e-Cigarette/Vaping Use: Never Used Second Hand Smoke Exposure: No Advance Directives: No Advance Directives Information Provided: Yes Do you have a plan to hurt others: No Plan service: No Current occupational status: employed Cognitive needs: No Hearing needs: No Vision needs: Yes Physical Exam ED Vital Signs: Vital Signs - 24 hr 05/28/24 13:56 05/28/24 16:33 Temperature 97.6 F 97.6 F Pulse Rate 72 73 Respiratory Rate 20 18 Blood Pressure 156/84 H 151/80 H Pulse Oximetry 94 94 Oxygen Delivery Method Room Air Room Air BMI result Body Mass Index 39.6 Const Other: The patient is a harris 58-year-old man who was awake and alert. Does not seem obviously acutely ill but his speech is somewhat thick and slightly difficult to understand HENMT Other: The patient's face did not seem entirely symmetrical. I thought that the right side of the face was more dynamic than the left. However the patient, who examined himself using his phone, did not feel that his face or facial movements was any different than usual. Eyes Other: Pupils are round equal, extraocular movements are intact. Lateral gaze is intact. Visual clayton are intact to confrontation. Neck Neck: Yes full ROM Resp Effort & Inspection: normal respiratory effort Auscultation: clear to auscultation bilaterally Cardio Rate: regular rate Rhythm: regular rhythm Heart sounds: S1 normal heart sound present, S2 normal heart sound present and Clicking heart sound present GI Other: The patient has a large abdomen which is soft and nontender Skin Other: Skin is dry and unremarkable Neuro Other: The patient is awake and alert. Mental status is normal. Orientation is normal. Eye movements are normal with a normal lateral gaze bilaterally. Visual clayton are intact to confrontation. I felt that there was some facial asymmetry with the patient's face being more dynamic on the right side but the patient, who examined himself with his phone, does not feel that anything is different from his usual. His speech is somewhat difficult to understand. I feel he has some degree of dysarthria. He does not seem to have aphasia. He has intact strength in his extremities. No pronator drift. Finger-nose is normal. Gait is steady. NIH stroke scale is 1 for dysarthria. NIH Stroke Scale Internal: Initial- Upon Arrival Time: 13:59 Level of Consciousness: Alert Level of Consciousness Questions: Answers both questions correctly Level of Consciousness Commands: Performs both tasks correctly Best Gaze: Normal Visual: No visual loss Facial Palsy: Minor paralyis Motor Arm (Right): No drift Motor Arm (Left): No drift Motor Leg (Right): No drift Motor Leg (Left): No drift Limb Ataxia: Absent Sensory: Normal Best Language: No aphasia Dysarthia: Mild to moderate dysarthria Extinction and Inattention: No abnormality Score: 2 Course Course Course Narrative: This is a Rapid Medical Examination (RME) performed by Radha Coleman PA-C in triage. Full HPI, ROS, assessment and treatment plan per primary provider in the Main ED. 58 yo male hx of CVA (04/2023) here for 3 days of slurred speech. on AC. NIH 2 (facial droop, dysarthria) Plan: cupola charger and ED provider errol aware of patient. stroke protocol ordered as patient is on AC - concern for hemorrhage. Patient immediately brought back to ed bed. Medications Administered Discontinued Medications Generic Name Dose Route Start Last Admin Trade Name Freq PRN Reason Stop Dose Admin Iohexol 100 ml 05/28/24 14:34 05/28/24 14:36 Iohexol 350 Mg/Ml 100 Ml Infus..Btl IV 05/28/24 14:35 70 ml ONCE ONE Administration Medical Decision Making Medical Decision Making [facility] Narrative: The patient is a 58-year-old male on warfarin who presents with 3 days of difficulty with speech. A head CT shows no acute hemorrhage. CT angiogram of the head and neck shows no acute large vessel occlusions. Patient's INR is 1.2. He has a mechanical aortic valve. My suspicion is that the patient has had a small stroke probably related to a small clot which is causing dysarthria. I believe this is a result of his insufficient anticoagulation. The patient assures me he has been compliant with his warfarin. I discussed the case with Dr. Escoto of Neurology regarding a strategy for caodaism of the patient's appropriate anticoagulation. He recommended heparin or enoxaparin as a bridge until his warfarin anticoagulation can be reestablished. Dr. Escoto also asked me to speak with Cardiology regarding a strategy for managing this anticoagulation. I discussed the case with Dr. Simmons of Cardiology who recommended 1 milligram/kilogram of enoxaparin q.12 as well as a baby aspirin. The patient passed his swallow evaluation. He was given a subcutaneous dose of enoxaparin as well as 81 mg of aspirin and 5 mg of warfarin. The patient will be admitted to the hospitalist service. Lab Data 05/28/24 14:18 05/28/24 14:18 Labs: Lab Results 05/28/24 05/28/24 Range/Units 14:18 14:43 WBC 8.0 (4.8-10.8) X10*3/uL RBC 5.30 (4.60-5.80) X10*6/uL Hgb 14.3 (14.0-18.0) g/dl Hct 44.3 (42.0-52.0) % MCV 83.6 (80.0-98.0) fL MCH 27.0 (27.0-33.0) pg MCHC 32.3 (31.0-36.0) g/dl RDW 14.6 (11.0-16.0) % Plt Count 247 (160-400) X10*3/uL MPV 10.8 (9.4-12.4) fL Immature Gran % (Auto) 0.2 (0.0-0.4) % Neut % (Auto) 57.6 (45-73) % Lymph % (Auto) 31.2 (20-40) % Campbell % (Auto) 7.9 (2-11) % Eos % (Auto) 2.6 (0-4) % Baso % (Auto) 0.5 (0-2) % Lymph # (Auto) 2.5 (1.2-4.9) X10*3/uL Campbell # (Auto) 0.6 (0.1-1.2) X10*3/uL Eos # (Auto) 0.2 (0.0-0.4) X10*3/uL Baso # (Auto) 0.0 (0.0-0.2) X10*3/uL Abs Immat Gran (auto) 0.02 (0.00-0.03) X10*3/uL Absolute Neuts (auto) 4.6 (2.0-8.3) x10*3/uL Absolute Nucleated RBC 0.000 (0.0-0.012) X10*3/uL Nucleated RBC % (auto) 0.0 (0.0-0.2) /100WBC PT 14.5 H (10.9-12.4) SEC INR 1.2 H (0.9-1.1) APTT 32.2 (26.0-36.8) SEC Sodium 141 (135-145) mmol/L Potassium 4.0 (3.3-5.1) mmol/L Chloride 108 (96-108) mmol/L Carbon Dioxide 21 L (22-29) mmol/L Anion Gap 16 (12-20) BUN 19 H (9-16) mg/dL Creatinine 0.74 (0.5-1.4) mg/dL Estim Creat Clear Calc 124.2 Estimated GFR > 60 POC Glucose 90 (60-115) mg/dL Random Glucose 83 (60-115) mg/dL Calcium 9.6 (8.4-10.2) mg/dL Troponin I High Sens 4.6 (<3.5-35.0) ng/L Triglycerides 113 (<150) mg/dL Cholesterol 204 H (<200) mg/dL LDL Cholesterol, Calc 138 H (<100) mg/dL HDL Cholesterol 44 (>40) mg/dL Discharge Plan Discharge Clinical Impression: Dysarthria, Subtherapeutic anticoagulation, Hx of mechanical aortic valve replacement Patient Disposition: Admitted As Inpatient Print Language: Other
--- NOTE | 2024-05-28 14:03 | ECG_ITS ---
Test Reason : stroke Blood Pressure : */* mmHG Vent. Rate : 71 BPM Atrial Rate : 71 BPM P-R Int : 186 ms QRS Dur : 88 ms QT Int : 366 ms P-R-T Axes : 18 60 65 degrees QTcB Int : 397 ms Normal sinus rhythm Nonspecific T wave abnormality Abnormal ECG When compared with ECG of 20-May-2023 15:19, No significant change was found Referred By: Kristan Coleman Electronically Signed By: Rogerio Simmons
[2024-05-28 14:23] LABS: MANUAL DIFF FLAG NO
[2024-05-28 14:25] LABS: Basophils Percent Auto 0.5 % (0-2); Eosinophils Absolute Auto 0.2 X10*3/uL (0.0-0.4); Eosinophils Percent Auto 2.6 % (0-4); Hematocrit 44.3 % (42.0-52.0); Hemoglobin 14.3 g/dl (14.0-18.0); Imm Gran Abs Auto 0.02 X10*3/uL (0.00-0.03); Imm Gran Pct Auto 0.2 % (0.0-0.4); Lymphocytes Absolute Auto 2.5 X10*3/uL (1.2-4.9); Lymphocytes Percent Auto 31.2 % (20-40); Mean Corpuscular HGB Conc 32.3 g/dl (31.0-36.0); Mean Corpuscular Volume 83.6 fL (80.0-98.0); Mean Platelet Volume 10.8 fL (9.4-12.4); Monocytes Absolute Auto 0.6 X10*3/uL (0.1-1.2); Monocytes Percent Auto 7.9 % (2-11); Neutrophils Absolute Auto 4.6 x10*3/uL (2.0-8.3); Neutrophils Percent Auto 57.6 % (45-73); Platelet Count 247 X10*3/uL (160-400); Red Cell Distribution Width 14.6 % (11.0-16.0)
[2024-05-28 14:31] LABS: INTERNATIONAL NORM RATIO 1.2 (0.9-1.1); Prothrombin Time 14.5 SEC (10.9-12.4)
[2024-05-28 14:34] LABS: Partial Thromboplastin Time 32.2 SEC (26.0-36.8); Stroke Lab Use COMPLETE
[2024-05-28] MEDS: iohexoL 350 MG/ML 100 ML INFUS..BTL IV (14:36)
[2024-05-28 14:44] LABS: Anion Gap 16 (12-20); Blood Urea Nitrogen 19 mg/dL (9-16); Calcium 9.6 mg/dL (8.4-10.2); Carbon Dioxide 21 mmol/L (22-29); Chloride 108 mmol/L (96-108); Cholesterol 204 mg/dL (<200); Creatinine Clr Calc Pharmacy 124.2; Estimated Glomerular Filt Rate > 60; Glucose Random 83 mg/dL (60-115); HDL Cholesterol 44 mg/dL (>40); LDL Cholesterol Calculated 138 mg/dL (<100); Sodium 141 mmol/L (135-145); Triglycerides 113 mg/dL (<150)
[2024-05-28 14:48] LABS: Troponin-I High Sensitivity 4.6 ng/L (<3.5-35.0)
[2024-05-28 14:49] LABS: Glucose, Whole Blood 90 mg/dL (60-115)
--- NOTE | 2024-05-28 15:43 | MHC.STROKE ---
Called to ED for stroke alert. Pt awake, alert and oriented x 4. Speech noted to be thick, garbled. Pt states that he noticed a difference in his speech 3 days ago. Denies any other symptoms Reports a headache the day after the speech change however no headache at this time. Nursing Swallow screen performed, patient passed without difficulty. Stroke Education provided. Risk factors including med hx, medications, activity, diet discussed. All questions answered. Pamphlet provided.
--- OUTSIDE RECORDS SUMMARY | 2024-05-28 16:06 | XMS_ITS | Encounter Summary ---
Author Organization [facility] Address [address] [place] [address] Care Team Providers Care Plan Checker Name Role Phone DonatoAyaz pimentel DANAY Primary Care Provider [phone] Encounter Details Date Type Department Care Team (Latest Contact Info) Description 05/16/2024 Anticoagulation - Warfarin Visit [facility] [address] [place] [address] Breezy Marsh MD [address] [place] [address] [address] [place] [address] History of mechanical aortic valve replacement (Primary Dx) Social History Tobacco Use Types Packs/Day Years Used Date Smoking Tobacco: Former Smokeless Tobacco: Former Alcohol Use Standard Drinks/Week Comments Never 0 (1 standard drink = 0.6 oz pur e alcohol) Sex and Gender Information Value Date Recorded Sex Assigned at Not on file Gender Identity Not on file Sexual Orientation Not on file Job Start Date Occupation Industry Not on file Not on file Not on file documented as of this encounter Progress Notes * Luca Caballero MA - 05/16/2024 10:15 AM EST Patient aware of instructions documented in this encounter Plan of Treatment Upcoming Encounters Date Type Department Care Team (Late st Contact Info) Description 05/15/2025 10:30 AM EST Office Visit [facility] [place] [address] [place] [address] Dru Rueda MD [address] [place] [address] documented as of this encounter Procedures Procedure Name Priority Date/Time Associated Diagnosis Comments PROTHROMBIN TIME WITH INR Routine 05/16/2024 documented in this encounter Results * Prothrombin time with INR (05/16/2024) INR 2.0 Prothrombin Time POC Blood Venous blood specimen / Unknown 05/16/2024 Historical Provider LAB BLOOD ORDERAB LES documented in this encounter Visit Diagnoses Diagnosis History of mechanical aortic valve replacement- Primary documented in this encounter Care Teams Plan Checker Relationship Specialty Start Date End Date Ayaz Sewell PA [address] [place] [address] PCP - General Internal Medicine 02/07/21 documented as of this encounter
--- OUTSIDE RECORDS SUMMARY | 2024-05-28 16:06 | XMS_ITS | Encounter Summary ---
Author Organization [facility] Address [address] [place] [phone] Care Team Providers Care Senior Research Engineer Name Role Phone Ayaz Sewell Primary Care Provider [phone] Reason for Referral * Imaging (Routine) - Pending Review Specialty Diagnoses / Procedures Referred By Scarlet ford Referred To Contact Radiology Diagnoses Iliac artery aneurysm (CMS/HCC) Procedures CT Angio Abdomen Pelvis wo and/or w Contrast Jimenez Rueda MD [address] [address] Referral ID Status Reason Start Date Expiration Date V isits Requested Visits Authorized [id number] Pending Review 05/12/2024 05/12/2025 1 1 Reason for Visit * Reason Comments Aneurysm iliac Encounter Details Date Type Department Care Team (Late st Contact Info) Description 05/12/2024 1:15 PM EST Office Visit Vascular Surgery - [place] [address] [address] Jimenez Rueda MD 300 [facility] [place] [address] [place] [id number] Iliac artery aneurysm (CMS/HCC) (Primary Dx) Social History Tobacco Use Types [...] on file documented as of this encounter Last Filed Vital Signs Vital Sign Reading Time Taken Comments Blood Pressure 110/70 05/12/2024 1:10 PM EST Pulse 80 05/12/2024 1:10 PM EST Temperature - - Respiratory Rate 16 05/12/2024 1:10 PM EST Oxygen Saturation - - Inhaled Oxygen Concentration - - Weight 110 kg (243 lb) 05/12/2024 1:10 PM EST Height 168.9 cm (5' 6.5 ) 05/12/2024 1:10 PM EST Body Mass Index 38.63 05/12/2024 1:10 PM EST documented in this encounter Progress Notes * Jimenez Rueda MD - 05/12/2024 1:15 PM EST PATIENT: Edie Hilario ENCOUNTER: 05/12/2024 EMRN: [id number] : 1965 PCP: DANAY Cao CHIEF COMPLAINT: Aneurysm (iliac) HPI: This is a 58 y.o. 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 He is doing well with no current concerns or complaints. Denies claudication, rest pain in his toes, ulcers, gangrene. Patient is on Coumadin for history of mechanical valve replacement, he was bridged with Lovenox perioperatively. Healso is on an aspirin and a statin. Patient quit smoking 16 years ago. He has had a postop CTA performed which has not officially read. He has a successful repair left KYRIE aneurysm with no endoleak. Patient has known carotid disease. Patient denies any focal neurological deficits. Patient denies any syncope or near syncope. Patient has carotid duplex on prior visit. See findings below. Patient is also PAST MEDICAL HISTORY: (reviewed and unchanged) Patient Active Problem List Diagnosis CAD (coronary artery disease) Carotid artery stenosis Cerebrovascular accident (CVA) (CMS/HCC) Coagulopathy (CMS/HCC) Essential hypertension Hyperlipidemia Iliac artery aneurysm (CMS/HCC) Obstructive sleep apnea Uncomplicated asthma History of mechanical aortic valve replacement PAST SURGICAL HISTORY: (reviewed and unchanged) Past Surgical History: Procedure Laterality Date OTHER SURGICAL HISTORY Left 08/01/2023 PROCEDURE: DE OPN FEM ART EXPOS DLVR EVASC PROSTH UNI OTHER SURGICAL HISTORY 08/01/2023 PROCEDURE: DE EVASC RPR DPLMNT ILIO-ILIAC NDGFT MEDICATIONS: (reviewed, flow sheet updated) Outpatient Medications Marked as Taking for the 05/12/24 encounter (Office Visit) with Jimenez Rueda MD Medication Sig Dispense Refill albuterol sulfate (ProAir RespiClick) 90 mcg/actuation aerosol powdr breath activated Inhale into the lungs as needed. aspirin 81 mg EC tablet Take 1 tablet (81 mg total) by mouth 1 (one) time each day. dulaglutide (Trulicity) 1.5 mg/0.5 mL pen injector injection Inject into the skin once a week. (Trulicity) fluticasone-salmeterol (ADVAIR DISKUS) 250-50 mcg/dose diskus inhaler Inhale 1 Puff into the lungs every 12 hours. furosemide (LASIX) 40 mg tablet Take 0.5 Tablets by mouth daily. insulin aspart (NovoLOG) 100 unit/mL injection Inject 3 Units as directed 2 times daily. insulin glargine (LANTUS SoloStar) 100 unit/mL (3 mL) injection pen Inject 45 Units into the skin daily. Jardiance 10 mg tablet Take 1 tablet (10 mg total) by mouth 1 (one) time each day. losartan (COZAAR) 25 mg tablet Take 2 tablets (50 mg total) by mouth 1 (one) time each day. metFORMIN (GLUMETZA) 1,000 mg 24 hr tablet Take 1,000 mg by mouth daily. metoprolol tartrate (LOPRESSOR) 50 mg tablet Take 50 mg by mouth 2 times daily. pantoprazole (PROTONIX) 40 mg EC tablet Take 1 tablet (40 mg total) by mouth 1 (one) time each day. rosuvastatin (CRESTOR) 40 mg tablet Take 1 tablet (40 mg total) by mouth 1 (one) time each day. tamsulosin (FLOMAX) 0.4 mg 24 hr capsule Take 0.4 mg by mouth daily. Take 30 mins after same meal every day. warfarin (COUMADIN) 2 mg tablet Take 1 Tablet by mouth See Admin Instructions. May cause heavy bleeding. Take at same time every day. Do not change dietary habits.PVC managing INR SOCIAL HISTORY: Social History Tobacco Use Smoking status: Former Smokeless tobacco: Former Substance Use Topics Alcohol use: Never Drug use: Not Currently Types: Marijuana/Cannabis FAMILY HISTORY: No family history on file. ALLERGIES: (reviewed, flow sheet updated) Allergies Allergen Reactions Atorvastatin ROS: GENERAL: No malaise, significant weight loss or fever NECK: No lumps, goiter, pain or significant neck swelling RESPIRATORY: No cough, wheezing or shortness of breath CARDIAC: No chest pain or palpitations GI: No abdominal discomfort MUSCULOSKELETAL: SEE HPI SKIN: No lesions, rash or itching NEURO: No persistent headache, syncope, seizures, weakness or numbness VASCULAR: SEE HPI PHYSICAL EXAM: Vitals: 05/12/24 1310 BP: 110/70 Pulse: 80 Resp: 16 Weight: 110 kg (243 lb) Height: 1.689 m (66.5 ) General: Alert and oriented by 3 no acute distress, well-nourished HEENT: Normocephalic atraumatic Neck: No JVD, no carotid bruit, carotid pulses present Chest: Clear to auscultation bilaterally Cardiac: Regular rate rhythm Abdomen: Soft, nontender, nondistended, no widened aortic pulse Extremity: -Right upper extremity: 2+ RA -Left upper extremity: 2+ RA -Right lower extremity: 2+ DP. No ulcers or gangrene. Varicosities not present. No hyperpigmentation. No induration or inflammation. No edema. -Left lower extremity: Well-healed left groin incision. No palpable popliteal artery pulse. 2+ DP. No ulcers or gangrene. Varicosities not present. No hyperpigmentation. No induration or inflammation. No edema. Integumentary: No wounds Lymphatics: No lymphadenopathy Neuro: Grossly intact DIAGNOSTIC TESTING: CTA abdomen and pelvis at [facility] on 05/09/2024. No official read at this time. I have reviewed the images and left iliac artery aneurysm is excluded with no endoleak status post endovascular repair. Carotid duplex at [facility] on 09/14/2023: RIGHT. 1. There is atherosclerotic plaque in the carotid system as noted above. 2. There is less than 50% stenosis in the internal carotid artery based on Doppler velocity. 3. The subclavian artery has normal Doppler flow pattern. 4. Vertebral artery has normal antegrade flow. LEFT. 1. There is atherosclerotic plaque in the carotid system as noted above. 2. There is less than 50% stenosis in the internal carotid artery based on Doppler velocity. 3. The subclavian artery has normal Doppler flow pattern. 4. Vertebral artery has normal antegrade flow. [facility] Diagnostic Imaging Department [address] [place] [id number] Patient: FELIPEEDIE./Age/Sex: 1965 - 57 - M Unit#: [id number] Location/Status: SPDICAT/REG CLI Mnemonic/Ordering Site[place] [facility] Order[place] Physician: JIMENEZ RUEDA MD CT Ang Abd and Pel W WO or W - 05/03/23 0747 Report Status:Signed INDICATION: Iliac artery aneurysm FINDINGS: CTA of the abdomen and pelvis obtained with a total of 90 cc Isovue- 370 administered intravenously without incident. 3D multiplanar reconstructions performed on a computer workstation. Scanner: Turned On Digital 64 slice VCT Dose reduction technique: ASIR (Adaptive statistical iterative reconstruction) and/or AEC (automated exposure control) Dose: total exam DLP 1204 mGY per cm COMPARISON: Outside CTA from December 26, 2022. Lung bases are clear. Bony structures bony structures demonstrate degenerative changes, similar to the prior study. Liver, spleen, pancreas, gallbladder, adrenal glands and kidneys are unchanged. Unopacified stomach, small bowel and large bowel unremarkable. No free air or free fluid in the abdomen or pelvis. Abdominal aorta is well-opacified and demonstrates mild atherosclerotic changes. Widely patent celiac axis, superior mesenteric artery, bilateral renal arteries and inferior mesenteric artery. Widely patent aortic bifurcation. Mild ectatic changes along the distal aspect of the right common iliac artery measuring up to 18 mm. Widely patent right internal iliac artery. Moderate tortuosity noted along the distal right common iliac artery and proximal right external iliac artery. On the left side and residual dilatation of the left common iliac artery up to 2.8 cm is similar to the prior study. Luminal thrombus noted within the aneurysm with 1 cm component of opacification which extends up to the edge of the aneurysm. Origin of the left common iliac artery measures up to 15 mm coronally. Distal to the aneurysm the ectatic left common iliac artery measures 19 mm and 15 mm at the left internal iliac artery origin. Mildly tortuous widely patent left external iliac artery. Widely patent bilateral common femoral arteries. IMPRESSION: 2.8 cm left common iliac artery aneurysm is similar to the prior study. Dictating Physician: SHAKILA GRANT MD Electronically Signed by: SHAKILA GRANT MD Dic Date/Time: 05/03/23905 Sign date/Time: 05/03/23917 I independently reviewed the studies along with the images. ASSESSMENT: 1. Iliac artery aneurysm (CMS/HCC) PLAN: 58 y.o. male with status post endovascular left common iliac artery repair with stent graft with ovation limb 18 x 45 mm on 08/01/2023. . Patient requires follow-up CTA of the abdomen pelvis in 1 year. Will have this performed in April 2025 with follow-up. Patient is asymptomatic in terms of peripheral arterial occlusive disease. If there are any significant findings on official CTA read we will follow up. Patient has asymptomatic bilateral less than 50% ICA stenosis. No intervention is warranted. Follow-up in 3 years with repeat carotid duplex. Patient was counseled on risk factor modification. We discussed the natural pathophysiology of carotid disease and aneurysmal disease were explained at length. 32 minutes spent on patient encounter including time spent with patient, chart review, review of imaging/diagnostic studies, all necessary communications and documentation. documented in this encounter Plan of Treatment Upcoming Encounters Date Type Department Care Team (Late st Contact Info) Description 05/15/2025 10:30 AM EST Office Visit Vascular Surgery - [place] [address] [place] [address] Jimenez Rueda MD [address] [place] [address] Scheduled Orders Name Type Priority Associated Diagnoses Orde r Schedule CT Angio Abdomen Pelvis wo and/or w Contrast Cardiac CT/MRI Routine Iliac artery aneurysm (CMS/HCC) Expected: 04/11/2025, Expires: 11/09/2025 documented as of this encounter Visit Diagnoses Diagnosis Iliac artery aneurysm (CMS/HCC)- Primary Aneurysm of iliac artery documented in this encounter Historical Medications * This list may reflect changes made after this encounter. Medication Sig Dispensed Refills Start Date End Date Jardiance 10 mg tablet Take 1 tablet (10 mg total) by mouth 1 (one) time each day. 05/08/2024 added in this encounter Care Teams Senior Research Engineer Relationship Specialty Start Date End Date Ayaz Sewell PA [address] [place] [address] PCP - General Internal Medicine 02/07/21 documented as of this encounter
--- OUTSIDE RECORDS SUMMARY | 2024-05-28 16:06 | XMS_ITS | Encounter Summary ---
Author Organization [facility] Address [address] [place] [phone] Care Team Providers Care Manager Integrity Name Role Phone Ayaz Sewell Primary Care Provider [phone]- [phone] Reason for Referral * Imaging (Routine) - Closed Specialty Diagnoses / Procedures Referred By Scarlet ford Referred To Contact Radiology Diagnoses Iliac artery aneurysm (CMS/HCC) Procedures CT Angio Abdomen Pelvis wo and/or w Contrast Dru Rueda MD [address] [address] [facility] [address] [place] [address] Referral ID Status Reason Start Date Expiration Date Visits Re quested Visits Authorized [id number] Closed 03/24/2024 05/27/2024 1 1 Reason for Visit * Imaging (Routine) - Closed Specialty Diagnoses / Procedures Referred By Scarlet ford Referred To Contact Radiology Diagnoses Iliac artery aneurysm (CMS/HCC) Procedures CT Angio Abdomen Pelvis wo and/or w Contrast Dru Rueda MD [address] [address] [facility] [address] [place] [address] Referral ID Status Reason Start Date Expiration Date Visits Re quested Visits Authorized [id number] Closed 03/24/2024 05/27/2024 1 1 Encounter Details Date Type Department Care Team (Latest Contact Info) Description 05/09/2024 8:10 AM EST - 05/09/2024 11:59 PM EST Hospital Encounter [facility] [address] [place] [address] Iliac artery aneurysm ([facility]) Discharge Disposition: Home or Self Care Social History Tobacco Use Types Packs/Day Years [...] on file documented as of this encounter Medications at Time of Discharge Medication Sig Dispensed Refills Start Date End Date albuterol sulfate (ProAir RespiClick) 90 mcg/actuation aerosol [...] mouth 1 (one) time each day. 05/08/2024 losartan (COZAAR) 25 mg tablet Take 2 [...] Do not change dietary habits.PVC managing INR documented as of this encounter Discharge Disposition Disposition Code Departure Means Destination Home or Self Care documented in this encounter Plan of Treatment Upcoming Encounters Date Type Department Care Team (Late st Contact Info) Description 05/15/2025 10:30 AM EST Office Visit Vascular Surgery - [place] [address] [place] [address] Dru Rueda MD [address] [place] [address] documented as of this encounter Procedures Procedure Name Priority Date/Time Associated Diagnosis Comments CT ANGIO ABDOMEN PELVIS WO AND/OR W CONTRAST Routine 05/09/2024 8:30 AM EST Iliac artery aneurysm (CMS/HCC) documented in this encounter Results * CT Angio Abdomen Pelvis wo and/or w Contrast (05/09/2024 8:30 AM EST) Anatomical Region Laterality Modality Body Computed Tomogra phy 05/13/2024 5:38 PM EST Impressions 05/14/2024 7:41 AM EST There has been stent placement for a left common iliac artery aneurysm. No definite endoleak. Measurements as described. -------- FINAL REPORT -------- Dictated By: Radhames Benitez Dictated Date: 05/13/2024 17:38 ET Assigned Physician: Radhames Benitez Reviewed and Electronically Signed By: Radhames Benitez Signed Date: 05/14/2024 07:41 ET Workstation ID: [id number] Transcribed By: Self Edit Transcribed Date: 05/13/2024 17:51 ET Narrative 05/14/2024 7:41 AM EST EXAM: ??CT ANGIO ABDOMEN PELVIS WO AND/OR W CONTRAST INDICATION: Iliac artery aneurysm Evaluate for interval changes COMPARISON: Portions of a previous CT 05/03/2023 TECHNIQUE: CT angiography of the abdomen and pelvis was performed using contiguous helical images of the abdomen and pelvis, during intravenous injection of 90 ml of ISOVUE-370. ??0.6 mm axial images were reconstructed. Sagittal and coronal reformatted images were rendered. Maximum intensity projections were created. Contemporaneous supervision by the radiologist DLP: 1244 mGy-cm FINDINGS: ABDOMINAL AORTA: ??The abdominal aorta is normal caliber with some mild calcified plaque. ??The maximum external diameter is 2.3 cm. CELIAC AXIS: ?? Patent. ??The hepatic and splenic arteries are patent proximally. SMA: Patent proximally. JUAN C: Patent proximally. RIGHT RENAL: Single right renal artery is widely patent. LEFT RENAL: Single patent left renal artery. RIGHT LOWER: COMMON ILIAC ARTERY: ??Patent. ??The maximum right common iliac artery diameter is 1.8 cm. EXTERNAL ILIAC ARTERY: ?? Widely patent. INTERNAL ILIAC ARTERY: ??Widely patent. COMMON FEMORAL ARTERY: ??Widely patent SUPERFICIAL FEMORAL ARTERY: ??Widely patent at its origin as is the profunda femoral. LEFT LOWER COMMON ILIAC ARTERY: ??There is a left common iliac artery stent. ??The stent is patent. ??There is a left common iliac artery aneurysm. Transverse by AP measurements; 05/09/2024-3.0 x 2.7 cm 05/03/2023-3.0 x 2.5 cm No enhancement in the surrounding aneurysm sac demonstrated. EXTERNAL ILIAC ARTERY: ?? Patent. INTERNAL ILIAC ARTERY: ??Patent. COMMON FEMORAL ARTERY: ??Patent. SUPERFICIAL FEMORAL ARTERY: ??Patent at its origin as is the profunda femoral artery. NONVASCULAR LIVER: The liver contour is smooth. No suspicious focal lesion demonstrated on early arterial phase imaging. ?? BILIARY TRACT: ??Small dependent high density near the neck of the gallbladder could represent sludge or small stones. No dilation of the common duct. SPLEEN: Heterogeneous attenuation possibly related to early phase enhancement ?? PANCREAS: No suspicious mass ?? ADRENAL GLANDS: Within normal limits ?? KIDNEYS: Cortical medullary phase does not demonstrate any suspicious mass. No significant dilation of the collecting system. ?? GASTROINTESTINAL TRACT: No localized colonic wall thickening or pericolonic fat stranding. No CT evidence of acute appendicitis. ?? URINARY BLADDER: ??No suspicious abnormality. PELVIC VISCERA: ??Within normal limits. ABDOMINAL WALL: Not completely included. Some laxity of the abdominal wall without a bowel hernia. ?? LYMPHOVASCULAR STRUCTURES AND FLUID: There are no enlarged lymph nodes. There is no free intraperitoneal fluid. ?? MUSCULOSKELETAL: No acute or suspicious osseous abnormality. ??Extensive degenerative changes in the spine. VISUALIZED LOWER CHEST: Unchanged 0.4 cm solid nodule periphery posterolateral left lower lobe (2/63). ??Suspect a partially included prosthetic aortic valve. Procedure Note Radhames Benitez MD - 05/14/2024 EXAM: CT ANGIO ABDOMEN PELVIS WO AND/OR W CONTRAST INDICATION: Iliac artery aneurysm Evaluate for interval changes COMPARISON: Portions of a previous CT 05/03/2023 TECHNIQUE: CT angiography of the abdomen and pelvis was performed usingcontiguous helical images of the abdomen and pelvis, during intravenousinjection of 90 ml of ISOVUE-370. 0.6 mm axial images were reconstructed.Sagittal and coronal reformatted images were rendered. Maximum intensityprojections were created. Contemporaneous supervision by the radiologist DLP: 1244 mGy-cm FINDINGS: ABDOMINAL AORTA: The abdominal aorta is normal caliber with some mildcalcified plaque. The maximum external diameter is 2.3 cm. CELIAC AXIS: Patent. The hepatic and splenic arteries are patentproximally. SMA: Patent proximally. JUAN C: Patent proximally. RIGHT RENAL: Single right renal artery is widely patent. LEFT RENAL: Single patent left renal artery. RIGHT LOWER: COMMON ILIAC ARTERY: Patent. The maximum right common iliac arterydiameter is 1.8 cm. EXTERNAL ILIAC ARTERY: Widely patent. INTERNAL ILIAC ARTERY: Widely patent. COMMON FEMORAL ARTERY: Widely patent SUPERFICIAL FEMORAL ARTERY: Widely patent at its origin as is theprofunda femoral. LEFT LOWER COMMON ILIAC ARTERY: There is a left common iliac artery stent. Thestent is patent. There is a left common iliac artery aneurysm. Transverse by AP measurements; 05/09/2024-3.0 x 2.7 cm 05/03/2023-3.0 x 2.5 cm No enhancement in the surrounding aneurysm sac demonstrated. EXTERNAL ILIAC ARTERY: Patent. INTERNAL ILIAC ARTERY: Patent. COMMON FEMORAL ARTERY: Patent. SUPERFICIAL FEMORAL ARTERY: Patent at its origin as is the profundafemoral artery. NONVASCULAR LIVER: The liver contour is smooth. No suspicious focal lesiondemonstrated on early arterial phase imaging. BILIARY TRACT: Small dependent high density near the neck of thegallbladder could represent sludge or small stones. No dilation of thecommon duct. SPLEEN: Heterogeneous attenuation possibly related to early phaseenhancement PANCREAS: No suspicious mass ADRENAL GLANDS: Within normal limits KIDNEYS: Cortical medullary phase does not demonstrate any suspiciousmass. No significant dilation of the collecting system. GASTROINTESTINAL TRACT: No localized colonic wall thickening orpericolonic fat stranding. No CT evidence of acute appendicitis. URINARY BLADDER: No suspicious abnormality. PELVIC VISCERA: Within normal limits. ABDOMINAL WALL: Not completely included. Some laxity of the abdominal wallwithout a bowel hernia. LYMPHOVASCULAR STRUCTURES AND FLUID: There are no enlarged lymph nodes.There is no free intraperitoneal fluid. MUSCULOSKELETAL: No acute or suspicious osseous abnormality. Extensivedegenerative changes in the spine. VISUALIZED LOWER CHEST: Unchanged 0.4 cm solid nodule peripheryposterolateral left lower lobe (2/63). Suspect a partially includedprosthetic aortic valve. IMPRESSION: There has been stent placement for a left common iliac artery aneurysm. Nodefinite endoleak. Measurements as described. -------- FINAL REPORT -------- Dictated By: Radhames Benitez Dictated Date: 05/13/2024 17:38 ET Assigned Physician: Radhames Benitez Reviewed and Electronically Signed By: Radhames Benitez Signed Date: 05/14/2024 07:41 ET Workstation ID: [id number] Transcribed By: Self Edit Transcribed Date: 05/13/2024 17:51 ET Dru Rueda MD IMG CT PROCEDURES documented in this encounter Visit Diagnoses Diagnosis Iliac artery aneurysm (CMS/HCC) Aneurysm of iliac artery documented in this encounter Administered Medications Inactive Administered Medications - up to 3 most recent administrations Medication Order MAR Action Action Date Dose Rate Site iopamidoL (ISOVUE-370) 370 mg iodine /mL (76 %) injection 90 mL 90 mL, intravenous, Once in imaging, Starting on Sun05/09/24 at 0821, For 1 dose Given 05/09/2024 8:23 AM EST 90 mL sodium chloride 0.9 % flush 10 mL 10 mL, intravenous, Once, On Sun05/09/24 at 0845, For 1 dose Given 05/09/2024 8:22 AM EST 10 mL documented in this encounter Care Teams Manager Integrity Relationship Specialty Start Date End Date Ayaz Sewell PA [address] [place] [address] PCP - General Internal Medicine 02/07/21 documented as of this encounter
--- OUTSIDE RECORDS SUMMARY | 2024-05-28 16:06 | XMS_ITS | Clinical Summary ---
Author Organization [address] [place] [address] [place] [phone] Phone Care Team Providers Care Conservator Artifacts Name Role Phone Ayaz Sewell Primary Care Provider Allergies Active Allergy Reactions Criticality Noted Date Comments Atorvastatin 08/02/2020 Medications Medication Sig Dispensed Refills Start Date End Date Status rosuvastatin (CRESTOR) 40 mg tablet Take 1 tablet (40 mg total) by mouth 1 (one) time each day. Active insulin aspart (NovoLOG) 100 unit/mL injection Inject 3 Units as directed 2 times daily. Active insulin glargine (LANTUS SoloStar) 100 unit/mL (3 mL) injection pen Inject 45 Units into the skin daily. Active pantoprazole (PROTONIX) 40 mg EC tablet Take 1 tablet (40 mg total) by mouth 1 (one) time each day. Active metFORMIN (GLUMETZA) 1,000 mg 24 hr tablet Take 1,000 mg by mouth daily. Active fluticasone-salmetero l (ADVAIR DISKUS) 250-50 mcg/dose diskus inhaler Inhale 1 Puff into the lungs every 12 hours. Active albuterol sulfate (ProAir RespiClick) 90 mcg/actuation aerosol powdr breath activated Inhale into the lungs as needed. Active tamsulosin (FLOMAX) 0.4 mg 24 hr capsule Take 0.4 mg by mouth daily. Take 30 mins after same meal every day. Active warfarin (COUMADIN) 2 mg tablet Take 1 Tablet by mouth See Admin Instructions. May cause heavy bleeding. Take at same time every day. Do not change dietary habits.PVC managing INR Active losartan (COZAAR) 25 mg tablet Take 2 tablets (50 mg total) by mouth 1 (one) time each day. Active aspirin 81 mg EC tablet Take 1 tablet (81 mg total) by mouth 1 (one) time each day. Active metoprolol tartrate (LOPRESSOR) 50 mg tablet Take 50 mg by mouth 2 times daily. Active furosemide (LASIX) 40 mg tablet Take 0.5 Tablets by mouth daily. Active dulaglutide (Trulicity) 1.5 mg/0.5 mL pen injector injection Inject into the skin once a week. (Trulicity) Active Jardiance 10 mg tablet Take 1 tablet (10 mg total) by mouth 1 (one) time each day. 05/08/2024 Active Active Problems Problem Noted Date Diagnosed Date History of mechanical aortic valve replacement 1 05/07/2023 Coagulopathy 05/23/2023 CAD (coronary artery disease) 05/04/2022 Overview (02/06/2024): Last Assessment & Plan: The patient has a history of mild to moderate nonobstructive coronary artery disease based on left heart catheterization prior to his cardiac surgery in March 2018. Currently, he denies any anginal symptoms or shortness of breath. He continues on medical therapy with statin, aspirin and beta-colton as prescribed. No changes to medical therapies. Carotid artery stenosis 05/04/2022 Overview (02/06/2024): Last Assessment & Plan: Recent carotid duplex August 2023 showed mild atherosclerotic plaque in the right and left carotid system. Less than 50% stenosis in the right and left ICA and increased Doppler velocity in the right subclavian artery. He will continue his current medication regimen with statin and aspirin as prescribed. Iliac artery aneurysm 05/04/2022 Overview (02/06/2024): Last Assessment & Plan: The patient has a history of an iliac artery aneurysm. He will continue to follow with the [facility] vascular surgery service. Cerebrovascular accident (CVA) 08/02/2020 Overview (02/06/2024): Last Assessment & Plan: The patient has a history of CVA after aortic valve replacement surgery. Most recently, the patient had abnormal brain imaging findings and it was deemed by the neurology team that it was suspected the imaging findings were suggestive of underlying malignancy and not a CVA. Given the patient's history of mechanical aortic valve, his INR has been maintained between 2-3 and he is also on antiplatelet therapy with aspirin. He underwent a 30-day ambulatory quality assurance monitor to rule out atrial fibrillation. This showed predominantly sinus rhythm with brief atrial runs and occasional PACs. No sustained arrhythmias were noted. He will continue to follow with the neurology team at [facility]. Essential hypertension 08/02/2020 Overview (02/06/2024): Last Assessment & Plan: Patient's blood pressure is elevated today. He does not currently have a home blood pressure cuff to monitor his blood pressures. I have given him a prescription for an automatic home blood pressure cuff and instructed him to monitor his blood pressures at home and write down his readings and notify me of any consistently elevated blood pressure readings greater than 145/90. In the meantime, he will continue his current antihypertensive medication regimen as prescribed. Hyperlipidemia 08/02/2020 Overview (02/06/2024): Last Assessment & Plan: Patient has a history of hyperlipidemia as well as a history of vascular disease including CAD, PAD and carotid artery stenosis. He continues on medical therapy with rosuvastatin as prescribed. Will update a new fasting lipid panel to reassess his lipid control and make any adjustments as necessary. I have reviewed with the patient the importance of a heart healthy lifestyle which includes eating a low-fat low- salt diet, getting regular exercise, maintaining a healthy weight, not smoking, and following up with routine medical care. Obstructive sleep apnea 08/02/2020 Uncomplicated asthma 08/02/2020 Encounters Date Type Department Care Team Description 05/23/2024 Anticoagulation - Warfarin Visit [facility] Cardiology [facility] [address] [facility] [address] [place] [address] Breezy Marsh MD History of mechanical aortic valve replacement (Primary Dx) 05/16/2024 Anticoagulation - Warfarin Visit [facility] [address] [facility] [address] [place] [address] Breezy Marsh MD History of mechanical aortic valve replacement (Primary Dx) 05/12/2024 1:15 PM EST Office Visit [facility] [place] [address] [place] [address] Dru Rueda MD Iliac artery aneurysm (CMS/HCC) (Primary Dx) 05/09/2024 8:10 AM EST - 05/09/2024 11:59 PM EST Hospital Encounter [facility] CT Scan [address] [place] [address] Iliac artery aneurysm (CMS/HCC) Discharge Disposition: Home or Self Care 05/09/2024 Anticoagulation - Warfarin Visit [facility] [address] [place] [address] Breezy Marsh MD History of mechanical aortic valve replacement (Primary Dx) 05/02/2024 Anticoagulation - Warfarin Visit [facility] [address] [place] [address] Breezy Marsh MD History of mechanical aortic valve replacement (Primary Dx) 04/25/2024 Anticoagulation - Warfarin Visit [facility] [address] [place] [address] Breezy Marsh MD History of mechanical aortic valve replacement (Primary Dx) 04/18/2024 Anticoagulation - Warfarin Visit [facility] [address] [place] [address] Breezy Marsh MD History of mechanical aortic valve replacement (Primary Dx) 04/11/2024 Anticoagulation - Warfarin Visit [facility] [address] [place] [address] Breezy Marsh MD History of mechanical aortic valve replacement (Primary Dx) 04/07/2024 Anticoagulation - Warfarin Visit [facility] [address] [place] [address] Breezy Marsh MD History of mechanical aortic valve replacement (Primary Dx) 03/28/2024 Anticoagulation - Warfarin Visit [facility] [address] [place] [address] Breezy Marsh MD History of mechanical aortic valve replacement (Primary Dx) 03/24/2024 3:00 PM EST Office Visit [facility] [place] [address] [place] [address] Dru Rueda MD Iliac artery aneurysm (CMS/HCC) (Primary Dx) 03/24/2024 Anticoagulation - Warfarin Visit [facility] [address] [place] [address] Breezy Marsh MD History of mechanical aortic valve replacement (Primary Dx) 03/14/2024 Anticoagulation - Warfarin Visit [facility] [address] [place] [address] Breezy Marsh MD History of mechanical aortic valve replacement (Primary Dx) 03/07/2024 Anticoagulation - Warfarin Visit [facility] [address] [place] [address] Breezy Marsh MD History of mechanical aortic valve replacement (Primary Dx) 03/07/2024 Anticoagulation - Ot her Visit (DOAC) [facility] [address] [place] [address] Breezy Marsh MD 02/29/2024 Anticoagulation - Warfarin Visit [facility] [address] [place] [address] Breezy Marsh MD History of mechanical aortic valve replacement [Z95.2] (Primary Dx) from Last 3 Months Surgical History Surgery Date Site/Laterality Comments OTHER SURGICAL HISTORY 08/01/2023 Left PROCEDURE: MS OPN FEM ART EXPOS DLVR EVASC PROSTH UNI OTHER SURGICAL HISTORY 08/01/2023 PROCEDURE: MS EVASC RPR DPLMNT ILIO-ILIAC NDGFT Medical History Medical History Date Comments GERD (gastroesophageal reflux disease) DX:GERD (gastroesophageal reflux disease) Anemia DX:Anemia Asthma DX:Asthma HERNÁN (obstructive sleep apnea) DX :HERNÁN (obstructive sleep apnea) Chronic renal insufficiency DX:C hronic renal insufficiency Sleep apnea DX:Sleep apnea BPH (benign prostatic hyperplasia) DX:BPH (benign prostatic hyperplasia) Social History Tobacco Use Types Packs/Day Years [...] file Not on file Not on file Obstetrics History Last Filed Vital Signs Vital Sign Reading [...] Mass Index 38.63 05/12/2024 1:10 PM EST Plan of Treatment Upcoming Encounters Date Type Department Care Team (Late st Contact Info) Description 05/15/2025 10:30 AM EST Office Visit [facility] [place] [address] [place] [phone] Dru Rueda MD [address] [place] [address] Health Maintenance Due Date Last Done Comments Diabetes: Annual Foot Exam 1973 Diabetes: Annual Retina Eye Exam 1973 Zoster Vaccines (1 of 2) 2013 Pneumococcal Vaccine: Pediatrics (0 to 5 Years) and At-Risk Patients (6 to 64 Years) (2 of 2 - PCV) 06/22/2019 06/21/2018, 04/20/2018 Cholesterol Screening (Lipid Panel) 04/01/2022 Colorectal Cancer Screening: Colonoscopy 04/01/2022 Depression Screening 04/01/2022 HIV Screening 04/01/2022 Hepatitis C Screening 04/01/2022 Social Influencers of Health Screening 04/01/2022 RSV Immunization Patients 60+ Years Old (1 - Risk 60-74 years 1-dose series) 2023 COVID-19 Vaccine ( season) 2023 09/17/2021, 04/13/2021, 09/10/2020, Additional history exists Diabetes: Annual Urine Albumin-Creatinine Ratio (uACR) 03/24/2024 Diabetes: Blood Sugar Control Test (HGBA1C) 03/24/2024 Diabetes: Annual GFR (Glomerular Filtration Rate) 03/24/2025 03/24/2024, 03/23/2023 Hypertension/CHF/CAD Annual BMP Blood Test 03/24/2025 03/24/2024, 03/23/2023 DTaP,Tdap,and Td Vaccines (2 - Td or Tdap) 02/27/2033 02/27/2023 Influenza Vaccine Completed 02/13/2024, , 02/22/2022, Additional history exists HIB Vaccines Aged Out No longer eligi ble based on patient's age to complete this topic HPV Vaccines Aged Out No longer eligi ble based on patient's age to complete this topic Hepatitis A Vaccines Aged Out No long er eligible based on patient's age to complete this topic Hepatitis B Vaccines Aged Out No long er eligible based on patient's age to complete this topic IPV Vaccines Aged Out No longer eligi ble based on patient's age to complete this topic MMR Vaccines Aged Out No longer eligi ble based on patient's age to complete this topic Meningococcal ACWY Vaccine Aged Out N o longer eligible based on patient's age to complete this topic RSV Immunization Patients Under 20 months Aged Out No longer eligible based on patient's age to complete this topic Varicella Vaccines Aged Out No longer eligible based on patient's age to complete this topic Procedures Procedure Name Priority Date/Time Associated Diagnosis Comments PROTHROMBIN TIME WITH INR Routine 05/23/2024 PROTHROMBIN TIME WITH INR Routine 05/16/2024 CT ANGIO ABDOMEN PELVIS WO AND/OR W CONTRAST Routine 05/09/2024 8:30 AM EST Iliac artery aneurysm (CMS/HCC) PROTHROMBIN TIME WITH INR Routine 05/09/2024 PROTHROMBIN TIME WITH INR Routine 05/02/2024 PROTHROMBIN TIME WITH INR Routine 04/25/2024 PROTHROMBIN TIME WITH INR Routine 04/18/2024 PROTHROMBIN TIME WITH INR Routine 04/11/2024 PROTHROMBIN TIME WITH INR Routine 04/07/2024 PROTHROMBIN TIME WITH INR Routine 03/28/2024 CREATININE, SERUM Routine 03/24/2024 3:2 9 PM EST Iliac artery aneurysm (CMS/HCC) BUN Routine 03/24/2024 3:29 PM EST Iliac artery aneurysm (CMS/HCC) PROTHROMBIN TIME WITH INR Routine 03/24/2024 PROTHROMBIN TIME WITH INR Routine 03/14/2024 PROTHROMBIN TIME WITH INR Routine 03/07/2024 PROTHROMBIN TIME WITH INR Routine 02/29/2024 from Last 3 Months Results * Prothrombin time with INR (05/23/2024) Only the most recent of13 resultswithin the time period is included. INR 2.1 Prothrombin Time POC Blood Venous blood specimen / Unknown 05/23/2024 Historical Provider MD LAB BLOOD ORDERAB LES * CT Angio Abdomen Pelvis wo and/or [...] Signed Date: 05/14/2024 07:41 ET Workstation ID: [id number] Transcribed By: Self Edit Transcribed Date: 05/13/2024 [...] Signed Date: 05/14/2024 07:41 ET Workstation ID: [id number] Transcribed By: Self Edit Transcribed Date: 05/13/2024 17:51 ET Dru Rueda MD IMG CT PROCEDURES * Creatinine (03/24/2024 3:29 PM EST) Creatinine 0.78 0.70 - 1.30 mg/dL LAB CHEMISTRY METHOD 03/24/2024 5:11 PM EST [facility] eGFR 102 >=60 mL/min/1. 73m2 LAB CHEMISTRY METHOD 03/24/2024 5:11 PM EST [facility] Comment:Calculation based on the??Chronic Kidney Disease Epidemiology Collaboration (CKD-EPI) equation refit??without adjustment for race. Blood Venous blood specimen / Unknown Venipuncture / Unknown 03/24/2024 3:29 PM EST 03/24/2024 4:10 PM EST Dru Rueda MD LAB BLOOD ORDERABLES [facility] [address] [place] [address], [place] [phone] * BUN (03/24/2024 3:29 PM EST) BUN 12 5 - 25 mg/dL LAB CHEMISTRY METHOD 03/24/2024 5:11 PM EST [facility] Blood Venous blood specimen / Unknown Venipuncture / Unknown 03/24/2024 3:29 PM EST 03/24/2024 4:10 PM EST Dru Rueda MD LAB BLOOD ORDERABLES [facility] [address] [place] [address], [place] [phone] from Last 3 Months Care Teams Conservator Artifacts Relationship Specialty Start Date End Date Ayaz Sewell PA [address] [place] [address] PCP - General Internal Medicine 02/07/21
--- OUTSIDE RECORDS SUMMARY | 2024-05-28 16:06 | XMS_ITS | Encounter Summary ---
Author Organization [facility] Address [address] [place] [address] Care Team Providers Care Industrial Security Analyst Name Role Phone DonatoAyaz pimentel DANAY Primary Care Provider [phone]- [phone] Encounter Details Date Type Department Care Team (Latest Contact Info) Description 05/09/2024 Anticoagulation - Warfarin Visit [facility] [address] [place] [address] Breezy Marsh MD [address] [place] [address] [address] [place] [address] History of mechanical aortic valve replacement (Primary [...] Progress Notes * Luca Caballero MA - 05/09/2024 9:01 AM EST Left voice message with instructions documented in this encounter Plan of Treatment Upcoming Encounters Date Type Department Care Team (Late st Contact Info) Description 05/15/2025 10:30 AM EST Office Visit [facility] [place] [address] [place] [address] Dru Rueda MD [address] [place] [address] documented as of this encounter Procedures Procedure Name Priority Date/Time Associated Diagnosis Comments PROTHROMBIN TIME WITH INR Routine 05/09/2024 documented in this encounter Results * Prothrombin time with INR (05/09/2024) INR 3.0 Prothrombin Time POC Blood Venous blood specimen / Unknown 05/09/2024 Historical Provider LAB BLOOD ORDERAB LES documented in this encounter Visit Diagnoses Diagnosis History of mechanical aortic valve replacement- Primary documented in this encounter Care Teams Industrial Security Analyst Relationship Specialty Start Date End Date Ayaz Sewell PA [address] [place] [address] PCP - General Internal Medicine 02/07/21 documented as of this encounter
--- OUTSIDE RECORDS SUMMARY | 2024-05-28 16:06 | XMS_ITS | Encounter Summary ---
Author Organization [facility] Address [address] [place] [address] Care Team Providers Care Book Shelver Name Role Phone DonatoAyaz pimentel DANAY Primary Care Provider [phone]- [phone] Encounter Details Date Type Department Care Team (Latest Contact Info) Description 05/23/2024 Anticoagulation - Warfarin Visit [facility] [address] [place] [address] Breezy Marsh MD [address] [place] [address] [address] [place] [address] History of mechanical aortic valve replacement (Primary [...] Progress Notes * Luca Caballero MA - 05/23/2024 1:22 PM EST Patient aware of instructions documented in this encounter Plan of Treatment Upcoming Encounters Date Type Department Care Team (Late st Contact Info) Description 05/15/2025 10:30 AM EST Office Visit [facility] - [place] [address] [place] [address] Dru Rueda MD [address] [place] [address] documented as of this encounter Procedures Procedure Name Priority Date/Time Associated Diagnosis Comments PROTHROMBIN TIME WITH INR Routine 05/23/2024 documented in this encounter Results * Prothrombin time with INR (05/23/2024) INR 2.1 Prothrombin Time POC Blood Venous blood specimen / Unknown 05/23/2024 Historical Provider LAB BLOOD ORDERAB LES documented in this encounter Visit Diagnoses Diagnosis History of mechanical aortic valve replacement- Primary documented in this encounter Care Teams Book Shelver Relationship Specialty Start Date End Date Ayaz Sewell PA [address] [place] [address] PCP - General Internal Medicine 02/07/21 documented as of this encounter
--- OUTSIDE RECORDS SUMMARY | 2024-05-28 16:06 | XMS_ITS | Encounter Summary ---
Author Organization [facility] Address [address] [place] [address] Care Team Providers Care Conveyor Worker Name Role Phone DonatoAyaz pimentel DANAY Primary Care Provider [phone]- [phone] Encounter Details Date Type Department Care Team (Latest Contact Info) Description 05/02/2024 Anticoagulation - Warfarin Visit [facility] [address] [place] [address] Breezy Marsh MD [address] [place] [address] [address] [place] [address] History of mechanical aortic valve replacement (Primary [...] Progress Notes * Luca Caballero MA - 05/02/2024 8:29 AM EST Patient aware of instructions documented in this encounter Plan of Treatment Upcoming Encounters Date Type Department Care Team (Late st Contact Info) Description 05/15/2025 10:30 AM EST Office Visit [facility] - [place] [address] [place] [address] Dru Rueda MD [address] [place] [address] documented as of this encounter Procedures Procedure Name Priority Date/Time Associated Diagnosis Comments PROTHROMBIN TIME WITH INR Routine 05/02/2024 documented in this encounter Results * Prothrombin time with INR (05/02/2024) INR 3.0 Prothrombin Time POC Blood Venous blood specimen / Unknown 05/02/2024 Historical Provider LAB BLOOD ORDERAB LES documented in this encounter Visit Diagnoses Diagnosis History of mechanical aortic valve replacement- Primary documented in this encounter Care Teams Conveyor Worker Relationship Specialty Start Date End Date Ayaz Sewell PA [address] [place] [address] PCP - General Internal Medicine 02/07/21 documented as of this encounter
[2024-05-28 16:33] VITALS: BP 151/80; PULSE 73; RESP 18; TEMP 36.4; O2SAT 94
[2024-05-28] MEDS: Warfarin Sodium 5 MG TABLET PO (17:40)
[2024-05-28] MEDS: Aspirin 81 MG TAB.CHEW PO (17:40)
[2024-05-28 17:48] LABS: INTERNATIONAL NORM RATIO 1.2 (0.9-1.1); Prothrombin Time 13.8 SEC (10.9-12.4)
[2024-05-28 17:50] LABS: Hematocrit 42.7 % (42.0-52.0); Hemoglobin 13.6 g/dl (14.0-18.0); Mean Corpuscular HGB Conc 31.9 g/dl (31.0-36.0); Mean Corpuscular Hemoglobin 26.9 pg (27.0-33.0); Mean Corpuscular Volume 84.6 fL (80.0-98.0); Mean Platelet Volume 11.4 fL (9.4-12.4); Partial Thromboplastin Time 34.5 SEC (26.0-36.8); Platelet Count 246 X10*3/uL (160-400); Red Blood Count 5.05 X10*6/uL (4.60-5.80); Red Cell Distribution Width 14.6 % (11.0-16.0); White Blood Count 7.6 X10*3/uL (4.8-10.8)
--- NOTE | 2024-05-28 17:53 | PC.NURSE ---
Swallow eval done at bedside. Pt able to sit upright, managing own secretions, no delay/coughing with swallow. Swallow eval pass.
[2024-05-28] MEDS: Enoxaparin Sodium 120 MG/0.8 ML SYRINGE 105 MG SUBCUT (17:56)
[2024-05-28 17:58] VITALS: BP 147/68; PULSE 70; RESP 18; O2SAT 97
--- NOTE | 2024-05-28 18:50 | PHA.MEDREC ---
Addendum entered by Thaddeus Riggins, [facility] 05/28/24 19:15: med rec reviewed Original Note: Pharmacy Consult ? Medication Reconciliation Pharmacy has completed the medication reconciliation. Spoke with patient and he confirmed his medications. Patient confirmed he was taking the Jardiance 10mg tab but states he ran out a few weeks ago and never refilled it. He confirmed he is still taking the Novolog pen three times a day before meals and states he is testing it per a sliding scale. He also confirmed the Basaglar KwikPen and confirmed he is injecting 56 units of that every day at bedtime. He confirmed he is taking the Metformin 1000mg tab 1 BID. He stated he was taking Turlicity but in the last few weeks his Dr switched him to Ozempic but was never able to get the Ozempic from his pharmacy due to back order issues. He confirmed his Warfarin dose and states he is taking 3mg once daily right now, he states he was taking 5mg on Sunday and then states per his Coumadin Dr he decreased to 3mg daily until his levels are tested again. He confirmed he took his medications this morning except for the Warfarin 3mg tab.
--- NOTE | 2024-05-28 19:53 | PC.NURSE ---
pt requesting to leave AMA, ED provider at bedside. hospitalist aware
[2024-05-28 20:10] VITALS: BP 182/90; PULSE 71; RESP 18; TEMP 36.4; O2SAT 97
[2024-05-28 20:14] VITALS: BP 182/90; PULSE 71; RESP 18; TEMP 36.4; O2SAT 97
== END 2024-05-28 20:15 | disposition left against medical advice (07) ==
PROVIDERS: Physician Assistant Medical; Emergency Provider Emergency Medicine; PCP Physician Assistant
DX: R47.1 Dysarthria and anarthria (principal); T45.515A Adverse effect of anticoagulants, initial encounter; Y92.9 Unspecified place or not applicable; I10 Essential (primary) hypertension; E11.9 Type 2 diabetes mellitus without complications; Z95.2 Presence of prosthetic heart valve; Z79.899 Other long term (current) drug therapy; Z79.01 Long term (current) use of anticoagulants
CPT/HCPCS: 36415; 70450; 70496; 70498; 80048; 80061; 82947; 84484; 85025; 85027; 85610; 85730; 93005; 96372; 99285; J1650; Q9967

== ENCOUNTER → 2024-05-28 14:03 | Outpatient (BNV) | payer OTHER, SELFPAY | PROVIDERS: Emergency Provider Emergency Medicine; PCP Physician Assistant; Visit Provider Radiology Diagnostic Radiology | DX: I65.21 Occlusion and stenosis of right carotid artery (principal); M47.892 Other spondylosis, cervical region; I67.82 Cerebral ischemia | CPT/HCPCS: 70450; 70496; 70498 ==

== ENCOUNTER → 2024-05-28 14:03 | Outpatient (BNV) | payer OTHER, SELFPAY | PROVIDERS: Emergency Provider Emergency Medicine; PCP Physician Assistant; Visit Provider Internal Medicine Cardiovascular Disease | DX: R94.31 Abnormal electrocardiogram [ECG] [EKG] (principal); I63.9 Cerebral infarction, unspecified | CPT/HCPCS: 93010 ==

== ENCOUNTER 2024-06-17 12:07 | Outpatient (AMB) | payer OTHER, SELFPAY ==
--- NOTE | 2024-06-17 12:35 | A.OFFVIS_ITS ---
VS Expanded 06/17/24 12:35 Weight 242 lb 11.663 oz Intake Visit Reasons: T2DM Allergies atorvastatin Adverse Reaction (Unknown, Verified 05/28/24 14:00) Unknown Nutrition Presentation Details: Pt presents for MNT f/u for T2DM 14 d BG average: 189 mg/dl Pt reports challenges with snacks and reports having > 16 oz of coffee /day BS Monitoring Most Recent Diabetes Results: Microalb/Creat Ratio 550.9 ug/mg cr (<30) H 04/29/24 Cholesterol 204 mg/dL (<200) H 05/28/24 HDL Cholesterol 44 mg/dL (>40) 05/28/24 Triglycerides 113 mg/dL (<150) 05/28/24 Creatinine 0.74 mg/dL (0.5-1.4) 05/28/24 Blood Urea Nitrogen 19 mg/dL (9-16) H 05/28/24 Sodium 141 mmol/L (135-145) 05/28/24 Potassium 4.0 mmol/L (3.3-5.1) 05/28/24 Chloride 108 mmol/L (96-108) 05/28/24 Carbon Dioxide 21 mmol/L (22-29) L 05/28/24 Calcium 9.6 mg/dL (8.4-10.2) 05/28/24 AST 27 U/L (5-37) 04/29/24 ALT 34 U/L (0-40) 04/29/24 Total Protein 7.7 g/dL (6.5-8.0) 04/29/24 Albumin 4.4 g/dL (3.5-5.0) 04/29/24 [facility] Medical History Coagulopathy Arrhythmia BPH (benign prostatic hyperplasia) Chronic renal insufficiency CVA (cerebral vascular accident) History of COVID-19 Sleep apnea Asthma Diabetes High cholesterol HTN (hypertension) Surgical History H/O colonoscopy H/O tooth extraction Mechanical heart valve present Social History Housing: House Alcohol intake: never Patient Tobacco Use Status: Former Tobacco user Tobacco use type: Cigarette e-Cigarette/Vaping Use: Never Used Second Hand Smoke Exposure: No service: No Current occupational status: employed Cognitive needs: No Hearing needs: No Vision needs: Yes Assessment & Plan Assessment & Plan (1) Uncontrolled type 2 diabetes mellitus with hyperglycemia: Code(s): E11.65 - Type 2 diabetes mellitus with hyperglycemia Category: Medical Plan: Wt: 109 Kg ( 04/07/24 ), 04/2024, 110 kg (06/17) Est kcal needs as per MSJ: 2200 (40% carb, 30% protein/fat) Est fluid needs as per 25-30 ml/d: 3300 Est prot per day as per 1 g/kg bw: 109 Recommend fiber intake : 8-10 g per day and gradually increase to 25-28 g per day for women and 35-38 g for men or as tolerated Recommend sodium intake per day : less than 1500 mg less than 2000 mg Educated patient on: ( R = reviewed V = verbalizes understanding N/R = needs review N/A = not applicable * Food sources of carbohydrate, adequate serving sizes and its role in various health conditions: R * Differences between complex carbohydrates a simple carbohydrates, role of fiber in diet: R * Lean protein sources of foods: R * Differences between types of fats and role in diet (mono on saturated fat fatty acids, saturated fatty acids, trans fats): R basic * Food sources of sodium in salt and healthy modifications for heart health in kidney health: R * Vitamins and minerals: R V N/R * Healthy plate method concept: R V N/R * Physical activity: Benefits a precaution: R * Hypoglycemia protocol (rule of 15): R V N/R * Dietary prevention of Hyperglycemia: R Patient Instructions: Work on reducing portion of starches (have 3 small meals vs 2 large meals) Have celery, carrots, unsalted nuts, yogurt as snack Gradually Reduce on caffeine (/2 decaf/ /2 reg coffee) Coding Level of Care Code Nutr Indiv Subseq (06694) Diagnoses Uncontrolled type 2 diabetes mellitus with hyperglycemia E11.65 Time Spent (min) 20
--- OUTSIDE RECORDS SUMMARY | 2024-06-17 14:47 | XMS_ITS | Encounter Summary ---
Author Organization [facility] Address [address] [place] [address] Care Team Providers Care Assistant Director Of Public Works Name Role Phone Donato, Ayaz Sreekanth JON Primary Care Provider [phone] Encounter Details Date Type Department Care Team (Latest Contact Info) Description 06/13/2024 Anticoagulation - Warfarin Visit [facility] - [facility] [address] [facility] [address] [place] [address] Breezy Marsh MD [address] [place] [address] [address] [place] [address] History of mechanical aortic valve replacement (Primary Dx) Social History Tobacco Use Types Packs/Day Years Used Date Smoking Tobacco: Former Smokeless Tobacco: Former Alcohol Use Standard Drinks/Week Comments Never 0 (1 standard drink = 0.6 oz pur e alcohol) Sex and Gender Information Value Date Recorded Sex Assigned at Not on file Legal Sex Male 2:25 AM EST Gender Identity Not on file Sexual Orientation Not on file documented as of this encounter Progress Notes * Sherice Chowdhury MA - 06/13/2024 8:55 AM EST LVM with instructions documented in this encounter Plan of Treatment Upcoming Encounters Date Type Department Care Team (Late st Contact Info) Description 05/15/2025 10:30 AM EST Office Visit Vascular Surgery - [place] [address] [place] [address] Dru Rueda MD [address] [place] [address] documented as of this encounter Procedures Procedure Name Priority Date/Time Associated Diagnosis Comments PROTHROMBIN TIME WITH INR Routine 06/13/2024 documented in this encounter Results * Prothrombin time with INR (06/13/2024) INR 2.0 EXTERNAL L AB (NON-INTERFACE D) Prothrombin Time POC EXTERNAL LAB (NON-INTERFACE D) Blood Venous blood specimen / Unknown 06/13/2024 Breezy Marsh MD LAB BLOOD ORDERABLES F inal Result EXTERNAL LAB (NON-INTERFACED) documented in this encounter Visit Diagnoses Diagnosis History of mechanical aortic valve replacement- Primary documented in this encounter Care Teams Assistant Director Of Public Works Relationship Specialty Start Date End Date Ayaz Sewell PA PCP - General Internal Medicine 02/07/21 documented as of this encounter
--- OUTSIDE RECORDS SUMMARY | 2024-06-17 14:47 | XMS_ITS | Encounter Summary ---
Author Organization [facility] Address [address] [place] [address] Care Team Providers Care System Validation Engineer Name Role Phone DonatoAyaz pimentel DANAY Primary Care Provider [phone] Encounter Details Date Type Department Care Team (Latest Contact Info) Description 06/06/2024 Anticoagulation - Warfarin Visit [facility] [address] [place] [address] Breezy Marsh MD [address] [place] [address] [address] [place] [address] History of mechanical aortic valve replacement (Primary [...] Progress Notes * Luca Caballero MA - 06/06/2024 9:06 AM EST Left voice message with instructions documented in this encounter Plan of Treatment Upcoming Encounters Date Type Department Care Team (Late st Contact Info) Description 05/15/2025 10:30 AM EST Office Visit Vascular Surgery - [place] [address] [place] [address] Dru Rueda MD [address] [place] [address] documented as of this encounter Procedures Procedure Name Priority Date/Time Associated Diagnosis Comments PROTHROMBIN TIME WITH INR Routine 06/06/2024 documented in this encounter Results * Prothrombin time with INR (06/06/2024) INR 2.1 Prothrombin Time POC Blood Venous blood specimen / Unknown 06/06/2024 Historical Provider LAB BLOOD ORDERABLES Lynda l Result documented in this encounter Visit Diagnoses Diagnosis History of mechanical aortic valve replacement- Primary documented in this encounter Care Teams System Validation Engineer Relationship Specialty Start Date End Date Ayaz Sewell PA PCP - General Internal Medicine 02/07/21 documented as of this encounter
--- OUTSIDE RECORDS SUMMARY | 2024-06-17 14:47 | XMS_ITS | Clinical Summary ---
Author Organization [address] [place] [address] [place] [phone] Phone Care Team Providers Care Holder Pile Driving Name Role Phone Ayaz Sewell Primary Care Provider Allergies Active Allergy Reactions Criticality Noted Date Comments Atorvastatin 08/02/2020 Medications rosuvastatin (CRESTOR) 40 mg tablet Take 1 [...] Take 1,000 mg by mouth daily. Active fluticasone-wale meterol (ADVAIR DISKUS) 250-50 mcg/dose diskus inhaler Inhale [...] He will continue to follow with the [facility] vascular surgery service. Cerebrovascular accident (CVA) 08/02/2020 [...] with aspirin. He underwent a 30-day ambulatory child monitor to rule out atrial fibrillation. This showed predominantly sinus rhythm with brief atrial runs and occasional PACs. No sustained arrhythmias were noted. He will continue to follow with the neurology team at [facility]. Essential hypertension 08/02/2020 Overview (02/06/2024): Last [...] Encounters Date Type Department Care Team Description 06/13/2024 Anticoagulation - Warfarin Visit [facility] Cardiology [facility] [address] [place] [phone] Breezy Marsh MD History of mechanical aortic valve replacement (Primary Dx) 06/06/2024 Anticoagulation - Warfarin Visit [facility]iology [address] [place] [phone] Breezy Marsh MD History of mechanical aortic valve replacement (Primary Dx) 05/30/2024 Anticoagulation - Warfarin Visit [facility] [address] [place] [phone] Breezy Marsh MD History of mechanical aortic valve replacement (Primary Dx) 05/23/2024 Anticoagulation - Warfarin Visit [facility] [address] [place] [phone] Breezy Marsh MD History of mechanical aortic valve replacement (Primary Dx) 05/16/2024 Anticoagulation - Warfarin Visit [facility] [address] [place] [address] Breezy Marsh MD History of mechanical aortic valve replacement (Primary Dx) 05/12/2024 1:15 PM EST Office Visit Vascular Surgery - [place] [address] [place] [phone] Dru Rueda MD Iliac artery aneurysm (CMS/HCC) (Primary Dx) 05/09/2024 8:10 AM EST - 05/09/2024 11:59 PM EST Hospital Encounter [facility] CT Scan [address] [place] [phone] Iliac artery aneurysm (CMS/HCC) Discharge Disposition: Home or Self Care 05/09/2024 Anticoagulation - Warfarin Visit [facility] [address] [place] [address] Breezy Marsh MD History of mechanical aortic valve replacement (Primary Dx) 05/02/2024 Anticoagulation - Warfarin Visit [facility] [address] [place] [address] Breezy Marsh MD History of mechanical aortic valve replacement (Primary Dx) 04/25/2024 Anticoagulation - Warfarin Visit [facility] [address] [place] [phone] Breezy Marsh MD History of mechanical aortic valve replacement (Primary Dx) 04/18/2024 Anticoagulation - Warfarin Visit [facility] Cardiology [facility] [address] [place] [address] Breezy Marsh MD History of mechanical aortic valve replacement (Primary Dx) 04/11/2024 Anticoagulation - Warfarin Visit [facility] [address] [place] [address] Breezy Marsh MD History of mechanical aortic valve replacement (Primary Dx) 04/07/2024 Anticoagulation - Warfarin Visit [facility] [address] [facility] [address] [place] [address] Breezy Marsh MD History of mechanical aortic valve replacement (Primary Dx) 03/28/2024 Anticoagulation - Warfarin Visit [facility] [address] [place] [address] Breezy Marsh MD History of mechanical aortic valve replacement (Primary Dx) 03/24/2024 3:00 PM EST Office Visit Vascular Surgery - [place] [address] [place] [address] Dru Rueda MD Iliac artery aneurysm (CMS/HCC) (Primary Dx) 03/24/2024 Anticoagulation - Warfarin Visit [facility] [address] [place] [address] Breezy Marsh MD History of mechanical aortic valve replacement (Primary Dx) from Last 3 Months Surgical History Surgery Date Site/Laterality Comments OTHER SURGICAL HISTORY 08/01/2023 Left PROCEDURE: DC OPN FEM ART EXPOS DLVR EVASC PROSTH UNI OTHER SURGICAL HISTORY 08/01/2023 PROCEDURE: DC EVASC RPR DPLMNT ILIO-ILIAC NDGFT Medical History [...] on file Sexual Orientation Not on file Obstetrics History Last Filed [...] AM EST Office Visit V[facility] Surgery - [place] [address] [place] [address] Dru Rueda MD [address] [place] [address] Health Maintenance Due Date Last Done Comments Diabetes: Annual Foot Exam 1973 Diabetes: Annual Retina Eye Exam 1973 Zoster Vaccines (1 of 2) 2013 Pneumococcal Vaccine: 50+ Years (2 of 2 - PCV) 06/22/2019 06/21/2018, 04/20/2018 Pneumococcal Vaccine: Pediatrics (0 to 5 Years) [...] patient's age to complete this topic Meningococcal B Vacine Aged Out No lo nger eligible based on patient's age to complete this topic RSV Immunization Patients Under 20 months Aged Out No longer eligible based on patient's age to complete this topic Varicella Vaccines Aged Out No longer eligible based on patient's age to complete this topic Procedures Procedure Name Priority Date/Time Associated Diagnosis Comments PROTHROMBIN TIME WITH INR Routine 06/13/2024 PROTHROMBIN TIME WITH INR Routine 06/06/2024 PROTHROMBIN TIME WITH INR Routine 05/30/2024 PROTHROMBIN TIME WITH INR Routine 05/23/2024 PROTHROMBIN [...] (CMS/HCC) PROTHROMBIN TIME WITH INR Routine 03/24/2024 from Last 3 Months Results * Prothrombin time with INR (06/13/2024) Only the most recent of13 resultswithin the time period is included. INR 2.0 EXTERNAL L AB (NON-INTERFACE D) Prothrombin Time POC EXTERNAL LAB (NON-INTERFACE D) Blood Venous blood specimen / Unknown 06/13/2024 Breezy Marsh MD LAB BLOOD ORDERABLES F inal Result EXTERNAL LAB (NON-INTERFACED) * CT Angio Abdomen Pelvis wo and/or [...] Signed Date: 05/14/2024 07:41 ET Workstation ID: [id number] Transcribed By: Self Edit Transcribed Date: 05/13/2024 [...] Signed Date: 05/14/2024 07:41 ET Workstation ID: [id number] Transcribed By: Self Edit Transcribed Date: 05/13/2024 17:51 ET us Dru Rueda MD IMG CT PROCEDURES Final Result * Creatinine (03/24/2024 3:29 PM EST) Creatinine 0.78 0.70 - 1.30 mg/dL LAB CHEMISTRY METHOD 03/24/2024 5:11 PM EST [facility] eGFR 102 >=60 mL/min/1. 73m2 LAB CHEMISTRY METHOD 03/24/2024 5:11 PM EST [facility] Comment:Calculation based on the??Chronic Kidney Disease Epidemiology Collaboration (CKD-EPI) equation refit??without adjustment for race. Blood Venous blood specimen / Unknown Venipuncture / Unknown 03/24/2024 3:29 PM EST 03/24/2024 4:10 PM EST us Dru Rueda MD LAB BLOOD ORDERABLES Final Resu lt Performing Organization Address City/[place] [facility]/ZIP Co de Phone Number [facility] [address] [place] [address], [place] [phone] * BUN (03/24/2024 3:29 PM EST) BUN 12 5 - 25 mg/dL LAB CHEMISTRY METHOD 03/24/2024 5:11 PM EST [facility] Blood Venous blood specimen / Unknown Venipuncture / Unknown 03/24/2024 3:29 PM EST 03/24/2024 4:10 PM EST us Dru Rueda MD LAB BLOOD ORDERABLES Final Resu lt [facility] [address] [place] [address], [place] [phone] from Last 3 Months Insurance [facility] Care Teams Holder Pile Driving Relationship Specialty Start Date End Date Ayaz Sewell PA PCP - General Internal Medicine 02/07/21
--- OUTSIDE RECORDS SUMMARY | 2024-06-17 14:47 | XMS_ITS | Encounter Summary ---
Author Organization [facility] Address [address] [place] [address] Care Team Providers Care District Court Judge Name Role Phone DonatoAyaz pimentel DANAY Primary Care Provider [phone]- [phone] Encounter Details Date Type Department Care Team (Latest Contact Info) Description 05/30/2024 Anticoagulation - Warfarin Visit [facility] [address] [place] [address] Breezy Marsh MD [address] [place] [address] [address] [place] [address] History of mechanical aortic valve replacement (Primary [...] Progress Notes * Luca Caballero MA - 05/30/2024 9:33 AM EST Left voice message with instructions documented in this encounter Plan of Treatment Upcoming Encounters Date Type Department Care Team (Late st Contact Info) Description 05/15/2025 10:30 AM EST Office Visit Vascular Surgery - [place] [address] [place] [address] Dru Rueda MD [address] [place] [address] documented as of this encounter Procedures Procedure Name Priority Date/Time Associated Diagnosis Comments PROTHROMBIN TIME WITH INR Routine 05/30/2024 documented in this encounter Results * Prothrombin time with INR (05/30/2024) INR 2.1 Prothrombin Time POC Blood Venous blood specimen / Unknown 05/30/2024 Historical Provider LAB BLOOD ORDERABLES Lynda l Result documented in this encounter Visit Diagnoses Diagnosis History of mechanical aortic valve replacement- Primary documented in this encounter Care Teams District Court Judge Relationship Specialty Start Date End Date Ayaz Sewell PA PCP - General Internal Medicine 02/07/21 documented as of this encounter
--- OUTSIDE RECORDS SUMMARY | 2024-06-17 14:47 | XMS_ITS | Encounter Summary ---
Author Organization [facility] Address [address] [place] [address] Care Team Providers Care Spinner Hand Name Role Phone DonatoAyaz pimentel DANAY Primary Care Provider [phone]- [phone] Encounter Details Date Type Department Care Team (Latest Contact Info) Description 05/23/2024 Anticoagulation - Warfarin Visit [facility] [address] [place] [address] Breezy Marsh MD [address] [place] [address] [address] [place] [address] History of mechanical aortic valve replacement (Primary [...] AM EST Office Visit V[facility] - [place] [address] [place] [address] Dru Rueda MD [address] [place] [address] documented as of this encounter Procedures Procedure Name Priority Date/Time Associated Diagnosis Comments PROTHROMBIN TIME WITH INR Routine 05/23/2024 documented in this encounter Results * Prothrombin time with INR (05/23/2024) INR 2.1 Prothrombin Time POC Blood Venous blood specimen / Unknown 05/23/2024 Historical Provider LAB BLOOD ORDERABLES Lynda l Result documented in this encounter Visit Diagnoses Diagnosis History of mechanical aortic valve replacement- Primary documented in this encounter Care Teams Spinner Hand Relationship Specialty Start Date End Date Ayaz Sewell PA PCP - General Internal Medicine 02/07/21 documented as of this encounter
== END 2024-06-17 13:07 | disposition home or self-care (01) ==
PROVIDERS: PCP Physician Assistant; Visit Provider Dietitian, Registered
DX: E11.65 Type 2 diabetes mellitus with hyperglycemia (principal)

== ENCOUNTER → 2024-06-17 12:07 | Outpatient (BNVA) | payer OTHER, SELFPAY | PROVIDERS: PCP Physician Assistant; Visit Provider Dietitian, Registered | DX: E11.65 Type 2 diabetes mellitus with hyperglycemia (principal); Z71.3 Dietary counseling and surveillance | CPT/HCPCS: 97803 ==

== ENCOUNTER 2024-06-23 12:13 | Outpatient (AMB) | payer OTHER, SELFPAY ==
--- NOTE | 2024-06-23 12:45 | A.OFFVIS_ITS ---
Intake Intake Visit Reasons: 30 min Allergies atorvastatin Adverse Reaction (Unknown, Verified 05/28/24 14:00) Unknown HPI Comprehensive Diabetes Asmnt Most Recent Diabetes Results: Hemoglobin A1c 9.5 % 04/26/18 Microalb/Creat Ratio 550.9 ug/mg cr (<30) H 04/29/24 Cholesterol 204 mg/dL (<200) H 05/28/24 HDL Cholesterol 44 mg/dL (>40) 05/28/24 Triglycerides 113 mg/dL (<150) 05/28/24 Creatinine 0.74 mg/dL (0.5-1.4) 05/28/24 Blood Urea Nitrogen 19 mg/dL (9-16) H 05/28/24 Sodium 141 mmol/L (135-145) 05/28/24 Potassium 4.0 mmol/L (3.3-5.1) 05/28/24 Chloride 108 mmol/L (96-108) 05/28/24 Carbon Dioxide 21 mmol/L (22-29) L 05/28/24 Calcium 9.6 mg/dL (8.4-10.2) 05/28/24 AST 27 U/L (5-37) 04/29/24 ALT 34 U/L (0-40) 04/29/24 Total Protein 7.7 g/dL (6.5-8.0) 04/29/24 Albumin 4.4 g/dL (3.5-5.0) 04/29/24 [facility] Medical History Coagulopathy Arrhythmia BPH (benign prostatic hyperplasia) Chronic renal insufficiency CVA (cerebral vascular accident) History of COVID-19 Sleep apnea Asthma Diabetes High cholesterol HTN (hypertension) Surgical History H/O colonoscopy H/O tooth extraction Mechanical heart valve present Social History Housing: House Alcohol intake: never Patient Tobacco Use Status: Former Tobacco user Tobacco use type: Cigarette e-Cigarette/Vaping Use: Never Used Second Hand Smoke Exposure: No service: No Current occupational status: employed Cognitive needs: No Hearing needs: No Vision needs: Yes Assessment & Plan Assessment & Plan (1) Uncontrolled type 2 diabetes mellitus with hyperglycemia: Code(s): E11.65 - Type 2 diabetes mellitus with hyperglycemia Plan: The patient met all learning objectives and was able to verbalize understanding and provide teach back of education topics discussed . The patient was provided with the opportunity to ask questions and all questions were answered. Patient Assessment Assess patient education level/literacy/barriers, patient went to ED on 05/28/2024, was diagnosed with slight CVA, reviewed documentation from ED patient left hospital AMA. At last visit with Dr. Leyva Trulicity 3 mg was discontinued patient was switched to Ozempic 2 mg. However patient's insurance will not cover Ozempic he has been without GLP 1 for approximately 1 month. Reviewed patient's Nabeel 3 CGM data Average glucose for the past 14 days 189 mg/dL Above target 56% At target 44% Below target 0% Message sent to Dr. Leyva to represcribed Trulicity as stated in note from 05/28/2024 Learning objectives: The patient was provided with verbal and written education on the following topics as outlined below. Exercise Medical clearance Effect of exercise on blood sugar Start slowly and gradually increase pace/duration over time Goal amount of exercise Checking blood glucose/have a source of carbs with you Diabetes Complications: ?Nephropathy :Kidney Disease ?diabetes can damage the kidneys, which is not only can cause them to fail but can make them lose their ability to filter waste from the blood? ?Retinopathy: Eye complications ?Retinopathy? is the commonest long-term complication of diabetes. It is leading cause of blindness Besides, Retinopathy- People with diabetes? are also prone to cataract and Glaucoma. ?Neuropathy: Nerve damage -It involves temporary or permanent damage to nerve tissue. Nerve tissue gets injured mainly due to decreased blood flow and rise in blood glucose levels. This damage can lead to pain , or loss of sensation it can also include sexual dysfunction in both men and women ? Infections poor healing: People with diabetes? have increased susceptibility to various infections, such as? pneumonias, pyelonephritis, carbuncles and diabetic ulcers. This may be due to poor blood supply, reduced cellular immunity or hyperglycemia. ?Heart Disease And Stroke: People with diabetes are four times more prone to develop Heart disease than those who do not have diabetes ?Depression: Feeling down once in awhile is normal, but some people feel sadness that just won't go away. Life for them seems hopeless. Feeling this way most of the day for two weeks or more is a sign of serious depression ?Gum Disease: People get gum disease when plaque destroys the gums and bone around the teeth. People with diabetes can get gum disease from having high blood glucose levels for a long time Lifestyle * Work * Travel * Stress management * Problem solving Know your goals * A1C * Blood sugar targets * Blood pressure * Cholesterol/LDL Urine microalbumin Smart Goal Assessment: Patient will treat hypoglycemia with rule of 15s Pt met goal 75% New Goal:? Patient will reschedule diabetes eye exam, that he had to cancel in 05/2024 Educational Materials: The patient was provided with the following written educational materials: ADCES 7 Healthy Behaviors Reducing Risks handout Patient Response to instructions: Comprehension of Instructions: fair Readiness to make changes: Contemplation How confident they feel about making changes: Fair Portions of this note were created using voice recognition software, please excuse any words or phrases that may have been misinterpreted. Patient Instructions: Include regular daily activity. ADA recommends 30 minutes of exercise 5 days a week. Weight loss talk to PCP or Micro Lab Analyst before starting new plan. Test blood sugar as directed; Fasting and 2hpp largest meal. Watch trends in results. Utilize results and to assess how food, physical activity and medications affect blood sugar results. Bring glucometer or CGM to next visit. Be knowledgeable about diabetes medication, its action, side effects, efficacy, toxicity, prescribed dosage, appropriate timing and frequency of administration, effect of missed and delayed doses and instructions for storage, travel and safety. Problem solving techniques to monitor hypo/hyperglycemia episodes and treatments. Reduce risk reduction behaviors, smoking cessation, regular eye, foot and dental examinations. Coding Level of Care Code Est Pt Level 1 (16197) Diagnoses Uncontrolled type 2 diabetes mellitus with hyperglycemia E11.65
--- OUTSIDE RECORDS SUMMARY | 2024-06-23 14:21 | XMS_ITS | Encounter Summary ---
Author Organization [facility] Address [address] [place] [address] Care Team Providers Care Fisher Lampara Net Name Role Phone [place] pimentel DANAY Primary Care Provider [phone]- [phone] Encounter Details Date Type Department Care Team (Latest Contact Info) Description 05/30/2024 Anticoagulation - Warfarin Visit [facility] [address] [place] [address] Breezy Marsh MD [address] [place] [address] [address] [place] [address] History of mechanical aortic valve replacement (Primary [...] AM EST Office Visit Vascular Surgery - [place] [address] [place] [address] Dru Rueda MD [address] [place] [address] documented as of this encounter Procedures Procedure [...] Primary documented in this encounter Care Teams Fisher Lampara Net Relationship Specialty Start Date End Date Ayaz Sewell PA PCP - General Internal Medicine 02/07/21 documented as of this encounter
--- OUTSIDE RECORDS SUMMARY | 2024-06-23 14:21 | XMS_ITS | Encounter Summary ---
Author Organization [facility] Address [address] [place] [address] Care Team Providers Care Supervisor Cytogenetic Laboratory Name Role Phone [place], Ayaz Sreekanth JON Primary Care Provider [phone] Encounter Details Date Type Department Care Team (Latest Contact Info) Description 06/13/2024 Anticoagulation - Warfarin Visit [facility] [address] [facility] [address] [place] [address] Breezy Marsh MD [address] [place] [address] [address] [place] [address] History of mechanical aortic valve replacement (Primary [...] AM EST Office Visit V[facility] Surgery - [place] [address] [place] [address] Dru Rueda MD [address] [place] [address] documented as of this encounter Procedures Procedure [...] Primary documented in this encounter Care Teams Supervisor Cytogenetic Laboratory Relationship Specialty Start Date End Date Ayaz Sewell PA PCP - General Internal Medicine 02/07/21 documented as of this encounter
--- OUTSIDE RECORDS SUMMARY | 2024-06-23 14:21 | XMS_ITS | Encounter Summary ---
Author Organization [facility] Address [address] [place] [address] Care Team Providers Care Golf Ball Molder Name Role Phone [place] pimentel DANAY Primary Care Provider [phone]- [phone] Encounter Details Date Type Department Care Team (Latest Contact Info) Description 06/20/2024 Anticoagulation - Warfarin Visit [facility] [address] [place] [address] Breezy Marsh MD [address] [place] [address] [address] [place] [address] History of mechanical aortic valve replacement (Primary [...] Progress Notes * Luca Caballero MA - 06/20/2024 8:37 AM EST Patient aware of instructions documented in this encounter Plan of Treatment Upcoming Encounters Date Type Department Care Team (Late st Contact Info) Description 05/15/2025 10:30 AM EST Office Visit [facility] Surgery - [place] [address] [place] [address] Dru Rueda MD [address] [place] [address] documented as of this encounter Procedures Procedure Name Priority Date/Time Associated Diagnosis Comments PROTHROMBIN TIME WITH INR Routine 06/20/2024 documented in this encounter Results * Prothrombin time with INR (06/20/2024) INR 2.9 Prothrombin Time POC Blood Venous blood specimen / Unknown 06/20/2024 Historical Provider LAB BLOOD ORDERABLES Lynda l Result documented in this encounter Visit Diagnoses Diagnosis History of mechanical aortic valve replacement- Primary documented in this encounter Care Teams Golf Ball Molder Relationship Specialty Start Date End Date Ayaz Sewell PA PCP - General Internal Medicine 02/07/21 documented as of this encounter
--- OUTSIDE RECORDS SUMMARY | 2024-06-23 14:21 | XMS_ITS | Encounter Summary ---
Author Organization [facility] Address [address] [place] [address] Care Team Providers Care Coil Spring Assembler Name Role Phone [place] DANAY Primary Care Provider [phone]- [phone] Encounter Details Date Type Department Care Team (Latest Contact Info) Description 06/06/2024 Anticoagulation - Warfarin Visit [facility] [address] [place] [address] Breezy Marsh MD [address] [place] [address] [address] [place] [address] History of mechanical aortic valve replacement (Primary [...] AM EST Office Visit V[facility] Surgery - [place] [address] [place] [address] Dru Rueda MD [address] [place] [address] documented as of this encounter Procedures Procedure [...] Primary documented in this encounter Care Teams Coil Spring Assembler Relationship Specialty Start Date End Date Ayaz Sewell PA PCP - General Internal Medicine 02/07/21 documented as of this encounter
--- OUTSIDE RECORDS SUMMARY | 2024-06-23 14:21 | XMS_ITS | Clinical Summary ---
Author Organization [address] [place] [address] [place] [phone] Phone Care Team Providers Care Forging Machine Operator Name Role Phone Ayaz Seewll Primary Care Provider Allergies Active Allergy Reactions [...] He will continue to follow with the [facility] vascular surgery service. Cerebrovascular accident (CVA) 08/02/2020 [...] with aspirin. He underwent a 30-day ambulatory court monitor to rule out atrial fibrillation. This showed predominantly sinus rhythm with brief atrial runs and occasional PACs. No sustained arrhythmias were noted. He will continue to follow with the neurology team at [facility]. Essential hypertension 08/02/2020 Overview (02/06/2024): Last Assessment [...] Encounters Date Type Department Care Team Description 06/20/2024 Anticoagulation - Warfarin Visit [facility] - [facility] [address] [place] [address] Breezy Marsh MD History of mechanical aortic valve replacement (Primary Dx) 06/13/2024 Anticoagulation - Warfarin Visit [facility] [address] [place] [address] Breezy Marsh MD History of mechanical aortic valve replacement (Primary Dx) 06/06/2024 Anticoagulation - Warfarin Visit [facility] [address] [place] [address] Breezy Marsh MD History of mechanical aortic valve replacement (Primary Dx) 05/30/2024 Anticoagulation - Warfarin Visit [facility] [address] [place] [address] Breezy Marsh MD History of mechanical aortic valve replacement (Primary Dx) 05/23/2024 Anticoagulation - Warfarin Visit [facility] [address] [place] [address] Breezy Marsh MD History of mechanical aortic valve replacement (Primary Dx) 05/16/2024 Anticoagulation - Warfarin Visit [facility] [address] [place] [address] Breezy Marsh MD History of mechanical aortic valve replacement (Primary Dx) 05/12/2024 1:15 PM EST Office Visit [facility] Surgery - [place] [address] [place] [address] Dru Rueda MD Iliac artery aneurysm (CMS/HCC) (Primary Dx) 05/09/2024 8:10 AM EST - 05/09/2024 11:59 PM EST Hospital Encounter [facility] CT Scan [address] [place] [address] Iliac artery aneurysm (CMS/HCC) Discharge Disposition: Home or Self Care 05/09/2024 Anticoagulation - Warfarin Visit [facility] [address] [place] [address] Breezy Marsh MD History of mechanical aortic valve replacement (Primary Dx) 05/02/2024 Anticoagulation - Warfarin Visit [facility] [address] [place] [address] Breezy Marsh MD History of mechanical aortic valve replacement (Primary Dx) 04/25/2024 Anticoagulation - Warfarin Visit [facility] [address] [place] [address] Breezy Marsh MD History of mechanical aortic valve replacement (Primary Dx) 04/18/2024 Anticoagulation - Warfarin Visit [facility] [address] [place] [address] Breezy Marsh MD History of mechanical aortic valve replacement (Primary Dx) 04/11/2024 Anticoagulation - Warfarin Visit [facility] [address] [place] [address] Breezy Marsh MD History of mechanical aortic valve replacement (Primary Dx) 04/07/2024 Anticoagulation - Warfarin Visit [facility] [address] [place] [address] Breezy Marsh MD History of mechanical aortic valve replacement (Primary Dx) 03/28/2024 Anticoagulation - Warfarin Visit [facility] [address] [place] [address] Breezy Marsh MD History of mechanical aortic valve replacement (Primary Dx) from Last 3 Months Surgical History Surgery Date Site/Laterality Comments OTHER SURGICAL HISTORY 08/01/2023 Left PROCEDURE: DE OPN FEM ART EXPOS DLVR EVASC PROSTH UNI OTHER SURGICAL HISTORY 08/01/2023 PROCEDURE: DE EVASC RPR DPLMNT ILIO-ILIAC NDGFT Medical History [...] AM EST Office Visit [facility] - [place] [address] [place] [address] Dru Rueda MD [address] [place] [address] Health Maintenance Due Date Last Done Comments [...] Comments PROTHROMBIN TIME WITH INR Routine 06/20/2024 PROTHROMBIN TIME WITH INR Routine 06/13/2024 PROTHROMBIN [...] 9 PM EST Iliac artery aneurysm (CMS/HCC) from Last 3 Months or Most Recently Relevant to Health Maintenance Results * Prothrombin time with INR (06/20/2024) Only the most recent of13 resultswithin the time period is included. INR 2.9 Prothrombin Time POC Blood Venous blood specimen / Unknown 06/20/2024 us Historical Provider LAB BLOOD ORDERABLES Lynda l Result * CT Angio Abdomen Pelvis wo and/or [...] Signed Date: 05/14/2024 07:41 ET Workstation ID: [id number] Transcribed By: Self Edit Transcribed Date: 05/13/2024 [...] solid nodule periphery posterolateral left lower lobe (263). ??Suspect a partially included prosthetic aortic valve. [...] Signed Date: 05/14/2024 07:41 ET Workstation ID: [id number] Transcribed By: Self Edit Transcribed Date: 05/13/2024 17:51 ET us Dru Rueda MD [facility] [place]ED[place] Final Result * Creatinine (03/24/2024 3:29 PM EST) Creatinine 0.78 0.70 - 1.30 mg/dL LAB CHEMISTRY METHOD 03/24/2024 5:11 PM EST [facility] eGFR 102 >=60 mL/min/1. 73m2 LAB CHEMISTRY METHOD 03/24/2024 5:[address] [facility] Comment:Calculation based on the??Chronic Kidney Disease Epidemiology Collaboration (CKD-EPI) equation refit??without adjustment for race. Blood Venous blood specimen / Unknown Venipuncture / Unknown 03/24/2024 3:29 PM EST 03/24/2024 4:10 PM EST us Dru Rueda MD LAB BLOOD ORDERABLES Final Resu lt [facility] [address] [place] [address], from Last 3 Months or Most Recently Relevant to Health Maintenance Insurance [facility] [place] [address] Care Teams Forging Machine Operator Relationship Specialty Start Date End Date Ayaz Sewlel PA PCP - General Internal Medicine 02/07/21
== END 2024-06-23 12:47 | disposition home or self-care (01) ==
PROVIDERS: PCP Physician Assistant; Visit Provider Registered Nurse Diabetes Educator
DX: E11.65 Type 2 diabetes mellitus with hyperglycemia (principal)

== ENCOUNTER → 2024-06-23 12:13 | Outpatient (BNVA) | payer OTHER, SELFPAY | PROVIDERS: PCP Physician Assistant; Visit Provider Registered Nurse Diabetes Educator | DX: E11.65 Type 2 diabetes mellitus with hyperglycemia (principal) | CPT/HCPCS: 99211 ==

== ENCOUNTER 2024-06-25 13:01 | Outpatient (AMB) | payer OTHER, SELFPAY ==
--- NOTE | 2024-06-25 13:09 | A.OFFPC_ITS ---
Vital Signs 06/25/24 13:20 Height 5 ft 6 in Weight 243 lb 4 oz BMI 39.3 BP 138/80 Blood Pressure Location Lt brachial Position Sitting Pulse 72 Pulse Source Pulse Oximeter Temp 97.1 F Temp Source Temporal Artery Scan Pulse Oximetry (%) 95 Oxygen Delivery Method Room Air Intake Visit Reasons: follow up Occup Ther Required: No Accompanied by: Self / Same As Patient Allergies atorvastatin Adverse Reaction (Unknown, Verified 06/25/24 13:26) Unknown Medication List - Last Reconciled 06/25/24 by Ayaz Sewell PA-C acetaminophen 650 mg PO Q6H PRN albuterol sulfate 90 mcg/actuation 2 puffs inhalation Q4-6H PRN 90 days aspirin 1 tab PO DAILY betamethasone dipropionate 0.05% 1 appl topical DAILY PRN blood sugar diagnostic (FreeStyle Lite Strips) Check sugar twice a day /PRN blood-glucose meter (FreeStyle [place] Lite kit) As directed CPAP As directed dulaglutide (Trulicity) 3 mg (0.5 mL) subcut QWEEK ferrous sulfate 325 mg PO BID 90 days fluticasone propion-salmeterol 250-50 mcg/dose (Wixela Inhub) 1 inh inhalation BID 90 days FreeStyle Nabeel 3 [place] (blood-glucose meter,continuous) DIRECTED NS FreeStyle Nabeel 3 Sensor (blood-glucose sensor) every 14 days NS insulin aspart (niacinamide) 100 unit/mL (3 mL) (Fiasp FlexTouch U-100 Insulin) See Protocol sliding scale doses subcut TIDAC insulin glargine-yfgn 56 units subcut BEDTIME lancets (FreeStyle Lancets) As directed losartan 50 mg (2 x 25 mg) PO DAILY meclizine 25 mg PO TID 90 days metformin 1,000 mg PO BID metoprolol tartrate 50 mg PO BID pantoprazole 40 mg PO DAILY@0630 pen needle, diabetic (CareTouch Pen Needle) As directed daily with insulin pen pen needle, diabetic (Comfort Touch Pen Needle) As directed TID with insulin pen pioglitazone 30 mg PO DAILY rosuvastatin 40 mg PO DAILY 90 days sertraline 50 mg PO DAILY tamsulosin 0.4 mg PO DAILY warfarin 3 mg PO DAILY@1800 Tobacco use date assessed: 05/08/24 Dental Screening Dental Screen Date: 05/08/24 HPI follow up HPI Details pateint is a 59 y/o M here today for a ER follow-up visit.? Patient has a past medical history of CVA, aortic valve replacement,h/o aortic dissection, diabetes, obesity, coronary artery disease, iliac artery aneurysm, hypertension. Was seen recently at [facility] for acute slurred speech. He did undergo a CTA and CT brain showing-- >Diffuse chronic small vessel ischemic changes in the deep white matter both cerebral hemispheres. There is slight progression of hypodensity right parietal lobe compared to previous exam. This may represent subacute to acute ischemia or white matter changes. Recommendations were made to admit though patient left against medical advice due to the weather. He unfortunately continues to have dysarthria on was interested in seeing speech therapy to help with his speech. At this time unclear etiology to his CVAs. Does have a aortic valve replacement. Will send for Holter monitor to evaluate for a paroxysmal AFib or a flutter. CHRONIC MEDICAL CONDITIONS--- > Major depressive disorder: Patient continues on sertraline with only decent affect. Does have personal home issues that were followed in his daughter that causes his mood to be low. He has stopped seeing his mental health therapist as he has not been able to get an appointment. He is willing to get a new referral to cognitive behavioral therapy. Microcytic anemia: Has been started on iron supplementation in CBC has improved. ? .. ? CAD: Is followed by cardiology at [facility] (PV cards) , denies any chest pains palpitations or shortness of breath. Most recent lipid panel showing excellent control of his total cholesterol and LDL. .. ..HTN: Blood pressure slightly elevated today in office , does not check at home.? He is otherwise asymptomatic. He does not monitor his blood pressures at home Continues on losartan 50 mg. We did discuss perhaps increasing his losartan to 100 mg for better blood pressure control. Recent microalbumin very elevated likely due to uncontrolled hypertension and type 2 diabetes. ? . ?Aortic valve replacement: Is currently on Coumadin with therapeutic INRs between 2.5 and 3.5.? Denies any overt signs of bleeding. ? .. ? DMII: Has establish care with [facility]. He has been established with a chemical educator and a parking technician as well. He has also been started on Jardiance ? He monitors his blood pressure at home and does report having some higher readings .. His diabetes has not been well controlled. He does admit dietary indiscretion due to his depression. Most recent fasting blood sugar elevated, urine showing glucosuria . [facility] Medical History Coagulopathy Arrhythmia BPH (benign prostatic hyperplasia) Chronic renal insufficiency CVA (cerebral vascular accident) History of COVID-19 Sleep apnea Asthma Diabetes High cholesterol HTN (hypertension) Surgical History H/O colonoscopy H/O tooth extraction Mechanical heart valve present Social History Housing: House Alcohol intake: never Patient Tobacco Use Status: Former Tobacco user Tobacco use type: Cigarette e-Cigarette/Vaping Use: Never Used Second Hand Smoke Exposure: No service: No Current occupational status: employed Cognitive needs: No Hearing needs: No Vision needs: Yes Questionnaire Thrive Questionnaire Date Thrive assessed: 05/08/24 LAINA-7 AMB Questionnaire LAINA-7 Date LAINA - 7 assessed: 05/08/24 Source: Developed by Drs. Jg Mims, Tonia Zapata, Colt Calero and colleagues, with an educational sultana from [employer]. Review of Systems Const Denies headache(s) Eyes Denies loss of vision ENT Denies vertigo, Denies dizziness, Denies headache(s) and Denies sore throat Card Denies chest pain, Denies leg edema and Denies lightheadedness Resp Denies cough, Denies hemoptysis and Denies wheezing GI Denies abdominal pain, Denies melena, Denies constipation, Denies diarrhea and Denies vomiting Denies dysuria, Denies urinary frequency and Denies urinary urgency Musc Denies arthralgias, Denies joint swelling, Denies numbness and Denies tingling Neuro Denies Abnormal speech present, Denies behavioral changes, Denies vertigo, Denies dizziness, Denies headache(s), Denies loss of vision, Denies memory loss, Denies numbness and Denies tingling Psych Denies anxiety, Denies behavioral changes, Denies depression, Denies memory loss and Denies panic attacks Maximiliano/Lymph Denies easy bleeding and Denies easy bruising Aller/Immun Denies wheezing Physical exam (Primary Care) Vital Signs: Last Vital Signs Temp 97.1 F 06/25/24 13:20 Pulse 72 06/25/24 13:20 BP 138/80 06/25/24 13:20 Pulse Ox 95 06/25/24 13:20 Oxygen Delivery Method Room Air 06/25/24 13:20 BMI result Body Mass Index 39.3 Tobacco/Smoking Status: Tobacco use Status Tobacco use date assessed 05/08/24 06/25/24 13:09 Patient Tobacco Use Status Former Tobacco user 06/25/24 13:09 Tobacco use type Cigarette 06/25/24 13:09 e-Cigarette/Vaping Use Never Used 06/25/24 13:09 Thrive Assessment: Date of Thrive Assessment Date Thrive assessed 05/08/24 06/25/24 13:09 Const General: healthy appearing, no acute distress, alert and awake Nutritional Appearance: well nourished Orientation/consciousness: oriented to person, oriented to place and oriented to time HENMT Other: NOTICEABLE SLURRED SPEECH Ears: TM's normal bilaterally General nose exam: Normal nasal mucous membranes and turbinates present Eyes Conjunctivae: conjunctivae normal Sclerae: sclerae normal Pupils: Equal, round and reactive pupils present Neck Neck: Yes no lymphadenopathy and Yes no JVD Thyroid: Thyroid normal Carotids: no bruits Resp Effort & Inspection: normal respiratory effort and not tachypneic Auscultation: no crackles, no rales, no rhonchi and no wheezes Cardio Rate: regular rate Rhythm: regular rhythm Heart sounds: no murmurs and normal S1 and S2 GI Palpation (GI): Soft to palpation, nontender, no hepatomegaly and no splenomegaly Auscultation: normal bowel sounds Skin General skin exam: no rashes or lesions noted and dry skin Neuro General: oriented to person, oriented to place and oriented to time Cranial nerves: Yes Equal, round and reactive pupils present Speech: No Abnormal speech present Gait exam (Neuro): Normal gait present Motor exam (neuro): no tremor noted Extrem Right upper extremity: full ROM Left upper extremity: full ROM Right lower extremity: full ROM; no edema Left lower extremity: full ROM; no edema Psych Mental Status: mental status grossly normal Speech and movement: Normal speech and movement present Affect: normal affect Attitude: cooperative Thought process: Normal thought process present Coding Level of Care Code Est Pt Level 4 (62792) Diagnoses Dysarthria R47.1 Cerebrovascular accident (CVA) due to occlusion of right middle cerebral artery I63.511 CVA mechanism: occlusion Laterality of affected vessel: right Precerebral and cerebral artery: middle cerebral artery Type 2 diabetes mellitus with diabetic nephropathy, with long-term current use of insulin E11.21; Z79.4 Diabetes mellitus complication detail: with nephropathy Diabetes mellitus complication status: with kidney complications Diabetes mellitus intermediate insulin use: with terminal gauger supervisor use MDD (major depressive disorder), recurrent episode, moderate F33.1 Primary hypertension I10 Hypertension type: primary hypertension Mixed hyperlipidemia E78.2 Hyperlipidemia type: mixed hyperlipidemia Assessment & Plan Assessment & Plan (1) Dysarthria: Code(s): R47.1 - Dysarthria and anarthria Category: Medical Plan: Patient continues to have difficulties with the speech. He is interested in going to speech therapy. Otherwise no difficulty swallowing. (2) CVA (cerebral vascular accident): Comment: post aortic valve replacement Code(s): I63.9 - Cerebral infarction, unspecified Category: Medical Qualifiers: CVA mechanism: occlusion Laterality of affected vessel: right Precerebral and cerebral artery: middle cerebral artery Qualified Code(s): I63.511 - Cerebral infarction due to unspecified occlusion or stenosis of right middle cerebral artery Plan: Patient has had a CVA after his aortic valve replacement years ago. Continues on medical management with aggressive cholesterol control. Continues on antiplatelet therapy as well. Patient's recent CT had showing-->Diffuse chronic small vessel ischemic changes in the deep white matter both cerebral hemispheres. There is slight progression of hypodensity right parietal lobe compared to previous exam. This may represent subacute to acute ischemia or white matter changes. CTA of head and neck showing-->There is moderate thrombus in the right distal CCA carotid bulb with at least greater than 50% stenosis. This can be evaluated with carotid ultrasound. (3) DMII (diabetes mellitus, type 2): Code(s): E11.9 - Type 2 diabetes mellitus without complications Category: Medical Qualifiers: Diabetes mellitus complication detail: with nephropathy Diabetes mellitus complication status: with kidney complications Diabetes mellitus terminal gauger supervisor insulin use: with terminal gauger supervisor use Qualified Code(s): E11.21 - Type 2 diabetes mellitus with diabetic nephropathy; Z79.4 - terminal operator (current) use of insulin Plan: Patient's type 2 diabetes has been much better controlled since being more his insulin and started Jardiance. He is seeing [facility] and has been established parking technician and chemical educator. A1c now 8.5 from 14. (4) MDD (major depressive disorder), recurrent episode, moderate: Code(s): F33.1 - Major depressive disorder, recurrent, moderate Category: Medical Plan: Patient's PHQ-9 score positive for depression which has been existing condition for him. He does continue with sertraline 50 mg. Patient now seeing a mental health therapist. He feels his mental health is a bit better. (5) HTN (hypertension): Code(s): I10 - Essential (primary) hypertension Category: Medical Qualifiers: Hypertension type: primary hypertension Qualified Code(s): I10 - Essential (primary) hypertension Plan: Patient's blood pressure acceptable today in office. We did discuss perhaps her increasing his losartan to 100 mg. Does have microalbuminuria likely secondary to his uncontrolled type 2 diabetes. (6) HLD (hyperlipidemia): Code(s): E78.5 - Hyperlipidemia, unspecified Category: Medical Qualifiers: Hyperlipidemia type: mixed hyperlipidemia Qualified Code(s): E78.2 - Mixed hyperlipidemia Plan: Patient's most recent lipid panel showing excellent control of his total cholesterol and LDL. Goal LDL is to remain below 70 Orders: Orders ECG 7 day holter monitor 06/25/24 I63.511 - Cerebral infarction due to unspecified occlusion or stenosis of right middle cerebral artery Referrals Speech and Hearing Referral R47.1 - Dysarthria and anarthria Neurology Referral I63.511 - Cerebral infarction due to unspecified occlusion or stenosis of right middle cerebral artery Medications: Refilled pen needle, diabetic (Comfort Touch Pen Needle) As directed TID with insulin pen 100 ea 5RF E11.9 - Type 2 diabetes mellitus without complications, Z79.4 - terminal operator (current) use of insulin
[2024-06-25 13:20] VITALS: BP 138/80; PULSE 72; TEMP 36.2; O2SAT 95; BMI 39.3
--- OUTSIDE RECORDS SUMMARY | 2024-06-25 15:26 | XMS_ITS | Clinical Summary ---
Author Organization [address] [place] [address] [place] [phone] Phone Care Team Providers Care Wellness Ambassador Name Role Phone Ayaz Sewell Primary Care [...] He will continue to follow with the [place] vascular surgery service. Cerebrovascular accident (CVA) 08/02/2020 [...] with aspirin. He underwent a 30-day ambulatory hall monitor to rule out atrial fibrillation. This showed predominantly sinus rhythm with brief atrial runs and occasional PACs. No sustained arrhythmias were noted. He will continue to follow with the neurology team at [facility]. Essential hypertension 08/02/2020 Overview (02/06/2024): [...] Team Description 06/20/2024 Anticoagulation - Warfarin Visit [facility] [address] [place] [phone] Breezy Marsh MD History of mechanical aortic valve replacement (Primary Dx) 06/13/2024 Anticoagulation - Warfarin Visit [facility] [address] [place] [address] Breezy Marsh MD History of mechanical aortic valve replacement (Primary Dx) 06/06/2024 Anticoagulation - Warfarin Visit [facility] [address] [place] [phone] Breezy Marsh MD History of mechanical aortic valve replacement (Primary Dx) 05/30/2024 Anticoagulation - Warfarin Visit [facility] [address] [place] [phone] Breezy Marsh MD History of mechanical aortic valve replacement (Primary Dx) 05/23/2024 Anticoagulation - Warfarin Visit [facility] [address] [place] [address] Breezy Marsh MD History of mechanical aortic valve replacement (Primary Dx) 05/16/2024 Anticoagulation - Warfarin Visit [facility] [address] [place] [address] Breezy Marsh MD History of mechanical aortic valve replacement (Primary Dx) 05/12/2024 1:15 PM EST Office Visit [facility] - [place] [address] [place] [address] Dru Rueda MD Iliac artery aneurysm (CMS/HCC) (Primary Dx) 05/09/2024 8:10 AM EST - 05/09/2024 11:59 PM EST Hospital Encounter [facility] CT Scan [address] [place] [phone] Iliac artery aneurysm (CMS/HCC) Discharge Disposition: Home or Self Care 05/09/2024 Anticoagulation - Warfarin Visit [facility] [address] [place] [address] Breezy Marsh MD History of mechanical aortic valve replacement (Primary Dx) 05/02/2024 Anticoagulation - Warfarin Visit [facility] [address] [place] [phone] Breezy Marsh MD History of mechanical aortic valve replacement (Primary Dx) 04/25/2024 Anticoagulation - Warfarin Visit [facility] [address] [place] [address] Breezy Marsh MD History of mechanical aortic valve replacement (Primary Dx) 04/18/2024 Anticoagulation - Warfarin Visit [facility] [address] [place] [address] Breezy Marsh MD History of mechanical aortic valve replacement (Primary Dx) 04/11/2024 Anticoagulation - Warfarin Visit [facility] [address] [place] [address] Breezy Marsh MD History of mechanical aortic valve replacement (Primary Dx) 04/07/2024 Anticoagulation - Warfarin Visit [facility] [address] [place] [address] Breezy Marsh MD History of mechanical aortic valve replacement (Primary Dx) 03/28/2024 Anticoagulation - Warfarin Visit [facility] [address] [place] [address] Breezy Marsh MD History of [...] AM EST Office Visit [facility] [place] [address] [place] [address] Dru Rueda MD [address] [place] [address] Health Maintenance Due Date Last Done Comments [...] Signed Date: 05/14/2024 07:41 ET Workstation ID: [id number] Transcribed By: Self Edit Transcribed Date: 05/13/2024 [...] Signed Date: 05/14/2024 07:41 ET Workstation ID: [id number] Transcribed By: Self Edit Transcribed Date: 05/13/2024 17:51 ET us Dru Rueda MD [facility] CT PROCEDURES Final Result * Creatinine (03/24/2024 3:29 PM EST) Creatinine 0.78 0.70 - 1.30 mg/dL LAB CHEMISTRY METHOD 03/24/2024 5:11 PM EST [facility] eGFR 102 >=60 mL/min/1. 73m2 LAB CHEMISTRY METHOD 03/24/2024 5:11 PM EST [facility] Comment:Calculation based on the??Chronic Kidney Disease Epidemiology Collaboration (CKD-EPI) equation refit??without adjustment for race. Blood Venous blood specimen / Unknown Venipuncture / Unknown 03/24/2024 3:29 PM EST 03/24/2024 4:10 PM EST us Dru Rueda MD LAB BLOOD ORDERABLES Final Resu lt [facility] [address] [place] [address], from Last 3 Months or Most Recently Relevant to Health Maintenance Insurance [facility] Care Teams Wellness Ambassador Relationship Specialty Start Date End Date Ayaz Sewell PA PCP - General Internal Medicine 02/07/21
--- OUTSIDE RECORDS SUMMARY | 2024-06-25 15:26 | XMS_ITS | Encounter Summary ---
Author Organization [facility] Address [address] [place] [address] Care Team Providers Care Coat Operator Insulator Name Role Phone BloomingdaleAyaz pimentel DANAY Primary Care Provider [phone] Encounter Details Date Type Department Care Team (Latest Contact Info) Description 06/06/2024 Anticoagulation - Warfarin Visit [facility] [address] [place] [address] Breezy Marsh MD [address] [place] [address] [address] [place] [address] History of mechanical aortic valve replacement (Primary [...] AM EST Office Visit [facility] - [place] [address] [place] [address] Dru Rueda MD [address] [place] [address] documented as of this encounter Procedures Procedure [...] Primary documented in this encounter Care Teams Coat Operator Insulator Relationship Specialty Start Date End Date Ayaz Sewell PA PCP - General Internal Medicine 02/07/21 documented as of this encounter
--- OUTSIDE RECORDS SUMMARY | 2024-06-25 15:26 | XMS_ITS | Encounter Summary ---
Author Organization [facility] Address [address] [place] [address] Care Team Providers Care Glove Examiner Name Role Phone PerryAyaz pimentel DANAY Primary Care Provider [phone] Encounter Details Date Type Department Care Team (Latest Contact Info) Description 05/30/2024 Anticoagulation - Warfarin Visit [facility] [address] [place] [address] Breezy Marsh MD [address] [place] [address] [address] [place] [address] History of mechanical aortic valve replacement (Primary [...] AM EST Office Visit [facility] [place] [address] [place] [address] Dru Rueda MD [address] [place] [address] documented as of this encounter Procedures Procedure [...] Primary documented in this encounter Care Teams Glove Examiner Relationship Specialty Start Date End Date Ayaz Sewell PA PCP - General Internal Medicine 02/07/21 documented as of this encounter
--- OUTSIDE RECORDS SUMMARY | 2024-06-25 15:26 | XMS_ITS | Encounter Summary ---
Author Organization [facility] Address [address] [place] [address] Care Team Providers Care Gold Frame Assembler Name Role Phone WaucondaAyaz pimentel DANAY Primary Care Provider [phone] Encounter Details Date Type Department Care Team (Latest Contact Info) Description 06/20/2024 Anticoagulation - Warfarin Visit [facility] [address] [place] [address] Breezy Marsh MD [address] [place] [address] [phone] History of mechanical aortic valve replacement (Primary [...] AM EST Office Visit [facility] - [place] [address] [place] [address] Dru Rueda MD [address] [place] [address] documented as of this encounter Procedures Procedure [...] Primary documented in this encounter Care Teams Gold Frame Assembler Relationship Specialty Start Date End Date Ayaz Sewell PA PCP - General Internal Medicine 02/07/21 documented as of this encounter
--- OUTSIDE RECORDS SUMMARY | 2024-06-25 15:26 | XMS_ITS | Encounter Summary ---
Author Organization [facility] Address [address] [place] [address] Care Team Providers Care Helper Marble Finisher Name Role Phone [place], Ayaz Sreekanth JON Primary Care Provider [phone] Encounter Details Date Type Department Care Team (Latest Contact Info) Description 06/13/2024 Anticoagulation - Warfarin Visit [facility] [address] [facility] [address] [place] [address] Breezy Marsh MD [address] [place] [address] [address] [place] [address] History of mechanical aortic valve replacement (Primary [...] AM EST Office Visit [facility] - [place] [address] [place] [address] Dru Rueda MD [address] [place] [address] documented as of this encounter Procedures Procedure [...] Primary documented in this encounter Care Teams Helper Marble Finisher Relationship Specialty Start Date End Date Ayaz Sewell PA PCP - General Internal Medicine 02/07/21 documented as of this encounter
== END 2024-06-25 13:45 | disposition home or self-care (01) ==
PROVIDERS: PCP Physician Assistant; Visit Provider Physician Assistant
DX: I63.511 Cerebral infarction due to unspecified occlusion or stenosis of right middle cerebral artery (principal); E11.21 Type 2 diabetes mellitus with diabetic nephropathy; Z79.4 Long term (current) use of insulin; F33.1 Major depressive disorder, recurrent, moderate; R47.1 Dysarthria and anarthria; I10 Essential (primary) hypertension; E78.2 Mixed hyperlipidemia

== ENCOUNTER → 2024-06-25 13:01 | Outpatient (BNVA) | payer OTHER, SELFPAY | PROVIDERS: PCP Physician Assistant; Visit Provider Physician Assistant | DX: R47.1 Dysarthria and anarthria (principal); I63.511 Cerebral infarction due to unspecified occlusion or stenosis of right middle cerebral artery; E11.21 Type 2 diabetes mellitus with diabetic nephropathy; Z79.4 Long term (current) use of insulin; F33.1 Major depressive disorder, recurrent, moderate; E78.2 Mixed hyperlipidemia; I10 Essential (primary) hypertension | CPT/HCPCS: 99212 ==

== ENCOUNTER 2024-07-02 10:28 | Outpatient (AMB) | payer OTHER, SELFPAY ==
--- NOTE | 2024-07-02 10:34 | A.OFFVIS_ITS ---
Vital Signs 07/02/24 10:35 Height 5 ft 6 in Weight 242 lb 8.136 oz BMI 39.1 BP 120/80 Blood Pressure Location Rt brachial Position Sitting Pulse 81 Pulse Source Pulse Oximeter Pulse Oximetry (%) 97 Oxygen Delivery Method Room Air Intake Visit Reasons: T2DM Intake Note: Patient presents today for a follow-up on Type 2 Diabetes Mellitus: Patient reports having a recent heart attack. Last Diabetic eye exam was on: DUE Last Podiatry exam was on: Does not see a Assistant Professor Nurse Education Most recent HbA1c: 8.5%, 04/29/2024 Random Glucose- 208 mg/dL, Today Software Development Test Engineer Required: No Accompanied by: Self / Same As Patient Allergies atorvastatin Adverse Reaction (Unknown, Verified 07/02/24 10:36) Unknown Medication List - Last Reconciled 07/05/24 by Sherice Castellano MD acetaminophen 650 mg PO Q6H PRN albuterol sulfate 90 mcg/actuation 2 puffs inhalation Q4-6H PRN 90 days aspirin 1 tab PO DAILY betamethasone dipropionate 0.05% 1 appl topical DAILY PRN blood sugar diagnostic (FreeStyle Lite Strips) Check sugar twice a day /PRN blood-glucose meter (FreeStyle [place] Lite kit) As directed CPAP As directed empagliflozin (Jardiance) 25 mg PO DAILY ferrous sulfate 325 mg PO BID 90 days fluticasone propion-salmeterol 250-50 mcg/dose (Wixela Inhub) 1 inh inhalation BID 90 days FreeStyle Nabeel 3 [place] (blood-glucose meter,continuous) DIRECTED NS FreeStyle Nabeel 3 Sensor (blood-glucose sensor) every 14 days NS insulin aspart (niacinamide) 100 unit/mL (3 mL) (Fiasp FlexTouch U-100 Insulin) See Protocol sliding scale doses subcut TIDAC insulin glargine-yfgn 56 units subcut BEDTIME lancets (FreeStyle Lancets) As directed losartan 50 mg (2 x 25 mg) PO DAILY meclizine 25 mg PO TID 90 days metformin 1,000 mg PO BID metoprolol tartrate 50 mg PO BID pantoprazole 40 mg PO DAILY@0630 pen needle, diabetic (CareTouch Pen Needle) As directed daily with insulin pen pen needle, diabetic (Comfort Touch Pen Needle) As directed TID with insulin pen pioglitazone 30 mg PO DAILY rosuvastatin 40 mg PO DAILY 90 days sertraline 50 mg PO DAILY tamsulosin 0.4 mg PO DAILY Trulicity (dulaglutide) 4.5 mg (0.5 mL) subcut QWEEK NS warfarin 3 mg PO DAILY@1800 HPI Comments Details: 58 y/o male presenting for diabetes follow up Patient has a past medical history of CVA, aortic valve replacement,h/o aortic dissection, diabetes, obesity, coronary artery disease, iliac artery aneurysm, hypertension. Current medications: Basaglar 56 units nightly, fiasp 8u three times daily, metformin 1000mg BID. Trulicity 3 mg Qwkly (increased from 3mg) .Actos 30 mg QD and jardiance 25mg daily Last A1C 8.2% Apr, download shows he is using the sensor >90% of the time- TGT 46%, high 46% Was seen recently at [facility] for acute slurred speech. He did undergo a CTA and CT brain showing-- >Diffuse chronic small vessel ischemic changes in the deep white matter both cerebral hemispheres. There is slight progression of hypodensity right parietal lobe compared to previous exam. This may represent subacute to acute ischemia or white matter changes. He continues to have some dysarthria Adopted On ARB/statin Micro/macrovascular complications: ED Diagnosed in 30s Hasnt had nutrition or diabetic education Hypoglycemia: No ROS CONSTITUTIONAL: Denies weight loss, fever and chills. HEENT: Denies changes in vision and hearing. RESPIRATORY: Denies SOB and cough. CV: Denies palpitations and CP GI: Denies abdominal pain, nausea, vomiting and diarrhea. : Denies dysuria and urinary frequency. MSK: Denies new myalgia and joint pain. SKIN: Denies rash and pruritus. NEUROLOGICAL: new dysarthria PSYCHIATRIC: Denies recent changes in mood. PHYSICAL EXAM: GENERAL: Alert and oriented x 3. NAD EYES: EOMI. Anicteric. HENT: Moist mucous membranes. No scleral icterus. No cervical lymphadenopathy. LUNGS: Clear to auscultation bilaterally. CARDIOVASCULAR: Regular rate and rhythm. +murmur No JVD. ABDOMEN: Soft, non-tender +bs EXTREMITIES: No edema. Non-tender. SKIN: No rashes or lesions. Warm. NEUROLOGIC: No focal neurological deficits. CN II-XII grossly intact PSYCHIATRIC: Cooperative. Appropriate mood and affect [facility] Medical History Coagulopathy Arrhythmia BPH (benign prostatic hyperplasia) Chronic renal insufficiency CVA (cerebral vascular accident) History of COVID-19 Sleep apnea Asthma Diabetes High cholesterol HTN (hypertension) Surgical History H/O colonoscopy H/O tooth extraction Mechanical heart valve present Social History Housing: House Alcohol intake: never Patient Tobacco Use Status: Former Tobacco user Tobacco use type: Cigarette e-Cigarette/Vaping Use: Never Used Second Hand Smoke Exposure: No service: No Current occupational status: employed Cognitive needs: No Hearing needs: No Vision needs: Yes Physical Exam Vital Signs: Last Vital Signs Pulse 81 07/02/24 10:35 BP 120/80 07/02/24 10:35 Pulse Ox 97 07/02/24 10:35 Oxygen Delivery Method Room Air 07/02/24 10:35 BMI result Body Mass Index 39.1 Results Reviewed Results Reviewed: Laboratory Last Values Glucose (Clinic) 208 mg/dL (60-115) H 07/02/24 10:40 Assessment & Plan Assessment & Plan (1) Uncontrolled type 2 diabetes mellitus with hyperglycemia: Code(s): E11.65 - Type 2 diabetes mellitus with hyperglycemia Category: Medical Plan: Uncontrolled. Recent CVA Increase trulicity to 4.5mg daily. Eye appt scheduled (2) CVA (cerebral vascular accident): Comment: post aortic valve replacement. Saw cardiology 2023 Code(s): I63.9 - Cerebral infarction, unspecified Category: Medical Qualifiers: CVA mechanism: occlusion Laterality of affected vessel: right Precerebral and cerebral artery: middle cerebral artery Qualified Code(s): I63.511 - Cerebral infarction due to unspecified occlusion or stenosis of right middle cerebral artery Plan: pending 7 day monitor. Orders: Orders PT Evaluation and Treatment 03 I63.511 - Cerebral infarction due to unspecified occlusion or stenosis of right middle cerebral artery, R53.1 - Weakness ECG 7 day holter monitor 06/25/24 I63.511 - Cerebral infarction due to unspecified occlusion or stenosis of right middle cerebral artery Referrals Speech and Hearing Referral R47.1 - Dysarthria and anarthria Medications: New empagliflozin (Jardiance) 25 mg PO DAILY 90 tabs 3RF Trulicity (dulaglutide) 4.5 mg (0.5 mL) subcut QWEEK 6 mL 3RF NS Refilled FreeStyle Nabeel 3 Sensor (blood-glucose sensor) every 14 days 6 ea 3RF NS E11.65 - Type 2 diabetes mellitus with hyperglycemia, E11.9 - Type 2 diabetes mellitus without complications, Z79.4 - penitentiary (current) use of insulin Discontinued dulaglutide (Trulicity) Discontinued Reason: Doctor's Order 3 mg (0.5 mL) subcut QWEEK 6 mL 3RF Coding Level of Care Code Est Pt Level 4 (77496) Diagnoses Uncontrolled type 2 diabetes mellitus with hyperglycemia E11.65 Cerebrovascular accident (CVA) due to occlusion of right middle cerebral artery I63.511 CVA mechanism: occlusion Laterality of affected vessel: right Precerebral and cerebral artery: middle cerebral artery
[2024-07-02 10:35] VITALS: BP 120/80; PULSE 81; O2SAT 97; BMI 39.1
[2024-07-02 10:45] LABS: Glucose, Whole Blood 208 mg/dL (60-115)
--- OUTSIDE RECORDS SUMMARY | 2024-07-02 12:04 | XMS_ITS | Encounter Summary ---
Author Organization [facility] Address [address] [place] [address] Care Team Providers Care Mine Captain Name Role Phone DonatoAyaz pimentel DANAY Primary Care Provider [phone]- [phone] Encounter Details Date Type Department Care Team (Latest Contact Info) Description 06/20/2024 Anticoagulation - Warfarin Visit [facility] [address] [facility] [address] [place] [address] Breezy Marsh MD [address] [place] [address] [address] [place] [address] History of mechanical aortic valve replacement (Primary [...] AM EST Office Visit Vascular Surgery - [place] [address] [place] [address] Dru Rueda MD [address] [place] [address] documented as of this encounter Procedures Procedure [...] Primary documented in this encounter Care Teams Mine Captain Relationship Specialty Start Date End Date Ayaz Sewell PA PCP - General Internal Medicine 02/07/21 documented as of this encounter
--- OUTSIDE RECORDS SUMMARY | 2024-07-02 12:04 | XMS_ITS | Clinical Summary ---
Author Organization [address] [place] [address] [place] [phone] Phone Care Team Providers Care Deflash And Wash Operator Name Role Phone Ayaz Sewell Primary Care [...] He will continue to follow with the [facility]. Cerebrovascular accident (CVA) 08/02/2020 [...] with aspirin. He underwent a 30-day ambulatory monitor tech to rule out atrial fibrillation. This showed predominantly sinus rhythm with brief atrial runs and occasional PACs. No sustained arrhythmias were noted. He will continue to follow with the neurology team at [facility]. Essential hypertension 08/02/2020 Overview (02/06/2024): [...] Encounters Date Type Department Care Team Description 06/27/2024 Anticoagulation - Warfarin Visit [facility] [address] [place] [address] Breezy Marsh MD History of mechanical aortic valve replacement (Primary Dx) 06/20/2024 Anticoagulation - Warfarin Visit [facility] [address] [place] [address] Breezy Marsh MD History of mechanical aortic valve replacement (Primary Dx) 06/13/2024 Anticoagulation - Warfarin Visit [facility] [address] [place] [phone] Breezy Marsh MD History of mechanical aortic valve replacement (Primary Dx) 06/06/2024 Anticoagulation - Warfarin Visit [facility] [address] [place] [address] Breezy Marsh MD History of mechanical aortic valve replacement (Primary Dx) 05/30/2024 Anticoagulation - Warfarin Visit [facility] [address] [place] [address] Breezy Marsh MD History of mechanical aortic valve replacement (Primary Dx) 05/23/2024 Anticoagulation - Warfarin Visit [facility] [address] [place] [address] Breezy Marsh MD History of mechanical aortic valve replacement (Primary Dx) 05/16/2024 Anticoagulation - Warfarin Visit [facility] [address] [place] [address] Breezy Marsh MD History of mechanical aortic valve replacement (Primary Dx) 05/12/2024 1:15 PM EST Office Visit V[facility] Surgery - [place] [address] [place] [phone] Dru Rueda MD Iliac artery aneurysm (CMS/HCC) (Primary Dx) 05/09/2024 8:10 AM EST - 05/09/2024 11:59 PM EST Hospital Encounter [facility] CT Scan [address] [place] [phone] Iliac artery aneurysm (CMS/HCC) Discharge Disposition: Home or Self Care 05/09/2024 Anticoagulation - Warfarin Visit [facility] [address] [place] [address] Breezy Marsh MD History of mechanical aortic valve replacement (Primary Dx) 05/02/2024 Anticoagulation - Warfarin Visit [facility] [address] [place] [address] Breezy Marsh MD History of mechanical aortic valve replacement (Primary Dx) 04/25/2024 Anticoagulation - Warfarin Visit [facility] [address] [place] [address] Breezy Marsh MD History of mechanical aortic valve replacement (Primary Dx) 04/18/2024 Anticoagulation - Warfarin Visit [facility] [address] [place] [address] Breezy Marsh MD History of mechanical aortic valve replacement (Primary Dx) 04/11/2024 Anticoagulation - Warfarin Visit [facility] [address] [place] [address] Breezy Marsh MD History of mechanical aortic valve replacement (Primary Dx) 04/07/2024 Anticoagulation - Warfarin Visit [facility] [address] [place] [address] Breezy Marsh MD History of mechanical aortic valve replacement (Primary Dx) from Last 3 Months Surgical History Surgery Date Site/Laterality Comments OTHER SURGICAL HISTORY 08/01/2023 Left PROCEDURE: RI OPN FEM ART EXPOS DLVR EVASC PROSTH UNI OTHER SURGICAL HISTORY 08/01/2023 PROCEDURE: RI EVASC RPR DPLMNT ILIO-ILIAC NDGFT Medical History [...] AM EST Office Visit [facility] Surgery - [place] [address] [place] [address] Dru Rueda MD [address] [place] [address] Health Maintenance Due Date Last Done Comments [...] Diagnosis Comments PROTHROMBIN TIME WITH INR Routine 06/27/2024 PROTHROMBIN TIME WITH INR Routine 06/20/2024 PROTHROMBIN [...] 04/11/2024 PROTHROMBIN TIME WITH INR Routine 04/07/2024 CREATININE, SERUM Routine 03/24/2024 3:2 9 PM EST Iliac artery aneurysm (CMS/HCC) from Last 3 Months or Most Recently Relevant to Health Maintenance Results * Prothrombin time with INR (06/27/2024) Only the most recent of13 resultswithin the time period is included. INR 2.1 Prothrombin Time POC Blood Venous blood specimen / Unknown 06/27/2024 Historical Provider LAB BLOOD ORDERABLES Lynda l [...] Signed Date: 05/14/2024 07:41 ET Workstation ID: [id number] Transcribed By: Self Edit Transcribed Date: 05/13/2024 [...] Signed Date: 05/14/2024 07:41 ET Workstation ID: [id number] Transcribed By: Self Edit Transcribed Date: 05/13/2024 17:51 ET us Dru Rueda MD [facility] PROCEDURES Final Result * Creatinine (03/24/2024 3:29 PM EST) Creatinine 0.78 0.70 - 1.30 mg/dL LAB CHEMISTRY METHOD 03/24/2024 5:11 PM EST [facility] eGFR 102 >=60 mL/min/1. 73m2 LAB CHEMISTRY METHOD 03/24/2024 5:11 PM EST [facility] Comment:Calculation based on the??Chronic Kidney Disease Epidemiology Collaboration (CKD-EPI) equation refit??without adjustment for race. Blood Venous blood specimen / Unknown Venipuncture / Unknown 03/24/2024 3:29 PM EST 03/24/2024 4:10 PM EST us Dru Rueda MD LAB BLOOD ORDERABLES Final [facility]u lt [facility] [address] [place] [address], from Last 3 Months or Most Recently Relevant to Health Maintenance Insurance [facility] Care Teams Deflash And Wash Operator Relationship Specialty Start Date End Date Ayaz Sewell PA PCP - General Internal Medicine 02/07/21
--- OUTSIDE RECORDS SUMMARY | 2024-07-02 12:04 | XMS_ITS | Encounter Summary ---
Author Organization [facility] Address [address] [place] [address] Care Team Providers Care Assistant Men'S Lacrosse Coach Name Role Phone DonatoAyaz ipmentel DANAY Primary Care Provider [phone]- [phone] Encounter Details Date Type Department Care Team (Latest Contact Info) Description 06/06/2024 Anticoagulation - Warfarin Visit [facility] [address] [facility] [address] [place] [address] Breezy Marsh MD [address] [place] [address] [address] [place] [address] History of mechanical aortic valve replacement (Primary [...] AM EST Office Visit V[facility] Surgery - [place] [address] [place] [address] Dru Rueda MD [address] [place] [address] documented as of this encounter Procedures Procedure [...] documented in this encounter Care Teams Assistant Men'S Lacrosse Coach Relationship Specialty Start Date End Date Ayaz Sewell PA PCP - General Internal Medicine 02/07/21 documented as of this encounter
--- OUTSIDE RECORDS SUMMARY | 2024-07-02 12:04 | XMS_ITS | Encounter Summary ---
Author Organization [facility] Address [address] [place] [address] Care Team Providers Care Mainframe Programmer Analyst Name Role Phone DonatoAyaz pimentel DANAY Primary Care Provider [phone]- [phone] Encounter Details Date Type Department Care Team (Latest Contact Info) Description 06/27/2024 Anticoagulation - Warfarin Visit [facility] [address] [facility] [address] [place] [address] Breezy Marsh MD [address] [place] [address] [address] [place] [address] History of mechanical aortic valve replacement (Primary [...] Progress Notes * Luca Caballero MA - 06/27/2024 11:04 AM EST Left voice message with instructions documented in this encounter Plan of Treatment Upcoming Encounters Date Type Department Care Team (Late st Contact Info) Description 05/15/2025 10:30 AM EST Office Visit [facility] Surgery - [place] [address] [place] [address] Dru Rueda MD [address] [place] [address] documented as of this encounter Procedures Procedure Name Priority Date/Time Associated Diagnosis Comments PROTHROMBIN TIME WITH INR Routine 06/27/2024 documented in this encounter Results * Prothrombin time with INR (06/27/2024) INR 2.1 Prothrombin Time POC Blood Venous blood specimen / Unknown 06/27/2024 Historical Provider LAB BLOOD ORDERABLES Lynda l Result documented in this encounter Visit Diagnoses Diagnosis History of mechanical aortic valve replacement- Primary documented in this encounter Care Teams Mainframe Programmer Analyst Relationship Specialty Start Date End Date Ayaz Sewell PA PCP - General Internal Medicine 02/07/21 documented as of this encounter
--- OUTSIDE RECORDS SUMMARY | 2024-07-02 12:04 | XMS_ITS | Encounter Summary ---
Author Organization [facility] Address [address] [place] [address] Care Team Providers Care Swim Coach Name Role Phone Donato, Ayaz Sreekanth JON Primary Care Provider [phone] Encounter Details Date Type Department Care Team (Latest Contact Info) Description 06/13/2024 Anticoagulation - Warfarin Visit [facility] - [facility] [address] [facility] [address] [place] [address] Breezy Marsh MD [address] [place] [address] [address] [place] [address] History of mechanical aortic valve replacement (Primary [...] AM EST Office Visit Vascular Surgery - [place] [address] [place] [address] Dru Rueda MD [address] [place] [address] documented as of this encounter Procedures Procedure [...] Primary documented in this encounter Care Teams Swim Coach Relationship Specialty Start Date End Date Ayaz Sewell PA PCP - General Internal Medicine 02/07/21 documented as of this encounter
== END 2024-07-02 11:14 | disposition home or self-care (01) ==
LOC: HO.ENCR 10:28
PROVIDERS: PCP Physician Assistant; Visit Provider Internal Medicine
DX: E11.65 Type 2 diabetes mellitus with hyperglycemia (principal); I63.511 Cerebral infarction due to unspecified occlusion or stenosis of right middle cerebral artery

== ENCOUNTER → 2024-07-02 10:28 | Outpatient (BNVA) | payer OTHER, SELFPAY | PROVIDERS: PCP Physician Assistant; Visit Provider Internal Medicine | DX: E11.65 Type 2 diabetes mellitus with hyperglycemia (principal); I63.511 Cerebral infarction due to unspecified occlusion or stenosis of right middle cerebral artery; Z79.4 Long term (current) use of insulin; Z79.84 Long term (current) use of oral hypoglycemic drugs | CPT/HCPCS: 82947; 99212 ==

== ENCOUNTER 2024-07-15 13:03 | Outpatient (RCR) | payer OTHER, SELFPAY ==
--- NOTE | 2024-07-16 14:07 | MHC.SP.ADU ---
Referring provider: Ayaz Sewell PA-C Reason for Referral: R47.1 Dysarthria and Anarthria Type of Treatment: 64888 Evaluation Speech Sound Production WITH Language Date of Plan of Treatment: 07/15/24 Onset of Symptoms/Illness: 05/28/24 Date Treatment Started: 07/15/24 Medical Diagnosis: History of Stroke Primary Speech Language Diagnosis: R47.1 Dysarthria Secondary Speech Language Diagnosis: R41.841 Cognitive communication disorder History Alejandro Hilario is a 59 year old male referred for a speech-language evaluation by his primary care provider, Ayaz Sewell PA-C. Alejandro?s past medical history is significant for sleep apnea, diabetes, high cholesterol, hypertension, and CVA, among other diagnoses. Alejandro also had a procedure for placement of a mechanical aortic valve about 5 or 6 years ago. Alejandro reports having had 3 strokes, most recently he was seen in the Emergency Department at [facility] for concerns of slurred speech on 05/28/24. He had a Head CT showing, ?Diffuse chronic small vessel ischemic changes in the deep white matter both cerebral hemispheres. There is slight progression of hypodensity right parietal lobe compared to previous exam. This may represent subacute to acute ischemia or white matter changes.? He was seen by Dr. Howard for admission for possible stroke, however, Alejandro refused and left that same day AMA. Patient reports experiencing changes to his speech, language, and cognition since this event. He identified the following as areas of difficulty: expressing thoughts, being understood by others, orientation/memory, maintaining topic of conversation, following directions, difficulty understanding what others are saying, problem solving, focusing/attention, reading/writing, finding words, stuttering, oral motor weakness, voice difficulties. Alejandro reports increasing forgetfulness, forgetting appointments, misplacing objects, and forgetting what he had watched on a tv show. Alejandro reports others have difficulty understanding his speech on the phone and he frequently needs to repeat himself. Additionally, Alejandro reports having trouble swallowing since his heart procedure in 2019. He says his swallow ?feels stuck chcf through,? but denies coughing or choking. He does not believe he has ever had a barium swallow study nor seen G.I. Alejandro completed high school level education and denies childhood history of speech, language, or cognitive difficulty. Alejandro lives alone in a private residence. He has two adult children, Barb and Indio. Alejandro is on disability and does not currently work. He was most recently employed at [employer]. Medical History: Other: Medical History Coagulopathy Arrhythmia BPH (benign prostatic hyperplasia) Chronic renal insufficiency CVA (cerebral vascular accident) History of COVID-19 Sleep apnea Asthma Diabetes High cholesterol HTN (hypertension) Surgical History H/O colonoscopy H/O tooth extraction Mechanical heart valve present Medication List: Recent Hospitalizations: Respiratory Needs: Patient Orientation: Social History: Employment Status: Unemployed Highest level of education obtained: Completed High School/GED Current Living Situation: Alone in private residence Reported Speech, Language, Cognition difficulties: Memory Cognition Speaking Swallowing Assessment Speech Production: Dysarthric Garbled Clinical Impression: Impaired Observations: Alejandro?s speech was mildly slow in rate and moderately garbled in quality. Alejandro?s SMR?s and AMR?s were slow, but correctly sequenced and precise. Alejandro was administered the Tikofsky?s 50 Word Intelligibility Test. At the single word level Alejandro was approximately 76% intelligible to this clinician, a trained and unfamiliar listener. Patient evidenced difficulty with bilabial sounds /p/, /m/, /w/, consonant clusters in the initial and final position, fricative sounds /f/, /s/, ?th,? affricate sounds ?ch,? and liquids /l/. With oral neuromotor examination, Alejandro displayed gross facial symmetry at rest and with labial retraction. He was able to puff his cheeks and maintain labial seal when pressure was applied. Alejandro was able to purse his lips for production of vowel ?oo? and retract his lips for production of ?ee.?He exhibited difficulty sequencing these two oral movements when pressed for speed. Lingual range of motion (ROM) was deemed within functional limits, though weakness was noted with tongue protrusion into the right cheek against pressure. Strength and ROM of lips and jaw are deemed to be within functional limits. Note intact and symmetrical velar elevation with phonation. Patient has adequate dentition for mastication. Tests of Speech & Lang Adults: BDAE BNT Clinical Impression: Impaired Observations: Alejandro completed the [place] Naming Test (BNT) Standard Form. He was presented with images, which he was instructed to name in a confrontation naming task. Alejandro correctly named 50 out of 60 images independently. He was able to name common nouns, but exhibited some difficulty naming less salient items, such as tongs, tripod, scroll, palette, and compass. He often named items using descriptive phrases (i.e. ?ice cube grabber? for target word ?tongs?). Alejandro benefitted from phonemic cues and sentence completion prompts (i.e. ?You place the camera on a tri?? for target word ?tripod?). During conversation, Alejandro at times hesitated when recalling a word, stating, ?Ok, what?s it called?? Based on these observations, Alejandro presents with mild anomia, with difficulty retrieving less common words mostly in context of a spontaneous conversation and better performance on confrontational naming. He utilized compensatory strategies and self-cues to eventually retrieve words on his own and/or to continue the communication exchange, by describing or gesturing to show meaning. Alejandro was also administered the Auditory Comprehension and Oral Expression subtests of the [place] Diagnostic Aphasia Examination. His performance is summarized below: RECEPTIVE LANGUAGE: Alejandro completed single-step commands, which were verbally presented to him, without difficulty, demonstrating basic word discrimination (i.e. ?Point to your shoulder? ?Point to the picture representing an ant?) (score 15/16). He identified body parts on himself and line images from an array of 4. He likewise completed multi-step and more complex commands without any difficulty. He correctly answered yes/no questions about ideational material in 4 out of 4 trials and about short stories read aloud for him in 8 out of 8 trials. Questions were presented in pairs (6 pairs), each pair consisting of a yes-item and a no-item. In order to gain 1 point, Alejandro was to answer both questions correctly. He received a score of 6/6. No difficulties were identified in the area of receptive language. Alejandro denied experiencing any difficulty with his auditory comprehension. EXPRESSIVE LANGUAGE: Alejandro generated the days of the week and counted to 21 without error, receiving a score of 4/4. He reported no difficulties with automatic speech tasks. Alejandro repeated single words in 5 out of 5 trials and complete sentences in 1 out of 2 trials. He did not exhibit significant difficulty with repetition. Alejandro responded appropriately to responsive naming questions (i.e. ?What do you use to shave??) in 5 out of 5 trials. Items immediately named were scored as 2 points and items named after a short time delay (>5 sec) were scored as 1 point. Alejandro named all 5 items immediately, receiving a score of 10/10. Alejandro correctly named ?special categories,? which included letters, numbers, and colors in 10 out of 12 trials. Alejandro did mention he was ?color blind,? and made errors when naming colors in 2 instances. He formulated complete sentences with correct usage of grammatical forms and varied sentence structures. Alejandro presents with mild anomia, particularly with less common words. Otherwise, his expressive language skills are deemed to be within functional limits. Tests of Cognition: RBANS Clinical Impression: Impaired Observations: Alejandro?s cognitive linguistic skills were evaluated using the RBANS: The Repeatable Battery for the Assessment of Neuropsychological Status (RBANS-Updated Form A). The RBANS assesses aspects of cognitive memory, language, and attention skills. The RBANS is considered a screening battery for cognitive function used with adolescents and adults, ages 12 to 89 years. Composite domains assessed in this evaluation are: Immediate Memory, Visuospatial/Constructional, Language, Attention, and Delayed Memory. Assessed domains and their scores are summarized below: IMMEDIATE MEMORY: These subtests assess an individual?s ability to remember a small amount of information immediately after it is presented. Alejandro was presented with a list of 10 spoken words and was instructed to repeat back as many words as he could remember from the list (List Learning). He initially recalled 4 items from the list of 10. After 3 repetitions, he recalled up to 6 items on the list, indicating that verbal repetition seems to facilitate his recall to some degree. After listening to a spoken paragraph, Alejandro was instructed to re-tell the story with as much detail as he could remember (Story memory). He was better able to recall specific details from a narrative than he was a list of unrelated words. List Learning Total Score: 14 Scaled Score: 2 Percentile Rank: 0.4% Interpretation: Extremely Low Story Memory Total Score: 11 Scaled Score: 4 Percentile Rank: 2% Interpretation: Borderline Immediate Memory Index score: 57 Percentile Rank: 0.2% Interpretation: Extremely Low VISUOSPATIAL/CONSTRUCTIONAL: These subtests assess an individual?s visuospatial skills and perception of spatial relationships. Alejandro was first instructed to draw an accurate copy of a figure presented to him (Figure Copy). Alejandro?s copy lacked some components, though placement was mostly intact. Alejandro was able to identify lines that matched based on orientation and placement in most (14 out of 20) trials (Line Orientation). Figure Copy Total Score: 15 Scaled Score: 5 Percentile Rank: 5% Interpretation: Borderline Line Orientation Total Score: 14 Percentile Group: 17-25 Interpretation: Low Average Visuospatial/Constructional Index score: 75 Percentile Rank: 5% Interpretation: Borderline LANGUAGE: These subtests assess an individual?s word retrieval skills. Alejandro correctly named line images in 10 out of 10 trials (Picture Naming) and listed 18 fruits and vegetables in 60 seconds when assessed for semantic fluency (Semantic Fluency). Alejandro evidenced no difficulty on these subtests, but reports intermittent anomia during conversation. His word retrieval skills were further assessed with the [place] Naming Test (BNT). Picture Naming Total Score: 10 Percentile Group: 51-75 Interpretation: Average Semantic Fluency Total Score: 18 Scaled Score: 8 Percentile Rank: 25% Interpretation: Average Language Index score: 96 Percentile Rank: 39% Interpretation: Average ATTENTION: These subtests assess an individual?s capacity to remember and manipulate both visually and orally presented information in short-term memory storage. Alejandro was first instructed to repeat back number series that were between 2-9 digits long (Digit Span). Impressively he recalled digit series of up to 8 digits. He marked codes with minimal error (Coding), however, worked slowly through this task. Patient reported having difficulty with mechanics of writing, which may have impacted his performance on this subtest under the given time constraint. Digit Span Total Score: 12 Scaled Score: 12 Percentile Rank: 75% Interpretation: High Average Coding Total Score: 21 Scaled Score: 3 Percentile Rank: 1% Interpretation: Extremely Low Attention Index score: 85 Percentile Rank: 16% Interpretation: Low Average DELAYED MEMORY: These subtests assess an individual?s retrieval of information after a short time delay. Alejandro exhibited difficulty recalling items from a list, but was able to recognize these items when asked yes/no questions (?Was ?market? on the list??). He was unable to recall details from the story, stating, ?I have no idea what it was about.? List Recall Total Score: 0 Percentile Group: <2% Interpretation: Extremely Low List Recognition Total Score: 19 Percentile Group: 26-50 Interpretation: Average Story Recall Total Score: 0 Scaled Score: 1 Percentile Rank: 0.1% Interpretation: Extremely Low Figure Recall Total Score: 7 Scaled Score: 5 Percentile Rank: 5% Interpretation: Borderline Delayed Memory Index Score: 81 Percentile Rank: 10% Interpretation: Low Average SUM OF INDEX SCORES: 394 TOTAL SCALE: 73 PERCENTILE RANK: 4% INTERPRETATION: Borderline Simon Latham (1998). Repeatable Battery for the Assessment of Neuropsychological Status [Manual]. Citra ID: Lonny. Impressions and Recommendations Summary: lAejandro is a 59 year old male presenting with multiple concerns after his most recent stroke 1 month ago. Alejandro reported difficulties in the areas of memory, attention, articulation, word finding, and swallowing. On assessment today, Alejandro presented with moderate dysarthria and mild anomic aphasia. He is recommended further assessment of dysphagia with a modified barium swallow study. Alejandro is also recommended outpatient speech therapy 1x weekly x 12 weeks to address short-term memory, word retrieval, and speech intelligibility. Impact on Daily Function/Activity Limitations: Daily Activities: Mild Interpersonal Interactions: Mild Education: Employment: Community: Mild Prognosis for Improvement: Fair Recommendation for Speech Therapy: Outpatient Speech Therapy Modified Barium Swallow Study - Outpatient Frequency/Duration: 1x weekly x 12 weeks Date Range for Service Requested: Time to Reassess: 3 months Senior Care Goals: 1.) Alejandro will utilize a variety of word-finding strategies at the conversational level with minimal assistance in >80% opportunities presented to him. 2.) Alejandro will utilize compensatory strategies to assist short-term memory in 80% of opportunities independently. 3.) Alejandro will participate in conversation at 80% intelligibility given minimal verbal cues to utilize clear speech strategies in order to communicate thoughts, feelings, and needs. Short Term Goals: Goal # : 1.1.Alejandro will produce a minimum of 4 different features, when presented with a word using semantic feature analysis (SFA), given minimal verbal prompts, with 80% accuracy. Goal Status: New Goal Goal# : 2.1.Alejandro will use internal memory strategies (i.e. rehearsal, association, visualization) to recall 5-6 items at 80% accuracy when provided with minimal verbal cues. Goal Status: New Goal Goal # : 3.1.Alejandro will produce sentences with 7 or more words by placing pauses in appropriate places in 80% of opportunities given frequent maximal verbal cues in order to increase ability to communicate wants and needs. 3.2. Alejandro will use at least two compensatory strategies (over articulation/slow rate/writing pope word/elongation of the vowel/increased loudness/phrasing) to improve speech intelligibility while engaging in semi-structured conversation in 80% of opportunities when provided with minimal verbal cues. 3.3.Alejandro will overarticulate words with target sounds (consonant clusters, ch, th, p, w, m) in 80% of opportunities when provided with minimal verbal cues. Goal Status: New Goal Recommended Referrals to be Discussed with Primary Care Provider: Neurology Hx stroke Patient Education: Completed: Yes Patient/Caregiver Education: Described Results of Evaluation Patient expressed understanding of evaluation Patient requires further education on strategies Comments/Barriers to Learning: It was a pleasure meeting and working with Alejandro. Please do not hesitate to contact the [facility] with any questions or concerns regarding the content of this report or if we can be of further assistance in Alejandro's care. Thread Twister Clinican/Clinical Fellow: No Supervisory Statement: N/A Speech Language Pathologist: Addie Ricci M.A., CCC-DIGITIZER OPERATOR
== END 2025-01-12 10:04 | disposition still patient (30) ==
LOC: HO.SH 13:03
PROVIDERS: Visit Provider Physician Assistant
DX: R47.1 Dysarthria and anarthria (principal)
CPT/HCPCS: 92523

== ENCOUNTER → 2024-07-25 12:52 | Outpatient (REF) | payer OTHER, SELFPAY ==
--- OUTSIDE RECORDS SUMMARY | 2024-07-25 14:42 | XMS_ITS | Encounter Summary ---
Author Organization [facility] Address [address] [place] [address] Care Team Providers Care Mayonnaise Mixer Name Role Phone Ayaz Sewell DANAY Primary Care Provider [phone] Encounter Details Date Type Department Care Team (Latest Contact Info) Description 07/25/2024 Anticoagulation - Warfarin Visit [facility] Dr Goetz [facility] [address] [place] [address] Breezy Marsh MD [address] [place] [address] [address] [place] [address] History of mechanical aortic valve replacement (Primary [...] Progress Notes * Luca Caballero MA - 07/25/2024 10:23 AM EDT Patient aware of instructions documented in this encounter Plan of Treatment Upcoming Encounters Date Type Department Care Team (Late st Contact Info) Description 10/17/2024 11:20 AM EDT Office Visit [facility] Dr Goetz [facility] [address] [place] [address] Breezy Marsh MD [address] [place] [address] [address] [place] [address] 05/15/2025 10:30 AM EST Office Visit [facility] - [place] [address] [place] [address] Dru Rueda MD [address] [place] [address] documented as of this encounter Procedures Procedure Name Priority Date/Time Associated Diagnosis Comments PROTHROMBIN TIME WITH INR Routine 07/25/2024 documented in this encounter Results * Prothrombin time with INR (07/25/2024) INR 2.5 Prothrombin Time POC Blood Venous blood specimen / Unknown 07/25/2024 Historical Provider LAB BLOOD ORDERABLES Lynda l Result documented in this encounter Visit Diagnoses Diagnosis History of mechanical aortic valve replacement- Primary documented in this encounter Care Teams Mayonnaise Mixer Relationship Specialty Start Date End Date Ayaz Sewell PA [address] [place] [address] PCP - General Internal Medicine 02/07/21 documented as of this encounter
--- OUTSIDE RECORDS SUMMARY | 2024-07-25 14:42 | XMS_ITS | Encounter Summary ---
Author Organization [facility] Address [address] [place] [address] Care Team Providers Care Sales Force Administrator Name Role Phone [place], Ayaz Sreekanth JON Primary Care Provider [phone] Encounter Details Date Type Department Care Team (Late st Contact Info) Description 07/18/[address] [facility] [address] [place] [address] [address] [place] [id number] Breezy Marsh MD [address] [place] [address] [address] [place] [address] Social History Tobacco Use Types Packs/Day Years [...] as of this encounter Progress Notes * Arleth iRos MA - 07/21/2024 3:26 PM EDT Penny from Dr. Escoto office [phone] said he just stepped away but will have him give the office call back Dr. Ring made aware * Breezy Marsh MD - 07/21/2024 3:19 PM EDT I need to discuss this patient with Dr. Karin Escoto from neurology. Could you please contact his office and arrange for me to talk to him. His office phone number is [phone] * Breezy Marsh MD - 07/21/2024 3:18 PM EDT Thank you. Hospital records and neurology records reviewed. * Breezy Marsh MD - 07/21/2024 10:01 AM EDT Gillian Escoto * Breezy Marsh MD - 07/18/2024 2:34 PM EDT Shira, The patient states that he was evaluated at the [facility] emergency room approximately 1 month ago. He was apparently there due to a TIA or CVA. Could you request the records from that visit to the hospital. On the other hand, the patient is being followed by the [facility] neurology service (Dr. Escoto). The requested note from the patient's last visit with neurology service. Thank you documented in this encounter Plan of Treatment Upcoming Encounters Date Type Department Care Team (Late st Contact Info) Description 10/17/2024 11:20 AM EDT Office Visit [facility] [address] [place] [address] Breezy Marsh MD [address] [place] [address] Dr [address] [place] [address] 05/15/2025 10:30 AM EST Office Visit [facility] Surgery - [place] [address] [place] [address] Dru Rueda MD [address] [place] [address] documented as of this encounter Visit Diagnoses Not on filedocumented in this encounter Care Teams Sales Force Administrator Relationship Specialty Start Date End Date Ayaz Sewell PA [address] [place] [phone] PCP - General Internal Medicine 02/07/21 documented as of this encounter
--- OUTSIDE RECORDS SUMMARY | 2024-07-25 14:42 | XMS_ITS | Encounter Summary ---
Author Organization Address [id number] [place] [phone] Care Team Providers Care Data Entry Manager Name Role Phone Ayaz Sewell Primary Care Provider [phone] Reason for Visit * Imaging (Emergency) - Authorized Specialty Diagnoses / Procedures Referred By Scarlet t Referred To Contact Cardiology Diagnoses History of mechanical aortic valve replacement Procedures Transthoracic echocardiogram (TTE) complete with PRN contrast, bubble, strain, and 3D order panel NM TTE W 2D IMAGE COMPLETE W DOPPLER ECHO & COLOR FLOW DOPPLER ECHO NM LILIAN 2D COMPLETE W/CONTRAST OR W & WO CONTRAST WITH DOPPLER Breezy Marsh MD [address] [place] [address] Dr Cu[address] [place] [phone] Phone: tel: fax: [facility] Referral ID Status Reason Start Date Expiration Date V isits Requested Visits Authorized [id number] Authorized 07/18/2024 07/18/2025 1 1 Encounter Details Date Type Department Care Team (Latest Contact Info) Description 07/22/2024 1:30 PM EDT Ancillary Procedure [facility] [address] [place] [phone] History of mechanical aortic valve replacement Social History Tobacco Use Types Packs/Day Years [...] Sign Reading Time Taken Comments Blood Pressure 120/75 07/22/2024 3:09 PM EDT Pulse - - Temperature - - Respiratory Rate - - Oxygen Saturation - - Inhaled Oxygen Concentration - - Weight 110 kg (242 lb) 07/22/2024 3:09 PM EDT Height 167.6 cm (5' 6 ) 07/22/2024 3:09 PM EDT Body Mass Index 39.06 07/22/2024 3:09 PM EDT documented in this encounter Plan of Treatment Upcoming Encounters Date Type Department Care Team (Late st Contact Info) Description 10/17/2024 11:20 AM EDT Office Visit [facility] [address] [place] [address] [address] [place] [address] Breezy Marsh MD [address] [place] [address] [address] [place] [address] 05/15/2025 10:30 AM EST Office Visit [facility] - [place] [address] [place] [phone] Dru Rueda MD [address] [place] [address] documented as of this encounter Procedures Procedure Name Priority Date/Time Associated Diagnosis Comments TRANSTHORACIC ECHOCARDIOGRAM (TTE) COMPLETE W/ CONTRAST STAT 07/22/2024 2:15 PM EDT History of mechanical aortic valve replacement documented in this encounter Results * (ABNORMAL) TRANSTHORACIC ECHOCARDIOGRAM (TTE) COMPLETE W/ CONTRAST (07/22/2024 2:15 PM EDT) Left Atrium Minor [place] 5.8 cm CV PACS Left Atrium Major [place] 5.9 cm CV PACS LA Area Sys (A2C) 17 cm2 CV PACS LA Area Sys (A4C) 22 cm2 CV PACS LA Volume (BP) 52 mL CV PACS RA Area 15.0 cm2 CV PACS RA 2D Volume 37 mL CV PACS AV Mean Gradient 14 mmHg CV PACS Ao VTI 43.3 cm CV PACS AV Peak Dangelo 2.7 m/s CV PACS AV Peak Gradient 29 mmHg CV PACS AV Area Continuity Equation 1.9 cm2 CV PACS AV Area Peak Velocity 1.7 cm2 CV PACS Aortic Arch 3.1 cm CV PACS Ascending Aorta 3.1 cm CV PACS IVC Proximal 2.1 cm CV PACS IVSD 1.2(A) 0.6 - 1.0 cm CV PACS LVIDD 4.5 4.2 - 5.8 cm CV PACS LVIDS 3.0 2.5 - 4.0 cm CV PACS LVOT Diameter 2.1 cm CV PACS LVOT Mean Dangelo 0.8 m/s CV PACS LVOT Mean Grad 3 mmHg CV PACS LVOT Peak VTI 23.9 cm CV PACS LVOT Peak [place] 1.3 m/s CV PACS LVOT Peak Gradient 7 mmHg CV PACS LVPWD 1.2(A) 0.6 - 1.0 cm CV PACS MV E' Tissue Velocity Lateral 7 cm/s CV PACS MV E' Tissue Velocity Septal 7 cm/s CV PACS LVOT Area 3.5 cm2 CV PACS LVOT Stroke Volume 83 mL CV PACS MV Deceleration [place] 3.7 m/s2 CV PACS E Wave Deceleration Time 272(A) 119 - 242 ms CV PACS MV PHT 79 ms CV PACS MV Peak A Dangelo 0.85 m/s CV PACS MV Peak E [place] 1.01 m/s CV PACS MV Mean Gradient 1 mmHg CV PACS MV Mean Gradient 1 mmHg CV PACS MV Mean Gradient 1 mmHg CV PACS MV Mean Gradient 1 mmHg CV PACS MV VTI 27.8 cm CV PACS Mitral Valve Max Velocity 1.0 m/s CV PACS MV Peak Gradient 4 mmHg CV PACS MV Area PHT 2.8 cm2 CV PACS MV Area Continuity Equation 3.0 cm2 CV PACS PV Acceleration Time 81 ms CV PACS PV Mean Gradient 2 mmHg CV PACS PV VTI 18.1 cm CV PACS PV Peak Velocity 1.1 m/s CV PACS PV Peak Gradient 5 mmHg CV PACS RV Diastolic Basal Dimension 4.5(A) 2.5 - 4.1 cm CV PACS RV S' 12 cm/s CV PACS TAPSE 28 mm CV PACS E/E' Ratio Septal 14 CV PACS E/E' Ratio Averaged 14 CV PACS Relative Wall Thickness ratio 0.53 CV PACS LVOT:AV VTI Index 0.55 CV PACS FS 33 % CV PACS LV Mass 2D 198 g CV PACS MV VTI:LVOT VTI ratio 1.2 CV PACS LVOT flow 277 mL/s CV PACS E/A Ratio 1.2 CV PACS E/E' Ratio Lateral 14 CV PACS BSA 2.26 m2 CV PACS LA Volume Index (BP) 24 mL/m2 CV PACS LVIDD Index 2.07 cm/m2 CV PACS LVIDS Index 1.38 cm/m2 CV PACS LV Mass Index 2D 91 50 - 102 g/m2 CV PACS LVOT Stroke Index 38 mL/m2 CV PACS RA 2D Volume Index 17(A) 18 - 32 mL/m2 CV PACS CLARK Index (VTI) 0.88 cm2/m2 CV PACS CLARK Index (Pk Dangelo) 0.78 cm2/m2 CV PACS Ascending Aorta Index 1.43 cm/m2 CV PACS Est. RA Pressure 8 mmHg CV PACS AV Acceleration Time 66 ms CV PACS AV Velocity Ratio 0.48 CV PACS Anatomical Region Laterality Modality Ultrasound Narrative 07/22/2024 5:03 PM EDT ?Technically difficult study ?Left ventricle cavity size is normal. Left ventricular systolic function is in the normal range with an ejection fraction of 60-65%. ?No regional LV wall motion abnormalities noted. ?Left ventricle mild concentric hypertrophy. ?Right ventricle is enlarged. Right ventricular systolic function is normal. ?Aortic??Valve: The valve has been surgically replaced. There is a mechanical valve. The prosthetic valve appears well-seated and appears to be functioning normally. No evidence of mechanical aortic valve stenosis. ?? No evidence of mechanical aortic valve insufficiency. ?When compared to the transthoracic echocardiogram from May 2023: No significant changes in the mechanical aortic valve gradients. Left Ventricle Left ventricle cavity size is normal. There is mild concentric hypertrophy. Systolic function is normal with an ejection fraction of 60-65%. There are no regional LV wall motion abnormalities. Indeterminate diastolic function. Right Ventricle Right ventricle cavity is dilated. Systolic function is normal. Left Atrium Left atrium cavity size is normal. There appears to be lipomatous hypertrophy of the interatrial septum. Right Atrium Right atrium cavity is normal. IVC/SVC Inferior vena cava structure is normal. RA pressures is estimated to be 8 mmHg (IVC diameter <21 mm and decreases <50% during inspiration). Mitral Valve The leaflets are moderately thickened. There is moderate annular calcification. There is trace regurgitation. There is no evidence of mitral valve stenosis. Tricuspid Valve Tricuspid valve structure is normal. There is no significant regurgitation. Cannot assess RVSP. Aortic Valve The valve has been surgically replaced. There is a mechanical valve. The prosthetic valve appears well-seated and appears to be functioning normally. No evidence of mechanical aortic valve stenosis. There is no regurgitation or stenosis. Pulmonic Valve There is no pulmonic valve regurgitation. Ascending Aorta Normal ascending aorta diameter. Mildly dilated transverse aorta at 3.1 cm. Pericardium There is an anterior fat pad. There is no pericardial effusion. Study Details Overall the study quality was technically difficult. Cardiac history: prosthetic valve. Definity contrast was given to enhance imaging. us Breezy Marsh MD CV ECHO PROCEDURES Fin al Result documented in this encounter Visit Diagnoses Diagnosis History of mechanical aortic valve replacement documented in this encounter Administered Medications Inactive Administered Medications - up to 3 most recent administrations Medication Order MAR Action Action Date Dose Rate Site perflutren lipid microsphere (DEFINITY) 1.3 mL in sodium chloride 0.9% 8.7 mL injection 10 mL, intravenous, Administer over 10 Minutes, Once in imaging, Starting on Sun07/22/24 at 1510, For 1 dose Given 07/22/2024 3:10 PM EDT 3 mL documented in this encounter Orders Medications Ordered That Josh ht Not Have Been Administered Count Last Ordered Date First Ordered Date perflutren lipid microsphere (DEFINITY) 1.3 mL in sodium chloride 0.9% 8.7 mL injection 1 07/22/2024 documented in this encounter Care Teams Data Entry Manager Relationship Specialty Start Date End Date Ayaz Sewell PA [address] [place] [phone] PCP - General Internal Medicine 02/07/21 documented as of this encounter
--- OUTSIDE RECORDS SUMMARY | 2024-07-25 14:42 | XMS_ITS | Clinical Summary ---
Author Organization [address] [place] [address] [place] [phone] Phone Care Team Providers Care Sign Installer Name Role Phone Ayaz Sewell Primary Care [...] mg by mouth 2 times daily. Active dulaglutide (Trulicity) 1.5 mg/0.5 mL pen injector injection Inject into the skin once a week. (Trulicity) Active Jardiance 10 mg tablet Take 1 tablet (10 mg total) by mouth 1 (one) time each day. Active pioglitazone (ACTOS) 30 mg tablet Take 1 tablet (30 mg total) by mouth 1 (one) time each day. Active sertraline (ZOLOFT) 50 mg tablet Take 1 tablet (50 mg total) by mouth 1 (one) time each day. Active furosemide (LASIX) 40 mg tablet Take 0.5 Tablets by mouth daily. 07/19/19 25 Discontinu ed(Therapy completed) Hospital, Clinic, or Other Facility Administered Medication Ordered Dose Route Frequency Start Date End Date Status perflutren lipid microsphere (DEFINITY) 1.3 mL in sodium chloride 0.9% 8.7 mL injection 10 mL IV Once in imaging 07/22/2024 07/22/2024 End ed Active Problems Problem Noted Date Diagnosed Date History of mechanical aortic valve replacement 1 05/07/2023 Assessment & Plan (07/18/2024 2:34 PM EDT): The patient has a history of a mechanical aortic valve. This was placed in June 2018. He has had several apparent CVAs in the past. The patient is on chronic anticoagulation therapy with warfarin due to his mechanical aortic valve. His target INR is between 2 and 3. He also is on aspirin 81 mg orally daily. The patient's last echocardiogram from May 2023 showed a normal LVEF and normal mechanical aortic valve function. The patient states that he was at the [facility] emergency room approximately 1 month ago due to a TIA versus CVA. Nevertheless, the patient states that he was discharged from the emergency room. As such, I am not sure if the patient actually had a TIA or CVA. I do not have the records from the whole hospital visit at this point in order for me to verify this information. The patient also states that he saw his neurologist at [facility] this past week and that further brain imaging was ordered. At this point, I will order an echocardiogram to reevaluate the patient's mechanical aortic valve. Also, I will attempt to obtain the records from the [facility] visit as well as the records from the patient's neurologist. Depending on that, then we will decide if we need to change the patient's target INR and whether we need to do any further cardiac imaging besides a transthoracic echocardiogram. Orders: Transthoracic echocardiogram (TTE) complete with PRN contrast, bubble, strain, and 3D order panel; Future Coagulopathy 05/23/2023 Coronary artery disease invo lving king salmon coronary artery of king salmon heart without angina pectoris 05/04/2022 Overview (02/06/2024): Last Assessment & Plan: The patient has a history of mild to moderate nonobstructive coronary artery disease based on left heart catheterization prior to his cardiac surgery in March 2018. Currently, he denies any anginal symptoms or shortness of breath. He continues on medical therapy with statin, aspirin and beta-colton as prescribed. No changes to medical therapies. Assessment & Plan (07/18/2024 2:34 PM EDT): The patient has a history of coronary artery disease. Currently, the patient denies any chest pain at rest or with exertion. The patient continues on secondary preventive therapy for CAD, including: aspirin, statin and beta colton. Will continue current therapy. Carotid artery stenosis 05/04/2022 Overview (02/06/2024): Last [...] He will continue to follow with the [place] vascular surgery service. Cerebrovascular accident (CVA) 08/02/2020 [...] with aspirin. He underwent a 30-day ambulatory awake overnight monitor to rule out atrial fibrillation. This showed predominantly sinus rhythm with brief atrial runs and occasional PACs. No sustained arrhythmias were noted. He will continue to follow with the neurology team at [facility]. Essential hypertension 08/02/2020 Overview (02/06/2024): Last Assessment [...] his current antihypertensive medication regimen as prescribed. Assessment & Plan (07/18/2024 2:34 PM EDT): The patient has a history of arterial hypertension. The patient's blood pressure today was noted to be well controlled. We'll continue the current antihypertensive medication regimen. Hyperlipidemia 08/02/2020 Overview (02/06/2024): Last Assessment & [...] and following up with routine medical care. Assessment & Plan (07/18/2024 2:34 PM EDT): The patient has a history of hyperlipidemia. He is currently on rosuvastatin 40 mg orally daily. Will continue his current therapy. Obstructive sleep apnea 08/02/2020 Uncomplicated asthma 08/02/2020 Encounters Date Type Department Care Team Description 07/25/2024 Anticoagulation - Warfarin Visit [facility] [address] [place] [address] Rosalinda Tucekr MD History of mechanical aortic valve replacement (Primary Dx) 07/22/2024 1:30 PM EDT Ancillary Procedure [facility] [address] [place] [address] History of mechanical aortic valve replacement 07/18/2024 2:00 PM EDT Office Visit [facility] [address] [place] [address] Rosalinda Tucker MD H/O mechanical aortic valve replacement (Primary Dx); Coronary artery disease involving king salmon coronary artery of king salmon heart without angina pectoris; Essential hypertension; Pure hypercholesterolemi a; History of mechanical aortic valve replacement; Coronary artery disease, unspecified vessel or lesion type, unspecified whether angina present, unspecified whether king salmon or transplanted heart 07/18/2024 Telephone [facility] [address] [place] [address] Rosalinda Tucker MD 07/18/2024 Anticoagulation - Warfarin Visit [facility] [address] [place] [address] Rosalinda Tucker MD History of mechanical aortic valve replacement (Primary Dx) 07/11/2024 Anticoagulation - Warfarin Visit [facility] [address] [place] [address] Rosalinda Tucker MD History of mechanical aortic valve replacement (Primary Dx) 07/04/2024 Anticoagulation - Warfarin Visit [facility] [address] [place] [address] Rosalinda Tucker MD History of mechanical aortic valve replacement (Primary Dx) 06/27/2024 Anticoagulation - Warfarin Visit [facility] [address] [place] [address] Rosalinda Tucker MD History of mechanical aortic valve replacement (Primary Dx) 06/20/2024 Anticoagulation - Warfarin Visit [facility] [address] [place] [address] Rosalinda Tucker MD History of mechanical aortic valve replacement (Primary Dx) 06/13/2024 Anticoagulation - Warfarin Visit [facility] [address] [place] [phone] Rosalinda Tucker MD History of mechanical aortic valve replacement (Primary Dx) 06/06/2024 Anticoagulation - Warfarin Visit [facility] [address] [place] [address] Rosalinda Tucker MD History of mechanical aortic valve replacement (Primary Dx) 05/30/2024 Anticoagulation - Warfarin Visit [facility] [address] [place] [address] Rosalinda Tucker MD History of mechanical aortic valve replacement (Primary Dx) 05/23/2024 Anticoagulation - Warfarin Visit [facility] [address] [place] [address] Rosalinda Tucker MD History of mechanical aortic valve replacement (Primary Dx) 05/16/2024 Anticoagulation - Warfarin Visit [facility] [address] [place] [address] Rosalinda Tucker MD History of mechanical aortic valve replacement (Primary Dx) 05/12/2024 1:15 PM EST Office Visit [facility] - [place] [address] [place] [phone] Dru Rueda MD Iliac artery aneurysm (CMS/HCC) (Primary Dx) 05/09/2024 8:10 AM EST - 05/09/2024 11:59 PM EST Hospital Encounter [facility] CT Scan [address] [place] [address] Iliac artery aneurysm (CMS/HCC) Discharge Disposition: Home or Self Care 05/09/2024 Anticoagulation - Warfarin Visit [facility] [address] [place] [address] Rosalinda Tucker MD History of mechanical aortic valve replacement (Primary Dx) 05/02/2024 Anticoagulation - Warfarin Visit [facility] [address] [place] [address] Rosalinda Tucker MD History of mechanical aortic valve replacement (Primary Dx) from Last 3 Months Surgical History Surgery Date Site/Laterality Comments OTHER SURGICAL HISTORY 08/01/2023 Left PROCEDURE: [place] OPN FEM ART EXPOS DLVR EVASC PROSTH UNI OTHER SURGICAL HISTORY 08/01/2023 PROCEDURE: [place] EVASC RPR DPLMNT ILIO-ILIAC NDGFT Medical History [...] Pressure 120/75 07/22/2024 3:09 PM EDT Pulse 77 07/18/2024 1:55 PM EDT Temperature - - Respiratory Rate 16 05/12/2024 1:10 PM EST Oxygen Saturation 97% 07/18/2024 1:55 PM EDT Inhaled Oxygen Concentration - - Weight 110 kg (242 lb) 07/22/2024 3:09 PM EDT Height 167.6 cm (5' 6 ) 07/22/2024 3:09 PM EDT Body Mass Index 39.06 07/22/2024 3:09 PM EDT Plan of Treatment Upcoming Encounters Date Type Department Care Team (Late st Contact Info) Description 10/17/2024 11:20 AM EDT Office Visit [facility] [address] [place] [address] [address] [place] [phone] Rosalinda Tucker MD [address] [place] [address] [address] [place] [address] 05/15/2025 10:30 AM EST Office Visit [facility] - [place] [address] [place] [phone] Dru Rueda MD [address] [place] [address] Health Maintenance Due Date Last Done Comments Zoster Vaccines (1 of 2) 2013 Pneumococcal [...] Influencers of Health Screening 04/01/2022 RSV Immunization Adult Patients (1 - Risk 60-74 years 1-dose series) 2023 COVID-19 Vaccine ( season) 2023 09/17/2021, 04/13/2021, 09/10/2020, Additional history exists Hypertension/CHF/CAD Annual BMP Blood Test 03/24/2025 03/24/2024, [...] Comments PROTHROMBIN TIME WITH INR Routine 07/25/2024 TRANSTHORACIC ECHOCARDIOGRAM (TTE) COMPLETE W/ CONTRAST STAT 07/22/2024 2:15 PM EDT History of mechanical aortic valve replacement ECG 12-LEAD Routine 07/18/2024 2:06 PM EDT H/O mechanical aortic valve replacement Coronary artery disease, unspecified vessel or lesion type, unspecified whether angina present, unspecified whether king salmon or transplanted heart PROTHROMBIN TIME WITH INR Routine 07/18/2024 PROTHROMBIN TIME WITH INR Routine 07/11/2024 PROTHROMBIN TIME WITH INR Routine 07/04/2024 PROTHROMBIN TIME WITH INR Routine 06/27/2024 PROTHROMBIN [...] 05/09/2024 PROTHROMBIN TIME WITH INR Routine 05/02/2024 CREATININE, SERUM Routine 03/24/2024 3:2 9 PM EST Iliac artery aneurysm (CMS/HCC) from Last 3 Months or Most Recently Relevant to Health Maintenance Results * Prothrombin time with INR (07/25/2024) Only the most recent of13 resultswithin the time period is included. INR 2.5 Prothrombin Time POC Blood Venous blood specimen / Unknown 07/25/2024 Historical Provider LAB BLOOD ORDERABLES Lynda l Result * (ABNORMAL) TRANSTHORACIC ECHOCARDIOGRAM (TTE) COMPLETE W/ CONTRAST (07/22/2024 2:15 PM EDT) Left Atrium Minor [place] 5.8 cm CV PACS Left Atrium Major [place] 5.9 cm CV PACS LA Area Sys [...] Volume 83 mL CV PACS MV Deceleration [place] 3.7 m/s2 CV PACS E Wave Deceleration [...] Definity contrast was given to enhance imaging. Rosalinda Tucker MD CV ECHO PROCEDURES Fin al Result * ECG 12 lead (07/18/2024 2:06 PM EDT) Ventricular Rate ECG 75 BPM GEMUSE Atrial Rate 75 BPM GEMUSE P-R Interval 200 ms GEMUSE QRS Duration 98 ms GEMUSE Q-T Interval 396 ms GEMUSE QTc 442 ms GEMUSE P Wave [place] 9 degrees GEMUSE R [place] 79 degrees GEMUSE T [place] 55 degrees GEMUSE ECG Interpretation Normal sinus rhythm Normal ECG When compared with ECG of 18-APR-2018 12:18, No significant change was found Confirmed by ROSALINDA TUCKER ([id number]) on 07/18/2024 2:30:29 PM GEMUSE 07/18/2024 2:06 PM EDT 07/18/2024 2:30 PM EDT Rosalinda Tucker MD ECG ORDERABLES Final Result GEMUSE * CT Angio Abdomen Pelvis wo and/or [...] Signed Date: 05/14/2024 07:41 ET Workstation ID: [id number] Transcribed By: Self Edit Transcribed Date: 05/13/2024 [...] Signed Date: 05/14/2024 07:41 ET Workstation ID: [id number] Transcribed By: Self Edit Transcribed Date: 05/13/2024 17:51 ET Dru Rueda MD IMG CT PROCEDURES Final Result * Creatinine (03/24/2024 3:29 PM EST) Creatinine 0.78 0.70 - 1.30 mg/dL LAB CHEMISTRY METHOD 03/24/2024 5:11 PM EST [facility] eGFR 102 >=60 mL/min/1. 73m2 LAB CHEMISTRY METHOD 03/24/2024 5:11 PM EST [facility] Comment:Calculation based on the??Chronic Kidney Disease Epidemiology Collaboration (CKD-EPI) equation refit??without adjustment for race. Blood Venous blood specimen / Unknown Venipuncture / Unknown 03/24/2024 3:29 PM EST 03/24/2024 4:10 PM EST Dru Rueda MD LAB BLOOD ORDERABLES Final Resu lt [facility] [address] [place] [address], from Last 3 Months or Most Recently Relevant to Health Maintenance Insurance [employer] Care Teams Sign Installer Relationship Specialty Start Date End Date Ayaz Sewell PA [address] [place] [phone] PCP - General Internal Medicine 02/07/21
--- OUTSIDE RECORDS SUMMARY | 2024-07-25 14:42 | XMS_ITS | Encounter Summary ---
Author Organization [facility] Address [address] [place] [address] Care Team Providers Care Osd Clerk Name Role Phone Ayaz Sewell Primary Care Provider [phone] Reason for Referral * Imaging (Emergency) - Authorized Specialty Diagnoses / Procedures Referred By Scarlet t Referred To Contact Cardiology Diagnoses History of mechanical aortic valve replacement Procedures Transthoracic echocardiogram (TTE) complete with PRN contrast, bubble, strain, and 3D order panel AR TTE W 2D IMAGE COMPLETE W DOPPLER ECHO & COLOR FLOW DOPPLER ECHO AR LILIAN 2D COMPLETE W/CONTRAST OR W & WO CONTRAST WITH DOPPLER Rosalinda Tucker MD [address] [place] [address] [address] [place] [address] Phone: tel: fax: [facility] Referral ID Status Reason Start Date Expiration Date V isits Requested Visits Authorized [id number] Authorized 07/18/2024 07/18/2025 1 1 Reason for Visit * Reason Comments Follow-up Encounter Details Date Type Department Care Team (Late st Contact Info) Description 07/18/2024 2:00 PM EDT Office Visit [facility] [address] [place] [address] Rosalinda Tucker MD [address] [place] [address] [address] [place] [address] H/O mechanical aortic valve replacement (Primary Dx); Coronary artery disease involving grand ronde tribes coronary artery of grand ronde tribes heart without angina pectoris; Essential hypertension; Pure hypercholesterolemia; History of mechanical aortic valve replacement; Coronary artery disease, unspecified vessel or lesion type, unspecified whether angina present, unspecified whether grand ronde tribes or transplanted heart Social History Tobacco Use Types Packs/Day Years [...] Sign Reading Time Taken Comments Blood Pressure 136/86 07/18/2024 1:55 PM EDT Pulse 77 07/18/2024 1:55 PM EDT Temperature - - Respiratory Rate - - Oxygen Saturation 97% 07/18/2024 1:55 PM EDT Inhaled Oxygen Concentration - - Weight 110 kg (242 lb) 07/18/2024 1:55 PM EDT Height 167.6 cm (5' 6 ) 07/18/2024 1:55 PM EDT Body Mass Index 39.06 07/18/2024 1:55 PM EDT documented in this encounter Progress Notes * Rosalinda Tucker MD - 07/18/2024 2:00 PM EDTAssociated Problem(s): Coronary artery disease involving grand ronde tribes coronary artery of grand ronde tribes heart with out angina pectoris The patient has a history of coronary artery disease. Currently, the patient denies any chest pain at rest or with exertion. The patient continues on secondary preventive therapy for CAD, including: aspirin, statin and beta colton. Will continue current therapy. * Rosalinda Tucker MD - 07/18/2024 2:00 PM EDTAssociated Problem(s): Essential hypertension The patient has a history of arterial hypertension. The patient's blood pressure today was noted rajendra well controlled. We'll continue the current antihypertensive medication regimen. * Rosalinda Tucker MD - 07/18/2024 2:00 PM EDTAssociated Problem(s): Hyperlipidemia The patient has a history of hyperlipidemia. He is currently on rosuvastatin 40 mg orally daily. Will continue his current therapy. * Rosalinda Tucker MD - 07/18/2024 2:00 PM EDTAssociated Problem(s): History of mechanical aortic valve replacement The patient has a history of a [...] patient states that he was at the [facility] emergency room approximately 1 month ago dueto a TIA versus CVA. Nevertheless, the patient states that he was discharged from the emergency room. As such, I am not sure if the patient actually had a TIA or CVA. I do not have the records from the whole hospital visit at this point in order for me to verify this information. The patient also states that he saw his neurologist at [facility] this past week and that further brain imaging was ordered. At this point, I will order an echocardiogram to reevaluate the patient's mechanical aortic valve. Also, I will attempt to obtain the records from the [place] hospital visit as well as the records from the patient's neurologist. Depending on that, then we will decide if we need to change the patient's target INR and whether we need to do any further cardiac imaging besides a transthoracic echocardiogram. Orders: Transthoracic echocardiogram (TTE) complete with PRN contrast, bubble, strain, and 3D order panel; Future * Rosalinda Tucker MD - 07/18/2024 2:00 PM EDT [facility] Outpatient Follow Up Note PCP: DANAY Cao HPI: Alejandro Hilario is a 59 yr. old Male with a history of aortic stenosis status post #[address] [facility] [place] mechanical aortic valve in June 2018, nonobstructive coronary artery disease, past CVA after aortic valve replacement surgery (followed by the neurology team at [facility]), carotid artery stenosis, arterial hypertension, hyperlipidemia, left common iliac artery aneurysm status postendovascular repair 07/2023 (followed by [facility]) , obesity, bronchial asthma, obstructive sleep apnea on CPAP therapy, and diabetes mellitus type 2, who underwent a follow-up evaluation today. On today's visit, the patient states that he had a stroke versus TIA 1 month ago for which she was treated at [facility]. The patient states that he saw his neurologist for a follow-up this past week and that further brain imaging has been ordered. I do not have the records from the [facility] visit or the neurology visit at this point. From a cardiac standpoint, the patient denies any chest pain at rest or with exertion, shortness ofbreath, palpitations, lower extremity edema, or syncope. Cardiac testin. Echocardiogram 01/26/2021: Normal LVEF 55 to 60%, normal RV size and function, mechanical aortic valve is functioning normally. 2. Left heart catheterization 04/19/2018: Mild luminal irregularities in the left main. 50% stenosis in the distal subsection of the proximal LAD. Mild luminal irregularities in the circumflex. 60% stenosis in the proximal RCA. 3. Carotid artery duplex 09/2022: Moderate atherosclerotic plaque in the right carotid system. 50 to69% stenosis in the right internal carotid artery. Atherosclerotic plaque in the left carotid system with less than 50% stenosis in the left internal carotid artery. 4. Carotid duplex 09/14/2023 showed mild atherosclerotic plaque in the right and left carotid system. Less than 50% stenosis in the right and left ICA. The right subclavian artery has increased Doppler velocity. 5. 30-day RCT monitor completed 07/08/2023 showed predominantly sinus rhythm with an average heart rate of 72 bpm. Occasional PACs were noted. Brief atrial runs with occasional PVCs with a PVC burden of 1.8%. No sustained arrhythmias were noted. 6. Echocardiogram 05/25/2023 showed normal left ventricular size, mild concentric LVH, normal regional wall motion, LVEF 55 to 60% and unable to fully evaluate LV diastolic function due to underlying mitral annular calcification. The RV is normal in size and systolic function. Mechanical aortic valveis well-seated and functioning normally. No mechanical aortic valve insufficiency. ACTIVE MEDICATIONS: Outpatient Medications Marked as Taking for the 07/18/24 encounter (Office Visit) with Rosalinda Tucker MD Medication Sig Dispense Refill albuterol sulfate [...] Puff into the lungs every 12 hours. insulin aspart (NovoLOG) 100 unit/mL injection Inject [...] by mouth 1 (one) time each day. pioglitazone (ACTOS) 30 mg tablet Take 1 tablet (30 mg total) by mouth 1 (one) time each day. rosuvastatin (CRESTOR) 40 mg tablet Take 1 tablet (40 mg total) by mouth 1 (one) time each day. sertraline (ZOLOFT) 50 mg tablet Take 1 [...] Do not change dietary habits.PVC managing INR ALLERGIES: Allergies Allergen Reactions Atorvastatin SOCIAL HISTORY: Social History Tobacco Use Smoking status: Former Smokeless tobacco: Former Substance Use Topics Alcohol use: Never REVIEW OF SYSTEMS: Review of Systems Constitutional: Negative for malaise/fatigue. Cardiovascular: Negative for chest pain, claudication, dyspnea on exertion, leg swelling, near-syncope, orthopnea, palpitations, paroxysmal nocturnal dyspnea and syncope. Respiratory: Negative for shortness of breath. PHYSICAL EXAM: Vitals: 07/18/24 1355 BP: 136/86 Pulse: 77 SpO2: 97% Body mass index is 39.06 kg/m??. Physical Exam Vitals reviewed. Constitutional: General: He is not in acute distress. Appearance: Normal appearance. He is not ill-appearing. HENT: Head: Normocephalic. Nose: Nose normal. Cardiovascular: Rate and Rhythm: Normal rate and regular rhythm. Heart sounds: A midsystolic click. No murmur heard. No friction rub. No gallop. Pulmonary: Effort: No respiratory distress. Breath sounds: Normal breath sounds. Musculoskeletal: General: No swelling. Skin: General: Skin is warm. Neurological: Mental Status: He is alert and oriented to person, place, and time. Mental status is at baseline. Psychiatric: Mood and Affect: Mood normal. Behavior: Behavior normal. EKG: Encounter Date: 07/18/24 ECG 12 lead Result Value Ventricular Rate ECG 75 Atrial Rate 75 P-R Interval 200 QRS Duration 98 Q-T Interval 396 QTc 442 P Wave [place] 9 R [place] 79 T [place] 55 ECG Interpretation Normal sinus rhythm Normal ECG When compared with ECG of 18-APR-2018 12:18, No significant change was found Confirmed by ROSALINDA TUCKER ([id number]) on 07/18/2024 2:30:29 PM *Note: Due to a large number of results and/or encounters for the requested time period, some results have not been displayed. A complete set of results can be found in Results Review. ASSESSMENT/PLAN: Assessment & Plan Coronary artery disease involving grand ronde tribes coronary artery of grand ronde tribes heart without angina pectoris The patient has a history of coronary artery disease. Currently, the patient denies any chest pain at rest or with exertion. The patient continues on secondary preventive therapy for CAD, including: aspirin, statin and beta colton. Will continue current therapy. Essential hypertension The patient has a history of arterial hypertension. The patient's blood pressure today was noted rajendra well controlled. We'll continue the current antihypertensive medication regimen. Pure hypercholesterolemia The patient has a history of hyperlipidemia. He is currently on rosuvastatin 40 mg orally daily. Will continue his current therapy. History of mechanical aortic valve replacement The patient has a history of a [...] patient states that he was at the [facility] emergency room approximately 1 month ago dueto a TIA versus CVA. Nevertheless, the patient states that he was discharged from the emergency room. As such, I am not sure if the patient actually had a TIA or CVA. I do not have the records from the whole hospital visit at this point in order for me to verify this information. The patient also states that he saw his neurologist at [facility] this past week and that further brain imaging was ordered. At this point, I will order an echocardiogram to reevaluate the patient's mechanical aortic valve. Also, I will attempt to obtain the records from the [place] hospital visit as well as the records from the patient's neurologist. Depending on that, then we will decide if we need to change the patient's target INR and whether we need to do any further cardiac imaging besides a transthoracic echocardiogram. Orders: Transthoracic echocardiogram (TTE) complete with PRN contrast, bubble, strain, and 3D order panel; Future The [facility] team will continue to co-manage this patient following the plan of care as established by my initial visit and as per AHA guidelines for ongoing management and surveillance of the medical conditions described previously in this note. This will include medication titration, initiation of appropriate medications and further titration, and diagnostic studies to manage this disease process. I have applied the code G2211 to this patient???s visit as the provider managing mechanical aortic valve, CAD, hypertension, hyperlipidemia that is/are complex) leading to the extensive work up, ongoing monitoring, and management associated with the medical care of this patient.? I have a longitudinal relationship with the patient. documented in this encounter Plan of Treatment Upcoming Encounters Date Type Department Care Team (Late st Contact Info) Description 10/17/2024 11:20 AM EDT Office Visit [facility] [address] [place] [address] Rosalinda Tucker MD [address] [place] [address] [address] [place] [address] 05/15/2025 10:30 AM EST Office Visit [facility] [place] [address] [place] [address] Dru Rueda MD [address] [place] [address] documented as of this encounter Procedures Procedure Name Priority Date/Time Associated Diagnosis Comments ECG 12-LEAD Routine 07/18/2024 2:06 PM EDT H/O mechanical aortic valve replacement Coronary artery disease, unspecified vessel or lesion type, unspecified whether angina present, unspecified whether grand ronde tribes or transplanted heart documented in this encounter Results * (ABNORMAL) TRANSTHORACIC ECHOCARDIOGRAM (TTE) COMPLETE W/ CONTRAST (07/22/2024 2:15 PM EDT) Left Atrium Minor [place]on 5.8 cm CV PACS Left Atrium Major [place] 5.9 cm CV PACS LA Area Sys [...] Volume 83 mL CV PACS MV Deceleration [place] 3.7 m/s2 CV PACS E Wave Deceleration [...] contrast was given to enhance imaging. us Rosalinda Tucker MD CV ECHO PROCEDURES Fin al Result * ECG 12 lead (07/18/2024 2:06 PM EDT) Ventricular Rate ECG 75 BPM GEMUSE Atrial Rate 75 BPM GEMUSE P-R Interval 200 ms GEMUSE QRS Duration 98 ms GEMUSE Q-T Interval 396 ms GEMUSE QTc 442 ms GEMUSE P Wave [place] 9 degrees GEMUSE R [place] 79 degrees GEMUSE T [place] 55 degrees GEMUSE ECG Interpretation Normal sinus rhythm Normal ECG When compared with ECG of 18-APR-2018 12:18, No significant change was found Confirmed by ROSALINDA TUCKER ([id number]) on 07/18/2024 2:30:29 PM GEMUSE 07/18/2024 2:06 PM EDT 07/18/2024 2:30 PM EDT Rosalinda Tucker MD ECG ORDERABLES Final Result GEMUSE documented in this encounter Visit Diagnoses Diagnosis H/O mechanical aortic valve replacement- Primary Coronary artery disease, unspecified vessel or lesion type, unspecified whether angina present, unspecified whether grand ronde tribes or transplanted heart Essential hypertension Unspecified essential hypertension Pure hypercholesterolemia History of mechanical aortic valve replacement History of mechanical aortic valve replacement documented in this encounter Discontinued Medications Medication Sig Discontinue Reason Start Date End Da te furosemide (LASIX) 40 mg tablet Take 0.5 Tablets by mouth daily. Therapy completed 07/18/2024 documented as of this encounter Historical Medications * This list may reflect changes made after this encounter. sertraline (ZOLOFT) 50 mg tablet Take 1 tablet (50 mg total) by mouth 1 (one) time each day. pioglitazone (ACTOS) 30 mg tablet Take 1 tablet (30 mg total) by mouth 1 (one) time each day. added in this encounter Care Teams Osd Clerk Relationship Specialty Start Date End Date Ayaz Sewell PA [address] [place] [phone] PCP - General Internal Medicine 02/07/21 documented as of this encounter
== END ==
LOC: HO.CARD 12:52
PROVIDERS: PCP Physician Assistant; Visit Provider Physician Assistant
DX: I63.511 Cerebral infarction due to unspecified occlusion or stenosis of right middle cerebral artery (principal)
CPT/HCPCS: 93242

== ENCOUNTER → 2024-07-25 12:55 | Outpatient (BNV) | payer OTHER, SELFPAY | PROVIDERS: PCP Physician Assistant; Visit Provider Internal Medicine | DX: I47.10 Supraventricular tachycardia, unspecified (principal) | CPT/HCPCS: 93244 ==

== ENCOUNTER 2024-08-01 12:31 | Outpatient (REF) | payer OTHER, SELFPAY ==
--- NOTE | ~2024-08-01 | US_ITS ---
CLINICAL HISTORY: CAROTID STENOSIS US bilateral carotid duplex Comparison: None Findings: No significant plaque within the common carotid arteries. Moderate plaque within the carotid bulbs. Moderate plaque within the proximal internal carotid arteries. Waveforms are normal morphology. Peak systolic and end-diastolic velocities: Right CCA: 73.3 cm/s Right ICA: 125.0 cm/s Right ICA EDV: 25.5 cm/sec Right systolic ICA/CCA ratio: 2.2 Right ECA: Unremarkable Right vertebral artery flow antegrade. Left CCA: 67.4 cm/s Left ICA: 64.5 cm/s Left ICA EDV: 20.5 cm/sec Left systolic ICA/CCA ratio: 1.0 Left ECA: Moderate stenosis Left vertebral artery flow antegrade. Criteria for grading carotid stenosis Stenosis % ICA PSV cm/s ICA/CCA PSV ratio ICA EDV 0-50% <125 <2.0 <40 50-69% 125-230 2.0-4.0 40-100 70% + > 230 >4.0 >100 Impression: 1. Normal carotid velocities, no significant stenosis (0-49% stenosis) This document has been electronically signed by: Nathan Bhardwaj MD on 08/02/2024 09:25:20
--- OUTSIDE RECORDS SUMMARY | 2024-08-01 13:10 | XMS_ITS | Encounter Summary ---
Author Organization [facility] Address [address] [place] [address] Care Team Providers Care Ingot Passer Name Role Phone Donato, Ayaz Sreekanth JON Primary Care Provider [phone] Encounter Details Date Type Department Care Team (Latest Contact Info) Description 08/01/2024 Anticoagulation - Warfarin Visit [facility] [address] [place] [address] Breezy Marsh MD [address] [place] [address] [address] [place] [address] History of mechanical aortic valve replacement (Primary [...] on file documented as of this encounter Plan of Treatment Upcoming Encounters Date Type Department Care Team (Late st Contact Info) Description 10/17/2024 11:20 AM EDT Office Visit [facility] [address] [place] [address] Breezy Marsh MD [address] [place] [address] [address] [place], [place] [id number] 05/15/2025 10:30 AM EST Office Visit [facility] [place] [address] [place] [address] Dru Rueda MD [address] [place] [address] documented as of this encounter Procedures Procedure Name Priority Date/Time Associated Diagnosis Comments PROTHROMBIN TIME WITH INR Routine 08/01/2024 documented in this encounter Results * Prothrombin time with INR (08/01/2024) INR 3.6 Prothrombin Time POC Blood Venous blood specimen / Unknown 08/01/2024 us Historical Provider LAB BLOOD ORDERABLES Lynda l Result documented in this encounter Visit Diagnoses Diagnosis History of mechanical aortic valve replacement- Primary documented in this encounter Care Teams Ingot Passer Relationship Specialty [place] [address] [place] [phone] PCP - General Internal Medicine 02/07/21 documented as of this encounter
--- OUTSIDE RECORDS SUMMARY | 2024-08-01 13:10 | XMS_ITS | Clinical Summary ---
Author Organization [address] [place] [address] [place] [phone] Phone Care Team Providers Care Discharge Rn Name Role Phone Ayaz Sewell Primary Care Provider [phone] Allergies Active Allergy Reactions Criticality Noted Date [...] patient states that he was at the [facility] emergency room approximately 1 month ago [...] states that he saw his neurologist at [facility] this past week and that further brain imaging was ordered. At this point, I will order an echocardiogram to reevaluate the patient's mechanical aortic valve. Also, I will attempt to obtain the records from the [facility] visit as well as the records from the patient's neurologist. Depending on that, then we will decide if we need to change the patient's target INR and whether we need to do any further cardiac imaging besides a transthoracic echocardiogram. Orders: Transthoracic echocardiogram (TTE) complete with PRN contrast, bubble, strain, and 3D order panel; Future Coagulopathy ([facility] V24) 05/23/2023 Coronary artery disease invo lving newhalen coronary artery of new[place]en heart without angina pectoris 05/04/2022 Overview (02/06/2024): [...] and aspirin as prescribed. Iliac artery aneurysm ([facility] V24) 05/04/2022 Overview (02/06/2024): Last Assessment & Plan: The patient has a history of an iliac artery aneurysm. He will continue to follow with the [place] vascular surgery service. Cerebrovascular accident (CVA) ([facility] V24, [facility] V28) 08/02/2020 Overview (02/06/2024): Last Assessment & Plan: [...] with aspirin. He underwent a 30-day ambulatory campus monitor to rule out atrial fibrillation. This [...] Encounters Date Type Department Care Team Description 08/01/2024 Anticoagulation - Warfarin Visit [facility] [address] [place] [address] Rosalinda Tucker MD History of mechanical aortic valve replacement (Primary Dx) 07/25/2024 Telephone [facility] [address] [place] [address] Rosalinda Tucker MD 07/25/2024 Telephone [facility] [address] [place] [address] Rosalinda Tucker MD 07/25/2024 Anticoagulation - Warfarin Visit [facility] [address] [place] [address] Rosalinda Tucker MD History of mechanical aortic valve replacement (Primary Dx) 07/22/2024 1:30 PM EDT Ancillary Procedure [facility] [address] [place] [phone] History of mechanical aortic valve replacement 07/18/2024 2:00 PM EDT Office Visit [facility] [address] [place] [address] Rosalinda Tucker MD H/O mechanical aortic valve replacement (Primary Dx); Coronary artery disease involving [place] coronary artery of [place] heart without angina pectoris; Essential hypertension; Pure hypercholesterolemi a; History of mechanical aortic valve replacement; Coronary artery disease, unspecified vessel or lesion type, unspecified whether angina present, unspecified whether [place]en or transplanted heart 07/18/2024 Telephone [facility] [address] [place] [address] Rosalinda Tucker MD 07/18/2024 Anticoagulation - Warfarin Visit [facility] [address] [place] [address] Rosalinda Tucker MD History of mechanical aortic valve replacement (Primary Dx) 07/11/2024 Anticoagulation - Warfarin Visit [facility] [address] [place] [address] Rosalinda Tucker MD History of mechanical aortic valve replacement (Primary Dx) 07/04/2024 Anticoagulation - Warfarin Visit [facility] [address] [place] [address] Rosalinda Tucker MD History of mechanical aortic valve replacement (Primary Dx) 06/27/2024 Anticoagulation - Warfarin Visit [facility] [address] [place] [address] Rosalinda Tucker MD History of mechanical aortic valve replacement (Primary Dx) 06/20/2024 Anticoagulation - Warfarin Visit [facility] [address] [place] [address] Rosalinda Tucker MD History of mechanical aortic valve replacement (Primary Dx) 06/13/2024 Anticoagulation - Warfarin Visit [facility] [address] [place] [phone] Rosalinda uTcker MD History of mechanical aortic valve replacement (Primary Dx) 06/06/2024 Anticoagulation - Warfarin Visit [facility] [address] [place] [address] Rosalinda Tucker MD History of mechanical aortic valve replacement (Primary Dx) 05/30/2024 Anticoagulation - Warfarin Visit [facility] [address] [place] [address] Rosalinda Tucker MD History of mechanical aortic valve replacement (Primary Dx) 05/23/2024 Anticoagulation - Warfarin Visit [facility] [address] [place] [phone] Rosalinda Tucker MD History of mechanical aortic valve replacement (Primary Dx) 05/16/2024 Anticoagulation - Warfarin Visit [facility] [address] [place] [phone] Rosalinda Tucker MD History of mechanical aortic valve replacement (Primary Dx) 05/12/2024 1:15 PM EST Office Visit [facility] [place] [address] [place] [phone] Dru Rueda MD Iliac artery aneurysm ([facility] V24) (Primary Dx) 05/09/2024 8:10 AM EST - 05/09/2024 11:59 PM EST Hospital Encounter [facility] CT Scan [address] [place] [phone] Iliac artery aneurysm ([facility] V24) Discharge Disposition: Home or Self Care 05/09/2024 Anticoagulation - Warfarin Visit [facility] [address] [place] [phone] Rosalinda Tucker MD History of mechanical aortic valve replacement (Primary Dx) from Last 3 Months Surgical History Surgery Date Site/Laterality Comments OTHER SURGICAL HISTORY 08/01/2023 Left PROCEDURE: LA OPN FEM ART EXPOS DLVR EVASC PROSTH UNI OTHER SURGICAL HISTORY 08/01/2023 PROCEDURE: LA EVASC RPR DPLMNT ILIO-ILIAC NDGFT Medical History [...] Description 10/17/2024 11:20 AM EDT Office Visit [facility] [address] [place] [address] Center [address] [place] [address] Rosalinda Tucker MD [address] [place] [address] [address] [place] [address] 05/15/2025 10:30 AM EST Office Visit [facility] [place] [address] [place] [address] Dru Rueda MD [address] [place] [address] Health Maintenance Due Date Last Done Comments [...] 60-74 years 1-dose series) 2023 COVID-19 Vaccine (5 - season) 2023 09/17/2021, 04/13/2021, 09/10/2020, Additional history [...] age to complete this topic Meningococcal B Vaccine Aged Out No l onger eligible based on patient's age to complete this topic RSV Immunization Patients Under 20 months Aged Out No longer eligible based on patient's age to complete this topic Varicella Vaccines Aged Out No longer eligible based on patient's age to complete this topic Procedures Procedure Name Priority Date/Time Associated Diagnosis Comments PROTHROMBIN TIME WITH INR Routine 08/01/2024 PROTHROMBIN TIME WITH INR Routine 07/25/2024 TRANSTHORACIC ECHOCARDIOGRAM (TTE) COMPLETE W/ CONTRAST STAT 07/22/2024 2:15 PM EDT History of mechanical aortic valve replacement ECG 12-LEAD Routine 07/18/2024 2:06 PM EDT H/O mechanical aortic valve replacement Coronary artery disease, unspecified vessel or lesion type, unspecified whether angina present, unspecified whether [place] or transplanted heart PROTHROMBIN TIME WITH INR [...] 05/09/2024 8:30 AM EST Iliac artery aneurysm (CMS/HCC V24) PROTHROMBIN TIME WITH INR Routine 05/09/2024 CREATININE, SERUM Routine 03/24/2024 3:2 9 PM EST Iliac artery aneurysm (CMS/HCC V24) from Last 3 Months or Most Recently Relevant to Health Maintenance Results * Prothrombin time with INR (08/01/2024) Only the most recent of13 resultswithin the time period is included. INR 3.6 Prothrombin Time POC Blood Venous blood specimen / Unknown 08/01/2024 Historical Provider LAB BLOOD ORDERABLES Lynda l Result * (ABNORMAL) TRANSTHORACIC ECHOCARDIOGRAM (TTE) COMPLETE W/ CONTRAST (07/22/2024 2:15 PM EDT) Left Atrium Minor [place] 5.8 cm CV PACS Left Atrium Major [place] 5.9 cm CV PACS LA Area Sys [...] Volume 83 mL CV PACS MV Deceleration [place] 3.7 m/s2 CV PACS E Wave Deceleration [...] imaging. Rosalinda Tucker MD CV ECHO PROCEDURES [facility] Result * ECG 12 lead (07/18/2024 2:06 PM EDT) Ventricular Rate ECG 75 BPM GEMUSE Atrial Rate 75 BPM GEMUSE P-R Interval 200 ms GEMUSE QRS Duration 98 ms GEMUSE Q-T Interval 396 ms GEMUSE QTc 442 ms GEMUSE P Wave [place] 9 degrees GEMUSE R [place] 79 degrees GEMUSE T [place] 55 degrees GEMUSE ECG Interpretation Normal sinus rhythm Normal ECG When compared with ECG of 18-APR-2018 12:18, No significant change was found Confirmed by ROSALINDA TUCKER ([id number]) on 07/18/2024 2:30:29 PM GEMUSE 07/18/2024 2:06 PM EDT 07/18/2024 2:30 PM EDT us Rosalinda Tucker MD ECG ORDERABLES Final Result [...] Signed Date: 05/14/2024 07:41 ET Workstation ID: [id number] Transcribed By: Self Edit Transcribed Date: 05/13/2024 [...] Signed Date: 05/14/2024 07:41 ET Workstation ID: [id number] Transcribed By: Self Edit Transcribed Date: 05/13/2024 17:51 ET us Dru Rueda MD IMG CT PROCEDURES Final Result * Creatinine (03/24/2024 3:29 PM EST) Creatinine 0.78 0.70 - 1.30 mg/dL LAB CHEMISTRY METHOD 03/24/2024 5:11 PM EST [facility] eGFR 102 >=60 mL/min/1. 73m2 LAB CHEMISTRY METHOD 03/24/2024 5:11 PM EST [facility] Comment:Calculation based on the??Chronic Kidney Disease Epidemiology Collaboration (CKD-EPI) equation refit??without adjustment for race. Blood Venous blood specimen / Unknown Venipuncture / Unknown 03/24/2024 3:29 PM EST 03/24/2024 4:10 PM EST us Dru Rudea MD LAB BLOOD ORDERABLES Final Resu lt [facility] [address] [place] [address], from Last 3 Months or Most Recently Relevant to Health Maintenance Insurance [facility] Care Teams Discharge Rn Relationship Specialty Start Date End Date Ayaz Sewell PA [address] [place] [phone] PCP - General Internal Medicine 02/07/21
== END 2024-08-01 12:32 | disposition home or self-care (01) ==
LOC: HO.HMGCX 12:31
PROVIDERS: PCP Physician Assistant; Visit Provider Psychiatry & Neurology Neurology
DX: I63.40 Cerebral infarction due to embolism of unspecified cerebral artery (principal); I65.29 Occlusion and stenosis of unspecified carotid artery
CPT/HCPCS: 93880

== ENCOUNTER → 2024-08-01 12:42 | Outpatient (BNV) | payer OTHER, SELFPAY | PROVIDERS: PCP Physician Assistant; Visit Provider Radiology Diagnostic Radiology | DX: I65.29 Occlusion and stenosis of unspecified carotid artery (principal) | CPT/HCPCS: 93880 ==

== ENCOUNTER 2024-08-27 10:04 | Outpatient (RCR) | payer OTHER, SELFPAY | END 2024-10-08 09:46 | disposition home or self-care (01) | LOC: HO.PT 10:04 | PROVIDERS: PCP Physician Assistant; Visit Provider Internal Medicine | DX: I69.354 Hemiplegia and hemiparesis following cerebral infarction affecting left non-dominant side (principal) | CPT/HCPCS: 97110; 97162; 97163; 97530 ==

== ENCOUNTER 2024-09-23 12:24 | Outpatient (AMB) | payer OTHER, SELFPAY ==
--- NOTE | 2024-09-23 12:55 | A.OFFVIS_ITS ---
Intake Intake Visit Reasons: 60 min Exterior Designer Required: No Accompanied by: Self / Same As Patient Allergies atorvastatin Adverse Reaction (Unknown, Verified 07/02/24 10:36) Unknown HPI Comprehensive Diabetes Asmnt Most Recent Diabetes Results: Hemoglobin A1c 9.5 % 04/26/18 Microalb/Creat Ratio 550.9 ug/mg cr (<30) H 04/29/24 Cholesterol 204 mg/dL (<200) H 05/28/24 HDL Cholesterol 44 mg/dL (>40) 05/28/24 Triglycerides 113 mg/dL (<150) 05/28/24 Creatinine 0.74 mg/dL (0.5-1.4) 05/28/24 Blood Urea Nitrogen 19 mg/dL (9-16) H 05/28/24 Sodium 141 mmol/L (135-145) 05/28/24 Potassium 4.0 mmol/L (3.3-5.1) 05/28/24 Chloride 108 mmol/L (96-108) 05/28/24 Carbon Dioxide 21 mmol/L (22-29) L 05/28/24 Calcium 9.6 mg/dL (8.4-10.2) 05/28/24 AST 27 U/L (5-37) 04/29/24 ALT 34 U/L (0-40) 04/29/24 Total Protein 7.7 g/dL (6.5-8.0) 04/29/24 Albumin 4.4 g/dL (3.5-5.0) 04/29/24 PFSH Medical History Coagulopathy Arrhythmia BPH (benign prostatic hyperplasia) Chronic renal insufficiency CVA (cerebral vascular accident) History of COVID-19 Sleep apnea Asthma Diabetes High cholesterol HTN (hypertension) Surgical History H/O colonoscopy H/O tooth extraction Mechanical heart valve present Social History Housing: House Alcohol intake: never Patient Tobacco Use Status: Former Tobacco user Tobacco use type: Cigarette e-Cigarette/Vaping Use: Never Used Second Hand Smoke Exposure: No service: No Current occupational status: employed Cognitive needs: No Hearing needs: No Vision needs: Yes Assessment & Plan Assessment & Plan (1) DMII (diabetes mellitus, type 2): Code(s): E11.9 - Type 2 diabetes mellitus without complications Qualifiers: Diabetes mellitus customer service specialist insulin use: with customer service specialist use Diabetes mellitus complication status: with kidney complications Diabetes mellitus complication detail: with nephropathy Qualified Code(s): E11.21 - Type 2 diabetes mellitus with diabetic nephropathy; Z79.4 - alf (current) use of insulin Plan: Insulin/Incretin?Mimetic Education visit Patient is still has not started Fiasp 8 units before meals. Called pharmacy while patient was at visit to confirm that he can pick Fiasp up on 09/23/2024 Patient is currently taking Jardiance 25 mg daily Glargine 56 units daily Trulicity 4.5 mg weekly You were unable to review patient's glucose at this visit. Patient reports his data plan was canceled, patient's cell phone no longer uploading glucose information to [employer] Instructed patient to switch to advisorCONNECT reader next time he changes sensor, bring [email or web address] reader for download to next visit Patient Education: on Fiasp Patient was instructed and provided with demonstration of the following: Insulin action and Incretin Mimetics medication storage how to set up medication pen/or syringe and vial Handwashing insulin injection site rotation Site rotation recognizing hypertrophy Testing blood glucose Removing and disposing needle from insulin pen Safe disposal of sharps Target blood sugar Signs/ symptoms/treatment of hypoglycemia/hyperglycemia expiration of open insulin pen Patient verbalized understanding of education provided and was able to demonstrate proper use of inject into injection pillow Reviewed rule of 15s to treat glucose under 70 mg/dL All questions were answered and patient was advised to contact the office with any questions or concerns. Patient has follow-up appointment with Dr. Abdi Leyva on 10/01/2024 Portions of this note were created using voice recognition software, please excuse any words or phrases that may have been misinterpreted. Coding Level of Care Code Est Pt Level 1 (20916) Diagnoses Type 2 diabetes mellitus with diabetic nephropathy, with long-term current use of insulin E11.21; Z79.4 Diabetes mellitus assisted insulin use: with customer service specialist use Diabetes mellitus complication status: with kidney complications Diabetes mellitus complication detail: with nephropathy
--- OUTSIDE RECORDS SUMMARY | 2024-09-23 13:49 | XMS_ITS | Encounter Summary ---
Author Organization [facility] Address [address] [place] [address] Care Team Providers Care Yield Analyst Name Role Phone Ayaz Sewell DANAY Primary Care Provider [phone] Encounter Details Date Type Department Care Team (Latest Contact Info) Description 09/19/2024 Anticoagulation - Warfarin Visit [facility] [address] [facility] [address] [place] [phone] Breezy Marsh MD [address] [place] [address] [address] [place] [address] History of mechanical aortic valve replacement (Primary [...] Progress Notes * Luca Caballero MA - 09/19/2024 11:01 AM EDT Phone just keep having busy signal. documented in this encounter Plan of Treatment Upcoming Encounters Date Type Department Care Team (Late st Contact Info) Description 10/17/2024 11:20 AM EDT Office Visit [facility] [address] [facility] [address] [place] [phone] Breezy Marsh MD [address] [place] [address] [address] [place] [address] 05/15/2025 10:30 AM EST Office Visit [facility] [place] [address] [place] [address] Dru Rueda MD [address] [place] [address] documented as of this encounter Procedures Procedure Name Priority Date/Time Associated Diagnosis Comments PROTHROMBIN TIME WITH INR Routine 09/19/2024 documented in this encounter Results * Prothrombin time with INR (09/19/2024) INR 3.0 Prothrombin Time POC Blood Venous blood specimen / Unknown 09/19/2024 Historical Provider LAB BLOOD ORDERABLES Lynda l Result documented in this encounter Visit Diagnoses Diagnosis History of mechanical aortic valve replacement- Primary documented in this encounter Care Teams Yield Analyst Relationship Specialty Start Date End Date Ayaz Sewell PA [address] [place] [phone] PCP - General Internal Medicine 02/07/21 documented as of this encounter
== END 2024-09-23 14:25 | disposition home or self-care (01) ==
LOC: HO.ENCR 12:25
PROVIDERS: PCP Physician Assistant; Visit Provider Registered Nurse Diabetes Educator
DX: E11.21 Type 2 diabetes mellitus with diabetic nephropathy (principal); Z79.4 Long term (current) use of insulin

== ENCOUNTER → 2024-09-23 12:24 | Outpatient (BNVA) | payer OTHER, SELFPAY | PROVIDERS: PCP Physician Assistant; Visit Provider Registered Nurse Diabetes Educator | DX: E11.21 Type 2 diabetes mellitus with diabetic nephropathy (principal); Z79.4 Long term (current) use of insulin | CPT/HCPCS: 99211 ==

== ENCOUNTER 2024-10-01 10:44 | Outpatient (AMB) | payer OTHER, SELFPAY ==
--- NOTE | 2024-10-01 10:49 | A.OFFVIS_ITS ---
Vital Signs 10/01/24 10:51 Height 5 ft 6 in Weight 235 lb 14.314 oz BMI 38.1 BP 160/80 H Blood Pressure Location Rt brachial Position Sitting Pulse 70 Pulse Source Pulse Oximeter Pulse Oximetry (%) 97 Oxygen Delivery Method Room Air Intake Visit Reasons: DM follow up Intake Note: Patient presents today for a follow-up on Type 2 Diabetes Mellitus: Last Diabetic eye exam was on: DUE Last Podiatry exam was on: Patient does not see a Refrigerating Machine Operator Most recent HbA1c: 7.5%, 10/01/2024 Random Glucose: 148 mg/dL English As A Second Language Instructor Required: No Accompanied by: Self / Same As Patient Allergies atorvastatin Adverse Reaction (Unknown, Verified 10/01/24 10:54) Unknown HPI Comments Details: 59 y/o male presenting for diabetes follow up Patient has a past medical history of CVA, aortic valve replacement,h/o aortic dissection, diabetes, obesity, coronary artery disease, iliac artery aneurysm, hypertension. Current medications: Basaglar 56 units nightly, fiasp 8u three times daily, metformin 1000mg BID. Trulicity 4.5 mg Qwkly (increased from 3mg), Actos 30 mg QD and jardiance 25mg daily Today A1C 7.5% from 8.2% Apr, Nabeel downloaded TGT 52%, high 48% 0% lows. GMI 7.6%. He is calling to make an eye appt. Having some psychosocial issues at home Adopted On ARB/statin Micro/macrovascular complications: ED Diagnosed in 30s Hasnt had nutrition or diabetic education Hypoglycemia: No ROS CONSTITUTIONAL: Denies weight loss, fever and chills. HEENT: Denies changes in vision and hearing. RESPIRATORY: Denies SOB and cough. CV: Denies palpitations and CP GI: Denies abdominal pain, nausea, vomiting and diarrhea. : Denies dysuria and urinary frequency. MSK: Denies new myalgia and joint pain. SKIN: Denies rash and pruritus. NEUROLOGICAL: new dysarthria PSYCHIATRIC: Denies recent changes in mood. PHYSICAL EXAM: GENERAL: Alert and oriented x 3. NAD EYES: EOMI. Anicteric. HENT: Moist mucous membranes. No scleral icterus. No cervical lymphadenopathy. LUNGS: Clear to auscultation bilaterally. CARDIOVASCULAR: Regular rate and rhythm. +murmur No JVD. ABDOMEN: Soft, non-tender +bs EXTREMITIES: No edema. Non-tender. SKIN: No rashes or lesions. Warm. NEUROLOGIC: No focal neurological deficits. CN II-XII grossly intact PSYCHIATRIC: Cooperative. Appropriate mood and affect [facility] Medical History Coagulopathy Arrhythmia BPH (benign prostatic hyperplasia) Chronic renal insufficiency CVA (cerebral vascular accident) History of COVID-19 Sleep apnea Asthma Diabetes High cholesterol HTN (hypertension) Surgical History H/O colonoscopy H/O tooth extraction Mechanical heart valve present Social History Housing: House Alcohol intake: never Patient Tobacco Use Status: Former Tobacco user Tobacco use type: Cigarette e-Cigarette/Vaping Use: Never Used Second Hand Smoke Exposure: No service: No Current occupational status: employed Cognitive needs: No Hearing needs: No Vision needs: Yes Physical Exam Vital Signs: Last Vital Signs Pulse 70 10/01/24 10:51 BP 160/80 H 10/01/24 10:51 Pulse Ox 97 10/01/24 10:51 Oxygen Delivery Method Room Air 10/01/24 10:51 BMI result Body Mass Index 38.1 Results AMB Hemoglobin A1c AMB Hemoglobin A1c 7.5 % Last Edit by TRAM Daniel on 10/01/24 11:19 Results Reviewed Results Reviewed: Laboratory Last Values Glucose (Clinic) 148 mg/dL (60-115) H 10/01/24 10:56 Assessment & Plan Assessment & Plan (1) Insulin use (long-term) in type 2 diabetes: Code(s): E11.9 - Type 2 diabetes mellitus without complications; Z79.4 - correction (current) use of insulin Category: Medical Qualifiers: Diabetes mellitus complication status: with hyperglycemia Qualified Code(s): E11.65 - Type 2 diabetes mellitus with hyperglycemia; Z79.4 - rn long term care (current) use of insulin Plan Type 2 diabetes Improving glycemic control CGM download with some post breakfast and dinner hyperglycemia. Increase fiasp to 10, 8, 10. Increase basaglar to 60 units daily Continue oral meds at current doses Return in 3 months or sooner as needed Orders: Orders AMB Hemoglobin A1c Today E11.9 - Type 2 diabetes mellitus without complications, Z79.4 - correction (current) use of insulin Medications: Changed From insulin glargine-yfgn 56 units subcut BEDTIME To insulin glargine-yfgn 60 units (0.6 mL) subcut BEDTIME 45 mL 3RF From insulin aspart (niacinamide) 100 unit/mL (3 mL) (Fiasp FlexTouch U-100 Insulin) 8 units See Protocol subcut TIDAC 15 mL 3RF E11.9 - Type 2 diabetes mellitus without complications, Z79.4 - rn long term care (current) use of insulin To Fiasp FlexTouch U-100 Insulin 100 unit/mL (3 mL) (insulin aspart (niacinamide)) See Protocol 10 units before breakfast, 8 units before lunch, 10 units before dinner 45 mL 3RF NS E11.9 - Type 2 diabetes mellitus without complications, Z79.4 - rn long term care (current) use of insulin Coding Level of Care Code Est Pt Level 4 (26312) Diagnoses Type 2 diabetes mellitus with hyperglycemia, with long-term current use of insulin E11.65; Z79.4 Diabetes mellitus complication status: with hyperglycemia
[2024-10-01 10:51] VITALS: BP 160/80; PULSE 70; O2SAT 97; BMI 38.1
[2024-10-01 11:01] LABS: Glucose, Whole Blood 148 mg/dL (60-115)
== END 2024-10-01 11:23 | disposition home or self-care (01) ==
LOC: HO.ENCR 10:44
PROVIDERS: PCP Physician Assistant; Visit Provider Internal Medicine
DX: E11.9 Type 2 diabetes mellitus without complications (principal); Z79.4 Long term (current) use of insulin; E11.65 Type 2 diabetes mellitus with hyperglycemia

== ENCOUNTER → 2024-10-01 10:44 | Outpatient (BNVA) | payer OTHER, SELFPAY | PROVIDERS: PCP Physician Assistant; Visit Provider Internal Medicine | DX: E11.65 Type 2 diabetes mellitus with hyperglycemia (principal); Z79.4 Long term (current) use of insulin | CPT/HCPCS: 82947; 83036; 99212 ==

== ENCOUNTER 2024-11-17 10:02 | Outpatient (AMB) | payer OTHER, SELFPAY ==
--- NOTE | 2024-11-17 10:03 | MHC.OFFVIS ---
Vital Signs 11/17/24 10:04 Height 5 ft 6 in Weight 235 lb BMI 37.9 Intake Visit Reasons: Inj-Left shoulder OA s/p last 03/17/24 Intake Note: Alejandro is a 59 year old right hand dominant male who presents today for a repeat injection in the left shoulder, last injection was administered on 10/04/23. We previously have discussed TSA, but patient was not ready to move forward with surgery due to other medical conditions. Patient reports he is doing well, no further concerns. Allergies atorvastatin Adverse Reaction (Unknown, Verified 11/17/24 10:09) Unknown HPI HPI Inj-Left shoulder OA s/p last 03/17/24: Details: This is a 59-year-old with rotator cuff arthropathy of the left shoulder. He states the pain is worse with activity but that the last injection lasted for a very long time. He would like to discuss a repeat injection today. He has pain with overhead activity and difficulty raising his hand above his shoulder level at times. [facility] Medical History Coagulopathy Arrhythmia BPH (benign prostatic hyperplasia) Chronic renal insufficiency CVA (cerebral vascular accident) History of COVID-19 Sleep apnea Asthma Diabetes High cholesterol HTN (hypertension) Surgical History H/O colonoscopy H/O tooth extraction Mechanical heart valve present Social History Housing: House Alcohol intake: never Patient Tobacco Use Status: Former Tobacco user Tobacco use type: Cigarette e-Cigarette/Vaping Use: Never Used Second Hand Smoke Exposure: No service: No Current occupational status: employed Cognitive needs: No Hearing needs: No Vision needs: Yes Physical Exam Vital Signs: BMI result Body Mass Index 37.9 Extrem Other: scapular recruitment required for left shoulder abduction but able to do so comfortably 4-/5 EC ER to 45 + lift off Office Procedures Joint Inj/Aspir; Non-Pain Clin Joint Injection/Drain Details: Injected 1 mL of Decadron and 3 mL 1% lidocaine and 3 mL of 0.25% Marcaine. Site was prepped using aseptic technique. Patient tolerated the procedure well. Shoulders, Hips, Knees, Shoulder Injection Large joint : Left Shoulder Coding Procedure code (CPT) selection complete Assessment & Plan Assessment & Plan (1) Rotator cuff insufficiency of left shoulder: Code(s): M25.312 - Other instability, left shoulder Category: Medical Plan: 59-year-old with rotator cuff arthropathy of the left shoulder. Not a surgical candidate for various reasons mostly cardiac. He has benefitted from injections and I recommend an injection today. I injection was performed on his left shoulder without difficulty or complication. He should continue to avoid lifting. May return for repeat injections in 4 months. (2) DMII (diabetes mellitus, type 2): Code(s): E11.9 - Type 2 diabetes mellitus without complications Category: Medical Qualifiers: Diabetes mellitus terminal block assembler insulin use: with penitentiary use Diabetes mellitus complication status: with kidney complications Diabetes mellitus complication detail: with nephropathy Qualified Code(s): E11.21 - Type 2 diabetes mellitus with diabetic nephropathy; Z79.4 - computer terminal operator (current) use of insulin Plan: I discussed the hyperglycemic effects of steroids. Coding Level of Care Code Est Pt Level 4 (51767) Diagnoses Rotator cuff insufficiency of left shoulder M25.312 Type 2 diabetes mellitus with diabetic nephropathy, with long-term current use of insulin E11.21; Z79.4 Diabetes mellitus terminal block assembler insulin use: with penitentiary use Diabetes mellitus complication status: with kidney complications Diabetes mellitus complication detail: with nephropathy CPT Codes Shoulders, Hips, Knees, - Shoulder Injection Large joint 67497: Left Shoulder ([id number])
[2024-11-17 10:04] VITALS: BMI 37.9
--- OUTSIDE RECORDS SUMMARY | 2024-11-17 11:03 | XMS_ITS | Patient Health Record ---
Author Organization [facility] Address [address] [place] [address] Care Team Providers Care Deputy Brand Inspector Name Role Phone Bryson (RETIRED) Jovanny DEAL Primary Care Provide r Unavailable Jg Schaffer Unavailable [phone] Reason For Referral No Information Medications Medication SIG (Take, Route, Frequency, Duration) Notes Start Date End Date Status Valsartan-hydroCHLOROthiaz mikel 160-12.5 MG TAKE 1 TABLET EVERY DAY Oral for 90 Active Bydureon 2 MG Subcutaneous Act sarah beth Vitamin D 1000 UNIT 1 tablet Orally Once a day Active Albuterol Sulfate (2.5 MG/3ML) 0.083% 3 ml Inhalation Three times a day Active metFORMIN HCl 1000 MG 1 tablet with meal s Orally Twice a day Active glipiZIDE 10 MG 1 tablet Orally Once a day Active Suprep Bowel Prep 1 kit as directed Oral ly as directed for 1 dose 10/18/2014 Active Lisinopril-hydroCHLOROthia zide 20-12.5 MG 1 tablet Orally Once a day Active Pravastatin Sodium 80 MG 1 tablet Orally Once a day Active ProAir HFA 108 (90 Base) MCG/ACT 2 puffs as needed Inhalation every 4 hrs Active Advair Diskus 100-50 MCG/DOSE 1 puff Inhalation Twice a day Active Problems Problem Type SNOMED Code ICD Code Onset Dates Problem Status W/U Status Risk Notes Problem Colon cancer screening (418690811) Colon cancer screening (V76.51) Active confirmed Problem Long-term current use of insulin (676813337) Long-term insulin use (V58.67) Active confirmed Plan Of Treatment Future Test Test Name Order Date COLONOSCOPY 10/13/2014 Insurance Providers Payer Name Payer Address Payer Phone Subscriber Number Group Number Insured Name Patient Relationship to Insured Coverage Start Date Coverage End Date [facility] [address] [place], [place] [id number] [phone] [id number] EDIE BAILEY Self - patient is the insured Medical (General) History Medical History History ICD Code IDDM hypertension Asthma Denies [place],CVA,renal disease Sleep apnea--uses a Bipap Surgical History Surgery Date(Month/Year) knee surgery
--- OUTSIDE RECORDS SUMMARY | 2024-11-17 11:04 | XMS_ITS | Clinical Summary ---
Author Organization [address] [place] [address] [place] [phone] Phone Care Team Providers Care Fitness Management Director Name Role Phone Ayaz Sewell Primary Care Provider Allergies Active Allergy Reactions Criticality Noted Date Comments Atorvastatin 08/02/2020 Medications rosuvastatin (CRESTOR) 40 mg tablet Take 1 tablet (40 mg total) by mouth 1 (one) time each day. Active insulin aspart (NovoLOG) 100 unit/mL injection Inject under the skin 3 (three) times a day before meals. 10 units in the am 8 units in the afternoon 10 units in the evening Active insulin glargine (LANTUS SoloStar) 100 unit/mL (3 mL) injection pen Inject 60 Units under the skin at bedtime. Active pantoprazole (PROTONIX) 40 mg EC tablet Take 1 tablet (40 mg total) by mouth 1 (one) time each day. Active metFORMIN (GLUMETZA) 1,000 mg 24 hr tablet Take 1 tablet (1,000 mg total) by mouth 2 (two) times a day with meals. Active fluticasone-wale meterol (ADVAIR DISKUS) 250-50 mcg/dose diskus inhaler Inhale 1 puff by mouth 2 (two) times a day. Active albuterol sulfate (ProAir RespiClick) 90 mcg/actuation aerosol powdr breath activated Inhale into the lungs as needed. Active tamsulosin (FLOMAX) 0.4 mg 24 hr capsule Take 0.4 mg by mouth daily. Take 30 mins after same meal every day. Active warfarin (COUMADIN) 3 mg tablet Active losartan (COZAAR) 25 mg tablet Take [...] by mouth 1 (one) time each day. 5 Active enoxaparin (LOVENOX) 120 mg/0.8 mL syringe injection Inject 0.73 mL (110 mg total) under the skin every 12 (twelve) hours. 10 each Active Additional Information Patient not taking.Reported on 10/17/2024 meclizine (ANTIVERT) 25 mg tablet Take 1 tablet (25 mg total) by mouth 3 (three) times a day. Active ezetimibe (ZETIA) 10 mg tablet Take 1 tablet (10 mg total) by mouth 1 (one) time each day. 90 each 2 5 Active Active Problems Problem Noted Date Diagnosed Date History of mechanical aortic valve replacement 1 05/07/2023 Assessment & Plan (10/17/2024 12:06 PM EDT): The patient has a history of a mechanical aortic valve. This was placed in June 2018. He has had several apparent CVAs in the past. The patient is on chronic anticoagulation therapy with warfarin due to his mechanical aortic valve. He also is on aspirin 81 mg orally daily. After his most recent CVA in May 2024, an echocardiogram was done which showed normal valve function. Case was discussed extensively with the patient's neurologist (Dr. Escoto) and we agreed to increase the INR target for this patient to 3.0 with a therapeutic range defined to be 2.5- 3.5. On today's visit, the patient denies any complications after the adjustment of his target INR. As such, we will continue to aim for a therapeutic target of 2.5/3.5 with the use of bridging anticoagulation therapy with Lovenox if the patient is under 2.5. Assessment & Plan (07/18/2024 2:34 PM EDT): [...] patient states that he was at the [facility] emergency room approximately 1 month ago [...] states that he saw his neurologist at [facility] this past week and that further brain imaging was ordered. At this point, I will order an echocardiogram to reevaluate the patient's mechanical aortic valve. Also, I will attempt to obtain the records from the [facility] visit as well as the records from the patient's neurologist. Depending on that, then we will decide if we need to change the patient's target INR and whether we need to do any further cardiac imaging besides a transthoracic echocardiogram. Orders: Transthoracic echocardiogram (TTE) complete with PRN contrast, bubble, strain, and 3D order panel; Future Coagulopathy ([facility] V24) 05/23/2023 Coronary artery disease invo lving [place] coronary artery of [place] heart without angina pectoris 05/04/2022 Overview (02/06/2024): [...] changes to medical therapies. Assessment & Plan (10/17/2024 12:06 PM EDT): The patient has a history of coronary artery disease. Currently, the patient denies any chest pain at rest or with exertion. The patient continues on secondary preventive therapy for CAD, including: aspirin, statin and beta colton. Will continue current therapy. Assessment & Plan (07/18/2024 2:34 PM EDT): [...] regimen with statin and aspirin as prescribed. Assessment & Plan (10/17/2024 12:06 PM EDT): The patient has a history of carotid artery stenosis. He is on antiplatelet therapy with aspirin and statin therapy with rosuvastatin. Last carotid artery duplex was in August 2023. Will order a follow-up carotid artery duplex. Orders: Vascular US duplex carotid bilateral; Future Iliac artery aneurysm ([facility] V24) 05/04/2022 Overview (02/06/2024): Last Assessment & Plan: The patient has a history of an iliac artery aneurysm. He will continue to follow with the [facility] vascular surgery service. Cerebrovascular accident (CVA) ([facility] V24, [facility] V28) 08/02/2020 Overview (02/06/2024): Last [...] with aspirin. He underwent a 30-day ambulatory potline monitor to rule out atrial fibrillation. This showed predominantly sinus rhythm with brief atrial runs and occasional PACs. No sustained arrhythmias were noted. He will continue to follow with the neurology team at [facility]. Essential hypertension 08/02/2020 Overview (02/06/2024): Last [...] medication regimen as prescribed. Assessment & Plan (10/17/2024 12:06 PM EDT): The patient has a history of arterial hypertension. The patient's blood pressure today was noted to be well controlled. We'll continue the current antihypertensive medication regimen. Assessment & Plan (07/18/2024 2:34 PM EDT): [...] with routine medical care. Assessment & Plan (10/17/2024 12:06 PM EDT): The patient has a history of hyperlipidemia. The patient is currently on rosuvastatin 40 mg orally daily. We will order a new lipid panel to evaluate the patient's current lipid control and determine if any adjustment are needed in the lipid lowering therapy. Orders: Comprehensive metabolic panel; Future Lipid panel with reflex to direct LDL; Future Assessment & Plan (07/18/2024 2:34 PM EDT): The patient has a history of hyperlipidemia. He is currently on rosuvastatin 40 mg orally daily. Will continue his current therapy. Obstructive sleep apnea 08/02/2020 Uncomplicated asthma 08/02/2020 Encounters Date Type Department Care Team Description 11/14/2024 Anticoagulation - Warfarin Visit [facility] [address] [facility] [address] [place] [address] Breezy Marsh MD History of mechanical aortic valve replacement (Primary Dx) 11/12/2024 Telephone [facility] [address] [facility] [address] [place] [address] Breezy Marsh MD lab results 11/07/2024 Anticoagulation - Warfarin Visit [facility] [address] [facility] [address] [place] [address] Breezy Marsh MD History of mechanical aortic valve replacement (Primary Dx) 10/31/2024 Anticoagulation - Warfarin Visit [facility] [address] [facility] [address] [place] [address] Breezy Marsh MD History of mechanical aortic valve replacement (Primary Dx) 10/23/2024 Anticoagulation - Warfarin Visit [facility] [address] [facility] [address] [place] [address] Breezy Marsh MD History of mechanical aortic valve replacement (Primary Dx) 10/17/2024 12:05 PM EDT Lab Draw Station - [address] [facility] [place] [address] Pure hypercholesterolemia 10/17/2024 11:20 AM EDT Office Visit [facility] [address] [facility] [address] [place] [address] Breezy Marsh MD Coronary artery disease involving [place] coronary artery of [place] heart without angina pectoris (Primary Dx); Essential hypertension; Pure hypercholesterolemia; Bilateral carotid artery stenosis; History of mechanical aortic valve replacement 10/17/2024 Anticoagulation - Warfarin Visit [facility] [address] [place] [address] Breezy Marsh MD History of mechanical aortic valve replacement (Primary Dx) 10/10/2024 Anticoagulation - Warfarin Visit [facility] [address] [place] [address] Breezy Marsh MD History of mechanical aortic valve replacement (Primary Dx) 10/03/2024 Anticoagulation - Warfarin Visit [facility] [address] [place] [address] Breezy Marsh MD History of mechanical aortic valve replacement (Primary Dx) 09/26/2024 Anticoagulation - Warfarin Visit [facility] [address] [place] [address] Breezy Marsh MD History of mechanical aortic valve replacement (Primary Dx) 09/19/2024 Anticoagulation - Warfarin Visit [facility] [address] [place] [address] Breezy Marsh MD History of mechanical aortic valve replacement (Primary Dx) 09/12/2024 Anticoagulation - Warfarin Visit [facility] [address] [place] [address] Breezy Marsh MD History of mechanical aortic valve replacement (Primary Dx) 09/05/2024 Anticoagulation - Warfarin Visit [facility] [address] [place] [address] Breezy Marsh MD History of mechanical aortic valve replacement (Primary Dx) 08/29/2024 Anticoagulation - Warfarin Visit [facility] [address] [place] [address] Breezy Marsh MD History of mechanical aortic valve replacement (Primary Dx) 08/25/2024 Anticoagulation - Warfarin Visit [facility] [address] [place] [address] Breezy Marsh MD History of mechanical aortic valve replacement (Primary Dx) 08/22/2024 Anticoagulation - Warfarin Visit [place] [address] [place] [phone] Breezy Marsh MD History of mechanical aortic valve replacement (Primary Dx) from Last 3 Months Surgical History Surgery Date Site/Laterality Comments OTHER SURGICAL HISTORY 08/01/2023 Left PROCEDURE: SD OPN FEM ART EXPOS DLVR EVASC PROSTH UNI OTHER SURGICAL HISTORY 08/01/2023 PROCEDURE: SD EVASC RPR DPLMNT ILIO-ILIAC NDGFT Medical History [...] Sign Reading Time Taken Comments Blood Pressure 120/74 10/17/2024 11:05 AM EDT Pulse 82 10/17/2024 11:05 AM EDT Temperature - - Respiratory Rate 16 05/12/2024 1:10 PM EST Oxygen Saturation 96% 10/17/2024 11:05 AM EDT Inhaled Oxygen Concentration - - Weight 108 kg (237 lb) 10/17/2024 11:05 AM EDT Height 170.2 cm (5' 7 ) 10/17/2024 11:05 AM EDT Body Mass Index 37.12 10/17/2024 11:05 AM EDT Plan of Treatment Upcoming Encounters Date Type Department Care Team (Late st Contact Info) Description 12/01/2024 12:45 PM EDT Ancillary Procedure [facility] [address] [facility] [address] [place] [address] 05/15/2025 10:30 AM EST Office Visit Vascular Surgery - [place] [address] [facility] [address] [place] [address] Dru Rueda MD [address] [facility] [address] [place] [address] Health Maintenance Due Date Last Done Comments Zoster Vaccines (1 of 2) 1982 Pneumococcal Vaccine: 50+ Years (2 of 2 - PCV) 06/22/2019 06/21/2018, 04/20/2018 Colorectal Cancer Screening: Colonoscopy 04/01/2022 HIV Screening 04/01/2022 Hepatitis C Screening 04/01/2022 Social Influencers of Health Screening 04/01/2022 RSV Immunization Adult Patients (1 - Risk 60-74 years 1-dose series) 2023 COVID-19 Vaccine ( season) 2023 09/17/2021, 04/13/2021, 09/10/2020, Additional history exists Depression Screening 04/23/2024 Influenza Vaccine (#1) 2024 , 02/27/2023, 02/22/2022, Additional history exists Hypertension/CHF/CAD Annual BMP Blood Test 10/17/2025 10/17/2024, 03/24/2024, 03/23/2023 Cholesterol Screening (Lipid Panel) 10/17/2029 10/17/2024 DTaP,Tdap,and Td Vaccines (2 - Td or Tdap) 02/27/2033 02/27/2023 HIB Vaccines Aged Out No longer eligi [...] Diagnosis Comments PROTHROMBIN TIME WITH INR Routine 11/14/2024 PROTHROMBIN TIME WITH INR Routine 11/07/2024 PROTHROMBIN TIME WITH INR Routine 10/31/2024 PROTHROMBIN TIME WITH INR Routine 10/23/2024 LIPID PANEL WITH REFLEX TO DIRECT LDL Routine 10/17/2024 12:08 PM EDT Pure hypercholesterolemia COMPREHENSIVE METABOLIC PANEL Routine 10/17/2024 12:08 PM EDT Pure hypercholesterolemia PROTHROMBIN TIME WITH INR Routine 10/17/2024 PROTHROMBIN TIME WITH INR Routine 10/10/2024 PROTHROMBIN TIME WITH INR Routine 10/03/2024 PROTHROMBIN TIME WITH INR Routine 09/26/2024 PROTHROMBIN TIME WITH INR Routine 09/19/2024 PROTHROMBIN TIME WITH INR Routine 09/12/2024 PROTHROMBIN TIME WITH INR Routine 09/05/2024 PROTHROMBIN TIME WITH INR Routine 08/29/2024 PROTHROMBIN TIME WITH INR Routine 08/25/2024 PROTHROMBIN TIME WITH INR Routine 08/22/2024 from Last 3 Months Results * Prothrombin time with INR (11/14/2024) Only the most recent of14 resultswithin the time period is included. INR 3.3 Prothrombin Time POC Blood Venous blood specimen / Unknown 11/14/2024 Historical Provider LAB BLOOD ORDERABLES Lynda l Result * Lipid panel with reflex to direct LDL (10/17/2024 12:08 PM EDT) Pathologist [facility] Cholesterol 158 0 - 200 mg/dL LAB CHEMISTRY METHOD 10/17/2024 2:30 PM EDT [facility] Triglycerides 102 0 - 150 mg/dL LAB CHEMISTRY METHOD 10/17/2024 2:30 PM EDT [facility] HDL 47 >=40 mg/dL LAB CHEMISTRY METHOD 10/17/2024 2:30 PM EDT [facility] LDL Calculated 91 0 - 100 mg/dL LAB CHEMISTRY METHOD 10/17/2024 2:30 PM EDT [facility] VLDL Cholesterol Jairo 20.4 mg/dL LAB CHEMISTRY METHOD 10/17/2024 2:30 PM EDT [facility] Non HDL Chol. (LDL+VLDL) 111 <145 mg/dL LAB CHEMISTRY METHOD 10/17/2024 2:30 PM EDT [facility] Chol/HDL Ratio 3.4 0.0 - 4.4 LAB CHEMISTRY METHOD 10/17/2024 2:30 PM EDT [facility] Blood Venous blood specimen / Unknown Venipuncture / Unknown 10/17/2024 12:08 PM EDT 10/17/2024 12:30 PM EDT Breezy Marsh MD LAB BLOOD ORDERABLES F inal Result [facility] [address] [place] [address], * (ABNORMAL) Comprehensive metabolic panel (10/17/2024 12:08 PM EDT) Sodium 144 133 - 145 mmol/L LAB CHEMISTRY METHOD 10/17/2024 2:30 PM EDT [facility] Potassium 3.9 3.5 - 5.5 mmol/L LAB CHEMISTRY METHOD 10/17/2024 2:30 PM [facility] Chloride 111(H) 96 - 110 mmol/L LAB CHEMISTRY METHOD 10/17/2024 2:30 PM [facility] CO2 29 21 - 32 mmol/L LAB CHEMISTRY METHOD 10/17/2024 2:30 PM [facility] Anion Gap 4 3 - 11 LAB CHEMISTRY METHOD 10/17/2024 2:30 PM [facility] Glucose 117(H) 70 - 100 mg/dL LAB CHEMISTRY METHOD 10/17/2024 2:30 PM [facility] BUN 15 5 - 25 mg/dL LAB CHEMISTRY METHOD 10/17/2024 2:30 PM [facility] Creatinine 0.76 0.70 - 1.30 mg/dL LAB CHEMISTRY METHOD 10/17/2024 2:30 PM [facility] eGFR 102 >=60 mL/min/1. 73m2 LAB CHEMISTRY METHOD 10/17/2024 2:30 PM [facility] Comment:Calculation based on the Chronic Kidney Disease Epidemiology Collaboration (CKD-EPI) equation refit without adjustment for race. BUN/Creatinine Ratio 19.7 LAB CHEMISTRY METHOD 10/17/2024 2:30 PM [facility] Calcium 9.0 8.5 - 10.5 mg/dL LAB CHEMISTRY METHOD 10/17/2024 2:30 PM [facility] AST (SGOT) 27 10 - 42 unit/L LAB CHEMISTRY METHOD 10/17/2024 2:30 PM EDT [facility] ALT (SGPT) 47 10 - 60 unit/L LAB CHEMISTRY METHOD 10/17/2024 2:30 PM EDT [facility] Alkaline Phosphatase 91 42 - 121 unit/L LAB CHEMISTRY METHOD 10/17/2024 2:30 PM EDT [facility] Total Protein 7.4 6.0 - 8.0 g/dL LAB CHEMISTRY METHOD 10/17/2024 2:30 PM EDT [facility] Albumin 3.9 3.2 - 5.0 g/dL LAB CHEMISTRY METHOD 10/17/2024 2:30 PM EDT [facility] Total Bilirubin 0.3 0.0 - 1.4 mg/dL LAB CHEMISTRY METHOD 10/17/2024 2:30 PM EDT [facility] Blood Venous blood specimen / Unknown Venipuncture / Unknown 10/17/2024 12:08 PM EDT 10/17/2024 12:30 PM EDT Breezy Marsh MD LAB BLOOD ORDERABLES F inal Result [facility] [address] [place] [address], from Last 3 Months Insurance [facility] [employer] Care Teams Fitness Management Director Relationship Specialty Start Date End Date Ayaz Sewell PA [facility] [place] [phone] PCP - General Internal Medicine 02/07/21
== END 2024-11-17 10:34 | disposition home or self-care (01) ==
LOC: HO.HOS 10:02
PROVIDERS: PCP Physician Assistant; Visit Provider Orthopaedic Surgery
DX: M25.312 Other instability, left shoulder (principal); E11.21 Type 2 diabetes mellitus with diabetic nephropathy; Z79.4 Long term (current) use of insulin
CPT/HCPCS: 20610; 99214

== ENCOUNTER → 2024-11-17 10:02 | Outpatient (BNVA) | payer OTHER, SELFPAY | PROVIDERS: PCP Physician Assistant; Visit Provider Orthopaedic Surgery | DX: M25.312 Other instability, left shoulder (principal); E11.21 Type 2 diabetes mellitus with diabetic nephropathy; Z79.4 Long term (current) use of insulin | CPT/HCPCS: 20610; 99212; J0665; J1100; J2003 ==

== ENCOUNTER 2024-12-18 09:17 | Outpatient (AMB) | payer OTHER, SELFPAY ==
--- NOTE | 2024-12-18 09:20 | A.OFFVIS_ITS ---
Vital Signs 12/18/24 09:22 Height 5 ft 6 in Weight 231 lb 4.238 oz BMI 37.3 BP 150/84 H Blood Pressure Location Rt brachial Position Sitting Pulse 61 Pulse Source Pulse Oximeter Pulse Oximetry (%) 100 Oxygen Delivery Method Room Air Intake Visit Reasons: DM Intake Note: Patient present today to follow up on Type 2 Diabetes Mellitus. Patient receives Nabeel 3 Plus supplies through: [facility] Last Diabetic Eye exam: 11/26/2024 [facility] Last Podiatry Visit: Does not see a Interior Decorator Random Glucose: 126 mg/dl HgA1C: 7.5% 10/01/2024 Data Software Engineer Required: No Accompanied by: Self / Same As Patient Allergies atorvastatin Adverse Reaction (Unknown, Verified 12/18/24 09:23) Unknown Medication List - Last Reconciled 12/18/24 by Jg Lindsey MD acetaminophen 650 mg PO Q6H PRN albuterol sulfate 90 mcg/actuation 2 puffs inhalation Q4-6H PRN 90 days aspirin 1 tab PO DAILY betamethasone dipropionate 0.05% 1 appl topical DAILY PRN blood sugar diagnostic (FreeStyle Lite Strips) Check sugar twice a day /PRN blood-glucose meter (FreeStyle [place] Lite kit) As directed CPAP As directed empagliflozin (Jardiance) 25 mg PO DAILY ferrous sulfate 325 mg PO BID 90 days Fiasp FlexTouch U-100 Insulin 100 unit/mL (3 mL) (insulin aspart (niacinamide)) See Protocol 10 units before breakfast, 8 units before lunch, 10 units before dinner NS fluticasone propion-salmeterol 250-50 mcg/dose (Wixela Inhub) 1 inh inhalation BID 90 days FreeStyle Nabeel 3 Plus Sensor (blood-glucose sensor) every 15 days NS FreeStyle Nabeel 3 Coram (blood-glucose,gasoline finisher,cont) DIRECTED NS insulin glargine-yfgn 60 units (0.6 mL) subcut BEDTIME lancets (FreeStyle Lancets) As directed losartan 50 mg (2 x 25 mg) PO DAILY meclizine 25 mg PO TID 90 days metformin 1,000 mg PO BID metoprolol tartrate 50 mg PO BID pantoprazole 40 mg PO DAILY@0630 pen needle, diabetic (CareTouch Pen Needle) As directed daily with insulin pen pen needle, diabetic (Comfort Touch Pen Needle) As directed TID with insulin pen pioglitazone 30 mg PO DAILY rosuvastatin 40 mg PO DAILY 90 days sertraline 50 mg PO DAILY tamsulosin 0.4 mg PO DAILY Trulicity (dulaglutide) 4.5 mg (0.5 mL) subcut QWEEK NS warfarin 3 mg PO DAILY 90 days HPI Comments Details: 59 y/o male presenting for diabetes consultation. The patient previously saw Dr. Leyva on 03/13/2024 Patient has a past medical history of CVA, aortic valve replacement,h/o aortic dissection, diabetes, obesity, coronary artery disease, iliac artery aneurysm, hypertension. Diagnosed in 30s Current medications: Basaglar 60 units nightly, fiasp 10-8-10, metformin 1000mg BID. Trulicity 4.5 mg Qwkly .Actos 30 mg QD . Jardiance 25 mg QD Nabeel download shows he is using the sensor 95% of the time. Average glucose is 179 with variability 27.2%. 53% range with 48% hyperglycemia and 1% hypoglycemia. Pattern shows persistent elevation in glucose throughout the day with some post-lunch and post dinner elevation Rare hypoglycemia Adopted On ARB/statin- director data management just added ezetimibe Micro/macrovascular complications: ED Desmondnt had nutrition or diabetic education Hypoglycemia: No ophthalmology appointments: saw last wk - no issues [facility] History Coagulopathy Arrhythmia BPH (benign prostatic hyperplasia) Chronic renal insufficiency CVA (cerebral vascular accident) History of COVID-19 Sleep apnea Asthma Diabetes High cholesterol HTN (hypertension) Surgical History H/O colonoscopy H/O tooth extraction Mechanical heart valve present Social History Housing: House Alcohol intake: never Patient Tobacco Use Status: Former Tobacco user Tobacco use type: Cigarette e-Cigarette/Vaping Use: Never Used Second Hand Smoke Exposure: No service: No Current occupational status: employed Cognitive needs: No Hearing needs: No Vision needs: Yes Physical Exam Vital Signs: Last Vital Signs Pulse 61 12/18/24 09:22 BP 150/84 H 12/18/24 09:22 Pulse Ox 100 12/18/24 09:22 Oxygen Delivery Method Room Air 12/18/24 09:22 BMI result Body Mass Index 37.3 Absence of Cushingoid features. Absence of acromegalic features. Neck exam reveals nl size thyroid about 15 gms. No thyroid nodules palpable. No carotid bruits present. Lungs CTA. Heart S1 S2, Reg R/R. No M/R/ G. Skin exam reveals absence of vitiligo or acanthosis nigricans. Abdominal exam reveals Soft NT/ND with NA BS. No organomegaly present. Neck Other: . Extrem Other: Visual exam of foot performed. No ulcerations or open lesions. No onchomycosis, no callouses.Pulses 2 + distally Sensation intact to monofilament exam. Vibratory sensation sensed is decreased with 128 Hz tuning fork Assessment & Plan Assessment & Plan (1) Uncontrolled type 2 diabetes mellitus with hyperglycemia: Code(s): E11.65 - Type 2 diabetes mellitus with hyperglycemia Category: Medical Plan: This is a 58-year-old white male with a history of type 2 diabetes being treated with metformin, Trulicity and basal-bolus insulin with fair but improving glycemic control with known macrovascular complications namely CAD and CVA. Plan is to change the Trulicity to Ozempic and start 0.5 mg Q weekly with titration as tolerated with should provide cardiovascular and renal protection and have slightly more potent effect on A1c. We will have patient follow up with Dr. Lilian Leyva in 6 weeks. Went over side effects of Ozempic including but not limited to nausea, vomiting and rare risk of pancreatitis. His LDL cholesterol is not to go but his director data management started ezetimibe and will defer management of hyperlipidemia to director data management. Could consider use of PCSK9 inhibitor like Repatha in future. Lastly, he had discussed wanting to go on an insulin pump like an Omnipod and I have him make a follow up with the music educator to discuss. He will also have a follow up appointment with a headwaiter/headwaitress Medications: New Ozempic (semaglutide) 0.5 mg (0.736 mL) subcut QWEEK 3 mL 4RF NS Discontinued Trulicity (dulaglutide) Discontinued Reason: Doctor's Order 4.5 mg (0.5 mL) subcut QWEEK 6 mL 3RF NS Coding Level of Care Code Est Pt Level 4 (61876) Complex EM visit Add On G2211 Diagnoses Uncontrolled type 2 diabetes mellitus with hyperglycemia E11.65
[2024-12-18 09:22] VITALS: BP 150/84; PULSE 61; O2SAT 100; BMI 37.3
[2024-12-18 09:32] LABS: Glucose, Whole Blood 126 mg/dL (60-115)
--- OUTSIDE RECORDS SUMMARY | 2024-12-18 10:18 | XMS_ITS | Patient Health Record ---
Author Organization [facility] Address [address] [place] [address] Care Team Providers Care Entertainment Lawyer Name Role Phone Bryson (RETIRED) Jovanny DEAL Primary Care Provide r Unavailable Jg Schaffer Unavailable [phone] Reason For Referral No Information Medications Medication [...] Status Risk Notes Problem Colon cancer screening (799098945) Colon cancer screening (V76.51) Active confirmed Problem Long-term current use of insulin (745455022) Long-term insulin use (V58.67) Active confirmed Plan Of Treatment Future Test Test Name Order Date COLONOSCOPY 10/13/2014 Insurance Providers Payer Name Payer Address Payer Phone Subscriber Number Group Number Insured Name Patient Relationship to Insured Coverage Start Date Coverage End Date [facility] [address] [place], [place] [id number] [phone] [id number] EDIE BAILEY Self - patient is the insured Medical (General) History Medical History History ICD Code IDDM hypertension Asthma Denies MS,CVA,renal disease Sleep apnea--uses a Bipap Surgical History Surgery Date(Month/Year) knee surgery
--- OUTSIDE RECORDS SUMMARY | 2024-12-18 10:18 | XMS_ITS | Encounter Summary ---
Author Organization [facility] Address [address] [place] [phone] Care Team Providers Care Cutter Operator Tile Name Role Phone Ayaz Sewell Primary Care Provider [phone] Reason for Visit * Reason Onset Date Comments carotid artery duplex results 12/11/2024 Encounter Details Date Type Department Care Team ([facility] [address] Contact Info) Description 12/11/2024 Telephone [facility] [address] [place] [address] Dr Shahid [address] [place] [address] Breezy Marsh MD [address] [place] [address] Dr Cuellar [address] [place] [address] Social History Tobacco Use Types Packs/Day Years [...] of this encounter Progress Notes * Arleth Rios MA - 12/15/2024 12:45 PM EDT Called again and is full Letter mailed to patient letting him know we have been trying to get in contact with him * Arleth Rios MA - 12/11/2024 10:13 AM EDT Images from the original note were not included. Called patient twice and it went to and mailbox Is full. Will try again to reach patient to gina from below MD Arleth Xiao MA Please call the patient to let him know that I reviewed the results of his recent carotid artery duplex. The patient was found to have mild stenosis in the left ICA and mild stenosis in the right ICA. At this point, he should continue his current medication regimen and would recommend a follow-up carotid artery duplex in 1 year. documented in this encounter Plan of Treatment Upcoming Encounters Date Type Department Care Team (Late st Contact Info) Description 05/15/2025 10:30 AM EST Office Visit Vascular Surgery - [place] [address] [facility] [address] [place] [address] Dru Rueda MD [address] [place] [phone] documented as of this encounter Visit Diagnoses Not on filedocumented in this encounter Care Teams Cutter Operator Tile Relationship Specialty Start Date End Date Ayaz Sewell PA [address] [place] [phone] PCP - General Internal Medicine 02/07/21 documented as of this encounter
--- OUTSIDE RECORDS SUMMARY | 2024-12-18 10:18 | XMS_ITS | Clinical Summary ---
Author Organization [address] [place] [address] [place] [phone] Phone Care Team Providers Care Political Science Instructor Name Role Phone Ayaz Sewell Primary Care Provider [phone]- [phone] Allergies Active Allergy Reactions Criticality Noted Date [...] skin every 12 (twelve) hours. 10 each 5 Active Additional Information Patient not taking.Reported on [...] patient states that he was at the [facility] emergency room approximately 1 month ago [...] states that he saw his neurologist at [facility] this past week and that further brain imaging was ordered. At this point, I will order an echocardiogram to reevaluate the patient's mechanical aortic valve. Also, I will attempt to obtain the records from the [facility] visit as well as the records from the patient's neurologist. Depending on that, then we will decide if we need to change the patient's target INR and whether we need to do any further cardiac imaging besides a transthoracic echocardiogram. Orders: Transthoracic echocardiogram (TTE) complete with PRN contrast, bubble, strain, and 3D order panel; Future Coagulopathy ([facility] V24) 05/23/2023 Coronary artery disease invo [place]ving [place] coronary artery of [place] heart without angina pectoris 05/04/2022 Overview (02/06/2024): [...] duplex carotid bilateral; Future Iliac artery aneurysm ([facility] V24) 05/04/2022 Overview (02/06/2024): Last Assessment & Plan: The patient has a history of an iliac artery aneurysm. He will continue to follow with the [facility] vascular surgery service. Cerebrovascular accident (CVA) ([facility] V24, [facility] V28) 08/02/2020 Overview (02/06/2024): Last Assessment & [...] with aspirin. He underwent a 30-day ambulatory case monitor to rule out atrial fibrillation. This showed predominantly sinus rhythm with brief atrial runs and occasional PACs. No sustained arrhythmias were noted. He will continue to follow with the neurology team at [facility]. Essential hypertension 08/02/2020 Overview (02/06/2024): Last [...] Encounters Date Type Department Care Team Description 12/11/2024 Telephone [facility] [address] [place] [phone] Breezy Marsh MD 12/01/2024 12:45 PM EDT Ancillary Procedure [facility] [address] [place] [phone] Bilateral carotid artery stenosis 11/28/2024 Anticoagulation - Warfarin Visit [facility] [address] [place] [address] Breezy Marsh MD History of mechanical aortic valve replacement (Primary Dx) 11/21/2024 Anticoagulation - Warfarin Visit [facility] [address] [place] [phone] Breezy Marsh MD History of mechanical aortic valve replacement (Primary Dx) 11/14/2024 Anticoagulation - Warfarin Visit [facility] [address] [place] [address] Breezy Marsh MD History of mechanical aortic valve replacement (Primary Dx) 11/12/2024 Telephone [facility] [address] [place] [address] Breezy Marsh MD 11/07/2024 Anticoagulation - Warfarin Visit [facility] [address] Shahid [address] [place] [address] Breezy Marsh MD History of mechanical aortic valve replacement (Primary Dx) 10/31/2024 Anticoagulation - Warfarin Visit [facility] [address] [place] [address] Breezy Marsh MD History of mechanical aortic valve replacement (Primary Dx) 10/23/2024 Anticoagulation - Warfarin Visit [facility] [address] [place] [address] Breezy Marsh MD History of mechanical aortic valve replacement (Primary Dx) 10/17/2024 12:05 PM EDT Lab Draw Station - [address] [place] [address] Pure hypercholesterolemia 10/17/2024 11:20 AM EDT Office Visit [facility] [address] [place] [address] Breezy Marsh MD Coronary artery disease involving [place] coronary artery of [place] heart without angina pectoris (Primary Dx); Essential hypertension; Pure hypercholesterolemia; Bilateral carotid artery stenosis; History of mechanical aortic valve replacement 10/17/2024 Anticoagulation - Warfarin Visit [facility] [address] [place] [address] Breezy Marsh MD History of mechanical aortic valve replacement (Primary Dx) 10/10/2024 Anticoagulation - Warfarin Visit [facility] [address] [place] [address] Breezy Marsh MD History of mechanical aortic valve replacement (Primary Dx) 10/03/2024 Anticoagulation - Warfarin Visit [facility] [address] [place] [address] Breezy Marsh MD History of mechanical aortic valve replacement (Primary Dx) 09/26/2024 Anticoagulation - Warfarin Visit [facility] [address] [place] [address] Breezy Marsh MD History of mechanical aortic valve replacement (Primary Dx) 09/19/2024 Anticoagulation - Warfarin Visit [facility] [address] [place] [address] Breezy Marsh MD History of mechanical aortic valve replacement (Primary Dx) from Last 3 Months Surgical History Surgery Date Site/Laterality Comments OTHER SURGICAL HISTORY 08/01/2023 Left PROCEDURE: [facility] FEM ART EXPOS DLVR EVASC PROSTH UNI OTHER SURGICAL HISTORY 08/01/2023 PROCEDURE: [facility] EVASC RPR DPLMNT ILIO-ILIAC NDGFT Medical History [...] AM EST Office Visit Vascular Surgery - [place] [address] [place] [address] Dru Rueda MD [address] [place] [phone] Health Maintenance Due Date Last Done Comments [...] Procedure Name Priority Date/Time Associated Diagnosis Comments VAS US DUPLEX CAROTID BILATERAL Routine 12/01/2024 12:42 PM EDT Bilateral carotid artery stenosis PROTHROMBIN TIME WITH INR Routine 11/28/2024 PROTHROMBIN TIME WITH INR Routine 11/21/2024 PROTHROMBIN TIME WITH INR Routine 11/14/2024 PROTHROMBIN [...] 09/26/2024 PROTHROMBIN TIME WITH INR Routine 09/19/2024 from Last 3 Months Results * Vascular US duplex carotid bilateral (12/01/2024 12:42 PM EDT) Left CCA dist german 17 cm/s CV VAS LAB Left CCA dist sys 73 cm/s CV VAS LAB LEFT COMMON CAROTID ARTERY MID D 15 cm/s CV VAS LAB LEFT COMMON CAROTID ARTERY MID S 87 cm/s CV VAS LAB Left CCA prox german 17 cm/s CV VAS LAB Left CCA prox sys 106 cm/s CV VAS LAB LEFT EXTERNAL CAROTID ARTERY D 17 cm/s CV VAS LAB Left ECA sys 196 cm/s CV VAS LAB Left ICA/CCA sys 0.80 CV VAS LAB Left ICA dist german 19 cm/s CV VAS LAB Left ICA dist sys 58 cm/s CV VAS LAB Left ICA mid german 16 cm/s CV VAS LAB Left ICA mid sys 58 cm/s CV VAS LAB Left ICA prox german 10 cm/s CV VAS LAB Left ICA prox sys 48 cm/s CV VAS LAB Left vertebral sys 32 cm/s CV VAS LAB Right CCA dist egrman 13 cm/s CV VAS LAB Right cca dist sys 65 cm/s CV VAS LAB RIGHT COMMON CAROTID ARTERY MID D 10 cm/s CV VAS LAB RIGHT COMMON CAROTID ARTERY MID S 65 cm/s CV VAS LAB Right CCA prox german 10 cm/s CV VAS LAB Right CCA prox sys 79 cm/s CV VAS LAB RIGHT EXTERNAL CAROTID ARTERY D 14 cm/s CV VAS LAB Right eca sys 166 cm/s CV VAS LAB Right ICA/CCA sys 2.70 CV VAS LAB Right ICA dist german 35 cm/s CV VAS LAB Right ICA dist sys 175 cm/s CV VAS LAB Right ICA mid german 29 cm/s CV VAS LAB Right ICA mid sys 109 cm/s CV VAS LAB Right ICA prox german 17 cm/s CV VAS LAB Right ICA prox sys 64 cm/s CV VAS LAB Right vertebral sys 38 cm/s CV VAS LAB Left Prox Subclavian PSV 152 cm/s CV VAS LAB Right Prox Subclavian PSV 221 cm/s CV VAS LAB Left arm BP 144 mmHg CV VAS LAB Anatomical Region Laterality Modality Vascular, Abdomen Ultrasound Narrative 12/03/2024 4:13 PM EDT Right proximal ICA: There is mild homogeneous plaque. Left proximal ICA: There is mild heterogeneous plaque. RIGHT. 1. There is atherosclerotic plaque in [...] 4. Vertebral artery has normal antegrade flow. Right Carotid The CCA has no significant plaque. The proximal ICA has mild homogeneous plaque. The ECA has mild heterogeneous plaque. Right BP not done due to sensor. Vertebral flow is antegrade. Left Carotid The mid CCA has mild heterogeneous plaque. The proximal ICA has mild heterogeneous plaque. The ECA has minimal plaque. Left BP= 144/84 Vertebral flow is antegrade. Behavior Specialist Details A rick scale, color and doppler analysis ultrasound was performed. During the study longitudinal and transverse views were obtained. Pulsed wave doppler was performed. Breezy Marsh MD CV VASCULAR PROCEDURES Final Result * Prothrombin time with INR (11/28/2024) Only the most recent of11 resultswithin the time period is included. [facility] INR 3.0 Prothrombin Time POC Blood Venous blood specimen / Unknown 11/28/2024 Historical Provider LAB BLOOD ORDERABLES Lynda l Result * Lipid panel with reflex to direct LDL (10/17/2024 12:08 PM EDT) [facility] Cholesterol 158 0 - 200 mg/dL LAB CHEMISTRY METHOD [facility]24 [facility] Triglycerides 102 0 - 150 mg/dL LAB CHEMISTRY METHOD 10/17/2024 2:30 PM [facility] HDL 47 >=40 mg/dL LAB CHEMISTRY METHOD 10/17/2024 2:30 PM [facility] LDL Calculated 91 0 - 100 mg/dL LAB CHEMISTRY METHOD 10/17/2024 2:30 PM [facility] VLDL Cholesterol Jairo 20.4 mg/dL LAB CHEMISTRY METHOD 10/17/2024 2:30 PM [facility] Non HDL Chol. (LDL+VLDL) 111 <145 mg/dL LAB CHEMISTRY METHOD 10/17/2024 2:30 PM [facility] Chol/HDL Ratio 3.4 0.0 - 4.4 LAB CHEMISTRY METHOD 10/17/2024 2:30 PM [facility] Blood Venous blood specimen / Unknown Venipuncture / Unknown 10/17/2024 12:08 PM EDT 10/17/2024 12:30 PM EDT Breezy Marsh MD LAB BLOOD ORDERABLES F inal Result [facility] [address] [place] [address], * (ABNORMAL) Comprehensive metabolic panel (10/17/2024 12:08 PM EDT) Sodium 144 133 - 145 mmol/L LAB CHEMISTRY METHOD 10/17/2024 2:30 PM EDT [facility] Potassium 3.9 3.5 - 5.5 mmol/L LAB CHEMISTRY METHOD 10/17/2024 2:30 PM [facility] Chloride 111(H) 96 - 110 mmol/L LAB CHEMISTRY METHOD 10/17/2024 2:30 PM T [facility] CO2 29 21 - 32 mmol/L LAB CHEMISTRY METHOD 10/17/2024 2:30 PM [facility] Anion Gap 4 3 - 11 LAB CHEMISTRY METHOD 10/17/2024 2:30 PM [facility] Glucose 117(H) 70 - 100 mg/dL LAB CHEMISTRY METHOD 10/17/2024 2:30 PM [facility] BUN 15 5 - 25 mg/dL LAB CHEMISTRY METHOD 10/17/2024 2:30 PM T [facility] Creatinine 0.76 0.70 - 1.30 mg/dL LAB CHEMISTRY METHOD 10/17/2024 2:30 PM [facility] eGFR 102 >=60 mL/min/1. 73m2 LAB CHEMISTRY METHOD 10/17/2024 2:30 PM [facility] Comment:Calculation based on the Chronic Kidney Disease Epidemiology Collaboration (CKD-EPI) equation refit without adjustment for race. BUN/Creatinine Ratio 19.7 LAB CHEMISTRY METHOD 10/17/2024 2:30 PM EDT [facility] Calcium 9.0 8.5 - 10.5 mg/dL LAB CHEMISTRY METHOD 10/17/2024 2:30 PM EDT [facility] AST (SGOT) 27 10 - 42 unit/L LAB CHEMISTRY METHOD 10/17/2024 2:30 PM EDT [facility] ALT (SGPT) 47 10 - 60 unit/L LAB CHEMISTRY METHOD 10/17/2024 2:30 PM EDT [facility] Alkaline Phosphatase 91 42 - 121 unit/L LAB CHEMISTRY METHOD 10/17/2024 2:30 PM EDT [facility] Total Protein 7.4 6.0 - 8.0 g/dL LAB CHEMISTRY METHOD 10/17/2024 2:30 PM EDT [facility] Albumin 3.9 3.2 - 5.0 g/dL LAB CHEMISTRY METHOD 10/17/2024 2:30 PM EDT [facility] Total Bilirubin 0.3 0.0 - 1.4 mg/dL LAB CHEMISTRY METHOD 10/17/2024 2:30 PM T [facility] Blood Venous blood specimen / Unknown Venipuncture / Unknown 10/17/2024 12:08 PM EDT 10/17/2024 12:30 PM EDT Breezy Marsh MD LAB BLOOD ORDERABLES F inal Result [facility] [address] [place] [address], from Last 3 Months Insurance [facility] Care Teams Political Science Instructor Relationship Specialty [place] [address] [place] [phone] PCP - General Internal Medicine 02/07/21
== END 2024-12-18 09:56 | disposition home or self-care (01) ==
LOC: HO.ENCR 09:18
PROVIDERS: PCP Physician Assistant; Visit Provider Internal Medicine Endocrinology, Diabetes & Metabolism
DX: E11.65 Type 2 diabetes mellitus with hyperglycemia (principal)
CPT/HCPCS: 99214

== ENCOUNTER → 2024-12-18 09:17 | Outpatient (BNVA) | payer OTHER, SELFPAY | PROVIDERS: PCP Physician Assistant; Visit Provider Internal Medicine Endocrinology, Diabetes & Metabolism | DX: E11.65 Type 2 diabetes mellitus with hyperglycemia (principal) | CPT/HCPCS: 82947; 99212 ==

== ENCOUNTER 2024-12-19 10:36 | Emergency (ER) | payer OTHER, SELFPAY ==
--- NOTE | ~2024-12-19 | CT_ITS ---
EXAMINATION: CT ABDOMEN PELVIS WITH IV CONTRAST HISTORY: painless hematuria, hx of tobacco R/O mass COMPARISON: There are no prior studies for available comparison. TECHNIQUE: CT scan of the abdomen and pelvis was performed following administration of 85 mL Omnipaque 350 using standard departmental protocol. Coronal and sagittal reformatted images were generated and reviewed. Oral contrast material was not administered at the request of the referring physician. This CT exam was performed with one or more of the following dose reduction techniques: automated exposure control, adjustment of the mA and/or kV according to patient size, use of iterative reconstruction technique. DLP: 1868 mGy-cm FINDINGS: Portions of the right lateral abdominal wall are excluded due to patient body habitus. LOWER CHEST: The visualized lung bases are clear. There is no pleural effusion. CARDIOVASCULATURE: The heart is normal in size. There is no pericardial effusion. LIVER: The liver is normal in size and contour. No liver mass is identified. The hepatic and portal veins are patent. GALLBLADDER / BILE DUCTS: There is cholelithiasis. There is no intra or extrahepatic biliary ductal dilatation. SPLEEN: The spleen is normal in size. No focal splenic lesion is identified. PANCREAS: The pancreas is unremarkable in appearance. ADRENAL GLANDS: Within normal limits. KIDNEYS/RETROPERITONEUM: No renal or ureteral calculi are identified. There is no hydronephrosis or hydroureter. No renal masses are identified. LYMPH NODES: No abdominal or pelvic lymphadenopathy. VASCULATURE: The abdominal aorta demonstrates atherosclerotic calcification, but is normal in caliber. The left common iliac artery stent is noted. MESENTERY/PERITONEUM: No free fluid. There is infiltration of the fat inferior to the mesentery which is a nonspecific finding. There is no free intraperitoneal gas. STOMACH: The stomach is collapsed, limiting evaluation. SMALL BOWEL: The small bowel is normal in caliber. COLON: The ascending colon is suboptimally evaluated due to exclusion from the sulcn-tn-frue due to the patient's body habitus. APPENDIX: Normal. URINARY BLADDER/PELVIC ORGANS: The urinary bladder is collapsed, limiting evaluation. The prostate is normal in size. BONES / SOFT TISSUES: No suspicious bony or soft tissue abnormalities. CT/CT abdomen pelvis w IV con IMPRESSION: No evidence of nephrolithiasis or ureteral obstruction. Further evaluation of painless hematuria could include CT urography. Electronically signed by: Jg Liang MD 12/19/2024 02:12 PM EDT RP
[2024-12-19 10:44] VITALS: BP 151/77; PULSE 68; RESP 16; TEMP 37; O2SAT 97; BMI 37.1
[2024-12-19 11:06] LABS: MANUAL DIFF FLAG NO
--- NOTE | 2024-12-19 11:09 | ED.MALEGU ---
HPI - Male Genitourinary General Chief complaint: Urogenital-Male Stated complaint: blood in urine Time Seen by Provider: 12/19/24 11:09 Source: patient, RN notes reviewed and old records reviewed Mode of arrival: ambulatory Limitations: no limitations History of Present Illness ED Provider: Lizet Blackwell PA-C HPI Narrative: 59-year-old male with medical history of GERD, anemia, MDD, asthma, HTN, s/p mechanical AVR on Coumadin, HERNÁN, prior stroke during AVR repair with residual difficulty writing, HLD, DM presents to the ED due to 1 day of dark colored urine. Patient states he began noticing dark urine yesterday afternoon without urinary symptoms or flank pain. Patient says he has a history of kidney stones but does not feel flank pain or groin pain like he has experienced in the past. Denies recent antibiotic use, fever, chills, straining with urination, urinary symptoms, abdominal pain, nausea, vomiting, black/tarry stool Related Data Home Medications ?Medication ?Instructions ?Recorded ?Confirmed acetaminophen 325 mg tablet 650 mg PO Q6H PRN Pain 05/28/24 12/18/24 betamethasone dipropionate 0.05 % 1 appl topical DAILY PRN Toe Nail 05/28/24 12/18/24 topical cream Fungus Previous Rx's ?Medication ?Instructions ?Recorded CPAP #1 ea 09/29/21 blood-glucose meter (FreeStyle #1 ea 06/15/23 [place] Lite kit) blood sugar diagnostic (FreeStyle #100 ea 09/13/23 Lite Strips) ferrous sulfate 325 mg (65 mg 325 mg PO BID 90 days #180 tabs 09/13/23 iron) tablet albuterol sulfate 90 mcg/actuation 2 puff inhalation Q4-6H PRN 03/07/24 aerosol inhaler shortness of breath or wheezing 90 days #3 ea aspirin 81 mg chewable tablet 1 tab PO DAILY #90 tabs 03/28/24 lancets 28 gauge (FreeStyle #100 ea 03/28/24 Lancets) pen needle, diabetic 29 gauge x #100 ea 04/17/24 1/2 (CareTouch Pen Needle) tamsulosin 0.4 mg capsule 0.4 mg PO DAILY #90 caps 04/29/24 rosuvastatin 40 mg tablet 40 mg PO DAILY 90 days #90 tabs 05/14/24 pioglitazone 30 mg tablet 30 mg PO DAILY #90 tabs 05/15/24 sertraline 50 mg tablet 50 mg PO DAILY #90 tabs 06/04/24 metformin 1,000 mg tablet 1,000 mg PO BID #180 tabs 06/22/24 metoprolol tartrate 50 mg tablet 50 mg PO BID #180 tabs 06/22/24 pantoprazole 40 mg tablet,delayed 40 mg PO DAILY@0630 #90 tabs 06/22/24 release FreeStyle Nabeel 3 [place] #1 ea 06/25/24 (blood-glucose,business 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 professor,cont) empagliflozin 25 mg tablet 25 mg PO DAILY #90 tabs 07/02/24 (Jardiance) meclizine 25 mg tablet 25 mg PO TID 90 days #270 tabs 08/11/24 pen needle, diabetic 31 gauge x #100 ea 08/11/2407/06 (Comfort Touch Pen Needle) fluticasone 250 mcg-salmeterol 50 1 inh inhalation BID 90 days #3 09/01/24 mcg/dose blistr powdr for inhalers inhalation (Wixela Inhub) warfarin 3 mg tablet 3 mg PO DAILY 90 days #90 tabs 09/02/24 Fiasp FlexTouch U-100 Insulin 100 See Rx Instructions .Route 10/01/24 unit/mL (3 mL) subcutaneous pen .COMPLEX #45 mL (insulin aspart (niacinamide)) insulin glargine-yfgn 100 unit/mL 60 unit (0.6 mL) subcut BEDTIME 10/01/24 (3 mL) subcutaneous pen #45 mL FreeStyle Nabeel 3 Plus Sensor #6 ea 10/06/24 (blood-glucose sensor) losartan 25 mg tablet 50 mg (2 x 25 mg) PO DAILY #90 tabs 11/05/24 Ozempic 0.25 mg or 0.5 mg (2 mg/3 0.5 mg (0.736 mL) subcut QWEEK #3 12/18/24 mL) subcutaneous pen injector mL (semaglutide) cefuroxime axetil 500 mg tablet 500 mg PO BID 7 days #14 tabs 12/19/24 Allergies Allergy/AdvReac Type Severity Reaction Status Date / Time atorvastatin AdvReac Unknown Unknown Verified 12/19/24 10:46 Review of Systems Review of Systems: CONST: Negative for fever, body aches and chills. HENT: Negative for neck pain/stiffness, headache, congestion, sore throat, swelling. EYES: Negative for discharge/pain or vision changes. RESP: Negative for cough/hemoptysis and shortness of breath. CV: Negative chest pain, difficulty breathing, palpitations. ABD: Negative pain, nausea, vomiting. : Negative increase frequency, dysuria, blood in stool. POS dark colored urine MUSC: Negative for muscle aches, edema. SKIN: Negative rash, lesions/sores. NEURO: Negative headache, dizziness, weakness. Yes all other systems are reviewed and are negative PMFSH Past Medical History Attestation statement: The following information was validated with the patient. Source: old records reviewed and nursing notes reviewed Medical History Coagulopathy Arrhythmia BPH (benign prostatic hyperplasia) Chronic renal insufficiency CVA (cerebral vascular accident) History of COVID-19 Sleep apnea Asthma Diabetes High cholesterol HTN (hypertension) Surgical History H/O colonoscopy H/O tooth extraction Mechanical heart valve present Social History Social History Housing: House Alcohol intake: never Patient Tobacco Use Status: Former Tobacco user Tobacco use type: Cigarette Smoked in Last 30 Days: No e-Cigarette/Vaping Use: Never Used Second Hand Smoke Exposure: No Use of substances other than those prescribed or required for medical reasons: No Advance Directives: No Advance Directives Information Provided: No service: No Current occupational status: employed Cognitive needs: No Hearing needs: No Vision needs: Yes Physical Exam Vital Signs: Vital Signs: Last Vital Signs Temp 98.6 F 12/19/24 10:44 Pulse 67 12/19/24 14:47 Resp 20 12/19/24 14:47 BP 153/86 H 12/19/24 14:47 Pulse Ox 96 12/19/24 14:47 O2 Del Method Room Air 12/19/24 14:47 BMI result Body Mass Index 37.1 GENERAL APPEARANCE: ?AxOx4, generally well-appearing, no acute distress. HEENT: ?NC, AT. MMM. EOMI, clear conjunctiva, oropharynx clear. NECK: ?Supple without lymphadenopathy.? No stiffness or restricted ROM. HEART:? Normal rate and regular rhythm, normal S1/S2, no m/r/g LUNGS:? CTAB, moving air well. No crackles or wheezes are heard. ABDOMEN: ?large, rotund abdomen, soft, nontender, nondistended, no guarding, no suprapubic tenderness. BACK: No CVAT, no obvious deformity. EXTREMITIES: ?Without cyanosis, clubbing or edema. NEUROLOGICAL: ?Grossly nonfocal. Alert and oriented, moving all 4 extremities. Observed to ambulate with normal gait. Skin: ?Warm and dry without any rash. 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 Patient states he began noticing dark urine yesterday afternoon without urinary symptoms or flank pain. Patient says he has a history of kidney stones but does not feel flank pain or groin pain like he has experienced in the past. Plan: labs, UA, CT abdomen pelvis to R/O mass for painless hematuria due to past smoking history Course 14:38- Labs without leukocytosis, leukopenia, H&H stable, PT/INR in acceptable range on Coumadin, no electrolyte abnormality, random serum glucose elevated at 175, CPK WNL at 78. UA reveals concentrated urine with a specific gravity >1.030, 3+ urine protein, 500 urine glucose, 3+ urine blood, positive urine nitrites, >20 RBC, 1+ urine bacteria with 3-5 squamous epithelial cells- will treat for UTI with 7 day course of cefuroxime [address] abdomen and pelvis reveals non-obstructing cholelithiasis, collapsed urinary bladder, with a normal prostate size I counseled patient to follow up with his primary care provider for further evaluation of painless hematuria, and strict return precautions. Differential Diagnosis Differential Diagnoses: The differential diagnosis associated with the presentation includes Rhabdomyolysis BPH UTI Obstructing nephrolithiasis bladder mass Admission/Observation Consideration of admission/observation: Escalation of care including admission/observation considered Lab Data MDM Lab Attestation statement: I reviewed the patient's lab results. 12/19/24 11:03 12/19/24 11:03 Labs: Lab Results 12/19/24 12/19/24 Range/Units 11:03 11:19 WBC 7.7 (4.8-10.8) X10*3/uL RBC 5.00 (4.60-5.80) X10*6/uL Hgb 13.6 L (14.0-18.0) g/dl Hct 41.2 L (42.0-52.0) % MCV 82.4 (80.0-98.0) fL MCH 27.2 (27.0-33.0) pg MCHC 33.0 (31.0-36.0) g/dl RDW 15.0 (11.0-16.0) % Plt Count 222 (160-400) X10*3/uL MPV 10.4 (9.4-12.4) fL Immature Gran % (Auto) 0.3 (0.0-0.4) % Neut % (Auto) 65.9 (45-73) % Lymph % (Auto) 20.8 (20-40) % [place] % (Auto) 10.9 (2-11) % Eos % (Auto) 1.7 (0-4) % Baso % (Auto) 0.4 (0-2) % Lymph # (Auto) 1.6 (1.2-4.9) X10*3/uL [place] # (Auto) 0.8 (0.1-1.2) X10*3/uL Eos # (Auto) 0.1 (0.0-0.4) X10*3/uL Baso # (Auto) 0.0 (0.0-0.2) X10*3/uL Abs Immat Gran (auto) 0.02 (0.00-0.03) X10*3/uL Absolute Neuts (auto) 5.1 (2.0-8.3) x10*3/uL Absolute Nucleated RBC 0.000 (0.0-0.012) X10*3/uL Nucleated RBC % (auto) 0.0 (0.0-0.2) /100WBC Sodium 142 (135-145) mmol/L Potassium 3.4 (3.3-5.1) mmol/L Chloride 108 (96-108) mmol/L Carbon Dioxide 25 (22-29) mmol/L Anion Gap 12 (12-20) BUN 12 (9-16) mg/dL Creatinine 0.73 (0.5-1.4) mg/dL Estim Creat Clear Calc 120.3 Estimated GFR > 60 Random Glucose 175 H (60-115) mg/dL Calcium 9.0 D (8.4-10.2) mg/dL Total Bilirubin 0.4 (0.0-1.0) mg/dL AST 30 (5-37) U/L ALT 46 H (0-40) U/L Alkaline Phosphatase 84 (39-117) U/L Total Creatine Kinase 78 (38-174) U/L Total Protein 6.9 (6.5-8.0) g/dL Albumin 4.2 (3.5-5.0) g/dL Urine Color RED Urine Appearance Turbid Urine pH 6.0 (5.0-9.0) Ur Specific [place] >= 1.030 H (1.005-1.025) Urine Protein 300 (3+) H (Neg-Trace) mg/dL Urine Glucose (UA) 500 H (Negative) mg/dL Urine Ketones Trace (Negative) mg/dL Urine Blood Large (3+) H (Negative) Urine Nitrite Positive H (Negative) Ur Leukocyte Esterase Negative (Negative) Urine RBC >20 H (0-2) /HPF Urine WBC 6-10 (0-5) /HPF Ur Squamous Epith Cells 3-5 (0-2) /HPF Urine Bacteria 1+ (None Seen) Hyaline Casts 0-2 (0-2) /LPF Independent Interpretation I performed an independent interpretation of an: CT Scan Interpretation: I personally interpreted the CT abdomen and pelvis which does not reveal obstructing nephrolithiasis, bladder mass, I agree with the radiologist's interpretation. Radiology Impression Discussion of test interpretation with radiology: I have reviewed the radiologist's reading. Radiologist Impression: CT abdomen and pelvis FINDINGS: Portions of the right lateral abdominal wall are excluded due to patient body habitus. LOWER CHEST: The visualized lung bases are clear. There is no pleural effusion. CARDIOVASCULATURE: The heart is normal in size. There is no pericardial effusion. LIVER: The liver is normal in size and contour. No liver mass is identified. The hepatic and portal veins are patent. GALLBLADDER / BILE DUCTS: There is cholelithiasis. There is no intra or extrahepatic biliary ductal dilatation. SPLEEN: The spleen is normal in size. No focal splenic lesion is identified. PANCREAS: The pancreas is unremarkable in appearance. ADRENAL GLANDS: Within normal limits. KIDNEYS/RETROPERITONEUM: No renal or ureteral calculi are identified. There is no hydronephrosis or hydroureter. No renal masses are identified. LYMPH NODES: No abdominal or pelvic lymphadenopathy. VASCULATURE: The abdominal aorta demonstrates atherosclerotic calcification, but is normal in caliber. The left common iliac artery stent is noted. MESENTERY/PERITONEUM: No free fluid. There is infiltration of the fat inferior to the mesentery which is a nonspecific finding. There is no free intraperitoneal gas. STOMACH: The stomach is collapsed, limiting evaluation. SMALL BOWEL: The small bowel is normal in caliber. COLON: The ascending colon is suboptimally evaluated due to exclusion from the iesro-[id number]-hspa due to the patient's body habitus. APPENDIX: Normal. URINARY BLADDER/PELVIC ORGANS: The urinary bladder is collapsed, limiting evaluation. The prostate is normal in size. BONES / SOFT TISSUES: No suspicious bony or soft tissue abnormalities. CT/CT abdomen pelvis w IV con IMPRESSION: No evidence of nephrolithiasis or ureteral obstruction. Further evaluation of painless hematuria could include CT urography. Electronically signed by: Jg Liang MD 12/19/2024 02:12 PM EDT Dictated By: Jg Liang MD Signed By: <Electronically signed by Jg Liang MD in OV> 12/19/24 1412 External Record Review External record reviewed: Inpatient record, Office record and Outpatient record Chronic Conditions Patient?s care impacted by: Diabetes, Hypertension and Other (CVA, HERNÁN,) Social Determinants Patient?s care significantly limited by Social Determinants of Health including: Other Social Determinant of Health Discharge Plan Discharge Clinical Impression: UTI (urinary tract infection) Patient Disposition: Home, Self-Care Instructions: Urinary Tract Infection in Men (DC) Additional Instructions: You were evaluated in the ED today due to blood in the urine. Your blood work did not show any evidence of infection or anemia. Your urinalysis revealed red blood cells, with nitrites and bacteria indicating you have a UTI. Your CT scan of your abdomen and pelvis was negative for any emergent acute findings. You will be treated for UTI with 7 days of antibiotic therapy, in some cases UTI can cause blood in the urine. Please complete this course of antibiotics. I recommend that you follow up with your primary care doctor for further evaluation of blood in the urine. Please return to the ED if you experience fevers over 100.4?, difficulty urinating, decreased urination, painful urination, chest pain, shortness of breath, black or tarry stool or any new/worsening/concerning symptoms Prescriptions: New cefuroxime axetil 500 mg tablet 500 mg PO BID 7 Days Qty: 14 0RF No Action (DME) CPAP Device See Rx Instructions .Route Qty: 1 0RF Rx Instructions: As directed (DME) FreeStyle Lite Strips Strip See Rx Instructions .Route Qty: 100 3RF Rx Instructions: Check sugar twice a day /PRN ferrous sulfate 325 mg (65 mg iron) tablet 325 mg PO BID 90 Days Qty: 180 2RF albuterol sulfate 90 mcg/actuation HFA aerosol inhaler 2 puff inhalation Q4-6H PRN (Reason: shortness of breath or wheezing) 90 Days Qty: 3 3RF aspirin 81 mg tablet,chewable 1 tab PO DAILY Qty: 90 2RF (DME) lancets [FreeStyle Lancets] 28 gauge misc See Rx Instructions .Route Qty: 100 3RF Rx Instructions: As directed (DME) pen needle, diabetic [CareTouch Pen Needle] 29 gauge x 1/2 needle See Rx Instructions .Route Qty: 100 5RF Rx Instructions: As directed daily with insulin pen tamsulosin 0.4 mg capsule 0.4 mg PO DAILY Qty: 90 2RF rosuvastatin 40 mg tablet 40 mg PO DAILY 90 Days Qty: 90 2RF pioglitazone 30 mg tablet 30 mg PO DAILY Qty: 90 3RF sertraline 50 mg tablet 50 mg PO DAILY Qty: 90 2RF pantoprazole 40 mg tablet,delayed release (DR/EC) 40 mg PO DAILY@0630 Qty: 90 2RF metoprolol tartrate 50 mg tablet 50 mg PO BID Qty: 180 2RF metformin 1,000 mg tablet 1,000 mg PO BID Qty: 180 2RF (DME) FreeStyle Nabeel 3 [place]idan Misc See Rx Instructions .ROUTE .COMPLEX Qty: 1 0RF Dose Instruction: DIRECTED Rx Instructions: DIRECTED meclizine 25 mg tablet 25 mg PO TID 90 Days Qty: 270 1RF (DME) pen needle, diabetic [Comfort Touch Pen Needle] 31 gauge x 3/16 needle See Rx Instructions .Route Qty: 100 5RF Rx Instructions: As directed TID with insulin pen fluticasone propion-salmeterol [Wixela Inhub] 250-50 mcg/dose blister with device 1 inh inhalation BID 90 Days Qty: 3 3RF warfarin 3 mg tablet 3 mg PO DAILY 90 Days Qty: 90 3RF (DME) FreeStyle Nabeel 3 Plus Sensor Device See Rx Instructions .Route Qty: 6 3RF Rx Instructions: every 15 days losartan 25 mg tablet 50 mg PO DAILY Qty: 90 2RF acetaminophen 325 mg Tablet 650 mg PO Q6H PRN (Reason: Pain) betamethasone dipropionate 0.05 % cream 1 appl topical DAILY PRN (Reason: Toe Nail Fungus) (DME) blood-glucose meter [FreeStyle [place] Lite] Kit See Rx Instructions .Route Qty: 1 0RF Rx Instructions: As directed Jardiance 25 mg tablet 25 mg PO DAILY Qty: 90 3RF insulin glargine-yfgn 100 unit/mL (3 mL) insulin pen 60 unit SUBCUT BEDTIME Qty: 45 3RF Fiasp FlexTouch U-100 Insulin 100 unit/mL (3 mL) insulin pen See Rx Instructions .ROUTE .COMPLEX Qty: 45 3RF Protocol: Insulin Correction Scale Less than or equal to 110 ---- Give (units): 0 111 to 150 Give (units): 0 151 to 200 Give (units): 2 201 to 250 Give (units): 4 251 to 300 Give (units): 6 301 to 350 Give (units): 8 Greater than 350 Give (units): 10 Call MD if Blood Glucose > : 350 Rx Instructions: 10 units before breakfast, 8 units before lunch, 10 units before dinner Ozempic 0.25 mg or 0.5 mg (2 mg/3 mL) pen injector 0.5 mg subcut QWEEK Qty: 3 4RF Print Language: Macedonian
[2024-12-19 11:10] LABS: Hematocrit 41.2 % (42.0-52.0); Hemoglobin 13.6 g/dl (14.0-18.0); Imm Gran Abs Auto 0.02 X10*3/uL (0.00-0.03); Imm Gran Pct Auto 0.3 % (0.0-0.4); Lymphocytes Absolute Auto 1.6 X10*3/uL (1.2-4.9); Mean Corpuscular HGB Conc 33.0 g/dl (31.0-36.0); Mean Corpuscular Hemoglobin 27.2 pg (27.0-33.0); Mean Corpuscular Volume 82.4 fL (80.0-98.0); NRBC Abs Auto 0.000 X10*3/uL (0.0-0.012); NRBC Pct Auto 0.0 /100WBC (0.0-0.2); Platelet Count 222 X10*3/uL (160-400); Red Blood Count 5.00 X10*6/uL (4.60-5.80); White Blood Count 7.7 X10*3/uL (4.8-10.8)
[2024-12-19 11:22] LABS: Alanine Aminotransferase 46 U/L (0-40); Albumin Level 4.2 g/dL (3.5-5.0); Alkaline Phosphatase 84 U/L (39-117); Anion Gap 12 (12-20); Aspartate Amino Transferase 30 U/L (5-37); Blood Urea Nitrogen 12 mg/dL (9-16); Calcium 9.0 mg/dL (8.4-10.2); Carbon Dioxide 25 mmol/L (22-29); Chloride 108 mmol/L (96-108); Creatinine Clr Calc Pharmacy 120.3; Estimated Glomerular Filt Rate > 60; Potassium 3.4 mmol/L (3.3-5.1); Sodium 142 mmol/L (135-145); Total Protein 6.9 g/dL (6.5-8.0)
--- OUTSIDE RECORDS SUMMARY | 2024-12-19 11:33 | XMS_ITS | Patient Health Record ---
Author Organization [facility] Address [address] [place] [address] Care Team Providers Care Globe Mounter Name Role Phone Bryson (RETIRED) Jovanny DEAL Primary Care Provide r Unavailable Jg Schaffer Unavailable [phone] Reason For Referral No Information Medications Medication [...] Status Risk Notes Problem Colon cancer screening (011881564) Colon cancer screening (V76.51) Active confirmed Problem Long-term current use of insulin (501325982) Long-term insulin use (V58.67) Active confirmed Plan Of Treatment Future Test Test Name Order Date COLONOSCOPY 10/13/2014 Insurance Providers Payer Name Payer Address Payer Phone Subscriber Number Group Number Insured Name Patient Relationship to Insured Coverage Start Date Coverage End Date [facility] [address] [place], [place] [id number] [phone] [id number] EDIE BAILEY Self - patient is the insured Medical (General) History Medical History History ICD Code IDDM hypertension Asthma Denies [place],CVA,renal disease Sleep apnea--uses a Bipap Surgical History Surgery Date(Month/Year) knee surgery
--- OUTSIDE RECORDS SUMMARY | 2024-12-19 11:33 | XMS_ITS | Clinical Summary ---
Author Organization [address] [place] [address] [place] [phone] Phone Care Team Providers Care Stock Preparation Operator Name Role Phone Ayaz Sewell Primary Care Provider +1- [phone] Allergies Active Allergy Reactions Criticality Noted Date [...] patient states that he was at the [facility] emergency room approximately 1 month ago [...] states that he saw his neurologist at [facility] this past week and that further brain imaging was ordered. At this point, I will order an echocardiogram to reevaluate the patient's mechanical aortic valve. Also, I will attempt to obtain the [facility] as well as the records from the patient's neurologist. Depending on that, then we will decide if we need to change the patient's target INR and whether we need to do any further cardiac imaging besides a transthoracic echocardiogram. 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 He will continue to follow with the [place] vascular surgery service. Cerebrovascular accident (CVA) ([facility] V24, [facility] V28) 08/02/2020 Overview (02/06/2024): Last Assessment & [...] with aspirin. He underwent a 30-day ambulatory precipitate washer to rule out atrial fibrillation. This showed predominantly sinus rhythm with brief atrial runs and occasional PACs. No sustained arrhythmias were noted. He will continue to follow with the neurology team at [facility]. Essential hypertension 08/02/2020 Overview (02/06/2024): Last [...] Encounters Date Type Department Care Team Description 12/19/2024 Anticoagulation - Warfarin Visit [facility] [address] [place] [phone] Breezy Marsh MD History of mechanical aortic valve replacement (Primary Dx) 12/11/[address] [facility] [address] [place] [address] Breezy Marsh MD 12/01/2024 12:45 PM EDT Ancillary Procedure [facility] [address] [place] [address] Bilateral carotid artery stenosis 11/28/2024 Anticoagulation - Warfarin Visit [facility] [address] [place] [address] Breezy Marsh MD History of mechanical aortic valve replacement (Primary Dx) 11/21/2024 Anticoagulation - Warfarin Visit [facility] [address] [place] [address] Breezy Marsh MD History of mechanical aortic valve replacement (Primary Dx) 11/14/2024 Anticoagulation - Warfarin Visit [facility] [address] [place] [address] Breezy Marsh MD History of mechanical aortic valve replacement (Primary Dx) 11/12/[address] [facility] [address] [place] [address] Breezy Marsh MD 11/07/2024 Anticoagulation - Warfarin Visit [facility] [address] [place] [address] Breezy Marsh MD History of mechanical aortic valve replacement (Primary Dx) 10/31/2024 Anticoagulation - Warfarin Visit [facility] [address] [place] [address] Breezy Marsh MD History of mechanical aortic valve replacement (Primary Dx) 10/23/2024 Anticoagulation - Warfarin Visit [facility] [address] [facility] [address] [place] [address] Breezy Marsh MD History of mechanical aortic valve replacement (Primary Dx) 10/17/2024 12:05 PM EDT Lab Draw Station - [address] [facility] [place] [address] Pure hypercholesterolemia 10/17/2024 11:20 AM EDT Office Visit [facility] [address] [place] [address] Breezy Marsh MD Coronary artery disease involving pilot station coronary artery of pilot station heart without angina pectoris (Primary Dx); Essential hypertension; Pure hypercholesterolemia; Bilateral carotid artery stenosis; History of mechanical aortic valve replacement 10/17/2024 Anticoagulation - Warfarin Visit [facility] [address] [place] [address] Breezy Marsh MD History of mechanical aortic valve replacement (Primary Dx) 10/10/2024 Anticoagulation - Warfarin Visit [facility] [address] [place] [address] Breezy Marsh MD History of mechanical aortic valve replacement (Primary Dx) 10/03/2024 Anticoagulation - Warfarin Visit [facility] [address] [place] [address] Breezy Marsh MD History of mechanical aortic valve replacement (Primary Dx) 09/26/2024 Anticoagulation - Warfarin Visit [facility] [address] [place] [phone] Breezy Marsh MD History of mechanical aortic valve replacement (Primary Dx) 09/19/2024 Anticoagulation - Warfarin Visit [facility] [address] [place] [phone] Breezy Marsh MD History of mechanical aortic valve replacement (Primary Dx) from Last 3 Months Surgical History Surgery Date Site/Laterality Comments OTHER SURGICAL HISTORY 08/01/2023 Left PROCEDURE: VT OPN FEM ART EXPOS DLVR EVASC PROSTH UNI OTHER SURGICAL HISTORY 08/01/2023 PROCEDURE: VT EVASC RPR DPLMNT ILIO-ILIAC NDGFT Medical History [...] AM EST Office Visit [facility] - [place] [address] [place] [address] Dru Rueda MD [address] [place] [phone] Health Maintenance Due Date Last Done Comments Zoster Vaccines (1 of 2) 1982 Pneumococcal Vaccine: 50+ Years (2 of 2 - PCV) 06/22/2019 06/21/2018, 04/20/2018 Colorectal Cancer Screening: Colonoscopy 04/01/2022 HIV Screening 04/01/2022 Hepatitis C Screening 04/01/2022 Social Influencers of Health Screening 04/01/2022 RSV Immunization Adult Patients (1 - Risk 60-74 years 1-dose series) 2023 COVID-19 Vaccine ( - season) 2023 09/17/2021, 04/13/2021, 09/10/2020, Additional [...] Diagnosis Comments PROTHROMBIN TIME WITH INR Routine 12/19/2024 VAS US DUPLEX CAROTID BILATERAL Routine 12/01/2024 [...] 09/19/2024 from Last 3 Months Results * Prothrombin time with INR (12/19/2024) Only the most recent of12 resultswithin the time period is included. INR 3.5 Prothrombin Time POC Blood Venous blood specimen / Unknown 12/19/2024 us Historical Provider MD LAB BLOOD ORDERABLES Lynda l Result * Vascular US duplex carotid bilateral (12/01/2024 [...] cm/s CV VAS LAB Right CCA dist german 13 cm/s CV VAS LAB Right cca [...] Left BP= 144/84 Vertebral flow is antegrade. Medication Technician Details A rick scale, color and doppler analysis ultrasound was performed. During the study longitudinal and transverse views were obtained. Pulsed wave doppler was performed. us Breezy Marsh MD CV VASCULAR PROCEDURES Final Result * Lipid panel with reflex to direct LDL (10/17/2024 12:08 PM EDT) Cholesterol 158 0 - 200 mg/dL LAB CHEMISTRY METHOD 10/17/2024 2:[address] [facility] Triglycerides 102 0 - 150 mg/dL LAB CHEMISTRY METHOD 10/17/2024 2:[address] [facility] HDL 47 >=40 mg/dL LAB CHEMISTRY METHOD 10/17/2024 2:[address] [facility] LDL Calculated 91 0 - 100 mg/dL LAB CHEMISTRY METHOD 10/17/2024 2:[address] [facility] VLDL Cholesterol Jairo 20.4 mg/dL LAB CHEMISTRY METHOD 10/17/2024 2:[address] [facility] Non HDL Chol. (LDL+VLDL) 111 <145 mg/dL LAB CHEMISTRY METHOD 10/17/2024 2:[address] [facility] Chol/HDL Ratio 3.4 0.0 - 4.4 LAB CHEMISTRY METHOD 10/17/2024 2:[address] [facility] Blood Venous blood specimen / Unknown Venipuncture / Unknown 10/17/2024 12:08 PM EDT 10/17/2024 12:30 PM EDT us Breezy Marsh MD LAB BLOOD ORDERABLES F inal Result [facility] [address] [place] [address], [place] [phone] * (ABNORMAL) Comprehensive metabolic panel (10/17/2024 12:08 PM EDT) Sodium 144 133 - 145 mmol/L LAB CHEMISTRY METHOD 10/17/2024 2:30 PM [facility] Potassium 3.9 3.5 - 5.5 mmol/L LAB CHEMISTRY METHOD 10/17/2024 2:30 PM [facility] Chloride 111(H) 96 - 110 mmol/L LAB CHEMISTRY METHOD 10/17/2024 2:30 PM [facility] CO2 29 21 - 32 mmol/L LAB CHEMISTRY METHOD 10/17/2024 2:30 PM [facility] Anion Gap 4 3 - 11 LAB CHEMISTRY METHOD 10/17/2024 2:30 PM [facility] Glucose 117(H) 70 - 100 mg/dL LAB CHEMISTRY METHOD 10/17/2024 2:30 PM [facility] BUN 15 5 - 25 mg/dL LAB CHEMISTRY METHOD 10/17/2024 2:30 PM [facility] Creatinine 0.76 0.70 - 1.30 mg/dL LAB CHEMISTRY METHOD 10/17/2024 2:[address] [facility] eGFR 102 >=60 mL/min/1. 73m2 LAB CHEMISTRY METHOD 10/17/2024 2:[address] [facility] Comment:Calculation based on the Chronic Kidney Disease Epidemiology Collaboration (CKD-EPI) equation refit without adjustment for race. BUN/Creatinine Ratio 19.7 LAB CHEMISTRY METHOD 10/17/2024 2:[address] [facility] Calcium 9.0 8.5 - 10.5 mg/dL LAB CHEMISTRY METHOD 10/17/2024 2:[address] [facility] AST (SGOT) 27 10 - 42 unit/L LAB CHEMISTRY METHOD 10/17/2024 2:30 PM [facility] ALT (SGPT) 47 10 - 60 unit/L LAB CHEMISTRY METHOD 10/17/2024 2:30 PM [facility] Alkaline Phosphatase 91 42 - 121 unit/L LAB CHEMISTRY METHOD 10/17/2024 2:[address] [facility] Total Protein 7.4 6.0 - 8.0 g/dL LAB CHEMISTRY METHOD 10/17/2024 2:[address] [facility] Albumin 3.9 3.2 - 5.0 g/dL LAB CHEMISTRY METHOD 10/17/2024 2:30 PM [facility] Total Bilirubin 0.3 0.0 - 1.4 mg/dL LAB CHEMISTRY METHOD 10/17/2024 2:[address] [facility] Blood Venous blood specimen / Unknown Venipuncture / Unknown 10/17/2024 12:08 PM EDT 10/17/2024 12:30 PM EDT Breezy Marsh MD LAB BLOOD ORDERABLES F inal Result [facility] [address] [place] [address], [place] [phone] from Last 3 Months Insurance [facility] Care Teams Stock Preparation Operator Relationship Specialty Start Date End Date Ayaz Sewell PA [address] [place] [phone] PCP - General Internal Medicine 02/07/21
--- OUTSIDE RECORDS SUMMARY | 2024-12-19 11:33 | XMS_ITS | Encounter Summary ---
Author Organization [facility] Address [address] [place] [phone] Care Team Providers Care Salesperson Burial Plots Name Role Phone Ayaz Sewell Primary Care Provider [phone]- [phone] Reason for Visit * Reason Onset Date Comments carotid artery duplex results 12/11/2024 Encounter Details Date Type Department Care Team ([facility] Contact Info) Description 12/11/2024 Telephone [facility] [address] [place] [address] [address] [place] [address] Breezy Marsh MD [address] [place] [address] [address] [place] [address] Social History Tobacco Use Types [...] AM EST Office Visit Vascular Surgery - [place] [address] [facility] [address] [place] [address] Dru Rueda MD [address] [place] [phone] documented as of this encounter Visit Diagnoses Not on filedocumented in this encounter Care Teams Salesperson Burial Plots Relationship Specialty Start Date End Date Ayaz Sewell PA [address] [place] [phone] PCP - General Internal Medicine 02/07/21 documented as of this encounter
--- OUTSIDE RECORDS SUMMARY | 2024-12-19 11:33 | XMS_ITS | Encounter Summary ---
Author Organization [facility] Address [address] [place] [address] Care Team Providers Care Fish And Wildlife Warden Name Role Phone Donato, Ayaz Sreekanth JON Primary Care Provider [phone]- [phone] Encounter Details Date Type Department Care Team (Latest Contact Info) Description 12/19/2024 Anticoagulation - Warfarin Visit [facility] [address] [place] [address] [place] [address] Breezy Marsh MD [address] [place] [address] [address] [place] [address] History of mechanical aortic valve replacement (Primary [...] AM EST Office Visit Vascular Surgery - [place] [address] [place] [address] Dru Rueda MD [address] [place] [phone] documented as of this encounter Procedures Procedure Name Priority Date/Time Associated Diagnosis Comments PROTHROMBIN TIME WITH INR Routine 12/19/2024 documented in this encounter Results * Prothrombin time with INR (12/19/2024) INR 3.5 Prothrombin Time POC Blood Venous blood specimen / Unknown 12/19/2024 us Historical Provider LAB BLOOD ORDERABLES Lynda l Result documented in this encounter Visit Diagnoses Diagnosis History of mechanical aortic valve replacement- Primary documented in this encounter Care Teams Fish And Wildlife Warden Relationship Specialty Start Date End Date Ayaz Sewell PA [address] [place] [phone] PCP - General Internal Medicine 02/07/21 documented as of this encounter
[2024-12-19 11:47] LABS: Appearance Urine Turbid; Glucose Urine UA 500 mg/dL (Negative); PH 6.0 (5.0-9.0); Specific Gravity - Urine >= 1.030 (1.005-1.025); UMIC TRIGGER UACC YES
[2024-12-19 11:57] LABS: UACC Culture Trigger YES
[2024-12-19] MEDS: iohexoL 350 MG/ML 100 ML INFUS..BTL IV (13:56)
[2024-12-19 14:47] VITALS: BP 153/86; PULSE 67; RESP 20; O2SAT 96
[2024-12-19 15:27] VITALS: BP 153/86; PULSE 67; RESP 20; TEMP -17.7; TEMP 0; O2SAT 96
== END 2024-12-19 15:28 | disposition home or self-care (01) ==
PROVIDERS: Emergency Provider Emergency Medicine; PCP Physician Assistant
DX: N39.0 Urinary tract infection, site not specified (principal); K21.9 Gastro-esophageal reflux disease without esophagitis; J45.909 Unspecified asthma, uncomplicated; I10 Essential (primary) hypertension; I47.19 Other supraventricular tachycardia; Z79.01 Long term (current) use of anticoagulants; G47.33 Obstructive sleep apnea (adult) (pediatric); Z86.73 Personal history of transient ischemic attack (TIA), and cerebral infarction without residual deficits
CPT/HCPCS: 36415; 74177; 80053; 81001; 82550; 85025; 87086; 87088; 87186; 99284; 99285; Q9967

== ENCOUNTER → 2024-12-19 12:28 | Outpatient (BNV) | payer OTHER, SELFPAY | PROVIDERS: Emergency Provider Emergency Medicine; PCP Physician Assistant; Visit Provider Radiology Diagnostic Radiology | DX: R31.9 Hematuria, unspecified (principal); Z87.891 Personal history of nicotine dependence | CPT/HCPCS: 74177 ==

== ENCOUNTER 2025-01-14 09:13 | Outpatient (AMB) | payer OTHER, SELFPAY ==
--- NOTE | 2025-01-14 09:17 | A.OFFPC_ITS ---
Vital Signs 01/14/25 09:19 01/14/25 09:48 Height 5 ft 6 in Weight 239 lb 6 oz BMI 38.6 BP 164/80 H 160/90 H Blood Pressure Location Rt brachial Position Sitting Pulse 73 Pulse Source Pulse Oximeter Temp 97.1 F Temp Source Temporal Artery Scan Pulse Oximetry (%) 95 Oxygen Delivery Method Room Air Intake Visit Reasons: 3 month f/u Intake Note: Patient is here to follow up on DM, GERD, HTN, MDD. Palliative Care Nurse Practitioner Required: No Christmas Tree Grower: Not Required per policy Accompanied by: Self / Same As Patient Allergies atorvastatin Adverse Reaction (Unknown, Verified 01/14/25 09:42) Unknown Medication List - Last Reconciled 01/14/25 by Ayaz Sewell PA-C acetaminophen 650 mg PO Q6H PRN albuterol sulfate 90 mcg/actuation 2 puffs inhalation Q4-6H PRN 90 days aspirin 1 tab PO DAILY betamethasone dipropionate 0.05% 1 appl topical DAILY PRN blood sugar diagnostic (FreeStyle Lite Strips) Check sugar twice a day /PRN blood-glucose meter (FreeStyle [place] Lite kit) As directed CPAP As directed dulaglutide (Trulicity) 4.5 mg (0.5 mL) subcut QWEEK empagliflozin (Jardiance) 25 mg PO DAILY ferrous sulfate 325 mg PO BID 90 days Fiasp FlexTouch U-100 Insulin 100 unit/mL (3 mL) (insulin aspart (niacinamide)) See Protocol 10 units before breakfast, 8 units before lunch, 10 units before dinner NS fluticasone propion-salmeterol 250-50 mcg/dose (Wixela Inhub) 1 inh inhalation BID 90 days FreeStyle Nabeel 3 Plus Sensor (blood-glucose sensor) every 15 days NS FreeStyle Nabeel 3 [place] (blood-glucose,box attacher,cont) DIRECTED NS insulin glargine-yfgn 60 units (0.6 mL) subcut BEDTIME lancets (FreeStyle Lancets) As directed losartan 50 mg (2 x 25 mg) PO DAILY meclizine 25 mg PO TID 90 days metformin 1,000 mg PO BID metoprolol tartrate 50 mg PO BID pantoprazole 40 mg PO DAILY@0630 pen needle, diabetic (CareTouch Pen Needle) As directed daily with insulin pen pen needle, diabetic (Comfort Touch Pen Needle) As directed TID with insulin pen pioglitazone 30 mg PO DAILY rosuvastatin 40 mg PO DAILY 90 days sertraline 50 mg PO DAILY tamsulosin 0.4 mg PO DAILY warfarin 3 mg PO DAILY 90 days Tobacco use date assessed: 01/14/25 Dental Screening Dental Screen Date: 05/08/24 HPI 3 month f/u HPI Details Pateint is a 59 y/o M here today for followup. ? Patient has a past medical history of CVA, aortic valve replacement,h/o aortic dissection, diabetes, obesity, coronary artery disease, iliac artery aneurysm, hypertension. Recently seen at [facility] for acute UTI was started on antibiotics, now feeling much better. Major depressive disorder: Patient continues on sertraline with only decent affect. Does have personal home issues that were followed in his daughter that causes his mood to be low. He has stopped seeing his mental health therapist as he has not been able to get an appointment. . .. CVA: Continues to see speech therapy, has a aphasia secondary due to his CVA. Continues on antiplatelet therapy with aspirin. Blood pressure noted to be elevated today in office will increase his losartan dose to 100 mg for better blood pressure control Microcytic anemia: Has been started on iron supplementation in CBC has improved. ? .. ? CAD: Is followed by cardiology at [facility] (PV cards) , denies any chest pains palpitations or shortness of breath. Most recent lipid panel showing excellent control of his total cholesterol and LDL. .. ..HTN: Blood pressure elevated today in office , does not check blood pressures at home.? He is otherwise asymptomatic. He does not monitor his blood pressures at home PLAN: Will increase his losartan dose to 100 mg daily for better blood pressure control Recent microalbumin very elevated likely due to uncontrolled hypertension and type 2 diabetes. ? . ?Aortic valve replacement: Is currently on Coumadin with therapeutic INRs between 2.5 and 3.5.? Denies any overt signs of bleeding. ? .. ? DMII: Has establish care with [facility]. Today's A1c is 7.2. He has been established with a online health and fitness coach and a felling bucking supervisor as well. ? He monitors his blood pressure at home and does report having some higher readings .. His diabetes has has been better controlled lately. He does admit dietary indiscretion due to his depression. Most recent fasting blood sugar elevated, urine showing glucosuria PFSH Medical History Coagulopathy Arrhythmia BPH (benign prostatic hyperplasia) Chronic renal insufficiency CVA (cerebral vascular accident) History of COVID-19 Sleep apnea Asthma Diabetes High cholesterol HTN (hypertension) Surgical History H/O colonoscopy H/O tooth extraction Mechanical heart valve present Social History Housing: House Alcohol intake: never Patient Tobacco Use Status: Former Tobacco user Tobacco use type: Cigarette e-Cigarette/Vaping Use: Never Used Second Hand Smoke Exposure: Yes service: No Current occupational status: employed Cognitive needs: No Hearing needs: No Vision needs: Yes Questionnaire PHQ-9 Over the last 2 weeks, how often have you been bothered by any of the following problems? 1. Little interest or pleasure in doing things: not at all 2. Feeling down, depressed, or hopeless: more than half the days 3. Trouble falling or staying asleep, or sleeping too much: nearly every day 4. Feeling tired or having little energy: nearly every day 5. Poor appetite or overeating: not at all 6. Feeling bad about yourself - or that you are a failure or have let yourself or your family down: nearly every day 7. Trouble concentrating on things, such as reading the newspaper or watching television: nearly every day 8. Moving or speaking so slowly that other people could have noticed. Or the opposite - being so fidgety or restless that you have been moving around a lot more than usual: nearly every day 9. Thoughts that you would be better off or of hurting yourself in some way: not at all Total score: 17 Depression Screening Interpretation: Positive Depression Screening Done: Yes 40657 - PHQ-9 Billing: Yes Source: Developed by Drs. Jg Mims, Tonia Zapata, Colt Calero and colleagues, with an educational sultana from [employer]. Thrive Questionnaire Date Thrive assessed: 05/08/24 I am a: Patient What is your living situation today?: I have a place to live, but I am worried about losing it in the future Within the past 12 months, did the food you bought not last and you didn't have the money to get more?: Sometimes True Within the past 12 months, did you worry whether your food would run out before you got money to buy more?: Sometimes True Do you have trouble paying for medicines?: No Do you have trouble getting transportation to medical appointments?: No Do you have trouble paying your heating and electricity bill?: Yes Do you have trouble taking care of your child, family member or friend?: No Do you have trouble with day-to-day activities such as bathing, preparing meals, shopping, managing finances, etc.?: No Are you currently unemployed and looking for a job?: No Are you interested in more education?: No Please select the resources that you would like help with: None Currently or been in a relationship where the following occur: No concerns reported THRIVE Score: 4 AUDIT C Alcohol Use Questionnaire (AUDIT-C) 1. How often do you have a drink containing alcohol?: Never Total Score: 0 LAINA-7 AMB Questionnaire LAINA-7 Date LAINA - 7 assessed: 05/08/24 Feeling nervous, anxious, or on edge: 0 = Not at all Not being able to stop or control worryin = Not at all Worrying too much about different things: 0 = Not at all Trouble relaxin = Nearly every day Being so restless that it is hard to sit still: 3 = Nearly every day Becoming easily annoyed or irritable: 3 = Nearly every day Feeling afraid as if something awful might happen: 0 = Not at all Total LAINA-7 score (0-4 normal; 5-9 mild; 10-14 moderate; 15-21 severe): 9 Source: Developed by Drs. Jg Mims, Tonia Zapata, Colt Calero and colleagues, with an educational sultana from [employer]. LAINA-7 Assessment Billing LAINA-7 Assessment Tool: LAINA-7 Assessment 33289 Review of Systems Const Denies headache(s) Eyes Denies loss of vision ENT Denies vertigo, Denies dizziness, Denies headache(s) and Denies sore throat Card Denies chest pain, Denies leg edema and Denies lightheadedness Resp Denies cough, Denies hemoptysis and Denies wheezing GI Denies abdominal pain, Denies melena, Denies constipation, Denies diarrhea and Denies vomiting Denies dysuria, Denies urinary frequency and Denies urinary urgency Musc Denies arthralgias, Denies joint swelling, Denies numbness and Denies tingling Neuro Denies Abnormal speech present, Denies behavioral changes, Denies vertigo, Denies dizziness, Denies headache(s), Denies loss of vision, Denies memory loss, Denies numbness and Denies tingling Psych Denies anxiety, Denies behavioral changes, Denies depression, Denies memory loss and Denies panic attacks Maximiliano/Lymph Denies easy bleeding and Denies easy bruising Aller/Immun Denies wheezing Physical exam (Primary Care) Vital Signs: Last Vital Signs Temp 97.1 F 01/14/25 09:19 Pulse 73 01/14/25 09:19 BP 160/90 H 01/14/25 09:48 Pulse Ox 95 01/14/25 09:19 Oxygen Delivery Method Room Air 01/14/25 09:19 BMI result Body Mass Index 38.6 BMI Assessment/Plan discussion: High BMI High, discussed plan: lifestyle, weight reduction, dietary and physical activity Tobacco/Smoking Status: Tobacco use Status Tobacco use date assessed 01/14/25 01/14/25 09:30 Patient Tobacco Use Status Former Tobacco user 01/14/25 09:30 Tobacco use type Cigarette 01/14/25 09:30 e-Cigarette/Vaping Use Never Used 01/14/25 09:30 PHQ-9: PHQ-9 Score PHQ-9: Total score 17 01/14/25 09:50 Depression Screening Interpretation: Positive Thrive Assessment: Date of Thrive Assessment Date Thrive assessed 05/08/24 01/14/25 09:30 Currently or been in a relationship where the following occur: No concerns reported Const Other: Obese General: no acute distress, alert and awake Nutritional Appearance: well nourished Orientation/consciousness: oriented to person, oriented to place and oriented to time HENMT Ears: TM's normal bilaterally General nose exam: Normal nasal mucous membranes and turbinates present Eyes Conjunctivae: conjunctivae normal Sclerae: sclerae normal Pupils: Equal, round and reactive pupils present Neck Neck: Yes no lymphadenopathy and Yes no JVD Thyroid: Thyroid normal Carotids: no bruits Resp Effort & Inspection: normal respiratory effort and not tachypneic Auscultation: no crackles, no rales, no rhonchi and no wheezes Cardio Rate: regular rate Rhythm: regular rhythm Heart sounds: no murmurs and normal S1 and S2 GI Palpation (GI): Soft to palpation, nontender, no hepatomegaly and no splenomegaly Auscultation: normal bowel sounds Skin General skin exam: no rashes or lesions noted and dry skin Neuro Other: SLIGHTLY SLURRED SPEECH NOTED General: oriented to person, oriented to place and oriented to time Cranial nerves: Yes Equal, round and reactive pupils present Speech: No Abnormal speech present Gait exam (Neuro): Normal gait present Motor exam (neuro): no tremor noted Extrem Right upper extremity: full ROM Left upper extremity: full ROM Right lower extremity: full ROM; no edema Left lower extremity: full ROM; no edema Psych Mental Status: mental status grossly normal Speech and movement: Normal speech and movement present Affect: normal affect Attitude: cooperative Thought process: Normal thought process present Results AMB Hemoglobin A1c AMB Hemoglobin A1c 7.2 % Last Edit by TRAM Sanchez on 01/14/25 09:38 Results Reviewed Results Reviewed: Laboratory Last Values Hgb A1c (Clinic) 7.2 % (4.0-6.0) H 01/14/25 09:16 Coding Level of Care Code Est Pt Level 4 (37715) Diagnoses Cerebrovascular accident (CVA) due to occlusion of right middle cerebral artery I63.511 CVA mechanism: occlusion Laterality of affected vessel: right Precerebral and cerebral artery: middle cerebral artery Dysarthria R47.1 Type 2 diabetes mellitus with diabetic nephropathy, with long-term current use of insulin E11.21; Z79.4 Diabetes mellitus complication detail: with nephropathy Diabetes mellitus complication status: with kidney complications Diabetes mellitus ad terminal makeup operator insulin use: with penitentiary use Primary hypertension I10 Hypertension type: primary hypertension Mixed hyperlipidemia E78.2 Hyperlipidemia type: mixed hyperlipidemia Additional Codes LAINA-7 Assessment Billing - LAINA-7 Assessment Tool: LAINA-7 Assessment 45064 ([id number]) PHQ-9 - 32958 - PHQ-9 Billing: Yes ([id number]) Assessment & Plan Assessment & Plan (1) CVA (cerebral vascular accident): Comment: post aortic valve replacement. Saw cardiology 2023 Code(s): I63.9 - Cerebral infarction, unspecified Category: Medical Qualifiers: CVA mechanism: occlusion Laterality of affected vessel: right Precerebral and cerebral artery: middle cerebral artery Qualified Code(s): I63.511 - Cerebral infarction due to unspecified occlusion or stenosis of right middle cerebral artery Plan: Patient has had a CVA after his aortic valve replacement years ago. Continues on medical management with aggressive cholesterol control. Continues on antiplatelet therapy as well. Patient's recent CT had showing-->Diffuse chronic small vessel ischemic changes in the deep white matter both cerebral hemispheres. There is slight progression of hypodensity right parietal lobe compared to previous exam. This may represent subacute to acute ischemia or white matter changes. CTA of head and neck showing-->There is moderate thrombus in the right distal CCA carotid bulb with at least greater than 50% stenosis. This can be evaluated with carotid ultrasound. (2) Dysarthria: Code(s): R47.1 - Dysarthria and anarthria Category: Medical Plan: Patient continues to have difficulties with the speech. Continues in speech therapy. (3) DMII (diabetes mellitus, type 2): Code(s): E11.9 - Type 2 diabetes mellitus without complications Category: Medical Qualifiers: Diabetes mellitus complication detail: with nephropathy Diabetes mellitus complication status: with kidney complications Diabetes mellitus ad terminal makeup operator insulin use: with penitentiary use Qualified Code(s): E11.21 - Type 2 diabetes mellitus with diabetic nephropathy; Z79.4 - USP (current) use of insulin Plan: Patient's type 2 diabetes has been much better controlled since being more his insulin and started Jardiance. He is seeing [facility] and has been established felling bucking supervisor and online health and fitness coach. A1c now at 7.2 Goal A1c is to be below 7.0. (4) HTN (hypertension): Code(s): I10 - Essential (primary) hypertension Category: Medical Qualifiers: Hypertension type: primary hypertension Qualified Code(s): I10 - Essential (primary) hypertension Plan: Patient's blood pressure elevated today in office, has been going through personal issues at home with 1 of his friends who is living with him. Will increase his losartan dose to 100 mg for better blood pressure control Does have microalbuminuria likely secondary to his uncontrolled type 2 diabetes. (5) HLD (hyperlipidemia): Code(s): E78.5 - Hyperlipidemia, unspecified Category: Medical Qualifiers: Hyperlipidemia type: mixed hyperlipidemia Qualified Code(s): E78.2 - Mixed hyperlipidemia Plan: Patient's most recent lipid panel showing excellent control of his total cholesterol and LDL. Goal LDL is to remain below 70 Orders: Orders Lipid Panel 01/14/25 I63.511 - Cerebral infarction due to unspecified occlusion or stenosis of right middle cerebral artery Comprehensive [place]. Panel Fast 01/14/25 I63.511 - Cerebral infarction due to unspecified occlusion or stenosis of right middle cerebral artery Complete Blood Count no Diff 01/14/25 I63.511 - Cerebral infarction due to unspecified occlusion or stenosis of right middle cerebral artery AMB Hemoglobin A1c 01/14/25 E11.65 - Type 2 diabetes mellitus with hyperglycem ia, Z79.4 - terminal operator (current) use of insulin IRON PROFILE 01/14/25 D50.9 - Iron deficiency anemia, unspecified Prostate Specific Antigen Scr 01/14/25 D50.9 - Iron deficiency anemia, unspecified, Z12.5 - Encounter for screening for malignant neoplasm of prostate Medications: New losartan 100 mg PO DAILY 90 tabs 1RF 90 days I10 - Essential (primary) hypertension Discontinued losartan Discontinued Reason: Doctor's Order 50 mg (2 x 25 mg) PO DAILY 90 tabs 2RF I10 - Essential (primary) hypertension
[2025-01-14 09:19] VITALS: BP 164/80; PULSE 73; TEMP 36.2; O2SAT 95; BMI 38.6
[2025-01-14 09:48] VITALS: BP 160/90
--- OUTSIDE RECORDS SUMMARY | 2025-01-14 10:49 | XMS_ITS | Encounter Summary ---
Author Organization [facility] Address [address] [place] [address] Care Team Providers Care Staff Internist Office Based Only Name Role Phone Gantt, Ayaz J DANAY Primary Care Provider [phone] Encounter Details Date Type Department Care Team (Latest Contact Info) Description 01/09/2025 Anticoagulation - Warfarin Visit [facility] [address] [place] [id number] Breezy Marsh MD [address] [place] [address] [address] [place] [address] History of mechanical aortic valve [...] Progress Notes * Luca Caballero MA - 01/09/2025 8:26 AM EDT Left voice message with instructions documented in this encounter Plan of Treatment Upcoming Encounters Date Type Department Care Team (Late st Contact Info) Description 05/15/2025 10:30 AM EST Office Visit V[facility] Surgery - [place] [address] [place] [address] Dru Rueda MD [address] [place] [phone] documented as of this encounter Procedures Procedure Name Priority Date/Time Associated Diagnosis Comments PROTHROMBIN TIME WITH INR Routine 01/09/2025 documented in this encounter Results * Prothrombin time with INR (01/09/2025) INR 3.0 Prothrombin Time POC Blood Venous blood specimen / Unknown 01/09/2025 us Historical Provider LAB BLOOD ORDERABLES Lynda l Result documented in this encounter Visit Diagnoses Diagnosis History of mechanical aortic valve replacement- Primary documented in this encounter Care Teams Staff Internist Office Based Only Relationship Specialty Start Date End Date Ayaz Sewell PA [address] [place] [phone] PCP - General Internal Medicine 02/07/21 documented as of this encounter
--- OUTSIDE RECORDS SUMMARY | 2025-01-14 10:49 | XMS_ITS | Patient Health Record ---
Author Organization [facility] Address [address] [place] [address] Care Team Providers Care Architect Manager Name Role Phone Bryson (RETIRED) Jovanny DEAL Primary Care Provide r Unavailable Jg Schaffer Unavailable [phone] Reason For Referral No Information Medications Medication [...] Status Risk Notes Problem Colon cancer screening (727163134) Colon cancer screening (V76.51) Active confirmed Problem Long-term current use of insulin ([id number]) Long-term insulin use (V58.67) Active confirmed Plan Of Treatment Future Test Test Name Order Date COLONOSCOPY 10/13/2014 Insurance Providers Payer Name Payer Address Payer Phone Subscriber Number Group Number Insured Name Patient Relationship to Insured Coverage Start Date Coverage End Date [facility] [address] [place], [place] [id number] EDIE BAILEY Self - patient is the insured Medical (General) History Medical History History ICD Code IDDM hypertension Asthma Denies IA,CVA,renal disease Sleep apnea--uses a Bipap Surgical History Surgery Date(Month/Year) knee surgery
--- OUTSIDE RECORDS SUMMARY | 2025-01-14 10:49 | XMS_ITS | Clinical Summary ---
Author Organization [address] [place] [address] [place] [phone] Phone Care Team Providers Care Mileage Clerk Name Role Phone Ayaz Sewell Primary Care Provider +1- [phone] Allergies Active Allergy Reactions Criticality Noted Date [...] that he was at the [facility] emergency room approximately 1 month ago due [...] states that he saw his neurologist at [facility] this past week and that further brain imaging was ordered. At this point, I will order an echocardiogram to reevaluate the patient's mechanical aortic valve. Also, I will attempt to obtain the records from the [facility] visit as well as the records from the patient's neurologist. Depending on that, then we will decide if we need to change the patient's target INR and whether we need to do any further cardiac imaging besides a transthoracic echocardiogram. Orders: Transthoracic echocardiogram (TTE) complete with PRN contrast, bubble, strain, and 3D order panel; Future Coagulopathy ([facility] V24) 05/23/2023 Coronary artery disease invo lving prairie band coronary artery of prairie band heart without angina pectoris 05/04/2022 Overview (02/06/2024): [...] duplex carotid bilateral; Future Iliac artery aneurysm ([facility] V24) 05/04/2022 Overview (02/06/2024): Last Assessment & Plan: The patient has a history of an iliac artery aneurysm. He will continue to follow with the [place] vascular surgery service. Cerebrovascular accident (CVA) ([facility] V24, [facility] V28) 08/02/2020 Overview (02/06/2024): Last [...] with aspirin. He underwent a 30-day ambulatory color television console monitor to rule out atrial fibrillation. This showed predominantly sinus rhythm with brief atrial runs and occasional PACs. No sustained arrhythmias were noted. He will continue to follow with the neurology team at [facility]. Essential hypertension 08/02/2020 Overview (02/06/2024): Last [...] Encounters Date Type Department Care Team Description 01/09/2025 Anticoagulation - Warfarin Visit [facility] [address] [place] [phone] Breezy Marsh MD History of mechanical aortic valve replacement (Primary Dx) 01/02/2025 Anticoagulation - Warfarin Visit [facility] [address] [place] [address] Breezy Marsh MD History of mechanical aortic valve replacement (Primary Dx) 12/26/2024 Anticoagulation - Warfarin Visit [facility] [address] [place] [address] Breezy Marsh MD History of mechanical aortic valve replacement (Primary Dx) 12/19/2024 Anticoagulation - Warfarin Visit [facility] [address] [place] [address] Breezy Marsh MD History of mechanical aortic valve replacement (Primary Dx) 12/11/[address] [facility] [address] [place] [address] Breezy Marsh MD 12/01/2024 12:45 PM EDT Ancillary Procedure [facility] [address] [place] [address] Bilateral carotid artery stenosis 11/28/2024 Anticoagulation - Warfarin Visit [facility] [address] [place] [address] Breezy Marsh MD History of mechanical aortic valve replacement (Primary Dx) 11/21/2024 Anticoagulation - Warfarin Visit [facility] [address] [place] [address] Breezy Marsh MD History of mechanical aortic valve replacement (Primary Dx) 11/14/2024 Anticoagulation - Warfarin Visit [facility] [address] [place] [address] Breezy Marsh MD History of mechanical aortic valve replacement (Primary Dx) 11/12/[address] [facility] [address] [facility] [address] [place] [address] Breezy Marsh MD 11/07/2024 Anticoagulation - Warfarin Visit [facility] [address] [place] [address] Breezy Marsh MD History of mechanical aortic valve replacement (Primary Dx) 10/31/2024 Anticoagulation - Warfarin Visit [facility] [address] [place] [address] Breezy Marsh MD History of mechanical aortic valve replacement (Primary Dx) 10/23/2024 Anticoagulation - Warfarin Visit [facility] [address] [place] [address] Breezy Marsh MD History of mechanical aortic valve replacement (Primary Dx) 10/17/2024 12:05 PM EDT Lab Draw Station - [address] [place] [phone] Pure hypercholesterolemia 10/17/2024 11:20 AM EDT Office Visit [facility] [address] [place] [address] Breezy Marsh MD Coronary artery disease involving prairie band coronary artery of prairie band heart without angina pectoris (Primary Dx); Essential hypertension; Pure hypercholesterolemia; Bilateral carotid artery stenosis; History of mechanical aortic valve replacement 10/17/2024 Anticoagulation - Warfarin Visit [facility] [address] [place] [address] Breezy Marsh MD History of mechanical aortic valve replacement (Primary Dx) from Last 3 Months Surgical History Surgery Date Site/Laterality Comments OTHER SURGICAL HISTORY 08/01/2023 Left PROCEDURE: [place] OP[place] FEM ART EXPOS DLVR EVASC PROSTH UNI OTHER SURGICAL HISTORY 08/01/2023 PROCEDURE: [place] EVASC RPR DPLMNT ILIO-ILIAC NDGFT Medical History [...] AM EST Office Visit [facility] - [place] [address] [place] [address] Dru Rueda MD [address] [place] [phone] Health Maintenance Due Date Last Done Comments Zoster Vaccines (1 of 2) 1984 Pneumococcal Vaccine: 50+ Years (2 of 2 - PCV) 06/22/2019 06/21/2018, 04/20/2018 Colorectal Cancer Screening: Colonoscopy 04/01/2022 HIV Screening 04/01/2022 Hepatitis C Screening 04/01/2022 Social Influencers of Health Screening 04/01/2022 RSV Immunization Adult Patients (1 - Risk 60-74 years 1-dose series) 2023 Depression Screening 04/23/2024 COVID-19 Vaccine (2024- season) 2024 09/17/2021, 04/13/2021, 09/10/2020, Additional history exists Influenza Vaccine (#1) 2024 , 02/27/2023, 02/22/2022, [...] Comments PROTHROMBIN TIME WITH INR Routine 01/09/2025 PROTHROMBIN TIME WITH INR Routine 01/02/2025 PROTHROMBIN TIME WITH INR Routine 12/26/2024 PROTHROMBIN TIME WITH INR Routine 12/19/2024 VAS [...] hypercholesterolemia PROTHROMBIN TIME WITH INR Routine 10/17/2024 from Last 3 Months Results * Prothrombin time with INR (01/09/2025) Only the most recent of11 resultswithin the time period is included. INR 3.0 Prothrombin Time POC Blood Venous blood specimen / Unknown 01/09/2025 Historical Provider MD LAB BLOOD ORDERABLES Lynda [...] Left BP= 144/84 Vertebral flow is antegrade. Clock And Watch Hands Painter Details A rick scale, color and doppler analysis ultrasound was performed. During the study longitudinal and transverse views were obtained. Pulsed wave doppler was performed. us Breezy Marsh MD CV VASCULAR PROCEDURES Final Result * Lipid panel with reflex to direct LDL (10/17/2024 12:08 PM EDT) Cholesterol 158 0 - 200 mg/dL LAB CHEMISTRY [facility] Triglycerides 102 0 - 150 mg/dL LAB CHEMISTRY METHOD 10/17/2024 2:30 PM [facility] HDL 47 >=40 mg/dL LAB CHEMISTRY METHOD 10/17/2024 2:30 PM [facility] LDL Calculated 91 0 - 100 mg/dL LAB CHEMISTRY METHOD 10/17/2024 2:30 PM [facility] VLDL Cholesterol Jairo 20.4 mg/dL LAB CHEMISTRY METHOD 10/17/2024 2:30 PM [facility] Non HDL Chol. (LDL+VLDL) 111 <145 mg/dL LAB CHEMISTRY METHOD 10/17/2024 2:30 PM [facility] Chol/HDL Ratio 3.4 0.0 - 4.4 LAB CHEMISTRY METHOD 10/17/2024 2:30 PM [facility] Blood Venous blood specimen / Unknown Venipuncture / Unknown 10/17/2024 12:08 PM EDT 10/17/2024 12:30 PM EDT Breezy Marsh MD LAB BLOOD ORDERABLES F inal Result [facility] [address] [place] [address], * (ABNORMAL) Comprehensive metabolic panel (10/17/2024 12:08 PM EDT) Sodium 144 133 - 145 mmol/L LAB CHEMISTRY METHOD 10/17/2024 2:30 PM [facility] Potassium 3.9 3.5 - 5.5 mmol/L LAB CHEMISTRY METHOD 10/17/2024 2:30 PM [facility] Chloride 111(H) 96 - 110 mmol/L LAB CHEMISTRY METHOD 10/17/2024 2:[address] [facility] CO2 29 21 - 32 mmol/L LAB CHEMISTRY METHOD 10/17/2024 2:30 PM [facility] Anion Gap 4 3 - 11 LAB CHEMISTRY METHOD 10/17/2024 2:30 PM [facility] Glucose 117(H) 70 - 100 mg/dL LAB CHEMISTRY METHOD 10/17/2024 2:30 PM [facility] BUN 15 5 - 25 mg/dL LAB CHEMISTRY METHOD 10/17/2024 2:30 PM [facility] Creatinine 0.76 0.70 - 1.30 mg/dL LAB CHEMISTRY METHOD 10/17/2024 2:30 PM [facility] eGFR 102 >=60 mL/min/1. 73m2 LAB CHEMISTRY METHOD 10/17/2024 2:30 PM [facility] Comment:Calculation based on the Chronic [...] 2:[address] [facility] ALT (SGPT) 47 10 - 60 unit/L LAB CHEMISTRY METHOD 10/17/2024 2:[address] [facility] Alkaline Phosphatase 91 42 - 121 unit/L LAB CHEMISTRY METHOD 10/17/2024 2:[address] [facility] Total Protein 7.4 6.0 - 8.0 g/dL LAB CHEMISTRY METHOD 10/17/2024 2:[address] [facility] Albumin 3.9 3.2 - 5.0 g/dL LAB CHEMISTRY METHOD 10/17/2024 2:[address] [facility] Total Bilirubin 0.3 0.0 - 1.4 mg/dL LAB CHEMISTRY METHOD 10/17/2024 2:[address] [facility] Blood Venous blood specimen / Unknown Venipuncture / Unknown 10/17/2024 12:08 PM EDT 10/17/2024 12:30 PM EDT Breezy Marsh MD LAB BLOOD ORDERABLES F inal Result [facility] [address] [place] [address], from Last 3 Months Insurance [employer] Care Teams Mileage Clerk Relationship Specialty Start Date End Date Ayaz Sewell PA [address] [place] [phone] PCP - General Internal Medicine 02/07/21
== END 2025-01-14 16:08 | disposition home or self-care (01) ==
LOC: HO.HMCH 09:14
PROVIDERS: PCP Physician Assistant; Visit Provider Physician Assistant
DX: I63.511 Cerebral infarction due to unspecified occlusion or stenosis of right middle cerebral artery (principal); R47.1 Dysarthria and anarthria; E11.21 Type 2 diabetes mellitus with diabetic nephropathy; Z79.4 Long term (current) use of insulin; I10 Essential (primary) hypertension; E78.2 Mixed hyperlipidemia

== ENCOUNTER → 2025-01-14 09:13 | Outpatient (BNVA) | payer OTHER, SELFPAY | PROVIDERS: PCP Physician Assistant; Visit Provider Physician Assistant | DX: E11.21 Type 2 diabetes mellitus with diabetic nephropathy (principal); R47.1 Dysarthria and anarthria; I10 Essential (primary) hypertension; E78.2 Mixed hyperlipidemia; I25.10 Atherosclerotic heart disease of native coronary artery without angina pectoris; D50.9 Iron deficiency anemia, unspecified; F32.9 Major depressive disorder, single episode, unspecified; Z86.73 Personal history of transient ischemic attack (TIA), and cerebral infarction without residual deficits; Z95.2 Presence of prosthetic heart valve; Z79.01 Long term (current) use of anticoagulants; Z79.4 Long term (current) use of insulin; Z79.82 Long term (current) use of aspirin; Z79.899 Other long term (current) drug therapy; Z13.31 Encounter for screening for depression | CPT/HCPCS: 83036; 96127; 99212 ==

== ENCOUNTER 2025-01-15 07:51 | Outpatient (AMB) | payer OTHER, SELFPAY ==
--- OUTSIDE RECORDS SUMMARY | 2025-01-15 07:54 | XMS_ITS | Encounter Summary ---
Author Organization [facility] Address [address] [place] [phone] Care Team Providers Care Photo Tube Assembler Name Role Phone Ayaz Sewell Primary Care Provider +1- [phone] Reason for Visit * Reason Onset Date Comments Procedure 01/14/2025 Colonoscopy Encounter Details Date Type Department Care Team (Late st Contact Info) Description 01/14/2025 Telephone [facility] - [facility] [address] [facility] [address] [place] [address] Breezy Marsh MD [address] [place] [address] [place] [phone] Social History Tobacco Use Types Packs/Day Years [...] Progress Notes * Arleth Rios MA - 01/14/2025 3:20 PM EDT Last appointment 10/17/[address] Ring No upcoming appointment * Brunilda Almonte MA - 01/14/2025 3:06 PM EDT Jyoti from [facility] called asking about cardiac clearance for the patient. She is also wondering ifthe patient needs bridging since he is on coumadin. Please advise and call [phone] documented in this encounter Plan of Treatment Upcoming Encounters Date Type Department Care Team (Late st Contact Info) Description 05/15/2025 10:30 AM EST Office Visit [facility] Surgery - [place] [address] [place] [phone] Dru Rueda MD [address] [place] [phone] documented as of this encounter Visit Diagnoses Not on filedocumented in this encounter Care Teams Photo Tube Assembler Relationship Specialty Start Date End Date Ayaz Sewell PA [address] [place] [phone] PCP - General Internal Medicine 02/07/21 documented as of this encounter
--- OUTSIDE RECORDS SUMMARY | 2025-01-15 07:54 | XMS_ITS | Patient Health Record ---
Author Organization [facility] Address [address] [place] [address] Care Team Providers Care Rfid Manager Name Role Phone Bryson (RETIRED) Jovanny DEAL Primary Care Provide r Unavailable Jg Schaffer Unavailable [phone] Reason For Referral No Information Medications Medication [...] Status Risk Notes Problem Colon cancer screening (422952695) Colon cancer screening (V76.51) Active confirmed Problem Long-term current use of insulin (500523616) Long-term insulin use (V58.67) Active confirmed Plan Of Treatment Future Test Test Name Order Date COLONOSCOPY 10/13/2014 Insurance Providers Payer Name Payer Address Payer Phone Subscriber Number Group Number Insured Name Patient Relationship to Insured Coverage Start Date Coverage End Date [facility] [address] [place], [place] [id number] EDIE BAILEY Self - patient is the insured Medical (General) History Medical History History ICD Code IDDM hypertension Asthma Denies [place],CVA,renal disease Sleep apnea--uses a Bipap Surgical History Surgery Date(Month/Year) knee surgery
--- OUTSIDE RECORDS SUMMARY | 2025-01-15 07:54 | XMS_ITS | Clinical Summary ---
Author Organization [address] [place] [address] [place] [phone] Phone Care Team Providers Care Postal Mail Carrier Name Role Phone Ayaz Sewell Primary Care Provider +1- [phone] Allergies Active Allergy Reactions Criticality Noted Date [...] patient states that he was at the [facility] emergency room approximately 1 month ago [...] states that he saw his neurologist at [facility] this past week and that further brain imaging was ordered. At this point, I will order an echocardiogram to reevaluate the patient's mechanical aortic valve. Also, I will attempt to obtain the records from the [facility] visit as well as the records from the patient's neurologist. Depending on that, then we will decide if we need to change the patient's target INR and whether we need to do any further cardiac imaging besides a transthoracic echocardiogram. Orders: Transthoracic echocardiogram (TTE) complete with PRN contrast, bubble, strain, and 3D order panel; Future Coagulopathy ([facility] V24) 05/23/2023 Coronary artery disease invo lving saxman coronary artery of saxman heart without angina pectoris 05/04/2022 Overview (02/06/2024): [...] carotid bilateral; Future Iliac artery aneurysm ([facility] V24) 05/04/2022 Overview (02/06/2024): Last Assessment & Plan: The patient has a history of an iliac artery aneurysm. He will continue to follow with the [place] vascular surgery service. Cerebrovascular accident (CVA) ([facility] V24, [facility] V28) 08/02/2020 Overview (02/06/2024): Last Assessment [...] with aspirin. He underwent a 30-day ambulatory youth nutritional monitor to rule out atrial fibrillation. This showed predominantly sinus rhythm with brief atrial runs and occasional PACs. No sustained arrhythmias were noted. He will continue to follow with the neurology team at [facility]. Essential hypertension 08/02/2020 Overview (02/06/2024): Last Assessment [...] Encounters Date Type Department Care Team Description 01/14/2025 Telephone [facility] [address] [place] [address] Breezy Marsh MD 01/09/2025 Anticoagulation - Warfarin Visit [facility] [address] [place] [address] Breezy Marsh MD History of mechanical aortic valve replacement (Primary Dx) 01/02/2025 Anticoagulation - Warfarin Visit [facility] [address] [place] [address] Breezy Marsh MD History of mechanical aortic valve replacement (Primary Dx) 12/26/2024 Anticoagulation - Warfarin Visit [facility] [address] [place] [address] Breezy Marsh MD History of mechanical aortic valve replacement (Primary Dx) 12/19/2024 Anticoagulation - Warfarin Visit [facility] [address] [place] [address] Breezy Marsh MD History of mechanical aortic valve replacement (Primary Dx) 12/11/2024 Telephone [facility] [address] [place] [address] Breezy Marsh MD 12/01/2024 12:45 PM EDT Ancillary Procedure [facility] - [address] [place] [phone] Bilateral carotid artery stenosis 11/28/2024 Anticoagulation - Warfarin Visit [facility] [address] [place] [address] Breezy Marsh MD History of mechanical aortic valve replacement (Primary Dx) 11/21/2024 Anticoagulation - Warfarin Visit [facility] [address] [facility] [address] [place] [address] Breezy Mrash MD History of mechanical aortic valve replacement (Primary Dx) 11/14/2024 Anticoagulation - Warfarin Visit [facility] [address] [facility] [address] [place] [address] Breezy Marsh MD History of mechanical aortic valve replacement (Primary Dx) 11/12/[address] [facility] [address] [place] [address] Breezy Marsh MD 11/07/2024 Anticoagulation - Warfarin Visit [facility] [address] [place] [address] Breezy Marsh MD History of mechanical aortic valve replacement (Primary Dx) 10/31/2024 Anticoagulation - Warfarin Visit [facility] [address] [place] [address] Breezy Marsh MD History of mechanical aortic valve replacement (Primary Dx) 10/23/2024 Anticoagulation - Warfarin Visit [facility] [address] [place] [address] Breezy Marsh MD History of mechanical aortic valve replacement (Primary Dx) 10/17/2024 12:05 PM EDT Lab Draw Station - [address] [place] [phone] Pure hypercholesterolemia 10/17/2024 11:20 AM EDT Office Visit [facility] [address] [place] [phone] Breezy Marsh MD Coronary artery disease involving saxman coronary artery of saxman heart without angina pectoris (Primary Dx); Essential hypertension; Pure hypercholesterolemia; Bilateral carotid artery stenosis; History of mechanical aortic valve replacement 10/17/2024 Anticoagulation - Warfarin Visit [facility] [address] [facility] [address] [place] [phone] Breezy Marsh MD History of mechanical aortic valve replacement (Primary Dx) from Last 3 Months Surgical History Surgery Date Site/Laterality Comments OTHER SURGICAL HISTORY 08/01/2023 Left PROCEDURE: [place] OP[place] FEM ART EXPOS DLVR EVASC PROSTH UNI OTHER SURGICAL HISTORY 08/01/2023 PROCEDURE: [place] EVASC RPR DPLMNT ILIO-ILIAC NDGFT Medical History [...] AM EST Office Visit Vascular Surgery - [place] [address] [facility] [address] [place] [address] Dru Rueda MD [facility] [place] [address] Health Maintenance Due Date Last Done Comments Zoster Vaccines (1 of 2) 1984 Pneumococcal Vaccine: 50+ Years (2 of 2 - PCV) 06/22/2019 06/21/2018, 04/20/2018 Colorectal Cancer Screening: Colonoscopy 04/01/2022 HIV Screening 04/01/2022 Hepatitis C Screening 04/01/2022 Social Influencers of Health Screening 04/01/2022 RSV Immunization Adult Patients (1 - Risk 60-74 years 1-dose series) 2023 Depression Screening 04/23/2024 COVID-19 Vaccine ( season) 2024 09/17/2021, 04/13/2021, 09/10/2020, Additional history [...] Left BP= 144/84 Vertebral flow is antegrade. Silk Hanger Details A rick scale, color and doppler analysis ultrasound was performed. During the study longitudinal and transverse views were obtained. Pulsed wave doppler was performed. us Breezy Marsh MD CV VASCULAR PROCEDURES Final Result * Lipid panel with reflex to direct LDL (10/17/2024 12:08 PM EDT) Cholesterol 158 0 - 200 mg/dL LAB CHEMISTRY METHOD 10/17/2024 2:30 PM EDT [facility] Triglycerides 102 0 - 150 mg/dL LAB CHEMISTRY METHOD 10/17/2024 2:30 PM EDT [facility] HDL 47 >=40 mg/dL LAB CHEMISTRY METHOD 10/17/2024 2:30 PM EDT [facility] LDL Calculated 91 0 - 100 mg/dL LAB CHEMISTRY METHOD 10/17/2024 2:30 PM EDT [facility] VLDL Cholesterol Jairo 20.4 mg/dL LAB CHEMISTRY METHOD 10/17/2024 2:30 PM EDT [facility] Non HDL Chol. (LDL+VLDL) 111 <145 mg/dL LAB CHEMISTRY METHOD 10/17/2024 2:30 PM EDT [facility] Chol/HDL Ratio 3.4 0.0 - 4.4 LAB CHEMISTRY METHOD 10/17/2024 2:30 PM T [facility] Blood Venous blood specimen / Unknown Venipuncture / Unknown 10/17/2024 12:08 PM EDT 10/17/2024 12:30 PM EDT Breezy Marsh MD LAB BLOOD ORDERABLES F inal Result [facility] [address] [place] [address], * (ABNORMAL) Comprehensive metabolic panel (10/17/2024 12:08 PM EDT) Sodium 144 133 - 145 mmol/L LAB CHEMISTRY METHOD 10/17/2024 2:30 PM [facility] Potassium 3.9 3.5 - 5.5 mmol/L LAB CHEMISTRY METHOD 10/17/2024 2:30 PM [facility] Chloride 111(H) 96 - 110 mmol/L LAB CHEMISTRY METHOD 10/17/2024 2:30 PM [facility] CO2 29 21 - 32 mmol/L LAB CHEMISTRY METHOD 10/17/2024 2:30 PM [facility] Anion Gap 4 3 - 11 LAB CHEMISTRY METHOD 10/17/2024 2:30 PM [facility] Glucose 117(H) 70 - 100 mg/dL LAB CHEMISTRY METHOD 10/17/2024 2:30 PM [facility] BUN 15 5 - 25 mg/dL LAB CHEMISTRY METHOD 10/17/2024 2:30 PM [facility] Creatinine 0.76 0.70 - 1.30 mg/dL LAB CHEMISTRY METHOD 10/17/2024 2:30 PM [facility] eGFR 102 >=60 mL/min/1. 73m2 LAB CHEMISTRY METHOD 10/17/2024 2:30 PM EDT [facility] Comment:Calculation based on the Chronic Kidney Disease Epidemiology Collaboration (CKD-EPI) equation refit without adjustment for race. BUN/Creatinine Ratio 19.7 LAB CHEMISTRY METHOD 10/17/2024 2:30 PM EDT [facility] Calcium 9.0 8.5 - 10.5 mg/dL LAB CHEMISTRY METHOD 10/17/2024 2:30 PM EDT [facility] AST (SGOT) 27 10 - 42 unit/L LAB CHEMISTRY METHOD 10/17/2024 2:30 PM [facility] ALT (SGPT) 47 10 - 60 unit/L LAB CHEMISTRY METHOD 10/17/2024 2:30 PM EDT [facility] Alkaline Phosphatase 91 42 - 121 unit/L LAB CHEMISTRY METHOD 10/17/2024 2:30 PM EDT [facility] Total Protein 7.4 6.0 - 8.0 g/dL LAB CHEMISTRY METHOD 10/17/2024 2:30 PM EDT [facility] Albumin 3.9 3.2 - 5.0 g/dL LAB CHEMISTRY METHOD 10/17/2024 2:30 PM EDT [facility] Total Bilirubin 0.3 0.0 - 1.4 mg/dL LAB CHEMISTRY METHOD 10/17/2024 2:30 PM EDT [facility] Blood Venous blood specimen / Unknown Venipuncture / Unknown 10/17/2024 12:08 PM EDT 10/17/2024 12:30 PM EDT Breezy Marsh MD LAB BLOOD ORDERABLES F inal Result [facility] [address] [place] [address], from Last 3 Months Insurance [facility] [employer] Care Teams Postal Mail Carrier Relationship Specialty Start Date End Date Ayaz Sewell PA [facility] [place] [address] PCP - General Internal Medicine 02/07/21
--- NOTE | 2025-01-15 08:22 | MHC.AMDMED ---
Intake Intake Visit Reasons: 60 MIN Drum Sander Required: No Accompanied by: Self / Same As Patient Allergies atorvastatin Adverse Reaction (Unknown, Verified 01/14/25 09:42) Unknown HPI Comprehensive Diabetes Asmnt Most Recent Diabetes Results: Hemoglobin A1c 9.5 % 04/26/18 Microalb/Creat Ratio, (<30) 550.9 ug/mg cr H 04/29/24 Cholesterol, (<200) 204 mg/dL H 05/28/24 HDL Cholesterol, (>40) 44 mg/dL 05/28/24 Triglycerides, (<150) 113 mg/dL 05/28/24 Creatinine, (0.5-1.4) 0.73 mg/dL 12/19/24 BUN, (9-16) 12 mg/dL 12/19/24 Sodium, (135-145) 142 mmol/L 12/19/24 Potassium, (3.3-5.1) 3.4 mmol/L 12/19/24 Chloride, (96-108) 108 mmol/L 12/19/24 Carbon Dioxide, (22-29) 25 mmol/L 12/19/24 Calcium, (8.4-10.2) 9.0 mg/dL Δ 12/19/24 AST, (5-37) 30 U/L 12/19/24 ALT, (0-40) 46 U/L H 12/19/24 Total Protein, (6.5-8.0) 6.9 g/dL 12/19/24 Albumin, (3.5-5.0) 4.2 g/dL 12/19/24 [facility] Medical History Coagulopathy Arrhythmia BPH (benign prostatic hyperplasia) Chronic renal insufficiency CVA (cerebral vascular accident) History of COVID-19 Sleep apnea Asthma Diabetes High cholesterol HTN (hypertension) Surgical History H/O colonoscopy H/O tooth extraction Mechanical heart valve present Social History Housing: House Alcohol intake: never Patient Tobacco Use Status: Former Tobacco user Tobacco use type: Cigarette e-Cigarette/Vaping Use: Never Used Second Hand Smoke Exposure: Yes service: No Current occupational status: employed Cognitive needs: No Hearing needs: No Vision needs: Yes Assessment & Plan Assessment & Plan (1) Uncontrolled type 2 diabetes mellitus with hyperglycemia: Code(s): E11.65 - Type 2 diabetes mellitus with hyperglycemia Plan Personal Continuous Glucose Monitor: Patients CGM information reviewed, Patient's last A1c on 01/14/2025 7.2% Patient reports he forgot to take Trulicity 4.5 mg this week, and his son has moved back in with him and has been doing the cooking patient reports he has been indulging in macaroni and cheese and other high carb foods. Instructed patient if he takes Trulicity 4.5 mg today which is , he should not take next dose on Sunday which is his usual day. At last visit with Dr. Lindsey patient expressed interest in insulin pump therapy. After initial conversation regarding insulin pump therapy patient felt that it was too confusing in his not interested at this time Patient able to insert sensor independently at home without issue.? Portions of this note were created using voice recognition software, please excuse any words or phrases that may have been misinterpreted. Patient Instructions: Fiasp doses: Breakfast 8 units Lunch 10 unit Supper 10 units Take Trulicity every week Coding Level of Care Code Est Pt Level 1 (51551) Diagnoses Uncontrolled type 2 diabetes mellitus with hyperglycemia E11.65
== END 2025-01-15 08:32 | disposition home or self-care (01) ==
LOC: HO.ENCR 07:52
PROVIDERS: PCP Physician Assistant; Visit Provider Registered Nurse Diabetes Educator
DX: E11.65 Type 2 diabetes mellitus with hyperglycemia (principal)

== ENCOUNTER → 2025-01-15 07:51 | Outpatient (BNVA) | payer OTHER, SELFPAY | PROVIDERS: PCP Physician Assistant; Visit Provider Registered Nurse Diabetes Educator | DX: E11.65 Type 2 diabetes mellitus with hyperglycemia (principal) | CPT/HCPCS: 99211 ==

== ENCOUNTER 2025-01-28 09:21 | Outpatient (AMB) | payer OTHER, SELFPAY ==
[2025-01-28 09:27] VITALS: BP 136/72; PULSE 74; O2SAT 98; BMI 39.5
--- NOTE | 2025-01-28 09:27 | A.OFFVIS_ITS ---
Vital Signs 01/28/25 09:27 Height 5 ft 6 in Weight 244 lb 14.937 oz BMI 39.5 BP 136/72 Blood Pressure Location Lt brachial Position Sitting Pulse 74 Pulse Source Pulse Oximeter Pulse Oximetry (%) 98 Oxygen Delivery Method Room Air Intake Visit Reasons: T2DM Intake Note: Patient present today to follow up on Type 2 Diabetes Mellitus.? Last Diabetic Eye exam: 11/26/2024, [facility]. Last Podiatry Visit: Patient does not see a Wire Tinner Most Recent HgA1C: 7.2% 01/14/2025 Random Glucose:? ?256? mg/dL Accompanied by: Self / Same As Patient Allergies atorvastatin Adverse Reaction (Unknown, Verified 01/28/25 09:28) Unknown HPI Comments Details: 59 y/o male presenting for diabetes follow up Patient has a past medical history of CVA, aortic valve replacement,h/o aortic dissection, diabetes, obesity, coronary artery disease, iliac artery aneurysm, hypertension. Current medications: Basaglar 60 units nightly-increasing to 64 today fiasp three times daily increasing to 12 u TID metformin 1000mg BID Trulicity 4.5 mg Qwkly (increased from 3mg), Actos 30 mg QD jardiance 25mg daily A1C 01/14/25 7.2% from 7.5% from 8.2% Vishal, He has been eating poorly for the past 2 weeks-his son has been cooking high carb foods at home. He plans to start cooking again for himself. Glucose for the past two weeks has consequently been high Nabeel downloaded TGT 11%, high 89% 0% lows. GMI 9.8%. His eye appt is UTD Adopted On ARB/statin Micro/macrovascular complications: ED Diagnosed in 30s Had recent diabetic education. Was thinking about an omnipod pump but decided against it. Hypoglycemia: No ROS CONSTITUTIONAL: Denies weight loss, fever and chills. HEENT: Denies changes in vision and hearing. RESPIRATORY: Denies SOB and cough. CV: Denies palpitations and CP GI: Denies abdominal pain, nausea, vomiting and diarrhea. : Denies dysuria and urinary frequency. MSK: Denies new myalgia and joint pain. SKIN: Denies rash and pruritus. NEUROLOGICAL: new dysarthria PSYCHIATRIC: Denies recent changes in mood. PHYSICAL EXAM: GENERAL: Alert and oriented x 3. NAD EYES: EOMI. Anicteric. HENT: Moist mucous membranes. No scleral icterus. No cervical lymphadenopathy. LUNGS: Clear to auscultation bilaterally. CARDIOVASCULAR: Regular rate and rhythm. +murmur No JVD. ABDOMEN: Soft, non-tender +bs EXTREMITIES: No edema. Non-tender. SKIN: No rashes or lesions. Warm. NEUROLOGIC: No focal neurological deficits. CN II-XII grossly intact PSYCHIATRIC: Cooperative. Appropriate mood and affect [facility] Medical History Coagulopathy Arrhythmia BPH (benign prostatic hyperplasia) Chronic renal insufficiency CVA (cerebral vascular accident) History of COVID-19 Sleep apnea Asthma Diabetes High cholesterol HTN (hypertension) Surgical History H/O colonoscopy H/O tooth extraction Mechanical heart valve present Social History Housing: House Alcohol intake: never Patient Tobacco Use Status: Former Tobacco user Tobacco use type: Cigarette e-Cigarette/Vaping Use: Never Used Second Hand Smoke Exposure: Yes service: No Current occupational status: employed Cognitive needs: No Hearing needs: No Vision needs: Yes Physical Exam Vital Signs: Last Vital Signs Pulse 74 01/28/25 09:27 BP 136/72 01/28/25 09:27 Pulse Ox 98 01/28/25 09:27 Oxygen Delivery Method Room Air 01/28/25 09:27 BMI result Body Mass Index 39.5 Assessment & Plan Assessment & Plan (1) DMII (diabetes mellitus, type 2): Code(s): E11.9 - Type 2 diabetes mellitus without complications Category: Medical Qualifiers: Diabetes mellitus senior care insulin use: with termite control service representative use Diabetes mellitus complication status: with kidney complications Diabetes mellitus complication detail: with nephropathy Qualified Code(s): E11.21 - Type 2 diabetes mellitus with diabetic nephropathy; Z79.4 - shelter (current) use of insulin (2) Uncontrolled type 2 diabetes mellitus with hyperglycemia: Code(s): E11.65 - Type 2 diabetes mellitus with hyperglycemia Category: Medical Plan 59 year old for follow up DM was showing improved controlled until dietary changes for the worse over the past two weeks. He will stop having his son cook for him and return to cooking on his own. We will increase the fiasp to 12 units TID and increase the basaglar from 60 to 64 units He will treat any hypoglycemia by rules of 15s He can return in 3 months or sooner as needed. Medications: Changed From Fiasp FlexTouch U-100 Insulin 100 unit/mL (3 mL) (insulin aspart (niacinamide)) See Protocol 10 units before breakfast, 8 units before lunch, 10 units before dinner 45 mL 3RF NS E11.9 - Type 2 diabetes mellitus without complications, Z79.4 - long term care phlebotomist (current) use of insulin To Fiasp FlexTouch U-100 Insulin 100 unit/mL (3 mL) (insulin aspart (niacinamide)) 12 units See Protocol subcut TID 45 mL 3RF NS E11.9 - Type 2 diabetes mellitus without complications, Z79.4 - shelter (current) use of insulin From insulin glargine-yfgn 60 units (0.6 mL) subcut BEDTIME 45 mL 3RF To insulin glargine-yfgn 64 units (0.64 mL) subcut BEDTIME 57.6 mL 3RF 90 days Refilled ferrous sulfate 325 mg PO BID 180 tabs 2RF 90 days D50.9 - Iron deficiency anemia, unspecified Coding Level of Care Code Est Pt Level 4 (73742) Diagnoses Type 2 diabetes mellitus with diabetic nephropathy, with long-term current use of insulin E11.21; Z79.4 Diabetes mellitus termite control service representative insulin use: with senior care use Diabetes mellitus complication status: with kidney complications Diabetes mellitus complication detail: with nephropathy Uncontrolled type 2 diabetes mellitus with hyperglycemia E11.65
[2025-01-28 09:40] LABS: Glucose, Whole Blood 256 mg/dL (60-115)
== END 2025-01-28 10:07 | disposition home or self-care (01) ==
LOC: HO.ENCR 09:22
PROVIDERS: PCP Physician Assistant; Visit Provider Internal Medicine
DX: E11.21 Type 2 diabetes mellitus with diabetic nephropathy (principal); Z79.4 Long term (current) use of insulin; E11.65 Type 2 diabetes mellitus with hyperglycemia

== ENCOUNTER → 2025-01-28 09:21 | Outpatient (BNVA) | payer OTHER, SELFPAY | PROVIDERS: PCP Physician Assistant; Visit Provider Internal Medicine | DX: E11.21 Type 2 diabetes mellitus with diabetic nephropathy (principal); Z79.4 Long term (current) use of insulin; E11.65 Type 2 diabetes mellitus with hyperglycemia | CPT/HCPCS: 82947; 99212 ==

== ENCOUNTER 2025-02-23 09:48 | Outpatient (AMB) | payer OTHER, SELFPAY ==
--- NOTE | 2025-02-23 09:56 | MHC.OFFVIS ---
Intake Visit Reasons: Inj-Left shoulder OA last 11/17/24 Intake Note: Alejandro is a 59 year old male who presents today for a repeat injection in the left shoulder, last injection was done on 11/17/24. Patient reports that after the last injection he had significant bruising down the arm. He states ever since the injection my arm hasn't been right. His pain in the shoulder has increased, denies radiation down the arm, denies numbness and tingling in the hand. He would like to repeat injection today. Allergies atorvastatin Adverse Reaction (Unknown, Verified 01/28/25 09:28) Unknown HPI HPI Inj-Left shoulder OA last 11/17/24: Details: Alejandro is a 59 year old male who presents today for a repeat injection in the left shoulder, last injection was done on 11/17/24. Patient reports that after the last injection he had significant bruising down the arm. He states the injection was not helpful at all. His pain in the shoulder has increased, denies radiation down the arm, denies numbness and tingling in the hand. He has a history of mitral valve replacement multiple strokes and is a diabetic and and Coumadin [facility] Medical History Coagulopathy Arrhythmia BPH (benign prostatic hyperplasia) Chronic renal insufficiency CVA (cerebral vascular accident) History of COVID-19 Sleep apnea Asthma Diabetes High cholesterol HTN (hypertension) Surgical History H/O colonoscopy H/O tooth extraction Mechanical heart valve present Social History Housing: House Alcohol intake: never Patient Tobacco Use Status: Former Tobacco user Tobacco use type: Cigarette e-Cigarette/Vaping Use: Never Used Second Hand Smoke Exposure: Yes service: No Current occupational status: employed Cognitive needs: No Hearing needs: No Vision needs: Yes Physical Exam Extrem Other: scapular recruitment required for left shoulder abduction but able to do so comfortably 4-/5 EC ER to 45 + lift off Assessment & Plan Assessment & Plan (1) Rotator cuff arthropathy of left shoulder: Code(s): M12.812 - Other specific arthropathies, not elsewhere classified, left shoulder Category: Medical Plan: This is a 59-year-old gentleman with rotator cuff arthropathy. Steroid injection was not helpful and in fact cause some bleeding at last visit and do not see any reason to repeat the especially given his diabetes. He asked about surgery. He is not a good surgical candidate. He has mitral valve replacement and he is multiple strokes. I suppose if he were to lose weight and optimize is fitness he may be a low risk candidate but until then I do not think he is a candidate for surgery. I discussed this with him. He agrees. He will see me back as needed. Coding Level of Care Code Est Pt Level 4 (84232) Diagnoses Rotator cuff arthropathy of left shoulder M12.812
--- OUTSIDE RECORDS SUMMARY | 2025-02-23 11:22 | XMS_ITS | Patient Health Record ---
Author Organization [facility] Address [address] [place] [phone] Care Team Providers Care Cognos Bi Administrator Name Role Phone Bryson (RETIRED) Jovanny DEAL Primary Care Provide r Unavailable Jg Schaffer Unavailable [phone] Reason For Referral No Information Medications Medication SIG (Take, Route, Frequency, Duration) Notes Start Date End Date Status Valsartan-hydroCHLOROthiaz mikel 160-12.5 MG TAKE 1 TABLET EVERY DAY Oral; Duration: 90 Active Bydureon 2 MG Subcutaneous Act [...] 1 kit as directed Oral ly as directed; Duration: 1 dose 10/18/2014 Activ e Lisinopril-hydroCHLOROthia zide 20-12.5 MG 1 tablet Orally [...] Status Risk Notes Problem Colon cancer screening (197115763) Colon cancer screening (V76.51) Active confirmed Problem Long-term current use of insulin ([id number]) Long-term insulin use (V58.67) Active confirmed Plan Of Treatment Future Test Test Name Order Date COLONOSCOPY 10/13/2014 Insurance Providers Payer Name Payer Address Payer Phone Subscriber Number Group Number Insured Name Patient Relationship to Insured Coverage Start Date Coverage End Date [facility] [address] [place], [place] [id number] EDIE BAILEY Self - patient is the insured Medical (General) History Medical History History ICD Code IDDM hypertension Asthma Denies [place],CVA,renal disease Sleep apnea--uses a Bipap Surgical History Surgery Date(Month/Year) knee surgery
--- OUTSIDE RECORDS SUMMARY | 2025-02-23 11:23 | XMS_ITS | Encounter Summary ---
Author Organization [facility] Address [id number] [place] [phone] Care Team Providers Care [employer] [place] Supervisor Name Role Phone Ayaz Sewell DANAY Primary Care Provider [phone] Encounter Details Date Type Department Care Team (Latest Contact Info) Description 02/20/2025 Anticoagulation - Warfarin Visit [facility] Dr [address] [facility] Dr [address] [place] [phone] Breezy Marsh MD [address] [place] [address] Dr [address] [place] [phone] History of mechanical aortic valve replacement [...] Progress Notes * Luca Caballero MA - 02/20/2025 2:09 PM EDT Left voice message with instructions documented in this encounter Plan of Treatment Upcoming Encounters Date Type Department Care Team (Late st Contact Info) Description 02/24/2025 2:30 PM EST Consult [facility] Dr [address]etz [facility] Dr Shahid [address] [place] [phone] Breezy Marsh MD [address] [place] [address] Dr [address] [place] [phone] 05/15/2025 10:30 AM EST Office Visit [facility] - [place] [address] [place] [phone] Dru Rueda MD [address] [place] [phone] documented as of this encounter Procedures Procedure Name Priority Date/Time Associated Diagnosis Comments PROTHROMBIN TIME WITH INR Routine 02/20/2025 documented in this encounter Results * Prothrombin time with INR (02/20/2025) INR 3.3 Prothrombin Time POC Blood Venous blood specimen / Unknown 02/20/2025 us Historical Provider LAB BLOOD ORDERABLES Lynda l Result documented in this encounter Visit Diagnoses Diagnosis History of mechanical aortic valve replacement- Primary documented in this encounter Care Teams [employer] [place] Supervisor Relationship Specialty Start Date End Date Ayaz Sewell PA [address] [place] [phone] PCP - General Internal Medicine 02/07/21 documented as of this encounter
--- OUTSIDE RECORDS SUMMARY | 2025-02-23 11:23 | XMS_ITS | Clinical Summary ---
Author Organization [address] [place] [address] [place] [phone] Phone Care Team Providers Care Architectural Designer Name Role Phone Ayaz Sewell Primary Care Provider [phone] Allergies Active Allergy Reactions Criticality Noted Date [...] that he was at the [facility] emergency room approximately 1 month ago [...] states that he saw his neurologist at [facility] this past week and that further brain imaging was ordered. At this point, I will order an echocardiogram to reevaluate the patient's mechanical aortic valve. Also, I will attempt to obtain the records from the [facility] visit as well as the records from the patient's neurologist. Depending on that, then we will decide if we need to change the patient's target INR and whether we need to do any further cardiac imaging besides a transthoracic echocardiogram. Orders: Transthoracic echocardiogram (TTE) complete with PRN contrast, bubble, strain, and 3D order panel; Future Coagulopathy ([facility] V24) 05/23/2023 Coronary artery disease invo lving [place] coronary artery of [place] heart without angina pectoris 05/04/2022 Overview [...] duplex carotid bilateral; Future Iliac artery aneurysm ([facility] V24) 05/04/2022 Overview (02/06/2024): Last Assessment & Plan: The patient has a history of an iliac artery aneurysm. He will continue to follow with the [facility] vascular surgery service. Cerebrovascular accident (CVA) ([facility] V24, [facility] V28) 08/02/2020 Overview (02/06/2024): Last Assessment & [...] with aspirin. He underwent a 30-day ambulatory laboratory monitor to rule out atrial fibrillation. This showed predominantly sinus rhythm with brief atrial runs and occasional PACs. No sustained arrhythmias were noted. He will continue to follow with the neurology team at [facility]. Essential hypertension 08/02/2020 Overview (02/06/2024): Last [...] Encounters Date Type Department Care Team Description 02/20/2025 Anticoagulation - Warfarin Visit [facility] [address] [place] [phone] Breezy Marsh MD History of mechanical aortic valve replacement (Primary Dx) 02/13/2025 Anticoagulation - Warfarin Visit [facility] [address] [place] [phone] Breezy Marsh MD History of mechanical aortic valve replacement (Primary Dx) 02/06/2025 Anticoagulation - Warfarin Visit [facility] [address] [place] [address] Breezy Marsh MD History of mechanical aortic valve replacement (Primary Dx) 01/30/2025 Anticoagulation - Warfarin Visit [facility] [address] [place] [address] Breezy Marsh MD History of mechanical aortic valve replacement (Primary Dx) 01/23/2025 Anticoagulation - Warfarin Visit [facility] [address] [place] [address] Breezy Marsh MD History of mechanical aortic valve replacement (Primary Dx) 01/16/2025 Anticoagulation - Warfarin Visit [facility] [address] [place] [address] Breezy Marsh MD History of mechanical aortic valve replacement (Primary Dx) 01/14/2025 Telephone [facility] [address] [place] [phone] Breezy Marsh MD 01/09/2025 Anticoagulation - Warfarin Visit [facility] [address] [place] [address] Breezy Marsh MD History of mechanical aortic valve replacement (Primary Dx) 01/02/2025 Anticoagulation - Warfarin Visit [facility] [address] [place] [address] Breezy Marsh MD History of mechanical aortic valve replacement (Primary Dx) 12/26/2024 Anticoagulation - Warfarin Visit [facility] [address] [place] [address] Breezy Marhs MD History of mechanical aortic valve replacement (Primary Dx) 12/19/2024 Anticoagulation - Warfarin Visit [facility] [address] [place] [address] Breezy Marsh MD History of mechanical aortic valve replacement (Primary Dx) 12/11/2024 Telephone [facility] [address] [place] [address] Breezy Marsh MD 12/01/2024 12:45 PM EDT Ancillary Procedure [facility] - [address] [place] [phone] Bilateral carotid artery stenosis 11/28/2024 Anticoagulation - Warfarin Visit [facility] [address] [place] [address] Breezy Marsh MD History of mechanical aortic valve replacement (Primary Dx) from Last 3 Months Surgical History Surgery Date Site/Laterality Comments OTHER SURGICAL HISTORY 08/01/2023 Left PROCEDURE: MT OPN FEM ART EXPOS DLVR EVASC PROSTH UNI OTHER SURGICAL HISTORY 08/01/2023 PROCEDURE: MT EVASC RPR DPLMNT ILIO-ILIAC NDGFT Medical History [...] Info) Description 02/24/2025 2:[address] [facility] [address] [place] [address] [address] [place] [address] Breezy Marsh MD [address] [place] [address] [address] [place] [phone] 05/15/2025 10:30 AM EST Office Visit [facility] [place] [address] [place] [address] Dru Rueda MD [address] [place] [phone] Health Maintenance Due Date Last Done Comments Colorectal Cancer Screening: Colonoscopy 1963 Zoster Vaccines (1 of 2) 1982 RSV Immunization Adult Patients (1 - Risk 50-74 years 1-dose series) 2013 Pneumococcal Vaccine: 50+ Years (2 of 2 - PCV) 06/22/2019 06/21/2018, 04/20/2018 HIV Screening 04/01/2022 Hepatitis C Screening 04/01/2022 Social Influencers of Health Screening 04/01/2022 Depression Screening 04/23/2024 COVID-19 Vaccine ( season) [...] Comments PROTHROMBIN TIME WITH INR Routine 02/20/2025 PROTHROMBIN TIME WITH INR Routine 02/13/2025 PROTHROMBIN TIME WITH INR Routine 02/06/2025 PROTHROMBIN TIME WITH INR Routine 01/30/2025 PROTHROMBIN TIME WITH INR Routine 01/23/2025 PROTHROMBIN TIME WITH INR Routine 01/16/2025 PROTHROMBIN TIME WITH INR Routine 01/09/2025 PROTHROMBIN TIME WITH INR Routine 01/02/2025 PROTHROMBIN TIME WITH INR Routine 12/26/2024 PROTHROMBIN TIME WITH INR Routine 12/19/2024 VAS US DUPLEX CAROTID BILATERAL Routine 12/01/2024 12:42 PM EDT Bilateral carotid artery stenosis PROTHROMBIN TIME WITH INR Routine 11/28/2024 COMPREHENSIVE METABOLIC PANEL Routine 10/17/2024 12:08 PM EDT Pure hypercholesterolemia LIPID PANEL WITH REFLEX TO DIRECT LDL Routine 10/17/2024 12:08 PM EDT Pure hypercholesterolemia from Last 3 Months or Most Recently Relevant to Health Maintenance Results * Prothrombin time with INR (02/20/2025) Only the most recent of11 resultswithin the time period is included. INR 3.3 Prothrombin Time POC Blood Venous blood specimen / Unknown 02/20/2025 us Historical Provider MD LAB BLOOD ORDERABLES [...] Left BP= 144/84 Vertebral flow is antegrade. [facility] Details A rick scale, color and doppler analysis ultrasound was performed. During the study longitudinal and transverse views were obtained. Pulsed wave doppler was performed. us Breezy Marsh MD CV VASCULAR PROCEDURES Final Result * Lipid panel with reflex to direct LDL (10/17/2024 12:08 PM EDT) Cholesterol 158 0 - 200 mg/dL LAB CHEMISTRY METHOD 10/17/2024 2:30 PM [facility] Triglycerides 102 0 - 150 mg/dL LAB CHEMISTRY METHOD 10/17/2024 2:30 PM [facility] HDL 47 >=40 mg/dL LAB CHEMISTRY METHOD 10/17/2024 2:30 PM [facility] LDL Calculated 91 0 - 100 mg/dL LAB CHEMISTRY METHOD 10/17/2024 2:30 PM [facility] VLDL Cholesterol Jairo 20.4 mg/dL LAB CHEMISTRY METHOD 10/17/2024 2:30 PM [facility] Non HDL Chol. (LDL+VLDL) 111 <145 mg/dL LAB CHEMISTRY METHOD 10/17/2024 2:30 PM [facility] Chol/HDL Ratio 3.4 0.0 - 4.4 LAB CHEMISTRY METHOD 10/17/2024 2:30 PM [facility] Blood Venous blood specimen / Unknown Venipuncture / Unknown 10/17/2024 12:08 PM EDT 10/17/2024 12:30 PM EDT us Breezy Marsh MD LAB BLOOD ORDERABLES F inal Result [facility] [address] [place] [address], [place] [phone] * (ABNORMAL) Comprehensive metabolic panel (10/17/2024 12:08 PM EDT) Pathologist [facility] Sodium 144 133 - 145 mmol/L LAB CHEMISTRY METHOD 10/17/2024 2:30 PM EDT [facility] Potassium 3.9 3.5 - 5.5 mmol/L LAB CHEMISTRY METHOD 10/17/2024 2:30 PM [facility] Chloride 111(H) 96 - 110 mmol/L LAB CHEMISTRY METHOD 10/17/2024 2:30 PM T [facility] CO2 29 21 - 32 mmol/L LAB CHEMISTRY METHOD 10/17[facility]2024 2:[facility] Anion Gap 4 3 - 11 LAB CHEMISTRY METHOD 10/17/2024 2:30 PM [facility] Glucose 117(H) 70 - 100 mg/dL LAB CHEMISTRY METHOD 10/17/2024 2:30 PM [facility] BUN 15 5 - 25 mg/dL LAB CHEMISTRY METHOD 10/17/2024 2:30 PM [facility] Creatinine 0.76 0.70 - 1.30 mg/dL LAB CHEMISTRY METHOD 10/17/2024 2:30 PM [facility] eGFR 102 >=60 mL/min/1. 73m2 LAB CHEMISTRY METHOD 10/17/2024 2:30 PM [facility] Comment:Calculation based on the Chronic Kidney Disease Epidemiology Collaboration (CKD-EPI) equation refit without adjustment for race. BUN/Creatinine Ratio 19.7 LAB CHEMISTRY METHOD 10/17/2024 2:30 PM [facility] Calcium 9.0 8.5 - 10.5 mg/dL LAB CHEMISTRY METHOD 10/17/2024 2:30 PM EDT [facility] AST (SGOT) 27 10 - 42 unit/L LAB CHEMISTRY METHOD 10/17/2024 2:30 PM EDT [facility] ALT (SGPT) 47 10 - 60 unit/L LAB CHEMISTRY METHOD 10/17/2024 2:30 PM EDT [facility] Alkaline Phosphatase 91 42 - 121 unit/L LAB CHEMISTRY METHOD 10/17/2024 2:30 PM EDT [facility] Total Protein 7.4 6.0 - 8.0 g/dL LAB CHEMISTRY METHOD 10/17/2024 2:30 PM EDT [facility] Albumin 3.9 3.2 - 5.0 g/dL LAB CHEMISTRY METHOD 10/17/2024 2:30 PM EDT [facility] Total Bilirubin 0.3 0.0 - 1.4 mg/dL LAB CHEMISTRY METHOD 10/17/2024 2:30 PM EDT [facility] Blood Venous blood specimen / Unknown Venipuncture / Unknown 10/17/2024 12:08 PM EDT 10/17/2024 12:30 PM EDT Breezy Marsh MD LAB BLOOD ORDERABLES F inal Result [facility] [address] [place] [address], from Last 3 Months or Most Recently Relevant to Health Maintenance Insurance [facility] Care Teams Architectural Designer Relationship Specialty Start Date End Date Ayaz Sewell PA [address] [place] [phone] PCP - General Internal Medicine 02/07/21
== END 2025-02-23 10:34 | disposition home or self-care (01) ==
LOC: HO.HOS 09:49
PROVIDERS: PCP Physician Assistant; Visit Provider Orthopaedic Surgery
DX: M12.812 Other specific arthropathies, not elsewhere classified, left shoulder (principal)
CPT/HCPCS: 99214

== ENCOUNTER → 2025-02-23 09:48 | Outpatient (BNVA) | payer OTHER, SELFPAY | PROVIDERS: PCP Physician Assistant; Visit Provider Orthopaedic Surgery | DX: M12.812 Other specific arthropathies, not elsewhere classified, left shoulder (principal) | CPT/HCPCS: 99212 ==